=== PATIENT | female | born 1990 | race Caucasian/White ===

== ENCOUNTER → 2019-02-19 15:17 | Outpatient (CLI) | payer MEDICAID, SELFPAY ==
[2019-02-19 10:56] VITALS: BMI 45.8
[2019-02-24 11:53] LABS: HPV Reflexed? NOT INDICATED
== END ==
PROVIDERS: Referring Provider Obstetrics & Gynecology; Visit Provider Obstetrics & Gynecology
DX: Z12.4 Encounter for screening for malignant neoplasm of cervix (principal)
CPT/HCPCS: 87624; 88175; G0145

== ENCOUNTER → 2019-08-05 17:44 | Outpatient (CLI) | payer MEDICAID, SELFPAY ==
[2019-08-05 14:24] VITALS: BMI 45.8
[2019-08-05 21:35] LABS: Chlamydia Trachomatis by PCR Negative (Negative); Neisserai gonorrhoeae by PCR Negative (Negative); Probe Check PASS; Sample Adequacy Control PASS; Specimen Processing Control PASS
== END ==
PROVIDERS: Visit Provider Nurse Practitioner Women's Health
DX: N39.0 Urinary tract infection, site not specified (principal); R10.2 Pelvic and perineal pain; N76.0 Acute vaginitis; A64 Unspecified sexually transmitted disease
CPT/HCPCS: 87070; 87086; 87088; 87205; 87491; 87591

== ENCOUNTER → 2019-08-18 14:36 | Outpatient (CLI) | payer MEDICAID, SELFPAY ==
[2019-08-05 14:24] VITALS: BMI 45.8
--- NOTE | 2019-08-18 14:38 | US_ITS ---
STUDY: ULTRASOUND OF THE FEMALE PELVIS - COMPLETE REASON FOR EXAM: Female, 29 years old. Pelvic pain TECHNIQUE: Transabdominal and Transvaginal TECHNICAL QUALITY: Adequate. COMPARISON: None. FINDINGS: The uterus is anteverted and is in a midline position. The uterus measures 7.8 x 5.5 x 4.4 cm. Normal uterine cervix. The endometrium measures 3 mm in thickness, and is hyperechoic. There is no demonstrated endometrial mass. There is no demonstrated myometrial mass. The right ovary is visualized. The right ovary measures 3.7 x 2.8 x 2.5 cm. There is a 2.5 x 2.4 cm simple cyst in the right ovary. There is no visualized right adnexal mass or complex lesion. There is normal arterial and normal venous vascularity. The left ovary is visualized. The left ovary measures 2.7 x 2.1 x 1.7 cm. There is no left ovarian cyst or ovarian mass. There is no visualized left adnexal mass or complex lesion. There is normal arterial and normal venous vascularity. There is no fluid in the cul-de-sac. US/Transvaginal Non- IMPRESSION: 2.5 cm simple cyst in the right ovary. Otherwise, unremarkable pelvic ultrasound. Electronically Signed: Reece Bustillo, at 21:14 EDT Tel , Service support ,
--- NOTE | 2019-08-18 14:38 | US_ITS ---
STUDY: ULTRASOUND OF THE FEMALE PELVIS - COMPLETE REASON FOR EXAM: Female, 29 years old. Pelvic pain TECHNIQUE: Transabdominal and Transvaginal TECHNICAL QUALITY: Adequate. COMPARISON: None. FINDINGS: The uterus is anteverted and is in a midline position. The uterus measures 7.8 x 5.5 x 4.4 cm. Normal uterine cervix. The endometrium measures 3 mm in thickness, and is hyperechoic. There is no demonstrated endometrial mass. There is no demonstrated myometrial mass. The right ovary is visualized. The right ovary measures 3.7 x 2.8 x 2.5 cm. There is a 2.5 x 2.4 cm simple cyst in the right ovary. There is no visualized right adnexal mass or complex lesion. There is normal arterial and normal venous vascularity. The left ovary is visualized. The left ovary measures 2.7 x 2.1 x 1.7 cm. There is no left ovarian cyst or ovarian mass. There is no visualized left adnexal mass or complex lesion. There is normal arterial and normal venous vascularity. There is no fluid in the cul-de-sac. US/Pelvic (Non ) IMPRESSION: 2.5 cm simple cyst in the right ovary. Otherwise, unremarkable pelvic ultrasound. Electronically Signed: Reece Bustillo, at 21:14 EDT Tel , Service support ,
== END ==
PROVIDERS: Family Provider Family Medicine; PCP Family Medicine; Referring Provider Nurse Practitioner Women's Health; Visit Provider Nurse Practitioner Women's Health
DX: R10.2 Pelvic and perineal pain (principal)
CPT/HCPCS: 76830; 76856; 93976

== ENCOUNTER 2019-09-19 13:13 | Emergency (ER) | payer MEDICAID, SELFPAY ==
[2019-08-05 14:24] VITALS: BMI 45.8
[2019-09-19 13:15] VITALS: BP 122/72; PULSE 93; RESP 18; TEMP 36.6; O2SAT 99; BMI 42.3
--- NOTE | 2019-09-19 13:35 | MRI_ITS ---
STUDY: MRI LUMBAR SPINE WITHOUT CONTRAST REASON FOR EXAM: Female, 29 years old. LBPx 2 months, new onset last night of numbness in groin and left leg TECHNIQUE: Standardized fat and water weighted pulse sequences were obtained in the sagittal and axial planes. COMPARISON: None FINDINGS: T12-L1: Normal endplates. Normal disc height, hydration and morphology. Normal bilateral facet joints. Normal central canal and bilateral lateral recesses. Normal bilateral intervertebral neural foramina. Normal lumbar lordosis. There is no substantial scoliosis. Normal conus medullaris that terminates at the L1-2 level. L1-2: Normal endplates. Normal disc height, hydration and morphology. Normal bilateral facet joints. Normal central canal and bilateral lateral recesses. Normal bilateral intervertebral neural foramina. L2-3: Normal endplates. Normal disc height, hydration and morphology. Normal bilateral facet joints. Normal central canal and bilateral lateral recesses. Normal bilateral intervertebral neural foramina. L3-4: Central disc protrusion and bilateral facet hypertrophy with mild central canal stenosis. L4-5: A central and left paracentral caudally migrating disc extrusion is noted measuring 14 mm craniocaudal by 12 mm wide, with severe left lateral recess stenosis and mass effect on the transiting left L5 nerve root. L5-S1: Bulging annulus and bilateral facet hypertrophy without compressive sequelae. Normal visualized sacral ala. Normal visualized paraspinous soft tissue structures. MRI/Spine Lumbar (Routine) IMPRESSION: Multilevel degenerative disease as described. Caudally migrating disc extrusion at the L4-5 level with mass effect on the transiting left L5 nerve root. Electronically Signed: Harley Cam MD at 19:48 EDT Tel , Service support ,
--- NOTE | 2019-09-19 13:40 | ED.VISSUMM ---
- ER Visit Summary Date of Service: 09/19/19 Chief Complaint: Low back pain with numbness to her left leg History of Present Illness: The patient is a 29 F with degenerative disc disease at L4-5. Is never had back surgery. Patient states she is had intermittent back pain since June. They have treated her with steroids and NSAIDs without significant relief. She is currently undergoing physical therapy and had a second treatment for physical therapy today. She is now developed left leg numbness since yesterday. And pain rating down her left leg. She denies any bowel or bladder incontinence or retention. She is able to urinate. She denies any fever or history of IV drug abuse. Is had no recent trauma to her back. She denies any abdominal pain. She was sent over by the [facility] for further evaluation. Physical Examination: Young female. Vital signs are stable afebrile. She is in pain but otherwise no acute distress. Significant other at bedside. HEENT exam unremarkable. Neck nontender no lymphadenopathy. Lungs clear to auscultation bilaterally. Heart regular rhythm no murmur. Abdomen soft and nontender. Normal bowel sounds no peritoneal signs. Patient moving all 4 extremities. Neurovascularly intact. Back spine is nontender. There is no ecchymosis or bruising no redness or warmth. No paraspinal soft tissue tenderness or signs of trauma. Neurologically she is awake and alert with no focal motor deficits. Lower extremities are neurovascular intact. Subjectively she has decreased sensation in her left leg which she has objective sensation. There is no cauda equina. No saddle anesthesia. She has normal medial thigh sensation. Dorsi and plantar flexion are intact to both legs. She has a positive straight leg raise on the left side somewhere between 15 and 30 degrees with pain going down her leg. Right leg causes increased back pain but no radiation of the pain. Test Results: MRI LS spine without contrast Emergency Department Course and Treatment: Due to the patient's pain, length of time she had the symptoms and now numbness and radiculopathy I ordered an MRI of her LS spine. She was also treated with IV morphine and Zofran and Toradol. Repeat exam patient is doing well at 15:10 PM. No significant changes in some pain relief. She is to get an LS spine MRI but they cannot fit her until 6:30 PM the night she will be turned over to 1 of the afternoon physician. Treatment Plan: [] Disposition: Pending reevaluation and MRI results. Impression: Acute low back pain with left lower extremity radiculopathy and subjective numbness History of degenerative disc disease This note was generated with [employer] dictation software. It may contain incorrect words, spelling, and punctuation that were not noted in review of the chart prior to signing ED Disposition - Plan for ED Patient: Referrals: Harley Brito MD [Primary Care Provider] -
[2019-09-19] MEDS: morphine 8 MG/ML Syringe IV (13:50)
[2019-09-19] MEDS: Ondansetron 4 MG/2 ML Vial IV (13:51)
[2019-09-19 13:52] VITALS: RESP 18
[2019-09-19] MEDS: Ketorolac 30 MG/ML Syringe IV (14:00)
--- NOTE | 2019-09-19 15:40 | ED.DEP ---
ED Disposition - Plan for ED Patient: Disposition: Home or Assisted Living Instructions: BACK PAIN (Acute or Chronic) Referrals: Harley Brito MD [Primary Care Provider] - As soon as possible
[2019-09-19 17:51] VITALS: RESP 18
[2019-09-19 19:33] VITALS: BP 118/63; PULSE 76; RESP 16; O2SAT 98
[2019-09-19] MEDS: Morphine 4 MG/ML Syringe IV (19:34)
--- NOTE | 2019-09-19 20:03 | ED.VISSUMM ---
- ER Visit Summary Date of Service: 09/19/19 Chief Complaint: [] History of Present Illness: The patient is a 29 F [] Physical Examination: [] Test Results: [] Emergency Department Course and Treatment: Clinical Impression(s) from Imaging Studies Lumbar Spine MRI 09/19/19 13:35 IMPRESSION: Multilevel degenerative disease as described. Caudally migrating disc extrusion at the L4-5 level with mass effect on the transiting left L5 nerve root. Electronically Signed: Harley Cam MD at 19:48 EDT Tel , Service support , Treatment Plan: The patient was signed out to me. MRI was reviewed. She does have lateral impingement at the L5 nerve root. She has no weakness and normal reflexes. The patient will be treated with antispasmodics and anti-inflammatories. She was counseled to follow-up with a primary care she may end up needing a spine surgery evaluation. She is comfortable with this plan of care. Disposition: [] Impression: [] This note was generated with [employer] dictation software. It may contain incorrect words, spelling, and punctuation that were not noted in review of the chart prior to signing ED Disposition - Plan for ED Patient: Disposition: Home or Assisted Living Instructions: BACK PAIN (Acute or Chronic) Prescriptions: cycloBENZAPRine HCl [Flexeril] 10 mg PO TID PRN #20 tab PRN Reason: Muscle Spasm Prescription Printed Meloxicam [Mobic] 15 mg PO DAILY #30 tab Prescription Printed Hydrocodone Bitart/Apap 5-325 [[place] 5MG-325MG] 1 tab PO Q6H PRN PRN 3 Days #10 tab PRN Reason: Pain Prescription Printed Referrals: Harley Brito MD [Primary Care Provider] - As soon as possible
[2019-09-19 20:20] VITALS: BP 114/61; PULSE 70; RESP 14; O2SAT 99
== END 2019-09-19 20:21 | disposition home or self-care (01) ==
PROVIDERS: Emergency Provider Emergency Medicine; Family Provider Family Medicine; PCP Family Medicine
DX: M51.16 Intervertebral disc disorders with radiculopathy, lumbar region (principal); K21.9 Gastro-esophageal reflux disease without esophagitis; F32.9 Major depressive disorder, single episode, unspecified; Z79.899 Other long term (current) drug therapy; Z72.0 Tobacco use
CPT/HCPCS: 72148; 96374; 96375; 96376; 99283; J7030; A4216; J2405

== ENCOUNTER 2019-12-05 08:59 | Outpatient (RCR) | payer MEDICAID, SELFPAY ==
--- NOTE | 2019-12-05 10:29 | HP.PTEVAL ---
Patient's Visit Information ARSH FIELD is a 29 year old F referred to Physical Therapy by Harley Brito MD with a diagnosis of L/S RADICULOPATHY L5,SPINAL STENSOSIS. Date of Evaluation: 12/05/19 Physical Therapist: Luis Antonio Guadalupe, PT, Cert MDT, OCS - Visit Plan Frequency: 1-2x /Week Duration: 4 Weeks Plan: PRECAUTION : LATEX ALERGY. PT INTERVENTIONS WITH DLS -NEUTRAL,POSTURAL EX'S,LE FLEXABLITY ,MODALTIES - Subjective Findings: This 29 y/o female presnets to physical therapy lumbar sacral radiculopathy. Patient has had lumbar radicular in June then progressivelly worse in leg. Intially,see chiropractor symptoms worse with manipulation. Then tried different chiropractor estim. Patient had couple sessions with PT pain to intense thus had MRI showing extrusion L4-5. Seen pain management did epidural injection improving,prior provide predisone which helped symptoms.Pain located in left L-S and parathesia lateral tibia. Patient stated weakness left ankle feels like it will give way. Aggravting factors bending ,lifting, ,sitting. Alleviating factors better with moving but extended walking increase symptoms. Coughing/sneezing -. Bowel/bladder-. Patient pain with lumbar radiculopathy affects job demands housework tasks. Patient has h/o lumbar pain 10 years. Patient symptoms affects QOL.PRECAUTION: LATEX ALERGY. SOCIAL: single. 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 GAIT: reciprocal pattern. NEURO:c/o parathesia/tingling left lateral leg ,reflexes L3-4,L5-S1 2/3,mytomes intact. SYMMTRIES: align. PALAPTION: unremarkable. GAIT: reciprocal pattern. MMT: quads/hams 4/5,hip flexion ,abduction,dorsiflexion ,GTE 4/5. LUMBAR ROM: flexion mod loss,extension min/mod loss,side glides min loss. FLEXABLITY: hams min loss. INTACT HEEL/TOE WALKING. MUSCULAR ENDURANCE: FAIR unable to hold - Special Tests L/S Slump test left side: Positive L/S Slump test right side: Negative L/S Left Straight Leg Raise: Negative L/S Right Straight Leg Raise: Negative Lumbar Standing: Flexion - Mechanical Response: No effect Lumbar Standing: Flexion - Symptoms During Testing: Increases Lumbar Standing: Flexion - Symptoms After Testing: Worse Lumbar Standing: Extension - Mechanical Response: No effect Lumbar Standing: Extension - Symptoms During Testing: Increases Lumbar Standing: Extension - Symptoms After Testing: Worse Lumbar Standing: Right Side Glides - Mechanical Response: No effect Lumbar Standing: Right Side [place] - Symptoms During Testing: No effect Lumbar Standing: Right Side [place] - Symptoms After Testing: No effect Lumbar Standing: Left Side [place] - Mechanical Response: No effect Lumbar Standing: Left Side [place] - Symptoms During Testing: No effect Lumbar Standing: Left Side [place] - Symptoms After Testing: No effect Lumbar Lying: Flexion - Mechanical Response: No effect Lumbar Lying: Flexion - Symptoms During Testing: Decreases Lumbar Lying: Flexion - Symptoms After Testing: No better Lumbar Lying: Extension - Mechanical Response: No effect Lumbar Lying: Extension - Symptoms During Testing: Increases Lumbar Lying: Extension - Symptoms After Testing: No worse - Goals Goal 1:: Independant with HEP Goal Time Frame: 4-6 Weeks Goal 2:: Improve posture for job demnads Goal Time Frame: 4-6 Weeks Goal 3:: Decrease lumbar pain by 75% or > to improve QOL and function Goal Time Frame: 4-6 Weeks Goal 4:: Patient to improve lumbar ROM for function of recovery Goal Time Frame: 4-6 Weeks Goal 5:: Patient to improve back owestry score by 5 poins or > to improve QOL. Goal Time Frame: 4-6 Weeks - Rehabilitation Potential Physical Therapy Diagnosis: This patient has extrusion disc L4-5 with radicular symptoms in left leg affect weakness in leg,decrease lumbar ROM,pain impairs ADLS and job demnads along with core weakness Rehabilitation Potential: Good - Anticipated Interventions Patient/Client Instruction: Educate patient on: Condition, Plan of Care For the Purpose of:: To decrease pain, To increase ROM, To improve muscle performance and motor function, To improve ability to perform ADL's, To increase tolerance to activity/condition/position, To improve ability of physical actions for home/community/work/leisure, To improve gait and locomotor functions, To improve health of tissue, To decrease soft tissue restriction, To increase flexibility/ROM, To reduce risk of recurrence, To improve ability to perform tasks related to life management Therapeutic Exercise to Include: Strength training, Body mechanics, Postural training, Flexibilty training, Dynamic Lumbar Stabilization For the Purpose of:: To decrease pain, To increase ROM, To improve muscle performance and motor function, To improve ability to perform ADL's, To increase tolerance to activity/condition/position, To improve ability of physical actions for home/community/work/leisure, To improve health of tissue, To decrease soft tissue restriction, To increase flexibility/ROM, To reduce risk of recurrence, To improve ability to perform tasks related to life management TENS: Yes IF ES: Yes Cryotherapy (ice pack, ice massage): Yes Thermo therapy (hot pack): Yes Ultrasound (thermal/non thermal): Yes For the Purpose of:: To decrease pain, To increase ROM, To improve nutrient delivery to tissue, To increase oxygenation perfusion, To improve health of tissue, To decrease soft tissue restriction Thank you for the opportunity to evaluate your patient. For Medicare and Medicare HMO plans, please review the plan of care and approve it. It will need to be FAXED BACK to us at [phone] for Medicare purposes. For Medicare only, by signing this I certify the plan of care. Please let me know if there are questions or concerns regarding this plan of care. Physician Signature: Date:
--- NOTE | 2020-02-18 15:22 | HP.PT.NRP ---
ARSH FIELD was seen in my office for initial evaluation on 12/05/19. The following Plan of Care was established for this patient: Initial Frequency: 1-2x /Week Initial Duration: 4 Weeks Patient/Client Instruction: Educate patient on: Condition, Plan of Care For the Purpose of:: To decrease pain, To increase ROM, To improve muscle performance and motor function, To improve ability to perform ADL's, To increase tolerance to activity/condition/position, To improve ability of physical actions for home/community/work/leisure, To improve gait and locomotor functions, To improve health of tissue, To decrease soft tissue restriction, To increase flexibility/ROM, To reduce risk of recurrence, To improve ability to perform tasks related to life management Therapeutic Exercise to Include: Strength training, Body mechanics, Postural training, Flexibilty training, Dynamic Lumbar Stabilization For the Purpose of:: To decrease pain, To increase ROM, To improve muscle performance and motor function, To improve ability to perform ADL's, To increase tolerance to activity/condition/position, To improve ability of physical actions for home/community/work/leisure, To improve health of tissue, To decrease soft tissue restriction, To increase flexibility/ROM, To reduce risk of recurrence, To improve ability to perform tasks related to life management TENS: Yes IF ES: Yes Cryotherapy (ice pack, ice massage): Yes Thermo therapy (hot pack): Yes Ultrasound (thermal/non thermal): Yes For the Purpose of:: To decrease pain, To increase ROM, To improve nutrient delivery to tissue, To increase oxygenation perfusion, To improve health of tissue, To decrease soft tissue restriction This patient was last seen in our office . Pertinent comments regarding their Physical therapy will appear below: Patient seen for PT intial evaluation thus d/c. At this point I will be discontinuing this patient from physical therapy. I would be happy to see this patient again in the future if found appropriate by the physician. Thank you! Luis Antonio Guadalupe, PT, Cert MDT, OCS
== END 2019-12-05 19:00 | disposition home or self-care (01) ==
LOC: PT 08:59
PROVIDERS: Family Provider Family Medicine; PCP Family Medicine; Referring Provider Family Medicine; Visit Provider Family Medicine
DX: M54.17 Radiculopathy, lumbosacral region (principal); M48.061 Spinal stenosis, lumbar region without neurogenic claudication
CPT/HCPCS: 97110; 97162

== ENCOUNTER 2020-08-04 09:00 | Outpatient (RCR) | payer MEDICAID, SELFPAY ==
[2020-04-01 11:13] VITALS: BMI 42.3
--- NOTE | 2020-08-04 10:12 | BH.NA_ITS ---
Physical Data - Vital Signs Pulse Rate: 80 Blood Pressure: 119/79 - Height/Weight Height: 1.68 m Weight:: 129.274 kg Weight in Pounds: 285.0 lbs Current Medication Compliance - Medication Compliance Do you take your medication as prescribed?: Yes Nutritional History - Appetite Nutritional Instructions:: If client shows signs of a swallowing problem, weight change of 10 pounds or more in the last month, or is on a diabetic diet, the physician will review and request a dietitian consult, as appropriate. All unintentional weight loss will be referred to the physician for decision on need for dietitian consult. Describe your appetite:: Good Additional nutritional information:: Client notes 20-30lbs weight gain since January 2020. Functional Assessment - Sleep Pattern Describe any problems with sleeping: Client states she sleeps 9 or more hours per night, stating sometimes she naps during the day. - Activities Motor Activity:: Functional Sensory/Communication Assess - Communication Problems Do you have difficulty understanding what people are saying?: No Medical Problems/History - Metabolic Conditions Metabolic: Other (See comments) - PCOS - Musculoskeletal Conditions Musculoskeletal: Other (See comments) Comments:: spinal stenosis - Pain Assessment Do you have acute or chronic pain?: No - takes aleve for aches/pains due to working - Family History Family History: Family History (Last Reviewed 04/01/20 @ 11:12 by Lisa Aceves) Grandmother Diabetes CVA (cerebral vascular accident) COPD (chronic obstructive pulmonary disease) Grandfather Diabetes Heart disease Surgical History - Surgical History Have you had any surgeries? If so, list type and date:: Yes - pepper, tonsil/adenoids removed Substance Abuse - Substance Abuse Please describe substance abuse in the last 30 days:: Client states she used to binge drink at times prior to having her daughter 5 years ago. Client states she now drinks maybe one drink per week. Client reports smoking cigarettes in the past and infrequently now. Client states she uses CBD at times but is not sure of all the ingriedents. Client states she drinks 2 large coffees on days that she works. Mental Status Summary - Mental Status Significant Findings/Observations on Appearance and Mood:: Client is alert and oriented x 4. Client is casually groomed. Client is cooperative with assessment. Client makes good eye contact. Client is wearing a mask due to COVID19 pandemic. Client has good concentration during assessment. Client appears mildly anxious and depressed. Client denies hallucinations/delusions. Client denies SI. Suicide Assessment - Suicidal Ideation Are you currently or have you been suicidal in the past?: Yes - denies SI on this date Suicidal Intentional Rating Scale (SIRS): Suicidal thoughts (past) Physician Notification: If Active suicidal thoughts/Will not contract for safety is checked, contact physician and document in the Physician Notification section below. Past Psychiatric History - MH Treatment Hx Past Psychiatric Medications:: Lamictal, Prozac, Adderal, Vyvanse, Cymbalta, Abilify, Zoloft. Age of first mental health symptoms: Client states she was first diagnosed with depression and anxiety around age 14-15. Describe (age, circumstance, etc) any past hospitalizations: Client was hospitalized once around 2009 in [place], and in 2014 at [place] for SI. Client was also in an IOP program in 2017 at [facility]. Current providers for mental health treatment (counselor, psychiatrist, case worker, etc.): None. Client states she attempted therapy twice this year- once it was interrupted by COVID pandemic, the other time the therapist she saw went on medical leave. Fall Risk Assessment - Age Age: Less than 60 - Mental Status Mental Status: Willing & able to ask for assistance when needed - Physical Status Physical Status: No problems - Impairments Impairments: None - Elimination Elimination: Continent AND independent - Gait or Balance Gait or Balance: Walks independently - Hx of Falls History of falls in the past 6 months: No known history - Medications/Substances Psychotropics:: Antidepressants Medications/substances used within the past 24 hours or ordered to administer: 1-2 of the medications/substances listed above - Total Score Total Points:: 1 RN Summary of Impressions - Impressions Recommendations: Include psychiatric and medical issues, treatment planning recommendations, and discharge planning needs. Impressions: Psychiatric Issues: major depressive disorder, recurrent, severe without psychosis. Generalized anxiety disorder. - Level of Care How do the client's current symptoms and functional deficits support need for this level of care?: Client referred herself to this IOP program. Client states when 2 attempts at therapy fell through this year, she wanted to be proactive and get consistent help. Client states her mental health symptoms have been worsening somewhat since January 2020 when COVID pandemic started, but states they got really bad in the last couple of months. Client states she moved out of her moms house and into an apartment with her 5 year old daughter and feels more depressed and like a failure. Client states she is very critical of herself. Abdulkadir mejia also states that her grandmother is on hospice and actively dying and this is very stressful for her. Client states she feels periods of time where her anxiety causes her to feel chest pressure and a fluttering feeling. Client also endorses feelings of hopelessness, worthlessness, anhedonia, isolation, avoidant behaviors, and constantly feeling like a failure. Client denies SI. IOP will promote gains and prevent further decompensation while providing social support and skills training.
[2020-08-04 10:51] VITALS: BP 119/79; PULSE 80
--- NOTE | 2020-08-04 11:12 | BH.SGPN.GN ---
Behaviors/Verbalizations/Mental Status: []Client alert and oriented, casually dressed. Eye contact good. Motor activity appropriate. Speech within normal limits. Affect congruent, mood anxious and depressed. Thoughts linear, logical, no signs of hallucinations or delusions. Client Response/Progress/Benefit: []Client was an active participant AEB client providing input throughout session and completing worksheet. Client attentive during psychoeducation and additional discussion on cognitive distortions. Client engaged in discussion about how to reframe distorted thoughts using T.H.I.N.K into more realistic, rational statements. Client worked with her small group to challenge the distortion ?I?m never going to get better.? Group identified distortions of black and white thinking, overgeneralizing, and catastrophizing. Group reframed the thought to ?I may not get fully better, but that doesn?t mean I can?t have a good life.? Client filled out her GAPs worksheet with the gameplan to write out her negative thoughts and put them into categories of ?thoughts that help and thoughts that harm.? Client shared she can also practice opposite action when she has a distorted thought. Client seemed to benefit from practicing identifying and reframing distorted thoughts. Client?s first day of IOP. Will continue IOP tx to prevent decompensation, improve mood stability, and increase confidence. Narrative Note: []
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
--- NOTE | 2020-08-04 12:50 | BH.DR.ITP ---
Initial Treatment Plan - Patient Information Visit Information: ADMISSION DATE: EXPECTED LOS: 4-6 weeks - Problems/Symptoms Problem #1:: Depression Symptom:: Sadness, anhedonia, low energy, decreased concentration, hopelessness, worthlessness, guilt Problem #2:: Anxiety Symptom:: Rumination, panicky feelings
--- NOTE | 2020-08-06 09:00 | BH.SGPN.GN ---
Behaviors/Verbalizations/Mental Status: [] Eye contact is good. Motor activity is appropriate. Appearance is causal. Speech is Appropriate. Mood is depressed. Affect is flat. Thoughts are linear and logical. No evidence of psychosis. Reviewed daily check in sheet and no reports of suicidal ideations or intent. Client Response/Progress/Benefit: [] Pt participated at times during group discussion. Attentive AEB heading nodding at times. Daily symptom tracker notes 3/5 for agitation, 2/5 for anxiety, and 1/5 for hopelessness. Pt shared with the group that she has been working on identifying and challenging her cognitive distortions. Also has started to practice opposite action. Shared that her GMA yesterday and that today was her daughter's first day of Kindergarten. Notes several significant life events in the past few days all with differing emotions. States I'm overwhelmed but I'm not showing it. Pt's current strategy is to stay busy, focused on tasks, and to some degree distracted. Group provided support and encouragement which was beneficial. Progress noted per pt report as she is working on skills and managing significant stressors. Will continue in IOP to maintain safety, increase healthy coping, stabilize mood, and improve functioning. Narrative Note: []
--- NOTE | 2020-08-06 10:05 | BH.SGPN.GN ---
Behaviors/Verbalizations/Mental Status: []Client alert and oriented, casually dressed and groomed. Eye contact good. Motor activity appropriate. Speech within normal limits. Affect unable to gather due to wearing mask per COVID-19 protocol, mood dysthymic, anxious. Thoughts linear, logical, no signs of hallucinations or delusions. Client Response/Progress/Benefit: []Client was an active participant AEB providing input during discussion and listening attentively to others. Contributed to discussion of the quote and stated ?doing the uncomfortable is hard and we often want to run or fight.? Did well to identify benefits of sitting with the uncomfortable and facing anxieties rather than ?running?. Client connected with discussion on the difference between ?normal? anxiety and when anxiety becomes problematic. Gained awareness of personal physical symptoms of anxiety which included: biting the inside of her cheek, restlessness, and heaviness in her chest. Client also identified common negative or anxious thoughts she has used when experiencing anxiety which included: self-doubting, catastrophizing or assuming the problem is greater than her ability to cope with it, and minimizing. Client appeared to benefit from gaining insight to physical signs of anxiety and common cognitive symptoms as well. Progress noted in increased engagement and improved ability to identify own factors contributing to personal anxiety levels. Continues to struggle with self-care and prioritizing her own mental health needs. Will continue IOP to increase healthy coping skills, challenge distorted thoughts, and improve self-care. Narrative Note: []
--- NOTE | 2020-08-06 11:06 | BH.SGPN.GN ---
Behaviors/Verbalizations/Mental Status: []Client alert and oriented, neatly dressed and groomed. Eye contact good. Motor activity appropriate. Speech within normal limits. Affect unable to gather due to wearing a mask for COVID-19 protocol, mood dysthymic. Thoughts linear, logical, no signs of hallucinations or delusions. Client Response/Progress/Benefit: []Client was an active participant in group discussion and provided insight on group topic. Attentive during psychoeducation on mindfulness coping skills and their impact on her mental health wellness. Client was able to identify self-soothing and mind-based coping skills she wants to incorporate into her current coping skills. Client reports she has been trying to incorporate mindfulness more regularly as she finds benefits in being more present. The skills Client chose to practice were breathing and counting, yoga, and self-validation. First week of IOP and client appears to be engaging well in group AEB her active participation in discussions. Receptive to incorporating new skills. Will continue in IOP to prevent decompensation, increase emotional regulation skills, and improve self-care. Narrative Note: []
--- NOTE | 2020-08-11 09:05 | BH.SGPN.GN ---
This psychotherapy group was provided via telehealth using two-way, real-time interactive telecommunication technology between the patients and the provider. The interactive telecommunication technology included audio and video. The patient was offered telemedicine as an option for care delivery during the COVID-19 pandemic and consented to this option. Patient location: [place] Provider located at [facility] Behaviors/Verbalizations/Mental Status: []Client alert and oriented, casually dressed and appropriately groomed. Eye contact good. Motor activity appropriate. Speech within normal limits. Affect constricted. mood depressed. Tearful at times. Thoughts linear, logical, no signs of hallucinations or delusions. Client Response/Progress/Benefit: []Pt responded well to session AEB pt listening attentively to peers and openly sharing thoughts and feelings. Pt stated she has been stressed because of the passing of her grandma last week. Pt reported time management has been hard with the and other events for her grandma's . Pt stated she went to the on Sunday and decided to stay an extra night to be with family. Pt reported she regrets staying because realized she doesn't have very much in common with her family. Pt stated she felt like the outcast. Pt stated she had negative self-talk and predicting the future. Pt reported she used assertiveness and focusing on her own needs when told her boyfriend not to go to the with her. Pt stated her boyfriend stated to her earlier in the week that he didn't want to go but would if she wanted him there. Pt recognized having him there would add more stress to her plate so chose what was best for her. Pt stated since returning home from the she has been feeling sad and overwhelmed. Pt seemed to benefit from support from peers. Pt to continue IOP to increase healthy skills, challenge negative thoughts and prevent decompensation. Narrative Note: []
--- NOTE | 2020-08-11 11:20 | BH.SGPN.GN ---
This psychotherapy group was provided via telehealth using two-way, real-time interactive telecommunication technology between the patients and the provider.?The interactive telecommunication technology included audio and video.? ?The patient was offered telemedicine as an option for care delivery during the COVID-19 pandemic and consented to this option. ?Patient location: [place] ?Provider located at [facility] Behaviors/Verbalizations/Mental Status: []Client alert and oriented, casually dressed and groomed. Eye contact good. Motor activity appropriate. Speech within normal limits. Affect congruent. Mood anxious. Thoughts linear, logical, no signs of hallucinations or delusions. Client Response/Progress/Benefit: []Client was engaged throughout AEB contributing to discussion and sharing her worksheet. Client reported staying her in comfort zone has kept client from communicating needs and practicing self-compassion. Client identified three small goals to get client out of her comfort zone which included: . practicing self-compassion, completing a skin-care routine 3x a week, and challenging negative thoughts. Client identified her barriers to be: self-judgement, lack of motivation, and anxiety. Client shared she would like to first work on recognizing and challenging her negative thinking using T.H.I.N.K. and opposite action. Client shared she can hold herself accountable by journaling. Appeared to benefit from psychoeducation and working with the group to brainstorm strategies for improving personal accountability. Progress noted AEB client?s high engagement in group sessions. Will continue IOP tx as client continues to struggle with managing depressive and anxiety symptoms and this impacts daily functioning. Narrative Note: []
--- NOTE | 2020-08-11 13:07 | BH.MTP_ITS ---
Master Treatment Plan - Patient Information Program Physician:: Dr. Rafia Temple Primary Therapist:: Denise Mosley - Psychiatric Diagnoses Psychiatric Diagnoses:: Major depressive disorder, recurrent, severe without psychosis F33.2; generalized anxiety disorder Diagnosis Code(s):: F33.2 - Estimated LOS Estimated LOS (in weeks):: 6 Problem/Goal #1 - Problem/Goal #1 Stated Goal:: Client will decrease depressive symptoms, isolation, negative self-talk, and inappropriate guilt due to major depression disorder. Description of Barriers: Client reports high expectations for herself, perfectionistic tendencies, and self-blame. Client recently moved into an apartment with her daughter which is the first time client has lived alone. This is one of the events that triggered client's exacerbation of symptoms. Client is not currently connected with outpatient providers. Client reports family support in some areas, but client shared her mother and sister can trigger increased negative thinking for client. Client is currently in a relationship and client reports some interpersonal relationship issues. Functional Impact: Client is a 30-year-old female with a history of depression and ADHD. Client has two previous hospitalizations with the most recent being 2014 at [facility]. Client was self-referred to IOP due to decompensation since May 2020. Client reports increased depression and anxiety which has been impacting her daily functioning. Client endorses no energy, low motivation, hopelessness, worthlessness, inappropriate guilt, anhedonia, and isolative behaviors. Client also reports passive suicidal ideations, but denies any intent sharing her daughter is client's protective factor. Client endorses frequent panic attacks, poor concentration, and ruminations. Client admits to perfectionistic tendencies and acknowledges she has unrealistic expectations of herself and endorses excessive self-blame. Client reports psychosocial stressors such as first time living on her own with her daughter and client's grandmother passing away. Client's symptoms are currently impacting her social, familial, and daily functioning. Goal Relevant Strengths/Supports: Client presents as a kind, intelligent, and highly motivated woman who reports a desire to improve her mental health and functioning. Client has participated in an IOP program in the past, so client has good self-awareness of her symptoms, triggers, and warning signs. Client self-reports willingness to try new skills and is receptive to homework outside of IOP. Client has family support and a 5-year-old daughter. - Objectives Objective #1 Stated Objective: Client will learn and utilize 2-3 healthy coping strategies to better manage depressive symptoms as shown by a reduced DSM-5 scores for depression. Interventions: Through group and individual sessions, therapist will help client identify triggers and warning signs of depression and emotional dysregulation including emotional, physical, and behavioral changes. Therapist will teach client various coping skills to manage her symptoms and give client tangible resources to use to regulate emotions. Therapist will use cognitive restr ucturing techniques and help client gain awareness of negative thoughts that reinforce guilt and depression. Therapist will provide psychoeducation on maintenance cycles and help client learn ways to break unhealthy maintenance cycles. Therapist will help client incorporate behavioral activation and assist client in setting SMART goals. Discharge Criteria: Client will have met this goal when she can report learning and using at least 2 coping skills to manage depressive symptoms. Additionally, client will have met this goal when her depressive symptoms have reduced on the DSM-5 scale. Target Date: 09/15/20 Review Date: 09/03/20 Status: open Objective #2 Stated Objective: Client will identify at least 2-3 negative self-talk messages used to reinforce negative core beliefs and low self-worth and replace thoughts with more realistic messages. Interventions: Therapist will help client identify distorted, negative beliefs about self and replace with more realistic, affirmative messages. Therapist will use CBT to help client increase insight to the connection between thoughts, emotions, and behaviors. Therapist will also use dialectical thinking to help client combat all or nothing expectations and perfectionism. Therapist will en courage client to practice thought challenging. Discharge Criteria: Client will have achieved this goal when can verbalize at least 2 negative self-talk messages and effectively replace those thoughts with affirmative messages. Target Date: 09/15/20 Review Date: 09/03/20 Status: open Problem/Goal #2 - Problem/Goal #2 Stated Goal:: Client will decrease intensity, duration, and frequency of anxiety so that daily functioning is not impaired. Description of Barriers: Client reports high expectations for herself, perfectionistic tendencies, and self-blame. Client recently moved into an apartment with her daughter which is the first time client has lived alone. This is one of the events that triggered client's exacerbation of symptoms. Client is not currently connected with outpatient providers. Client reports family support in some areas, but client shared her mother and sister can trigger increased negative thinking for client. Client is currently in a relationship and client reports some interpersonal relationship issues. Functional Impact: Client is a 30-year-old female with a history of depression and ADHD. Client has two previous hospitalizations with the most recent being 2014 at [facility]. Client was self-referred to IOP due to decompensation since May 2020. Client reports increased depression and anxiety which has been impacting her daily functioning. Client endorses no energy, low motivation, hopelessness, worthlessness, inappropriate guilt, anhedonia, and isolative behaviors. Client also reports passive suicidal ideations, but denies any intent sharing her daughter is client's protective factor. Client endorses frequent panic attacks, poor concentration, and ruminations. Client admits to perfectionistic tendencies and acknowledges she has unrealistic expectations of herself and endorses excessive self-blame. Client reports psychosocial stressors such as first time living on her own with her daughter and client's grandmother passing away. Client's symptoms are currently impacting her social, familial, and daily functioning. Goal Relevant Strengths/Supports: Client presents as a kind, intelligent, and highly motivated woman who reports a desire to improve her mental health and functioning. Client has participated in an IOP program in the past, so client has good self-awareness of her symptoms, triggers, and warning signs. Client self-reports willingness to try new skills and is receptive to homework outside of IOP. Client has family support and a 5-year-old daughter. - Objectives Objective #1 Stated Objective: Client will identify 2-3 cognitive distortions that lead to rumination and learn 2-3 ways to manage these thoughts to better manage anxiety and stress. Interventions: Therapist will provide education on the most common cognitive distortions and teach client the connection between thoughts, emotions, and feelings. Therapist will assist client in identifying, challenging, and replacing dysfunctional thoughts with positive, more realistic thoughts. Therapist will use CBT and DBT techniques to help client gain awareness of thinking errors and learn how to more effectively handle negative thoughts. Discharge Criteria: Client will have accomplished this goal when can identify at least 2 cognitive distortions and at least 2 coping skills to manage negative thoughts. Target Date: 09/15/20 Review Date: 09/03/20 Status: open Objective #2 Stated Objective: Client will identify 2-3 anxiety triggers and 2 calming coping skills to reduce anxiety as shown by decreased DSM-5 cross cutting symptom measure scores. Interventions: Therapist will help client increase awareness of anxiety triggers and educate client on personal core beliefs associated with anxiety. Therapist will teach client various calming and mindfulness strategies to promote emotional regulation and reduction of anxiety. Therapist will encourage client to implement healthy coping skills on a regular basis and increase self-care in all areas. Discharge Criteria: Client will have accomplished this goal when can report at least 2 triggers for anxiety and 2 calming strategies to manage symptoms. Additionally, client will have accomplished this goal when she can report reduced DSM-5 cross cutting symptoms for anxiety. Target Date: 09/15/20 Review Date: 09/03/20 Status: open
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
--- NOTE | 2020-08-11 15:03 | BH.MDN_ITS ---
Multi-Disciplinary Note - Note 30-min Individual Time Started:: 12:20 Date: 08/11/20 Purpose of session/treatment goals addressed:: The purpose of this session was to gather information on client's current stressors, symptoms, and treatment goals. Another goal was to build rapport. Symptoms/Behavior:: This counseling session was provided via telehealth using two-way, real-time interactive telecommunication technology between the patient and the clinician.? The interactive telecommunication technology included audio and video.? The patient was offered telehealth as an option for care delivery during the COVID-19 pandemic and consented to this option. Patient location: [place]. Provider located at [facility] Eye Contact:: Good Motor Activity:: Appropriate Appearance:: Casual Speech:: Appropriate Mood:: Anxious, Dysthymic Affect:: Congruent Thoughts:: Linear, Logical, No evidence of hallucinations/delusions noted Staff Interventions:: Therapist used active listening and open-ended questions to explore client's current stressors, symptoms, history, and treatment goals. Therapist used strengths perspective to build rapport and provide emotional support. Therapist provided psychoeducation distortions and self-compassion. Therapist gave client encouragement and normalized the impact that mental health has on functioning. Therapist reviewed the different areas of self-care and encouraged client to reflect on her self-care balance. Client Response:: Client responded well to session, open to meeting with therapist. Client stated she has been in therapy in the past as well as an IOP. Client stated belief that she has good insight to warning signs and has coping skills, but client wants to dive deeper. Client reported she wants to work on challenging her negative thoughts, self-validation, building meaningful relationships, expressing her emotions, self-compassion, and increasing confidence. Client reported her family provides a lot of support, but she struggles to get emotional support from her family. Client shared her father has the potential to be an emotional support for client and client would like to bring him in for a session at some point. Client shared her mother and sister often trigger negative thoughts in client, so client avoids reaching out to them. Client shared overall her social self-care is lacking, and client would like to improve this. Client stated she does not have many close friends. Client receptive to learning about the different areas of self-care and was receptive to reflecting on her self-care balance for homework. Risks/Concerns:: Client denies any suicidal ideations, plan, or intent as of 08/11/20. Client is future oriented and her daughter is a protective factor. Progress Toward Goals/Plan:: First time meeting with therapist. Client shared she has a lot of self-awareness and knows the coping skills but I want to go deeper while in IOP. Client has participated in IOP and outpatient counseling in the past. Client endorses a depressed mood, anhedonia, crying spells, inappropriate guilt, negative self-talk, lack of motivation, passive wishes of , ruminations, and constantly feeling anxious. Client's symptoms have been impacting her relationships and client often blames herself as a mother. Will continue IOP tx to prevent decompensation, reduce intensity of symptoms, and reduce negative thoughts that reinforce depression. Time Stopped:: 12:56
--- NOTE | 2020-08-12 09:05 | BH.SGPN.GN ---
Behaviors/Verbalizations/Mental Status: []Client alert and oriented, casual dress, hygiene tended to. Eye contact good. Motor activity appropriate. Speech within normal limits. Affect could not be assessed due to pt wearing a face mask as requirement of COVID-19. mood depressed and anxious. Thoughts linear, logical, no signs of hallucinations or delusions. Reviewed client?s symptom tracker, pt denies current suicidal thoughts or intention to date. Client Response/Progress/Benefit: [] Patient responded well to session as evidenced by patient listening attentively to others per her, providing feedback to peers, and sharing thoughts and feelings. Patient stated she has been struggling the past few days because her brain is scattered which results in her overthinking everything. Patient reported she feels stuck between having awareness of what she needs to do and taking action on those things. Patient stated she is constantly in cruz with myself in regards to if what I am doing is good or bad. 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 Patient receptive to feedback about identifying 1 goal per day of something she would like to accomplish within her home. Patient identified a positive was asking for help today so that she could come to IOP. Patient stated benefit from support from peers. Patient to continue IOP level of care to increase healthy coping skills, challenge distorted and negative thought patterns, and prevent decompensation. Narrative Note: []
--- NOTE | 2020-08-12 10:16 | BH.SGPN.GN ---
Behaviors/Verbalizations/Mental Status: []Client alert and oriented, neatly dressed and groomed. Eye contact good. Motor activity appropriate. Speech within normal limits. Affect unable to gather due to wearing a mask for COVID-19 protocol, mood dysthymic. Thoughts linear, logical, no signs of hallucinations or delusions Client Response/Progress/Benefit: []Client was an active participant in group discussion, providing input throughout. Client worked with peers on defining goals and brainstormed with the group the benefits of goal setting which included: increased motivation, sense of accomplishment, increased confidence, growth, and purpose. Client helped group discussed the barriers that keep people from either setting goals are following through with goals. Client gave examples of imposter syndrome, black and white thinking, and not celebrating successes as barriers to following through with goals. Client also stated she struggles with constantly striving for perfection, so client feels like she must go ?above and beyond? to achieve a goal. Able to provide feedback during psychoeducation on SMART goals. Client appeared to benefit from learning the mental health benefits of setting goals that are SMART. Will continue IOP tx reduce depressive symptoms, improve daily functioning, and decrease negative self-talk. Narrative Note: []
--- NOTE | 2020-08-12 11:19 | BH.SGPN.GN ---
Behaviors/Verbalizations/Mental Status: []Eye contact is good. Motor activity is appropriate. Appearance is casual. Speech is Appropriate. Mood is dysthymic, anxious. Affect unable to gather due to wearing a mask as COVID protocol. Thoughts are linear and logical. No evidence of psychosis Client Response/Progress/Benefit: []Client was engaged during discussion, did well to complete activity and process with the group. Providing insight as to how activity relates to setting and attaining goals in own life. Client was willing to complete the worksheet in which she was challenged to develop a personal SMART goal. Client chose the goal; to turn negative thoughts into a positive action/or opportunity to use healthy coping at least once a day for one week. When asked why this goal was important and beneficial to client's mental health, she stated her goal will prevent getting ?stuck?, reduce negative thoughts, and improve ability to cope. Identified the following barriers to completing this goal which included: all or nothing thinking, avoiding, isolation, and negative self-talk. Identified solutions to barriers which included: starting small, opposite action, reaching out to supports, and body scanning. Benefited from this group by developing a short-term SMART goal related to mental health. Will continue IOP tx to prevent decompensation, improve daily functioning, and increase mood stability. Narrative Note: []
--- NOTE | 2020-08-17 09:05 | BH.SGPN.GN ---
Behaviors/Verbalizations/Mental Status: []Client alert and oriented, casual dress, hygiene tended to. Eye contact fair. Motor activity appropriate. Speech within normal limits. Affect constricted, mood depressed. Thoughts linear, logical, no signs of hallucinations or delusions. Reviewed client?s symptom tracker, pt denies current suicidal thoughts or intention to date. Client Response/Progress/Benefit: []Pt responded well to session AEB pt appearing to listen attentively to peers and openly sharing thoughts and feelings. 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 Pt reported she worked all weekend and when she was home she chose to sleep or veg out. Pt stated she can't seem to apply the skills she knows outside of the treatment environment. Pt receptive to ideas on how to increase her accountability of applying skills. Pt identified a positive was asking for help from two different people over the weekend. Pt identified her stressor to be might have to end her current relationship because unsure it is healthy. Progress limited AEB pt reporting difficulty applying skills outside tx environment. Pt to continue IOP to increase healthy coping, challenge negative thoughts and prevent decompensation. Narrative Note: []
--- NOTE | 2020-08-17 10:25 | BH.SGPN.GN ---
Behaviors/Verbalizations/Mental Status: []Client alert and oriented, casual dress, hygiene tended to. Eye contact good. Motor activity appropriate. Speech within normal limits. Affect unable to gather due to wearing a mask, mood dysthymic and irritable. Thoughts linear, logical, no signs of hallucinations or delusions. Client Response/Progress/Benefit: []Client responded well to session, providing feedback to peers and insight to discussion. Engaged during psychoeducation portion reviewing fixed mindset. Client connected with traits of the fixed mindset and worked with group to identify how a fixed mindset can impact our mental health which included: decreased motivation, giving up when faced with a setback, negative self-talk, low confidence, and staying stuck. Client reported she has fixed thoughts about her intelligence and abilities. Client shared ?I avoid things I?m not good at right away.? Client also shared she will overcompensate striving for perfectionism. Client acknowledges these thoughts and behaviors only reinforce anxiety and negative self-talk. Seemed to benefit from group by increasing awareness of how one's mindset impacts mental health. Progress noted AEB client continuing to demonstrate increased self-awareness of negative and distorted thoughts with improved ability to challenge thoughts. Client will continue IOP tx to promote self-care, reduce negative thinking, and improve daily functioning. Narrative Note: []
--- NOTE | 2020-08-17 11:22 | BH.SGPN.GN ---
Behaviors/Verbalizations/Mental Status: []Client alert and oriented, casually dressed and groomed. Eye contact good. Motor activity appropriate. Speech within normal limits. Affect unable to gather due to client wearing a mask as part of COVID-19 protocol. mood depressed. Thoughts linear, logical, no signs of hallucinations or delusions. Client Response/Progress/Benefit: [] Client actively listening during discussion, provided positive input and insight, as well as taking notes throughout. She did well to work with group on identifying characteristics and benefits of adopting a growth mindset. Reports that a growth mindset could help to keep her from fixating on what?s not working and encourage her to take steps towards holding herself accountable. Client participated during activity in which participants helped reframe examples of fixed thoughts into growth mindset thoughts. Client worked to apply skills learned to reframe own personal fixed thoughts. Reframed thought of ?I?m bad at maintaining relationships and don?t make friends easily? with growth mindset thought of ?I can work on becoming more comfortable with meeting new people and developing new relationships, so I don?t feel as awkward?. Able to identify benefit of reframing her thoughts and indicated one potential benefit as feeling more capable of making changes and motivated to do so. Benefitted from discussing benefits of growth mindset and brainstorming strategies for prompting growth-mindset. Client progress noted in self-report of increased insight regarding how her own thoughts and behaviors impact her mental health; however, continues to struggle with application of skills to challenge and replace behaviors reinforcing depression. Will continue IOP tx to continue to promote use of healthy change behaviors and improve skill application as well as improve healthy coping repertoire. Narrative Note: []
--- NOTE | 2020-08-17 14:24 | BH.MDN ---
Multi-Disciplinary Note - Note 60-min Individual Time Started:: 12:28 Date: 08/17/20 Purpose of session/treatment goals addressed:: The purpose of this session was to address current symptoms, stressors, and interpersonal relationship issues. Another goal was to identify personal values and needs to promote self-advocacy. Other topics included medication side effects. Eye Contact:: Good Motor Activity:: Appropriate Appearance:: Neat Speech:: Appropriate Mood:: Anxious, Dysthymic Affect:: Constricted Thoughts:: Linear, Logical, No evidence of hallucinations/delusions noted Staff Interventions:: Therapist used active listening and open-ended questions to gather information on client's stressors, symptoms, and interpersonal relationship issues. Therapist explored client's thoughts and feelings about her relationship as well as any relationship wedges client identifies. Therapist helped client identify personal values, love languages, and needs to empower client and promote self-advocacy. Therapist used motivational interviewing techniques to increase client awareness on what she would like to change. Therapist gave client homework to further explore relationship needs. Client Response:: Client responded well to session, open to meeting with therapist. Client reports she feels torn about her relationship with her boyfriend. Client recognizes that the relationship is unhealthy in some areas, but healthy in others. Client stated her boyfriend is encouraging, inspires client to have fun, pushes growth, helps client be social, and can sometimes be supportive. Client reports she currently feels frustrated by some of her boyfriens behaviors and it is starting to form a wedge in their relationship. Client identifies not sharing the same values, not getting her needs met, not spending time together, and lack of communication as wedges. Client reported her values are hardwork, goal setting, qaulity time with family, and independence. Client states her boyfriend is not currently working and if it wasn't for me we wouldn't hang out. Client reports awareness that the relationship may need to end, but client wants to first have a conversation with boyfriend about client's thoughts, needs, and concerns. Client wrote out some of her needs, her values, and points to bring up during conversation with boyfriend. Client was encouraged to explore negative thoughts that might be preventing client from setting boundaries and communicating needs. Client plans to have this conversation with her boyfriend so. Client reports some side effects from recent medication change and will see psychiatrist tomorrow. Risks/Concerns:: Client denies any suicidal ideations, plan, or intent as of 08/17/20. Progress Toward Goals/Plan:: Client demonstrating progress towards treatment goals AEB self-report of practicing self-compassion to challenge disortions. Client has been an activce group member and follows through with individual goals. Client continues to endorse a depressed mood with anhedonia, lack of energy, isolative behaviors, negative thinking, and not functioning at her baseline. Client reports limited social supports and interpersonal relationship issues with her boyfriend that are impacting client's mental health. Client Will continue IOP tx to promote mood stability, reduce negative thinking, and improve daily functioning. Time Stopped:: 13:23
--- NOTE | 2020-08-18 09:05 | BH.SGPN.GN ---
Behaviors/Verbalizations/Mental Status: []Client alert and oriented, well groomed and neatly dressed. Eye contact good. Motor activity appropriate. Speech within normal limits. Affect unable to gather due to wearing a mask for COVID-19 protocol. Mood euthymic. Thoughts linear, logical, no signs of hallucinations or delusions. Reviewed client?s symptom tracker, no risk for suicidal ideation, plan, or intent as of 08/18/20. Client Response/Progress/Benefit: []client responded well to session, providing encouragement to peers and participating in discussion. Client reports feeling ?optimistic and jittery? this morning. Client reported she took extra time this morning for herself by taking a longer shower, getting coffee, and grooming. Client reported self-care was her gameplan from last session. Client has also been working on being more self-compassionate which client practiced yesterday during a difficult situation with her daughter. Client?s stressor today was that she had a conversation with her boyfriend about their future together. Client shared the conversation helped her boyfriend realize he needs mental health help. Client stated in the past she would try to solve this for him, but she recognizes this is not helpful for her mental health. Client shared she advocated for her needs and set emotional boundaries. Appeared to benefit from reflecting on her use of coping skills. Will continue IOP tx to promote the use of healthy coping skills and increase self-care. Narrative Note: []
--- NOTE | 2020-08-18 10:22 | BH.SGPN.GN ---
Behaviors/Verbalizations/Mental Status: []Client alert and oriented, casual dress, hygiene tended to. Eye contact good. Motor activity appropriate. Speech within normal limits. Affect could not be assessed due to pt wearing a face mask as precaution against coronavirus. Mood dysthymic. Thoughts linear, logical, no signs of hallucinations or delusions. Client Response/Progress/Benefit: []Pt receptive of session, remained an active participant AEB providing input and taking notes throughout. Appeared to connect with topic of healthy decision making and worked with group to identify factors that can lead to being on an unhealthy decision-making path. Group identified factors to include stubbornness, ignoring warning signs, not asking for help out of fear of judgement, habit, and fear of the unknown. Pt reported that sometimes we get used to making the unhealthy choices and forget that we have the ability to change our behaviors. Group was provided with the ?Chapters of My Life? handout exploring how our decisions can contribute to the different life paths or ?chapters? we may be on. Pt engaged throughout processing discussion, was willing to reflect upon which chapter she is currently in and what factors impact ability to move to the next chapter in life. Pt identified being in chapter 3, discussed ?I know it?s a habit and keep on ending up in the hole? Shared that making justifications and negatively defining herself by her mental health diagnosis has kept her from moving to a healthier chapter. Appeared to benefit from gaining insight into her own personal barriers impeding mental health progress. Progress noted in pt increased levels of insight as well as self-report of improved communication with supports. Continues to struggle with consistent independent skill application and boundary setting. Pt to continue IOP tx to prevent decompensation, promote healthy change behaviors, and improve coping repertoire. Narrative Note: []
--- NOTE | 2020-08-18 10:53 | PCM.BH.PN_ITS ---
Progress Note Progress Note: History of Present Illness/Interim History: [] The patient is a 30-year-old single female who is seen in follow-up at the [facility] behavioral health IOP program. I last saw the patient 2 weeks ago and at that time we added Effexor X are to her medication regimen. The patient states that she only took the Effexor 1 time 1 day. She said that the one time she took it she felt weird on it and felt like jelly from the waist up. The patient understands that the first few days that one takes a medication they may get side effects which usually wear off. The patient feels that she may not need the medication as she feels the IOP program itself is benefiting her greatly. She feels that she is learning skills to help her deal with her stressors. She feels her mood is somewhat better and she denies any suicidal ideation or passive thoughts of . Her grandmother 2 weeks ago and she has been handling this quite well so far. She is grieving her grandmother somewhat but understands that this grief will wax and wane and come in waves. She complains of some issues with her boyfriend who is she has been seen for about a year and states that she wants him to have goals in his life and for their relationship and she is not sure that he does. She feels overall she is somewhat improved since starting the IOP program. Current Psychiatric Medications: [] Wellbutrin XL 300 mg p.o. every morning (x8 years total); Effexor XR 1 dose only of 37.5 mg 1 week ago, then DC'd. Mental Status Examination: [] Patient is a 30-year-old female who is seen wearing a mask due to the pandemic. She is casually dressed and groomed with good hygiene. She has no psychomotor agitation or retardation during the interview. Her eye contact is good and her speech is normal rate and rhythm and fluent with no pressure. Mood is approaching euthymia. Affect is full and normal. Thought process is goal-directed and organized. Thought content: No evidence of suicidal or homicidal ideation. No evidence of passive thoughts. Judgment is intact. Insight: Some present and improving. Impulsivity: Low. Diagnoses: [] [place] I: [] Major depressive disorder, recurrent, severe without psychosis; generalized anxiety disorder; bereavement [place] II: [] Deferred [place] III: [] Obesity [place] IV:[]] Primary support and financial issues Plan: [] The patient will continue the IOP program in behavioral health at [facility] as the structure, support, education, individual and group therapy will hopefully continue to benefit the patient and prevent worsening of her symptoms. She felt safe during the interview and if at any time she does not feel safe she will let us know or go to the emergency room. The risks, options, and possible complications and side effects of medications were discussed with the patient and he understands and accepts these. She states that she will consider restarting the Effexor later if her symptoms worsen but for now she wishes to stay on just the Wellbutrin.
--- NOTE | 2020-08-18 11:20 | BH.SGPN.GN ---
Behaviors/Verbalizations/Mental Status: []Client alert and oriented, casual dress, hygiene tended to. Eye contact fair. Motor activity appropriate. speech and tone WNL. Affect constricted. mood depressed. Thoughts linear, logical, no signs of hallucinations or delusions. Client Response/Progress/Benefit: []Client engaged in session AEB listening to discussion and taking notes throughout. Client able to identify what unhealthy skills or behaviors she is engaging in that keeps her stuck from moving forward. Client attentive during psychoeducation about problem solving protocol. Client did well to work with the group to brainstorm strategies to promote making progress towards their desired chapter. Client reported to move forward in life steps she needs to take include: asking for helping, build healthy relationships, communicate, use positive coping skills, awareness of needs, build self-worth, and mindfulness. Client stated she will first focus on building self-worth by having a daily practice of meeting her needs and positive affirmations. Appeared to benefit from increased insight regarding her current ?Chapter? in life and reviewing strategies for promoting continued progress and prevent regression. Will continue IOP tx to prevent decompensation, challenge distorted thoughts and increase consistent application of skills. Narrative Note: []
== END 2020-08-18 23:59 ==
LOC: BHIOP 09:00
PROVIDERS: PCP Family Medicine; Referring Provider Psychiatry & Neurology Psychiatry; Visit Provider Psychiatry & Neurology Psychiatry
DX: F33.2 Major depressive disorder, recurrent severe without psychotic features (principal); F41.8 Other specified anxiety disorders; E66.9 Obesity, unspecified; F17.210 Nicotine dependence, cigarettes, uncomplicated; F12.90 Cannabis use, unspecified, uncomplicated; Z91.5 Personal history of self-harm
CPT/HCPCS: 90792; 99213; H0035; H2012; H2020; T1002; 90832; 90837

== ENCOUNTER 2020-08-19 09:00 | Outpatient (RCR) | payer MEDICAID, SELFPAY ==
[2020-04-01 11:13] VITALS: BMI 42.3
[2020-08-19 00:47] VITALS: BP 119/79; PULSE 80
--- NOTE | 2020-08-19 09:05 | BH.SGPN.GN ---
Behaviors/Verbalizations/Mental Status: []Client alert and oriented, casually dressed and groomed. Eye contact good. Motor activity appropriate. Speech within normal limits. Affect unable to assess as pt wearing mask per COVID-19 protocol, mood dysthymic. Thoughts linear, logical, no signs of hallucinations or delusions. Reviewed client?s symptom tracker, no risk for suicidal ideation, plan, or intent as of 08/19/20. Client Response/Progress/Benefit: [] Pt responded well to session, provided supportive feedback to peers, and openly processed with group. Client reports feeling optimistic but uneasy this morning. Attributes current emotions to a recent discussion on expectations she had with her boyfriend. Expressed this had gone well but that she is uneasy and she feels she may have put helping him get help above her own mental health needs. Discussed knowing she needs to establish clearer and more concrete boundaries with him. Client did well to identify a plan for doing so. Additionally was able to identify current positives which included: spending time with supports, as well as following through with her goal to have the conversation despite not wanting to do so. Client appeared to benefit from connecting with peers and identifying personal wins. Progress noted in self-report of improved use of communication, though continues to struggle with healthy boundary setting. Will continue IOP tx to prevent decompensation, continue to promote mood stability, and improve daily functioning. Narrative Note: []
--- NOTE | 2020-08-19 10:16 | BH.SGPN.GN ---
Behaviors/Verbalizations/Mental Status: []Client alert and oriented, casually dressed, hygiene appeared to be tended to. Eye contact good. Motor activity appropriate. Speech within normal limits. Affect unable to gather due to wearing a mask for COVID-19 protocol, mood dysthymic. Thoughts linear, logical, no signs of hallucinations or delusions Client Response/Progress/Benefit: []Client active participant as shown by active listening and contributing to discussion. Client contributed to the discussion of self-care and the consequences of not practicing self-care. Client agreed with peers that it is important to practice self-care, but they all struggle with through. Client helped the group discuss benefits of self-care which included; less irritability, increased confidence, improved emotional regulation, and better relationships. Client stated when she does not practice self-care, she gets more black and white thinking. Client participated in the discussion of the common myths about self-care. Client participated in the discussion on debunking of these myths. Client?s group challenged the myths: self-care should be fun, not enough time, selfish, and self-doubt. Client shared that it is important to remind self that self-care is necessary and to make time for it. Client seemed to benefit from increased awareness of the importance of self-care and challenging common myths that prevent practicing self-care. Will continue IOP tx to reduce negative thinking that reinforces depression and anxiety as well as to improve daily functioning. Narrative Note: []
--- NOTE | 2020-08-19 11:15 | BH.SGPN.GN ---
Behaviors/Verbalizations/Mental Status: []Client alert and oriented, casually dressed, hygiene appeared to be tended to. Eye contact good. Motor activity appropriate. Speech within normal limits. Affect unable to gather due to wearing a mask for COVID-19 protocol, mood euthymic. Thoughts linear, logical, no signs of hallucinations or delusions Client Response/Progress/Benefit: []Client receptive of session, engaged and positively contributing. Participated in group discussion on the various areas of self-care, benefits, and types of self-care activities for each area. Client completed self-assessment activity on her own utilization of the different areas of self-care and was able to identify current practices she actively practices and areas she can improve upon. Client shared that she can improve spending time with social supports. Client stated that she was spending the weekend with family and friends and would be mindful of her negative thoughts and surroundings. Client appeared to benefit from increasing awareness of how she can improve self-care balance. Progress noted as client has been able to increase application of healthy coping skills. Will continue IOP tx to continue the use of healthy coping skills and reduce negative thinking that reinforces depression and anxiety. Narrative Note: []
--- NOTE | 2020-08-20 13:22 | BH.MDN_ITS ---
Multi-Disciplinary Note - Note 30-min Individual Time Started:: 11:00 Date: 08/20/20 Purpose of session/treatment goals addressed:: The purpose of this session was to address current symptoms, stressors, and negative thinking that reinforces low self-worth. Another goal was to review self-care and boundary setting. Eye Contact:: Good Motor Activity:: Appropriate Appearance:: Neat Speech:: Appropriate Mood:: Euthymic Affect:: Other - unable to gather due to wearing a mask Thoughts:: Linear, Logical, No evidence of hallucinations/delusions noted Staff Interventions:: Therapist used active listening and open-ended questions to explore client's current symptoms, stressors, and negative thoughts. Therapist used cognitive restructuring to help client combat and reframe distortions. Therapist reviewed boundaries with client and helped client identif y areas she can begin to set healthier boundaries. Therapist gave client a self- care challenge for client to work on over the next two weeks. Client Response:: Client responded well to session, open to meeting with therapist. Client reported the talk with her boyfriend went well and that he admits he could benefit from therapy. Client receptive to reviewing boundary setting and discussed ways client can begin to be less rigid and more vulnerable. Explored the negative thoughts and core beliefs that have kept client from being vulnerable in the past and verbalizing her needs. Client stated she has struggled to let people in emotionally for a very long time. Client receptive to working on the self-care challenge which included not so fun self-care such as expressing gratitude to others and verbalizing needs. Risks/Concerns:: Client denies any suicidal ideations, plan, or intent as of 08/20/20. Future oriented and motivated. Progress Toward Goals/Plan:: Client demonstrating progress towards treatment goals AEB self-report of practicing ANA MARÍA and cognitive restructuring. Client remains active in group and individual sessions. Client continues to endorse a depressed mood with anhedonia, lack of energy, isolative behaviors, negative thinking, and low self-worth. Client acknowledges that she tends to have rigid boundaries which reinforces depression. Client Will continue IOP tx to promote mood stability, reduce negative thinking, and improve daily functioning. Time Stopped:: 11:35
--- NOTE | 2020-08-24 10:20 | BH.SGPN.GN ---
Behaviors/Verbalizations/Mental Status: []Client alert and oriented, neatly dressed and groomed. Eye contact good. Motor activity appropriate. Speech within normal limits. Affect unable to gather due to wearing a mask for COVID-19 protocol, mood irritable and dysthymic. Thoughts linear, logical, no signs of hallucinations or delusions. Client Response/Progress/Benefit: []Client was an active participant AEB contributing to discussion and participating in activity. Connected with the topic of pitfalls and helped the group discuss barriers that keep them from choosing a healthier path to mental wellness such as pitfalls. Group worked together to identify examples of personal pitfalls which included; not expressing self, not reaching out to supports, negative self-talk, and not having awareness. Client shared personal examples of pitfalls such as unrealistic expectations, impatience, and not knowing where to start. Engaged during the activity and took on a leadership role. Client reported she experienced some frustration during the activity when the group did not accomplish the goal right away. Client coped with this using deep breathing and self-talk. client benefited from increased awareness on the impact that pitfalls can have on mental health. Will continue IOP tx to prevent decompensation, improve emotional regulation, and reduce negative thinking. Narrative Note: []
--- NOTE | 2020-08-24 14:45 | BH.MDN ---
Multi-Disciplinary Note - Note 60-min Individual Time Started:: 11:57 Date: 08/24/20 Purpose of session/treatment goals addressed:: The purpose of this session was to address current stressors, symptoms, and triggers. Another goal was to process grief triggers and challenge negative core beliefs. Other topics included boundary setting and communication. Eye Contact:: Fair Motor Activity:: Appropriate Appearance:: Casual Speech:: Soft Mood:: Anxious, Dysthymic Affect:: Congruent - tearful Thoughts:: Linear, Logical, No evidence of hallucinations/delusions noted Staff Interventions:: Therapist used active listening and open-ended questions to explore client's current symptoms, stressors, and triggers. Therapist provided emotional support and gently challenged any distortions client shared. Therapist discussed emotional boundaries and the benefits of assertive communication. Therapist provided psychoeducation on core beliefs and helped client combat distortions reinforcing these beliefs. Therapist gave client homework to set boundaries and communicate with her family. Client Response:: Client responded well to session, open to meeting with therapist. Client's nonverbals indicated client was feeling low today, and client confirmed that she has been struggled this morning. Client shared a recent situation between client, client's sister, and client's mother that triggered negative core beliefs for client. Client receptive to exploring these negative core beliefs and challenging them. Client shared when her sister offered to give client money it made client feel like people don't think I can care for myself or that I'm incapable. Client stated belief that she has not been able to grieve the loss of her grandmother as client feels like she must be responsible for taking care of her mother's emotional response to the loss. Client also acknowledged vulnerability factors that contributed to client's mood including being busy at work and lack of self-care. Client receptive to discussion of emotional boundary setting with her sister and mother. Client willing to verbalize boundaries with her family and to practice thought challenging for homework. Risks/Concerns:: Client denies any suicidal ideations, plan, or intent as of 08/24/20. Client is future oriented and motivated. Progress Toward Goals/Plan:: Client presents with increased depressive symptoms today due to a recent trigger. Client able to gain insight during session and left with a plan to help manage emotions and challenge negative thoughts. Client continues to struggle with mood instability, distorted thinking, and setting emotional boundaries. Client Will continue IOP tx to promote mood stability, reduce negative thinking, and improve self-worth. Time Stopped:: 13:02
--- NOTE | 2020-08-25 09:02 | BH.SGPN.GN ---
Behaviors/Verbalizations/Mental Status: []Client alert and oriented, casual dress, hygiene tended to. Eye contact fair. Motor activity appropriate. Speech within normal limits. Affect constricted, mood euthymic. Thoughts linear, logical, no signs of hallucinations or delusions. Reviewed client?s symptom tracker, pt denies current suicidal thoughts or intention to date. Client Response/Progress/Benefit: [] Patient responded well to session as evidenced by patient appearing to listen attentively to others and sharing thoughts and feelings. Patient reported her goal from yesterday was to not isolate because she tends to isolate when feeling emotionally overwhelmed. Patient stated she sat outside watching her daughter play with the neighbor kids. Patient reported she had a enjoyable dinner with her boyfriend and ended night with laughing with her daughter. Patient stated she recognizes that she tends to make excuses as to why she is not able to have personal growth which leads her to not challenge her self to do better. Patient stated she was working on challenging that thought process so she can take advantage of this time to truly improve herself. Patient identified feeling calm and optimistic this morning. Progress noted with patient following through with identified goal and demonstrating increased awareness of her self sabotage behavior. Patient to continue IOP level of care to increase consistent use of healthy coping skills, challenge to her thoughts, and prevent decompensation. Narrative Note: []
--- NOTE | 2020-08-25 11:15 | BH.SGPN.GN ---
This psychotherapy group was provided via telehealth using two-way, real-time interactive telecommunication technology between the patients and the provider.?The interactive telecommunication technology included audio and video.? ?The patient was offered telemedicine as an option for care delivery during the COVID-19 pandemic and consented to this option. ?Patient location: [place] ?Provider located at [facility] Behaviors/Verbalizations/Mental Status: []Client alert and oriented, neatly dressed and groomed. Eye contact good. Motor activity appropriate. Speech within normal limits. Affect constricted, mood dysthymic. Thoughts linear, logical, no signs of hallucinations or delusions. Client Response/Progress/Benefit: []Client responded well to session, connecting with the topic and engaged in discussion. Client attentive during psychoeducation on the change process and able to identify different emotions in each stage of change. Client identified a change she would like to make to improve her mental health which was to ?be more vulnerable with supports and attended to my needs.? Client shared she wants to work on this as client believes it will increase client?s support and reduce anxiety. Client reports belief she is currently between the preparation and action stages because client has taken small steps to change, but is not making big steps yet. Client?s goal today is to write out her needs and create a schedule to reach out to a support every other day. Appeared to benefit from identifying what stage of change client is in and setting a small goal to promote that change. Will continue IOP tx as client has made progress, but client continues to report grief, negative thinking that reinforces depression, and isolative behaviors. Narrative Note: []
--- NOTE | 2020-08-27 09:00 | BH.SGPN.GN ---
Behaviors/Verbalizations/Mental Status: []Client alert and oriented, casually dressed. Eye contact good. Motor activity appropriate. Speech within normal limits. Affect unable to gather due to wearing a mask for COVID-19 protocol, mood anxious. Thoughts linear, logical, no signs of hallucinations or delusions. Reviewed client?s symptom tracker, risk for suicidal ideation below client?s baseline. No plan or intent plan, or intent as of 08/27/20. Client Response/Progress/Benefit: []Client responded well to session and engaged and provided feedback to other group members. Client?s goal was to increase self-care, stay organized, and creat positive self-affirmations. Client shared she has put self-affirmations on her mirror to remind herself daily of personal worth. Client applied opposite action by using gratitude with the negative thoughts, as well as journaling. Client said she is still ruminating on the thoughts she wrote in her journal, and is hesitant to keep journaling. 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 Client shared her positives as being busy at work and being able to identify her triggers. Progress noted as client was able to stay optimistic and positive with current stress. Client will continue IOP to improve daily functioning and further decrease intensity of symptoms. Narrative Note: []
--- NOTE | 2020-08-27 10:10 | BH.SGPN.GN ---
Behaviors/Verbalizations/Mental Status: []Client alert and oriented, casual dress, hygiene tended to. Eye contact fair. Motor activity appropriate. Speech within normal limits. Affect unable to gather due to client wearing a mask for COVID protocol, mood anxious. Thoughts linear, logical, no signs of hallucinations or delusions. Client Response/Progress/Benefit: []Client responded well to session, attentive throughout. Listening and participating throughout group discussion defining conflict and the differences between internal and external conflict. Group reported the benefits of addressing conflict as well as identified and discussed consequences of not addressing conflict. Client shared that winning conflicts look like validation of one?s perspective of being viewed. Client related it back to herself and identified that if she ?wins? in a conflict, that others are viewing her perspective. Client attentive and contributing during psychoeducation of the different conflict resolution styles. Client reports her conflict styles are accommodating and avoiding. Client stated these styles have negatively impacted client?s mental health and ability to verbalize needs. Client benefited from group as she learned new conflict resolution styles and the benefits. Client will continue IOP to improve daily functioning and decrease negative thinking. Narrative Note: []
--- NOTE | 2020-08-27 11:10 | BH.SGPN.GN ---
Behaviors/Verbalizations/Mental Status: []Client alert and oriented, neatly dressed and groomed. Eye contact good. Motor activity appropriate. Speech within normal limits. Affect unable to gather due to wearing a mask for COVID-19 protocol, mood irritable. Thoughts linear, logical, no signs of hallucinations or delusions. Client Response/Progress/Benefit: []Client engaged in session AEB listening attentively to others and providing input throughout. Client further processed her conflict resolution style and connects most with avoiding and accommodating. Client reports these styles lead to client bottling up her emotions, not express needs, and shutting down. Client did well to participate during the activity in which participants were challenged to eliminate various items through group consensus. Client contributed to discussion of the barriers that occurred during the activity as well as the conflict resolution strategies. Client identified wanting to work on being more present when dealing with conflict ?rather than bringing up past issues.? Progress noted in client?s self-report of applying self-care. Will continue IOP tx as client continues to struggle with managing anxiety and depressive symptoms which impacts client?s daily functioning. Narrative Note: []
--- NOTE | 2020-08-31 09:03 | BH.SGPN.GN ---
Behaviors/Verbalizations/Mental Status: []Client alert and oriented, neatly dressed and groomed. Eye contact good. Motor activity appropriate. Speech within normal limits. Affect unable to gather due to wearing a mask for COVID-19 protocol, mood euthymic. Thoughts linear, logical, no signs of hallucinations or delusions. Reviewed client?s symptom tracker, no risk for suicidal ideation, plan, or intent as of 08/31/20. Client Response/Progress/Benefit: []Client responded well to session, attentive and engaged throughout. Client reports feeling calm and positive this morning. Client has been working on her individual goals such as thought challenging, staying organized, and advocating for her needs. Client has also been practicing self-compassion as client shared she did not do something perfect with her daughter and I didn't beat myself up over it. Client's stressor this morning is that she is worried about spending money. Appeared to benefit from reflecting on personal progress and application of coping skills. Will continue IOP tx as client can benefit from further reducing distortions and improving communication. Narrative Note: []
--- NOTE | 2020-08-31 11:20 | BH.SGPN.GN ---
Behaviors/Verbalizations/Mental Status: []Client alert and orient. Appearance casual and appropriately groomed. Speech an appropriate rate and tone. Motor activity WNL. Mood dysthymic, affect unable to determine as client wearing mask per COVID-19 protocol. No evidence of delusion or hallucinations.? Client Response/Progress/Benefit: [] Client receptive of group, providing input and taking notes throughout discussion. Engaged throughout discussion on importance of having balanced sources of motivation. Group noted benefits to include; needs getting met, continued motivation when supports aren?t available as well as using supports when internally ?exhausted?, greater sense of accountability, motivation is more sustainable, and improved ability to accomplish goals. Client again provided input as group brainstormed potential strategies for improving internal motivation. Client willing to identify a specific strategy she can apply to improve own internal motivation levels. Identified wanting to focus on improving internal motivating factor of her relationship with self by making time to practice self-care more consistently. Client appeared to benefit from increasing awareness of strategies for improving internal motivation. Progress noted in improved use of thought challenging skills. Client will continue IOP tx to further improve symptom management, promote healthy coping skill application, and improve daily functioning. Narrative Note: []
--- NOTE | 2020-09-01 09:05 | BH.SGPN.GN ---
Behaviors/Verbalizations/Mental Status: [] Client alert and oriented, casually dressed and groomed. Eye contact fair to good. Motor activity appropriate. Speech within normal limits. Affect unable to assess as pt wearing mask per COVID-19 protocol, mood euthymic. Thoughts linear, logical, no signs of hallucinations or delusions. Reviewed client?s symptom tracker, no risk for suicidal ideation, plan, or intent as of 09/01/20. Client Response/Progress/Benefit: []Pt responded well to session, actively listening throughout and openly processed with group. Pt reports feeling ?positive and optimistic this morning which she attributed to taking time for self-care the previous evening. Indicated she had gone to a reiki session for the first time and then spent the afternoon outdoors with her daughter rather than isolating inside as she may have in the past. Pt noted applying positive self-talk and practicing gratitude as skills that have been most influential in current progress. Shared plans to continue to remind herself of the benefits and need for self-care. Expressed that she continues to struggle with expecting something negative which has been an ongoing stressor but is improving in overall ability to challenge these distortions when they occur. Progress in overall skill application and reduced depression. Pt recommended continued IOP tx to further improve thought challenging and self-care skills, as well as prevent decompensation. Narrative Note: []
--- NOTE | 2020-09-01 11:18 | BH.SGPN.GN ---
Behaviors/Verbalizations/Mental Status: []Client alert and oriented, casual appearance. Eye contact good. Motor activity appropriate. Speech within normal limits. Affect unable to gather due to wearing a mask for COVID-19 protocol, mood euthymic. Thoughts linear, logical, no signs of hallucinations or delusions Client Response/Progress/Benefit: []Client responded well to session, participating during the group activity and willing to complete the worksheet. Client completed the fear of failure worksheet and reported that fear of failure has kept client from continuing her education, improving physical health, and building new relationships. Client able to identify barriers that reinforce fear of failure which included: negative core beliefs, fear of success, low self-esteem, and catastrophizing thoughts. Client attentive during discussion of the different strategies to help overcome fear of failure. Client selected the strategy of asking for feedback/ perspective from supports and tracking personal wins. Client appeared to benefit from learning ways to overcome fear of failure. Progress noted as client reports improved mood this week, but continues to struggle with negative self-talk. Will continue IOP tx to reduce negative thinking that reinforces low self-esteem, improve daily functioning, and increase mood stability. Narrative Note: []
--- NOTE | 2020-09-03 09:00 | BH.SGPN.GN ---
Behaviors/Verbalizations/Mental Status: [] Eye contact is good. Motor activity is appropriate. Appearance is casual. Speech is Appropriate. Mood is depressed. Affect is congruent. Thoughts are linear and logical. No evidence of psychosis. Reviewed daily check in sheet and no reports of suicidal ideations or intent. Client Response/Progress/Benefit: [] Pt was an active participant in group discussion. Emotion for today is tired. Shared with the group that she followed through with goals from last IOP session which included utilizing self-care, self-expression, and throw a dance libertarian with daughter. Stressor is upcoming family get-together which has several triggers for her. Ruminating and worrying about this libertarian. Group provided feedback and suggestions. Progress noted per pt report. Narrative Note: []
--- NOTE | 2020-09-03 10:20 | BH.SGPN.GN ---
Behaviors/Verbalizations/Mental Status: []Client alert and oriented, neatly dressed and groomed. Eye contact good. Motor activity appropriate. Speech within normal limits. Affect unable to gather due to wearing a mask for COVID-19 protocol, mood euthymic. Thoughts linear, logical, no signs of hallucinations or delusions. Client Response/Progress/Benefit: []Client was an active participant AEB client providing input throughout discussion and attentively listening to peers. Client connected with how having a negative perspective can keep you stuck, prevent a person from getting help, and cause worsening mental health symptoms. Client shared a negative perspective leads to client ?looking for problems to solve and shoulding on myself.? Client worked with group to identify how negative perspective can impact mental health which included: self-fulfilling prophecy, worse mood, and negative thinking.?Client helped group discuss ways a positive perspective can impact mental health such as: seeking treatment, challenging distortions, and improved mood. Client stated having a positive perspective can prevent self-sabotage. Client appeared to benefit from increasing understanding of mental health benefits of a positive perspective and potential consequences to progress when perspective is negative. Client will continue IOP tx to promote gains, further reduce negative thinking, and improve daily functioning. Narrative Note: []
--- NOTE | 2020-09-03 11:20 | BH.SGPN.GN ---
Behaviors/Verbalizations/Mental Status: [] Eye contact is good. Motor activity is appropriate. Appearance is neat. Speech is Appropriate. Mood is anxious. Affect is congruent. Thoughts are linear and logical. No evidence of psychosis. Client Response/Progress/Benefit: [] Pt was an active participant in group discussion. Attentive during psycho-education. Active participant in group discussion on the impact of perspective on how we view ourselves. Pt worked with the group to develop a working definition of the term strengths and the importance of recognizing one's strengths. Pt was given a worksheet and was asked to [place] at least 3 strengths which she completed. Group then worked together to identify strategies to remind themselves of their strengths which included; picking one strength per day, asking support to tell us one of our strengths, track our accomplishments, daily affirmations, and creating a gratitude journal. Progress noted. Benefited from increased awareness of the role of perspective and strengths in daily mental health wellness. Will continue in IOP to maintain safety, increase health coping, and prevent decompensation Narrative Note: []
--- NOTE | 2020-09-03 14:17 | BH.MDN_ITS ---
Multi-Disciplinary Note - Note 45-min Individual Time Started:: 12:10 Date: 09/03/20 Purpose of session/treatment goals addressed:: The purpose of this session was to address current symptoms, triggers, and progress. Another goal was to process emotions associated with positive change and review healthy coping skills. Eye Contact:: Good Motor Activity:: Appropriate Appearance:: Neat Speech:: Appropriate Mood:: Euthymic, Anxious Affect:: Congruent - tearful about progress Thoughts:: Linear, Logical, No evidence of hallucinations/delusions noted Staff Interventions:: Therapist used active listening and emotional support while exploring client's current symptoms and triggers. Therapist helped client identify and process emotions and coping skills associated with change. Therapist administered the DSM-5 and processed it with client. Therapist rev iewed healthy coping skills with client to promote acceptance and self- compassion while also challenging negative thinking. Therapist gave client homework to review healthy boundaries and practice gratitude. Client Response:: Client responded well to session, open to meeting with therapist. Client shared today she actually feels okay. Client reported this is the first time in a while that client feels content with present situation and does not have problems to solve. Client reported she tends to be a problem- solver and admits that sometimes she creates problems to be solved. Client became tearful while discussing this and through exploration, client recognized there is some grief associated with letting go of being the problem-solver. Receptive to discussion of acknowledging the role of certain traits or coping skills, but client recognizing they can also be toxic. Client noted in addition to being a problem-solver, building emotional mckeon is another coping skill that no longer is advantageous for client's well-being. Client open to reading handout of types of boundaries and willing to continue to practice being vulnerable with trusted supports. Client receptive to identifying one thing she is grateful for about herself each day for a week. Risks/Concerns:: Client denies any suicidal ideations, plan, or intent as of 09/03/20. Client is positive and future oriented. Progress Toward Goals/Plan:: Client completed the DSM-5 as an evaluation of progress. Client's overall DSM-5 scores decreased by 59% since admission. Client reported ?I actually feel okay which is new for me.? Depression decreased by 63% and anxiety decreased by 50%. Client continues to report grief, ruminations and negative thinking of reduce intensity, family stress, and mild symptoms of anxiety and depression. Client can benefit from ongoing IOP to establish aftercare, improve mood stability, and further decrease intensity and duration of symptoms. Time Stopped:: 13:00
--- NOTE | 2020-09-03 15:28 | BH.MTP_ITS ---
Treatment Plan Review Date of Admission:: 08/04/20 Date of Treatment Plan Review:: 09/03/20 Admitting Diagnoses:: Major depressive disorder, recurrent, severe without psychosis F33.2; generalized anxiety disorder Current Diagnoses:: Major depressive disorder, recurrent, severe without psychosis F33.2; generalized anxiety disorder Patient's Response to Treatment:: Client has been responding well to treatment and is demonstrating progress towards her treatment goals AEB reduction in DSM-5 scores and high engagement in group and individual sessions. Client has been using healthy coping skills including ANA MARÍA, thought challenging, journaling, lennox undary setting, assertive communication, and self-care. Client is currently dealing with grief, family stress, and negative thinking that reinforces anxiety and depression. Client is an active group member who often gives insight to discussion, feedback to peers, and connects the topics to her daily life. Client is highly engaged in her individual sessions and is consistent with homework and skill utilization outside of group. Client's consistent application of skills is likely the reason for her reduction in symptoms and improved mood. Client is established with aftercare and would like to join the [facility] aftercare group when she discharges. Status of Current Problems and Symptoms: Client continues to report grief, ruminations and negative thinking, family stress, occasional crying spells, perfectionistic tendancies, and isolative behaviors of reduced intensity. Problem #1 Problem Name:: Pt. will decrease depressive sx, isolation, negative self-talk, and guilt. Status of Goals:: Objective 1- complete with ongoing work encouraged. Client?s DSM-5 scores for depression have decreased by 63% since admission. Client reports consistently using ANA MARÍA, opposite action, and thought challenging to manage depression. Objective 2- in progress. Client has good insight to her distorted thought patterns that reinforce low self-worth and client is actively working on reframing these. Client is also working on implementing more self- compassion. Team Recommendations:: Client encouraged to continue working on this treatment goal to reinforce healthy coping skills and to further decrease depressive symptoms. Client and therapist currently working on challenging negative core beliefs, self-compassion, and realistic goal setting. Problem #2 Problem Name:: Pt. will decrease intensity, duration, and frequency of anxiety Status of Goals:: Objective 1- in progress. Client has good insight to distorted thought patterns that reinforce anxiety and lead to ruminations. Client has been practicing thought challenging on a consistent basis. However, client still struggles with unrealistic expectations for self that leads to increased anxiety. Objective 2- complete with ongoing maintenance encouraged. Client?s DSM-5 scores for anxiety have decreased by 50% since admission. Client can identify warning signs and reports practicing goal setting and self-care to reduce anxiety. Team Recommendations:: Client encouraged to continue working on this treatment goal to reinforce healthy coping skills and to further decrease anxiety symptoms. Client and therapist currently working on boundary setting, verbalizing needs, thought challenging, and self-care.
--- NOTE | 2020-09-07 10:13 | BH.SGPN.GN ---
Behaviors/Verbalizations/Mental Status: []Client alert and oriented, casual dress, hygiene tended to. Eye contact good. Motor activity appropriate. Speech soft and less vocal than previous sessions. Affect unable to gather due to wearing a mask for COVID-19 protocol, mood dysthymic and irritable. Thoughts linear, logical, no signs of hallucinations or delusions. Client Response/Progress/Benefit: []Client responded well to session, attentive and occasionally contributing to discussion. Client worked cooperatively with the group to identify factors that contributed to how we define ourselves which included: upbringing, societal expectations, culture/environment, how well we function, failures, trauma, and how others view us. Client reported she has experienced the impacts of mental health stigma and that she often uses self-stigma which causes client to self-criticize. Client worked with group to identify and discuss social and perceived stigma. Client seemed to benefit from increased awareness of how mental health stigma can impact progress and self-worth. Client to continue IOP tx to further reduce negative self-talk, improve mood stability, and improve boundary setting. Narrative Note: []
--- NOTE | 2020-09-07 13:40 | BH.MDN_ITS ---
Multi-Disciplinary Note - Note 45-min Individual Time Started:: 11:35 Date: 09/07/20 Purpose of session/treatment goals addressed:: The purpose of this session was to process current stressors, challenge distortions, and apply healthy coping skills. Eye Contact:: Good Motor Activity:: Appropriate Appearance:: Neat Speech:: Appropriate Mood:: Anxious, Dysthymic Affect:: Congruent - tearful Thoughts:: Linear, Logical, No evidence of hallucinations/delusions noted Staff Interventions:: Therapist used active listening and open-ended questions to explore client's current symptoms, stressors, and negative thoughts. Therapist used cognitive restructuring to help client combat and reframe distortions. Therapist helped client prioritize tasks and set small goals for today. Client Response:: Client responded well to session, appeared sad and was tearful at times. Client reports belief her mood is low today due to finishing a long work weekend, having a busy schedule this week, being around family all week, and having to go to her grandmother's house to go through belongings. Client reports historically she is triggered by her mother and sister and client is trying not to predict the future. Client able to challenge distortions and identify coping skills she can do today to help manage emotions. Client stated she can practice boundary setting with herself and with family. Client receptive to ranking and prioritizing tasks that she has to do with the intent to avoid overwhelming herself. Client also practiced self-compassion and positive self- talk during session. Risks/Concerns:: Client denies any suicidal ideations, plan, or intent as of 09/07/20. Progress Toward Goals/Plan:: Client reports feeling sad and low today due to external stressors with family. Client recognizes that she has still made progress towards goals even though client feels low today. Client willing to create small goals and practice self-care this week. Client will continue IOP tx to prevent decompensation while coping with external stressors and to promote the use of healthy coping skills. Time Stopped:: 12:23
--- NOTE | 2020-09-10 09:00 | BH.SGPN.GN ---
Behaviors/Verbalizations/Mental Status: []Client alert and oriented, casually dressed. Eye contact good. Motor activity appropriate. Speech within normal limits. Affect unable to gather due to wearing a mask for COVID-19 protocol, mood anxious. Thoughts linear, logical, no signs of hallucinations or delusions. Reviewed client?s symptom tracker, no risk or plan for suicide ideation as of 09/10/20. Client Response/Progress/Benefit: []Client responded well to session, engaged and participated throughout discussion. Client reported feeling anxious AEB client sharing the high stress from family chaos and change of routine. Client shared she wants to better communicate with her mother about trust being broken. Client stated the healthy coping skills she has practiced are affirmations, opposite action, and boundary settings. Client benefited from group as other group members provided positive feedback and insight on problem solving techniques. Client will continue IOP to improve daily functioning and reinforce the use of healthy coping skills. Narrative Note: []
--- NOTE | 2020-09-10 10:15 | BH.SGPN.GN ---
Behaviors/Verbalizations/Mental Status: []Client alert and oriented, casually dressed and appropriately groomed. Eye contact fair. Motor activity appropriate. Speech within normal limits. Affect constricted, mood dysthymic. Thoughts linear, logical, no signs of hallucinations or delusions. Client Response/Progress/Benefit: []Client mostly passive participant AEB pt providing limited input during group discussion however appeared to listen attentively to others. Client less engaged compared to previous group sessions. Pt reported resources, time, and effort can impact how we grow. Group discussed and then identified forces that can impact growth and overall mental health. Client identified her positive forces include: resilience, positive supports, coping skills, and self-care. Pt stated negative forces to include: stress, perfectionism, and need for control. Pt reported boundaries, time management, coping skills are forces that at times can be both positive and negative forces. Will continue in IOP to promote gains, continue use of healthy coping and prevent decompensation. Narrative Note: []
--- NOTE | 2020-09-10 11:19 | BH.SGPN.GN ---
Behaviors/Verbalizations/Mental Status: [] Eye contact is good. Motor activity is appropriate. Appearance is casual. Speech is Appropriate. Mood is agitated, dysthymic. Affect congruent. Thoughts are linear and logical. No evidence of psychosis. Client Response/Progress/Benefit: [] Pt receptive of session, actively engaged in activity though remained more passive throughout group discussion. Group processed the activity and identified positive and negative forces impacting ability to complete the challenge. Discussed communication can be both positive and negative forces in our own life as well as the activity. Pt was attentive during psychoeducation and appeared to benefit from increased insight on the impact of negative and positive forces on mental wellness. Identified wanting to improve self-care as a positive force in her life by more actively engaging in activities she enjoys and setting aside planned time for herself. Progress variable as pt continues to struggle with stress management and negative thoughts impacting mental health progress. Pt recommended continued IOP tx to improve boundary setting and symptom management, and continue to work on challenging thought distortions. Narrative Note: []
--- NOTE | 2020-09-14 08:31 | BH.IGGP_ITS ---
Aftercare Plan - Demographics Treatment End Date:: 09/17/20 Psychiatrist:: Rafia Temple Psychiatrist Office #:: [phone] [facility] Therapist:: Denise Mosley Therapist Phone #:: [phone] - Medications Home Medications: Home Medications Cetirizine HCl [Zyrtec] 20 mg PO DAILY 09/23/13 buPROPion SR [Wellbutrin Sr] 300 mg PO DAILY 09/23/13 omeprazole 20 mg capsule,delayed release 20 mg PO DAILY 12/10/18 norethindrone 1 mg-ethinyl estradiol 20 mcg (24)-iron 75 mg (4) tablet 1 tab PO .COMPLEX #84 tab 04/01/20 Naproxen Sodium [Aleve] 440 mg PO DAILY 08/04/20 - Plan Details Progress/Aftercare Plan Details:: Harleen has made significant strides since starting IOP as shown by her improved mood, increased confidence in her boundar ies and needs, and increased ability to cope with daily stressors. When Harleen started IOP she was experiencing significant depression. Harleen was struggling with depressive thoughts, not functioning at her baseline, and isolation. Now, Harleen can catch and challenge distortions that reinforce depression and negative core beliefs, use healthy coping skills more easily, and set boundaries that promote Elizabets wellbeing. Harleen self-reports progress in the following areas: reduced negative self-talk, increased awareness of triggers to negative core beliefs, increased use of healthy coping skills, increase boundary setting, more self-awareness, deeper relationships, and increased vulnerability. Harleen has also worked on fostering self-compassion and self-love. Harleen contributed to group discussions, offered emotional support to peers, and consistently followed through with her GAPs. In individual sessions, Harleen was receptive to feedback, consistent with homework, and willing to push herself out of her comfort zone. Harleen?s high motivation, willingness to be uncomfortable, and open-mind were likely the reason for her significant progress. Harleen plans to attend [facility] aftercare group. Strategies for Success:: 1. Thought challenging! Remember to challenge distortions and reframe your thinking! Catch those shoulds and personalizations 2. self-care! You deserve to take time for you, which includes taking breaks and setting boundaries 3. Reach out to supports and keep being vulnerable! You've been doing great with this, just remember to keep it up! 4. Challenge your perspective and practice self-compassion. 5. Remember to slow down. Practice mindfulness, gratitude, journal, etc. 6. Set small, realistic goals and prioritize. 7. Practice positive self-talk and keep track of your strengths/wins. 8. Remember progress isn?t linear nor is it all or nothing! You may have a setback or bump in the road, but that doesn?t mean you?ve lost all progress. 9. Remind yourself that being uncomfortable means you are growing. 10. Take time for fun-dance and laugh. - Appointments Appointments/Referrals to Other Services:: 1. IOP Aftercare on from 2:00-3:30pm. You can start on 09/23/20 if you want! 2. Follow up with your PCP for medication management. 3. Follow up with outpatient providers at [facility].
--- NOTE | 2020-09-14 11:19 | BH.SGPN.GN ---
Behaviors/Verbalizations/Mental Status: []Client alert and oriented, neatly dressed and groomed. Eye contact good. Motor activity appropriate. Speech within normal limits. Affect constricted, mood euthymic. Client Response/Progress/Benefit: []Client responded well to session, connecting with peers and receptive to supportive statements. Client engaged in the boundary self-assessment activity and attentive during psychoeducation on the different boundary styles. Client reported she used to have rigid boundaries and shared ?I would numb, suppress, and create a wall around myself.? Client shared she now recognizes this is unhelpful and has been working on being vulnerable by reaching out to supports about emotions and needs. Client participated in brainstorming strategies to improve boundary setting and reports wanting to work on reflecting on how being more flexible has benefited client?s mental health. Progress noted in client?s report of reduced depression and increased ability to challenge negative thoughts. Client to continue IOP tx and discharge at the end of the week. Narrative Note: []
--- NOTE | 2020-09-14 14:08 | BH.MDN ---
Multi-Disciplinary Note - Note 30-min Individual Time Started:: 09:30 Date: 09/14/20 Purpose of session/treatment goals addressed:: The purpose of this session was to review application of coping skills, establish aftercare, and practice cognitive restructuring. Eye Contact:: Good Motor Activity:: Appropriate Appearance:: Neat Speech:: Appropriate Mood:: Euthymic, Anxious Affect:: Congruent Thoughts:: Linear, Logical, No evidence of hallucinations/delusions noted Staff Interventions:: Therapist used active listening and open-ended questions to gather information on client's current symptoms, stressors, and application of coping skills. Therapist processed a recent trigger with client and encouraged client to practice cognitive restructuring and self-compassion to reframe negative thinking and inappropriate guilt. Therapist discussed options for aftercare including IOP after group and outpatient services at [facility]. Client Response:: Client responded well to session, open to meeting with therapist. Client reports feeling exhausted today due to a busy work weekend and boundary setting with her family. Client reported progress in managing her emotions and setting boundaries with her sister yesterday. Client stated she was able to be vulnerable and communicate needs without lashing out or being defensive. Client identified boundary setting and deeper relationships as areas of progress since starting IOP. Client shared she is currently struggling with feelings of guilt and some distorted thinking related to boundary setting with her mother. Able to practice cognitive restructuring to combat guilt and negative thoughts. Client acknowledged that she is not responsible to manage her mother's emotions or set boundaries for her mother. Discussed aftercare and client feels ready to discharge on Sunday. Client reports she feels excited, but a little sad to be leaving IOP. Client self-reported progress in reduced negative thinking, increased self-awareness, being more vulnerable, better boundaries, and challenging core beliefs. Risks/Concerns:: Client denies any suicidal ideation, plan, or intent as of 09/14/20. Progress Toward Goals/Plan:: Client has been demonstrating progress towards treatment goal AEB client's self-report of improved mood, use of coping skills, and over reduced negative thinking. Client has been doing well with setting boundaries and reports consistent use of thought challenging. Client's progress suggests that client is ready to transition to outpatient level of care. Client will discharge from [facility] on 09/17/20. Time Stopped:: 10:05
--- NOTE | 2020-09-17 09:05 | BH.SGPN.GN ---
Behaviors/Verbalizations/Mental Status: []Client alert and oriented, casually dressed. Eye contact good. Motor activity appropriate. Speech within normal limits. Affect unable to gather due to wearing a mask for COVID-19 protocol, mood anxious. Thoughts linear, logical, no signs of hallucinations or delusions. Reviewed client?s symptom tracker, no risk or plan for suicide ideation as of 09/17/20. Client Response/Progress/Benefit: []Client responded well to group, engaged and participated throughout discussion. Due to client?s last day of IOP program, client stated to the group members ?struggling is not failing.? Client shared that being open and vulnerable has helped build relationships. Client stated that IOP has helped client gain skills to decrease MH symptoms and set appropriate boundaries. Client benefited from group today as she could use humor and express her self-compassion and self-acceptance. Client will discharge today from IOP, as client has made significant progress and no longer meets criteria for IOP program. Narrative Note: []
--- NOTE | 2020-09-17 10:20 | BH.SGPN.GN ---
Behaviors/Verbalizations/Mental Status: []Client alert and oriented, casual dress, hygiene tended to. Eye good. Motor activity appropriate. Speech within normal limits. Affect constricted. Mood euthymic. Thoughts linear, logical, no signs of hallucinations or delusions. Client Response/Progress/Benefit: [] Pt responded well to session AEB pt taking notes and providing input during discussion about quote. Pt worked with the group during discussion of the costs of resisting change and the benefits of adapting to adversity. Shared that resisting change can cause us to ignore or avoid our stressors and ultimately end up making things worse. Group identified costs of resisting change included: staying stuck, difficulty managing crises, not seeing opportunities to improve current situation, and decrease in self-care. Attentive during psychoeducation on various adams factors in developing personal resilience. Pt reported that one benefit of adapting a resilient is that it allows us to adopt and maintain a growth mindset. Pt seemed to benefit from increasing awareness of strategies to increase personal resilience and the impacts of resilience on managing mental health sx. Progress in overall ability to better apply self-care and boundary setting skills. Pt to discharge from IOP tx as well as the Aftercare program on this date and continue with individual outpatient tx to maintain gains and prevent decompensation. Narrative Note: []
--- NOTE | 2020-09-17 14:03 | BH.DS ---
Discharge Summary - Demographics Date of Admission:: 08/04/20 Discharge Date: 09/17/20 Presenting Problems at Admission:: Client is a 30-year-old female with a history of depression and ADHD. Client has two previous hospitalizations with the most recent being 2014 at [facility]. Client was self-referred to [facility] due to decompensation since May 2020. At admission, client reported increased depression and anxiety which were impacting her daily functioning. Client endorsed no energy, low motivation, hopelessness, worthlessness, inappropriate guilt, anhedonia, and isolative behaviors. Client also reported passive suicidal ideations, but denied any intent sharing her daughter is client's protective factor. Client endorsed frequent panic attacks, poor concentration, and ruminations. At admission, psychosocial stressors such as first time living on her own with her daughter and client's grandmother passing away were contributing to client?s decompensation. Client's symptoms were impacting her social, familial, and daily functioning. Discharge Diagnoses:: Major depressive disorder, recurrent, severe without psychosis F33.2; generalized anxiety disorder Reason for Discharge:: Client has made significant progress towards her treatment goals AEB her reduction in DSM-5 symptom scores, self-report of increased ability to challenge distortions, and improved functioning. Client no longer meets criteria for [facility] level of care and will transition to outpatient counseling and [facility] aftercare. - Treatment Progress During Treatment & Response: Client responded well to treatment demonstrated significant progress towards her treatment goals AEB a 64% reduction in DSM-5 scores and high engagement in group and individual sessions. Client?s scores for depression decreased by 63% and anxiety decreased by 83%. Client consistently reported using healthy coping skills including ANA MARÍA, thought challenging, journaling, boundary setting, assertive communication, and self-care. Client had stressors with family throughout her time in [facility], but client self-reports managing it better than she would have in the past. Client was an active group member who often gave insight to discussion, feedback to peers, and connects the topics to her daily life. Client was highly engaged in her individual sessions and was consistent with homework and skill utilization outside of group. Client's consistent application of skills was likely the reason for her significant reduction in symptoms and improved mood. Client is to schedule with [facility] for outpatient counseling and would like to join the [facility] aftercare. Issues Still to be Addressed:: Client can continue to benefit from outpatient counseling and aftercare at [facility] to reinforce healthy coping skills and maintain progress. Client can also continue working on further improving boundaries, self-care, and use of thought challenging. Lastly, client would like to further improve self-compassion. Discharge Recommendations/Instructions:: Client was given options for outpatient counseling and client plans to follow up with [facility]. Client reports plan to call and setup an appointment next week. Client's PCP will be managing client's medications ongoing. Client will start [facility] aftercare group in two weeks. Discharge Handout: Complete Discharge Handout with client on aftercare options and continuity of care.
== END 2020-09-18 23:59 ==
LOC: BHIOP 09:00
PROVIDERS: PCP Family Medicine; Referring Provider Psychiatry & Neurology Psychiatry; Visit Provider Psychiatry & Neurology Psychiatry
DX: F33.2 Major depressive disorder, recurrent severe without psychotic features (principal); F41.8 Other specified anxiety disorders; E66.9 Obesity, unspecified; F17.210 Nicotine dependence, cigarettes, uncomplicated; F12.90 Cannabis use, unspecified, uncomplicated; Z91.5 Personal history of self-harm
CPT/HCPCS: H0035; H2012; H2020; 90832; 90834; 90837

== ENCOUNTER 2020-09-23 14:00 | Outpatient (RCR) | payer MEDICAID, SELFPAY ==
[2020-04-01 11:13] VITALS: BMI 42.3
--- NOTE | 2020-09-23 14:00 | BH.SGPN.GN ---
Behaviors/Verbalizations/Mental Status: []Client alert and oriented, neatly dressed and groomed. Eye contact good. Motor activity appropriate. Speech within normal limits. Affect constricted, mood fatigued. Thoughts linear, logical, no signs of hallucinations or delusions. Client Response/Progress/Benefit: []Client receptive of session, engaged throughout. Notes feeling ?tired? today as client had a busy weekend at work and now feels in pain. Client reported I'm just constantly in physical pain and the group gave client ideas to help manage pain. Client reported she did advocate for self at work and will now have less long shifts. Client reports using self-compassion and problem-solving to cope with her emotions this week. Receptive of discussion on personal accountability and its importance in maintaining mental health stability. Engaged in discussion on different accountability styles and brainstorming strategies for improving ability to hold themselves accountable. Client identified that for homework she wants to establish a better sleep hygiene routine. Client reported she can hold herself accountable by downloading an gabino on her phone to help client shut down her device and so client does not overuse it. Client seemed to benefit from support from peers and increasing understanding of personal accountability benefits and strategies. Progress noted in client?s application of coping skills and optimistic perspective on college. Will continue IOP aftercare group. Narrative Note: []
--- NOTE | 2020-09-23 17:36 | BH.MTP ---
Master Treatment Plan - Patient Information Program Physician:: Dr. Rafia Temple Primary Therapist:: Denise Mosley - Psychiatric Diagnoses Psychiatric Diagnoses:: Major depressive disorder, recurrent, severe without psychosis; generalized anxiety disorder Diagnosis Code(s):: F 33.2 - Estimated LOS Estimated LOS (in weeks):: 12 Problem/Goal #1 - Problem/Goal #1 Stated Goal:: Client will maintain or see a reduction in symptoms AEB client score on the DSM 5 cross-cutting measure and improve client's daily functioning. - Objectives Objective #1 Stated Objective: Client will continue to consistently apply healthy coping skills to maintain progress made in IOP tx. Interventions: Through group therapy, client will review warning signs and triggers as well as healthy coping skills learned in IOP tx to successfully maintain gains while transitioning into outpatient therapy. Discharge Criteria: Client will have accomplished this goal when client's score on the DSM-5 cross-cutting measure has either maintained or reduced over a 12 week period. Target Date: 12/16/20 Review Date: 10/21/20 Objective #2 Stated Objective: Client will learn and utilize 2-3 maintenance strategies to prevent decompensation. Interventions: Through group therapy, client will be provided with education on healthy maintenance behaviors, relapse prevention techniques, and healthy coping strategies. Discharge Criteria: Client will have accomplished this goal when can report using at least 2 maintenance skills to prevent decompensation. Target Date: 12/16/20 Review Date: 10/21/20
--- NOTE | 2020-10-07 14:01 | BH.SGPN.GN ---
Behaviors/Verbalizations/Mental Status: []Client alert and oriented, neat and casual dress, hygiene tended to. Eye contact good. Motor activity appropriate. Speech within normal limits. Affect congruent, mood euthymic. Thoughts linear, logical. No signs of hallucinations or delusions. Client Response/Progress/Benefit: [] Client responded well to session, attentive and engaged throughout. Client reported she has made progress on goal to write down positive things about herself and has been doing this before and after work to better reduce fixating on her occupational stressors. Identified skills used to work towards goal as: reframing negative thoughts, reaching out to supports to ask for help and create a plan for managing personal stressors, as well as more actively implementing healthy self-care skills and spending time with her daughter. Client stated stressor today as following through with the boundary she set with her family to have a smaller giving holiday rather than the traditional large family gathering. Contributed during discussion on making healthy choices and the barriers that prevent doing so. Client identified personal barriers to be: negative thought patterns, habit, and poor boundaries. Client attentive throughout discussion of strategies to improve healthy decision making. Noted wanting to improve healthy decision making regarding maintaining healthy boundaries and selected the strategies of creating a pro/con list and using positive self-talk as the game plan for the week. Appeared to benefit from reflecting on application of coping skills, identifying barriers, and creating a game plan to improve healthy decision-making skills. Narrative Note: []
== END 2020-10-18 23:59 ==
LOC: BHOG 14:00
PROVIDERS: PCP Family Medicine; Referring Provider Psychiatry & Neurology Psychiatry; Visit Provider Psychiatry & Neurology Psychiatry
DX: F33.2 Major depressive disorder, recurrent severe without psychotic features (principal); F41.1 Generalized anxiety disorder
CPT/HCPCS: 90853

== ENCOUNTER 2020-10-28 14:00 | Outpatient (RCR) | payer MEDICAID, SELFPAY ==
[2020-04-01 11:13] VITALS: BMI 42.3
--- NOTE | 2020-10-28 14:06 | BH.TPR ---
Treatment Plan Review Date of Admission:: 09/23/20 Date of Treatment Plan Review:: 10/28/20 Admitting Diagnoses:: Major depressive disorder, recurrent, severe without psychosis; generalized anxiety disorder Current Diagnoses:: Major depressive disorder, recurrent, severe without psychosis; generalized anxiety disorder Patient's Response to Treatment:: Client is engaged in IOP aftercare as evidenced by client's participation in group discussions, self-report of consistently applying coping skills, and self-report of ongoing mood stability. Client?s attendance is consistent. Status of Current Problems and Symptoms: Client reports ongoing stress with work, boundaries with her mother, and following through with self-care. Client also reports some stressors during the upcoming holidays. Problem #1 Problem Name:: Client will maintain or see a reduction in sx AEB client score on the DSM-5 Status of Goals:: Objective 1- complete with ongoing work encouraged. Per the DSM-5, client?s depression increased 33% and her anxiety decreased 66%. Client?s stress with work and boundaries may be contributing to an increase in depression.Client reported quitting smoking which has had a positive impact on client?s health and perspective.Objective 2- Complete with ongoing work encouraged. Client has been consistently reporting the use of coping skills of boundary setting, thought challenging, and self-compassion. Team Recommendations:: Team recommends client continue IOP aftercare group in addition to attending regular outpatient counseling in order to promote mood stability and emotional regulation.
--- NOTE | 2020-11-04 14:00 | BH.SGPN.GN ---
Behaviors/Verbalizations/Mental Status: []Client alert and oriented, neatly dressed and groomed. Eye contact fair. Motor activity appropriate. Speech within normal limits. Affect constricted, mood anxious. Thoughts linear, logical, no signs of hallucinations or delusions. Client Response/Progress/Benefit: []Client responded well to session, checked in using her GAPs worksheet. Client?s goal from last session was to spend less time on her phone. Client states ?it didn?t go well.? Client reports her anxiety has been higher than normal due to holiday and work stress. Client reports a positive is that she is still functioning well, and her relationships have been good. Client engaged well during the discussion of the components of self-compassion. Client connected with the benefits of self-compassion and reports that practicing this has helped client in the past. Client participated in the activity of reframing a recent setback using self-compassion. Client used the example of a triggering interaction with her mother. Client was able to reframe this situation using self-compassion and stated, ?it is perfectly normal to struggle and not have a routine during the pandemic.? Client appeared to benefit from practicing self-compassion and connecting with peers. Will continue aftercare to promote mood stability and reinforce healthy coping skills. Narrative Note: []
== END 2020-11-18 23:59 ==
LOC: BHOG 14:00
PROVIDERS: PCP Family Medicine; Referring Provider Psychiatry & Neurology Psychiatry; Visit Provider Psychiatry & Neurology Psychiatry
DX: F33.2 Major depressive disorder, recurrent severe without psychotic features (principal); F41.1 Generalized anxiety disorder
CPT/HCPCS: 90853

== ENCOUNTER 2020-12-09 14:00 | Outpatient (RCR) | payer MEDICAID, SELFPAY ==
[2020-04-01 11:13] VITALS: BMI 42.3
--- NOTE | 2020-12-09 14:00 | BH.SGPN.GN ---
Behaviors/Verbalizations/Mental Status: []Client alert and oriented, neatly dressed and groomed. Eye contact good. Motor activity appropriate. Speech within normal limits. Affect constricted, mood euthymic. Thoughts linear, logical, no signs of hallucinations or delusions. Client Response/Progress/Benefit: []Client responded well to session, provided input, and listened attentively to peers. Reported feeling ?happy? today as client is recently out of quarantine, which was hard for her family, but had positives as well. Client stated she has been practicing gratitude, thought challenging, and reaching out to supports more often. Client engaged in discussion on self-advocacy. Worked with group to identify the benefits of self-advocacy, as well as common barriers. Reviewed the personal bill of rights and shared she does well to know she has the right to feel safe and be in a non-abusive environment. Worked with group to identify strategies to increase ability to advocate for oneself. Reported she wants to work on advocating for herself by expressing her feelings- positive and negative. Client seemed to benefit from reviewing treatment progress and skill application, as well as learning about how to increase self-advocacy. Client to continue aftercare to promote gains and reinforce healthy coping skills. Narrative Note: []
--- NOTE | 2020-12-09 15:35 | BH.TPR ---
Treatment Plan Review Date of Admission:: 09/23/20 Date of Treatment Plan Review:: 12/09/20 Admitting Diagnoses:: Major depressive disorder, recurrent, severe without psychosis F33.2; generalized anxiety disorder Current Diagnoses:: Major depressive disorder, recurrent, severe without psychosis F33.2; generalized anxiety disorder Patient's Response to Treatment:: Client is engaged in IOP aftercare as evidenced by client's participation in group discussions, self-report of consistently applying coping skills, and self-report of improved mood stability. Client has missed two weeks due to quarantine for COVID exposure. Client is an active group member when she attends. Status of Current Problems and Symptoms: Client missed her review date (11/25/20) due to being quarantined for COVID exposure. Because of this, client missed two weeks of IOP aftercare. Prior to her quarantine, client was reporting stress about the holidays, work, and family. Client reported her depression and anxiety were mild and manageable. Client still had some difficulty with self-criticism, negative thinking, and setting boundaries. Problem #1 Problem Name:: Pt will maintain or see a reduction in mental health symptoms Status of Goals:: Objective 1- complete with ongoing work encouraged. Unable to administer the DSM-5 on 11/25/20 due quarantine. However, prior to quarantine and on 12/09/20, client reported her depression and anxiety have been mild and manageable. Objective 2- complete with ongoing work encouraged. Client has been consistently reporting use of self-compassion, journaling, setting routines, self-care, communicating with her boyfriend, and thought challenging to manage stressors and symptoms. Team Recommendations:: Team recommends pt continue IOP aftercare group in addition to attending regular outpatient counseling in order to decrease depressive and anxious symptoms as well as promote further gains.
--- NOTE | 2020-12-30 14:08 | BH.DS ---
Discharge Summary - Demographics Date of Admission:: 09/23/20 Discharge Date: 12/30/20 - Treatment Discharge Handout: Complete Discharge Handout with client on aftercare options and continuity of care.
== END 2020-12-19 23:59 ==
LOC: BHOG 14:00
PROVIDERS: PCP Family Medicine; Referring Provider Psychiatry & Neurology Psychiatry; Visit Provider Psychiatry & Neurology Psychiatry
DX: F33.2 Major depressive disorder, recurrent severe without psychotic features (principal); F41.1 Generalized anxiety disorder
CPT/HCPCS: 90853

== ENCOUNTER 2020-12-30 14:00 | Outpatient (RCR) | payer MEDICAID, SELFPAY ==
[2020-04-01 11:13] VITALS: BMI 42.3
--- NOTE | 2020-12-30 14:00 | BH.SGPN.GN ---
Behaviors/Verbalizations/Mental Status: []Client alert and oriented, neatly dressed and groomed. Eye contact good. Speech within normal limits. Motor activity appropriate. Affect congruent. Mood irritable. Thoughts linear, logical, no signs of hallucinations or delusions. Client Response/Progress/Benefit: []Pt reports feeling frustrated today. Pt has been coping with the loss of a coworker and increased hours at work. Pt reports feeling burnout and restless for change, but pt recognizes this and has been using healthy coping skills. Pt worked cooperatively with group to identify benefits of having a daily routine which included: improving sense of purpose, increasing productivity, and improve memory. Pt engaged in brainstorming of various daily routine ideas. Pt completed task of creating a daily routine and identifying a supportive mantra. Pt selected the mantra if the grass looks greener on the other side...stop staring and starting watering the grass you are standing on. Pt seemed to benefit from providing support to peers and learning about benefits of routine. Pt to discharge from [facility] aftercare as pt has accomplished personal goals and will transition to outpatient therapy. Narrative Note: []
--- NOTE | 2020-12-30 15:24 | BH.DS ---
Discharge Summary - Demographics Date of Admission:: 09/23/20 Discharge Date: 12/30/20 Presenting Problems at Admission:: Client discharged from IOP tx and transitioned to IOP aftercare to maintain gains client made in IOP and to reinforce healthy coping skills. At admission to IOP aftercare, client reported experiencing mild-moderate symptoms of anxiety and depression. Client was also experiencing life stressors including family stress, work stress, parenting stress, COVID, holidays, and maintaining her mental health progress. Client also continued to experience negative thinking and self-criticism at times. Despite these stressors, client reported ability to cope with her mental health and was activity using healthy skills. Discharge Diagnoses:: Major depressive disorder, recurrent, severe without psychosis; generalized anxiety disorder Reason for Discharge:: Client has accomplished her tx goals AEB her ability to maintain mood stability and gains made in IOP. Client will transition to traditional outpatient counseling. - Treatment Progress During Treatment & Response: Client responded well and made progress in IOP aftercare as evidenced by client's participation in group discussions and self-report of consistently applying coping skills. Client's overall DSM-5 scores decreased by 25% more after completing aftercare. Client?s depression and anxiety decreased by an additional 67% since IOP discharge which is significant. Additionally, at discharge client was reporting an improved mood, more positive thinking patterns, consistent use of healthy coping skills, better relationships, and better boundaries with family. Issues Still to be Addressed:: Client can benefit from ongoing outpatient counseling and medication management to promote gains and reinforce healthy coping skills. Client can continue to work on thought challenging, boundary setting, self-compassion, being vulnerable to increase support, and self-advocacy. Additionally, client reports feelings of burnout at work and client just experienced the loss of a co-worker. Discharge Recommendations/Instructions:: Client is encouraged to follow up with her PCP for medication management and her therapist at [facility]. Discharge Handout: Complete Discharge Handout with client on aftercare options and continuity of care.
== END 2020-12-30 15:30 | disposition home or self-care (01) ==
LOC: BHOG 14:00
PROVIDERS: PCP Family Medicine; Referring Provider Psychiatry & Neurology Psychiatry; Visit Provider Psychiatry & Neurology Psychiatry
DX: F33.2 Major depressive disorder, recurrent severe without psychotic features (principal); F41.1 Generalized anxiety disorder
CPT/HCPCS: 90853

== ENCOUNTER → 2021-05-13 | Outpatient (CLI) | payer MEDICAID, SELFPAY ==
[2021-05-13 11:39] VITALS: BMI 47.1
== END | disposition home or self-care (01) ==
LOC: LABSPEC 16:49
PROVIDERS: PCP Family Medicine; Referring Provider Obstetrics & Gynecology; Visit Provider Obstetrics & Gynecology
DX: N89.8 Other specified noninflammatory disorders of vagina (principal)
CPT/HCPCS: 87070; 87205

== ENCOUNTER 2021-10-09 14:54 | Emergency (ER) | payer MEDICAID, SELFPAY ==
[2021-10-09 14:55] VITALS: BP 138/85; PULSE 88; RESP 16; TEMP 36.4; O2SAT 97; BMI 46.5
--- NOTE | 2021-10-09 15:16 | EDS_ITS ---
HPI History of Present Illness Chief Complaint: Back Narrative Narrative: Patient has history of back pain, on and off for she has had this a few years this exacerbation started about a month ago but it got worse about a week ago. 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 No radiation of the pain, no urinary incontinence or retention. No bowel incontinence, no saddle anesthesia. [facility] Medical History Generalized anxiety disorder Major depressive disorder, recurrent severe without psychotic features PCOS (polycystic ovarian syndrome) Home Medications bupropion HCl 300 mg PO DAILY 09/23/13 [History Last Taken 06/18/15 07:00] cetirizine 20 mg PO DAILY 09/23/13 [History Last Taken 06/18/15 07:00] omeprazole 20 mg capsule,delayed release 20 mg PO DAILY 12/10/18 [History Last Taken Unknown] Blisovi 24 Fe 1 mg-20 mcg (24)/75 mg (4) tablet 1 tab PO DAILY #28 tab NS 04/24/21 [Rx Last Taken Unknown] gabapentin 300 mg PO TID PRN 10/09/21 [History Last Taken Unknown] oxycodone-acetaminophen [Percocet] 1 tab PO Q8H PRN 3 Days #10 tab 10/09/21 [Rx Last Taken Unknown] tizanidine 4 mg PO TID #20 tab 10/09/21 [Rx Last Taken Unknown] Allergy/AdvReac Type Severity Reaction Status Date / Time lamotrigine [From Lamictal] Allergy Mild other Verified 10/09/21 14:55 azithromycin [From Zithromax] Allergy Abd Verified 10/09/21 14:55 cramps/diarrhea latex Allergy Rash Verified 10/09/21 14:55 adhesive AdvReac Rash Verified 10/09/21 14:55 Family History Grandmother Diabetes CVA (cerebral vascular accident) COPD (chronic obstructive pulmonary disease) Grandfather Diabetes Heart disease Surgical History History of tonsillectomy and adenoidectomy Hx of cholecystectomy Social History current occupational status: employed current occupation: [employer] Smoking Status: Former smoker alcohol intake: current details: social substance use type: does not use caffeine: Yes what type of physical activity do you participate in: none seatbelt use: always do you feel safe at home: Yes additional social history: [employer] work works at [employer] ROS ED ROS Narrative Past medical history: Reviewed Medications: Reviewed Social history: Noncontributory Review of systems: All systems negative except as indicated General: No fever Neck: No neck pain Cardiovascular: No chest pain Respiratory: No shortness of breath or cough Gastrointestinal: No abdominal pain, nausea vomiting or diarrhea Genitourinary: No dysuria. No retention Musculoskeletal: No leg pain Back: As in HPI Skin: No rash Neurological: No memory loss, confusion or any focal weakness Hematologic: No easy bleeding or easy bruising EXAM Physical Exam Narrative Exam Narrative: Vitals reviewed General: Patient appears in some discomfort HEENT: Moist mucous membranes Neck: Nontender Cardiovascular normal heart rate Respiratory: No respiratory difficulty speaking in full sentences Abdomen: Soft and nontender, there is no suprapubic mass or pain Back: There is some tenderness over the lumbar region, pain is spinal and paraspinal both. Extremities: Moves all extremities without joint pain or signs of trauma Neurological: There is normal plantar flexion and dorsiflexion of both feet and great toes. Patellar and Achilles reflexes are normal. Normal strength and s ensation. Negative straight leg test. Skin: No rash Psychiatric: Slightly anxious. Const Vital Signs: 10/09/21 14:55 Temperature 97.5 F L Temperature Source Temporal Pulse Rate 88 Respiratory Rate 16 Blood Pressure 138/85 H Blood Pressure Mean 102 Pulse Ox 97 Oxygen Delivery Method Room Air MDM MDM MDM Narrative Medical decision making narrative: Patient appears well. I will treat her symptomatically she has a normal exam. Discharge Plan Triage Chief Complaint: Back ED Provider: Ricardo Cardenas Dx/Rx/DC Orders Clinical Impression: Back pain Instructions: Back Safety: Sleeping Positions, Back Safety: Standing, Back Basics: A Healthy Spine Prescriptions: New tizanidine 4 mg tablet 4 mg PO TID Qty: 20 RF: 0 oxycodone-acetaminophen [Percocet] 5-325 mg tablet 1 tab PO Q8H PRN (Reason: pain) 3 Days Qty: 10 RF: 0 No Action omeprazole 20 mg capsule,delayed release(DR/EC) 20 mg PO DAILY RF: 0 bupropion HCl 150 MG tablet extended release 12 hr 300 mg PO DAILY RF: 0 cetirizine 10 MG tablet 20 mg PO DAILY RF: 0 gabapentin 300 mg Tablet 300 mg PO TID PRN (Reason: Pain) RF: 0 norethindrone-e.estradiol-iron [Blisovi 24 Fe] 1 mg-20 mcg (24)/75 mg (4) tab let 1 tab PO DAILY Qty: 28 RF: 12 Primary Care Provider: Harley Brito Referrals: Harley Brito MD [Primary Care Provider] - 2 Days Disposition Disposition: Home, Self Care
[2021-10-09] MEDS: HYDROmorphone 0.5 MG/0.5 ML SYRINGE IM (15:22)
[2021-10-09] MEDS: Ketorolac 30 MG/ML Syringe IM (15:24)
[2021-10-09] MEDS: Orphenadrine 60 MG/2 ML Ampul IM (15:27)
== END 2021-10-09 15:52 | disposition home or self-care (01) ==
LOC: ED 15:30
PROVIDERS: Emergency Provider Emergency Medicine; PCP Family Medicine
DX: M54.9 Dorsalgia, unspecified (principal); E28.2 Polycystic ovarian syndrome; F41.1 Generalized anxiety disorder; F33.2 Major depressive disorder, recurrent severe without psychotic features; Z79.899 Other long term (current) drug therapy; Z87.891 Personal history of nicotine dependence
CPT/HCPCS: 96372; 99282

== ENCOUNTER 2021-11-29 14:32 | Outpatient (RCR) | payer MEDICAID, SELFPAY | END 2021-12-19 23:59 | LOC: NS 14:32 | PROVIDERS: PCP Family Medicine; Visit Provider Physician Assistant | DX: E66.01 Morbid (severe) obesity due to excess calories (principal); Z68.42 Body mass index [BMI] 45.0-49.9, adult; Z71.3 Dietary counseling and surveillance | CPT/HCPCS: 97802 ==

== ENCOUNTER 2021-12-06 17:00 | Outpatient (RCR) | payer MEDICAID, SELFPAY ==
--- NOTE | 2021-10-17 15:37 | HP.PTEVAL ---
Patient's Visit Information ARSH FIELD is a 31 year old F referred to Physical Therapy by AYLIN COLE with a diagnosis of lumbar radiculopathy. Date of Evaluation: 10/17/21 Physical Therapist: Dalia Mims - Visit Plan Frequency: 2x /Week Duration: 4 Weeks Plan: Pool therapy to begin and then progress to land for stretching/strengthening per tolerance. - Subjective Chronic back pain issues (10-15 years)-most recent flare up started about a month ago. Before that, it had been 2 years since it flared up. Has not worked since October 01 due to the pain. 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 Has had saddle anesthesia during a PT session 2 years ago--PT sent her to ER, discovered L4/L5 disc issue via MRI. Cortisone injection in September 2019 which seemed to help. Pt is scheduled for another one this coming Sunday. About a week ago, pain radiates around front to lower abdominals and down front of thighs. Currently, pain is in her back radiating down the left leg, but reports occasional loss of sensation in her left foot. This is not new for her...has had the loss of sensation with past episodes. PAIN: at rest 3/10 (back/left hip), at worst 9/10. - Pain back/L hip Pain Intensity (Out of 10): 3 Pain Intensity Range: 3, 10 - Objective TRUNK: flexion--fingertips to knees (pain), extension WFL (not painful), SB R=L fingertips to knees, rotation R>L. LES: WFL except SLR restricted bilaterally (L severely due to pain). MMT: Left-- hip flexion 4-/5, hip adduction 3/5, hip extension 4/5, hip abduction 4/5, knee extension 4/5, knee flexion 4/5 (pain with resistance in all directions except hip abduction and knee flexion) Right-- grossly 5/5, pain with resisted knee flexion and hip extension. PALPATION: tenderness to L4/L5 spinous processes, upper sacrum, B posterior iliac crests. GAIT: reduced extension on the left before push off in stance with pain. - Balance/Special Test Scores Oswestry Low Back Score: 24 - Goals Goal 1:: Pt to be I with HEP Goal Time Frame: 2 Weeks Goal 2:: Pt to report decreased pain average <3/10 Goal Time Frame: 2-4 Weeks Goal 3:: Pt to ambulate unlimited distances without pain or gait deviations. Goal Time Frame: 4-6 Weeks Goal 4:: Pt to decrease CARMEN back percentage of disability to <10%. 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 Rehabilitation Potential: Excellent - Anticipated Interventions Patient/Client Instruction: Educate patient on: Condition, Plan of Care Therapeutic Exercise to Include: Strength training, Endurance training, Body mechanics, Flexibilty training, In an aquatic setting, Active ROM, Dynamic Lumbar Stabilization For the Purpose of:: To decrease pain, To increase ROM, To improve ability to perform ADL's Manual Therapy Techniques to Include: Mobilization, Soft tissue mobilization For the Purpose of:: To decrease pain, To increase ROM Cryotherapy (ice pack, ice massage): Yes Thank you for the opportunity to evaluate your patient. For Medicare and Medicare HMO plans, please review the plan of care and approve it. It will need to be FAXED BACK to us at [phone] for Medicare purposes. For Medicare only, by signing this I certify the plan of care. Please let me know if there are questions or concerns regarding this plan of care. Physician Signature: Date:
--- NOTE | 2021-11-15 16:14 | HP.PTREVAL ---
AYLIN COLE, It has been my pleasure to treat ARSH FIELD over the last 7 visits for lumbar radiculopathy. Please see the progress note below for an update on the physical therapy plan of care! Subjective: I dont have pain any more but I feel weak. I think I could use some more ex's to get stronger Objective/Function: LBP ranges from 0-2/10. Pt reports no pain with prolonged ambulation now. Pt reports she still has occasional L LE radiculopathy to foot. Pt reports the pain is really progressed, but her strength has not Plan Plan: I believe pt would benefit from a transition to a land therapy program based on neutral spine stabilization ex's at this time. Balance/Gait/Functional tests - Balance/Special Test Scores Oswestry Low Back Score: 4 Goals Goal 1:: Pt to be I with HEP Goal Time Frame: 2 Weeks Goal Progress: Goal Met Goal 2:: Pt to report decreased pain average <3/10 Goal Time Frame: 2-4 Weeks Goal Progress: Progressing Goal 3:: Pt to ambulate unlimited distances without pain or gait deviations. Goal Time Frame: 4-6 Weeks Goal Progress: Goal Met Goal 4:: Pt to decrease CARMEN back percentage of disability to <10%. Goal Time Frame: 4-6 Weeks Anticipated Interventions Patient/Client Instruction: Educate patient on: Condition, Plan of Care Therapeutic Exercise to Include: Strength training, Endurance training, Body mechanics, Flexibilty training, In an aquatic setting, Active ROM, Dynamic Lumbar Stabilization For the Purpose of:: To decrease pain, To increase ROM, To improve ability to perform ADL's Manual Therapy Techniques to Include: Mobilization, Soft tissue mobilization For the Purpose of:: To decrease pain, To increase ROM Cryotherapy (ice pack, ice massage): Yes Please do not hesitate to contact me at [phone] by phone or if you have questions or concerns regarding this new plan of care! Sincerely, Richard Nguyen, PT, ATC
--- NOTE | 2022-01-17 08:48 | HP.PT.NRP ---
ARSH FIELD was seen in my office for initial evaluation on 10/17/21. The following Plan of Care was established for this patient: Initial Frequency: 2x /Week Initial Duration: 4 Weeks Patient/Client Instruction: Educate patient on: Condition, Plan of Care Therapeutic Exercise to Include: Strength training, Endurance training, Body mechanics, Flexibilty training, In an aquatic setting, Active ROM, Dynamic Lumbar Stabilization For the Purpose of:: To decrease pain, To increase ROM, To improve ability to perform ADL's Manual Therapy Techniques to Include: Mobilization, Soft tissue mobilization For the Purpose of:: To decrease pain, To increase ROM Cryotherapy (ice pack, ice massage): Yes This patient was last seen in our office . Pertinent comments regarding their Physical therapy will appear below: Pt was treated for 11 PT visits LBP through the date of 12/06/21. Pt has not returned through todays date and is discontinued at this time. At this point I will be discontinuing this patient from physical therapy. I would be happy to see this patient again in the future if found appropriate by the physician. Thank you! Richard Nguyen, PT, ATC Balance/Gait/Functional tests - Balance/Special Test Scores Oswestry Low Back Score: 4
== END 2021-12-06 19:00 | disposition home or self-care (01) ==
LOC: PT 17:00
PROVIDERS: PCP Family Medicine
DX: M54.16 Radiculopathy, lumbar region (principal)
CPT/HCPCS: 97110; 97113; 97161; 97164

== ENCOUNTER 2022-01-03 16:00 | Outpatient (RCR) | payer MEDICAID, SELFPAY | END 2022-01-16 23:59 | LOC: NS 16:00 | PROVIDERS: PCP Family Medicine; Referring Provider Physician Assistant; Visit Provider Physician Assistant | DX: Z71.3 Dietary counseling and surveillance (principal); Z68.42 Body mass index [BMI] 45.0-49.9, adult; E66.01 Morbid (severe) obesity due to excess calories | CPT/HCPCS: 97803 ==

== ENCOUNTER 2022-02-16 14:00 | Outpatient (RCR) | payer MEDICAID, SELFPAY | END 2022-02-16 23:59 | LOC: NS 14:00 | PROVIDERS: PCP Family Medicine; Referring Provider Physician Assistant; Visit Provider Physician Assistant | DX: Z71.3 Dietary counseling and surveillance (principal); Z68.42 Body mass index [BMI] 45.0-49.9, adult; E66.01 Morbid (severe) obesity due to excess calories | CPT/HCPCS: 97803 ==

== ENCOUNTER → 2022-04-19 | Outpatient (CLI) | payer MEDICAID, SELFPAY ==
[2022-04-21 08:23] LABS: HPV APTIMA, High Risk Negative (Negative)
== END | disposition home or self-care (01) ==
LOC: LABSPEC 10:26
PROVIDERS: PCP Family Medicine; Visit Provider Nurse Practitioner Women's Health
DX: Z01.419 Encounter for gynecological examination (general) (routine) without abnormal findings (principal)
CPT/HCPCS: 87624; 88175; G0145

== ENCOUNTER → 2022-08-10 | Outpatient (CLI) | payer MEDICAID, SELFPAY ==
[2022-08-10 12:10] LABS: Cholesterol 172 mg/dL (200); Glucose 100 mg/dL (74-106); High Density Lipoprotein 40 mg/dL; Triglycerides 188 mg/dL; Very Low Density Lipoprotein 38 mg/dL (5-40)
== END | disposition home or self-care (01) ==
LOC: PAVLAB 11:14
PROVIDERS: PCP Family Medicine; Referring Provider Obstetrics & Gynecology; Visit Provider Obstetrics & Gynecology
DX: E28.2 Polycystic ovarian syndrome (principal)
CPT/HCPCS: 36415; 80061; 82306; 82947; 84443

== ENCOUNTER → 2023-02-19 | Outpatient (CLI) | payer MEDICAID, SELFPAY ==
[2023-02-19 16:10] LABS: hCG Titer Quant., Serum < 1 mIU/mL (1-3)
== END | disposition home or self-care (01) ==
LOC: PAVLAB 14:34
PROVIDERS: PCP Family Medicine; Referring Provider Obstetrics & Gynecology; Visit Provider Obstetrics & Gynecology
DX: N91.2 Amenorrhea, unspecified (principal)
CPT/HCPCS: 36415; 84702

== ENCOUNTER 2023-05-26 22:31 | Emergency (ER) | payer MEDICAID, SELFPAY ==
[2023-05-26 22:31] VITALS: BP 120/84; PULSE 92; RESP 15; TEMP 36.1; O2SAT 98; BMI 47.8
--- NOTE | 2023-05-26 23:09 | CT_ITS ---
STUDY: CT ABDOMEN AND PELVIS WITHOUT CONTRAST REASON FOR EXAM: Female, 32 years old. Flank pain RADIATION DOSAGE (If Supplied By Facility): CTDIvol = ( 23.56 ) mGy, DLP = ( 1306.85 ) mGycm TECHNIQUE: Transaxial images were obtained from the dome of the diaphragm to the symphysis pubis without oral contrast, and without intravenous contrast. Sagittal and coronal images were reconstructed. Individualized dose optimization techniques were used for this CT. COMPARISON: October 11, 2014 CT abdomen and pelvis FINDINGS: The visualized lung bases are unremarkable. The visualized portions of the heart are within normal limits. Normal liver. Normal gallbladder and extrahepatic biliary system. Normal spleen. Normal pancreas. Normal bilateral adrenal glands. Normal right kidney. Normal left kidney. Normal visualized stomach. Normal small intestine. There is moderate stool within the ascending colon. The appendix is visualized and appears normal. Normal abdominal aorta. Normal inferior vena cava. Normal retroperitoneum. Normal urinary bladder. Normal visualized uterus. There is a small right ovarian follicle measuring 2 cm. There is a small umbilical hernia containing fat. There are diffuse degenerative changes of the visualized lumbar spine. There is degenerative change at the level of L5-S1 with disc space narrowing spondylosis vacuum phenomenon mild neural foramina narrowing no significant central stenosis. CT/Abdomen/Pelvis without Cont IMPRESSION: No visualized renal ureteral or bladder calculi no hydronephrosis. Small ovarian follicle measuring 2 cm. [id number] constipation. No appendicitis. Degenerative change L4-L5. Greater than prior study. Electronically Signed: Pilar Broussard MD at 0:29 EDT Reading Location ID and State: [facility] / [place] Tel , Service support ,
--- NOTE | 2023-05-26 23:10 | EDS_ITS ---
HPI History of Present Illness Chief Complaint: Back Narrative Narrative: Patient presents with left-sided flank pain for few days, she also has intermittent numbness of her left foot. She has no midline back pain. No history of trauma she does have a history of disc disease. She has no urinary symptoms. No recent fevers or chills. [facility] Medical History (Updated 05/27/23 @ 00:[address] Ricardo Cardenas MD) Generalized anxiety disorder Major depressive disorder, recurrent severe without psychotic features PCOS (polycystic ovarian syndrome) Home Medications bupropion HCl 150 mg tablet,12 hr sustained-release 300 mg PO DAILY 09/23/13 [History Last Taken 06/18/15 07:00] cetirizine 10 mg tablet 20 mg PO DAILY 09/23/13 [History Last Taken 06/18/15 07:00] omeprazole 20 mg capsule,delayed release 20 mg PO DAILY 12/10/18 [History Last Taken Unknown] medroxyprogesterone 10 mg tablet (Provera) 10 mg PO QDAY #10 tabs 08/10/22 [Rx Last Taken Unknown] magnesium hydroxide 400 mg/5 mL oral suspension (Milk of Magnesia) 5 ml PO DAILY PRN constipation #355 mL 05/27/23 [Rx Last Taken Unknown] naproxen 500 mg tablet 500 mg PO BID #14 tabs 05/27/23 [Rx Last Taken Unknown] Allergy/AdvReac Type Severity Reaction Status Date / Time lamotrigine [From Lamictal] Allergy Mild other Verified 05/26/23 22:36 azithromycin [From Zithromax] Allergy Abd Verified 05/26/23 22:36 cramps/diarrhea latex Allergy Rash Verified 05/26/23 22:36 adhesive AdvReac Rash Verified 05/26/23 22:36 Family History Grandmother Diabetes CVA (cerebral vascular accident) COPD (chronic obstructive pulmonary disease) Grandfather Diabetes Heart disease Surgical History History of tonsillectomy and adenoidectomy Hx of cholecystectomy Social History current occupational status: employed current occupation: [employer] Smoking Status: Current every day smoker tobacco type: e-cigarettes alcohol intake: current details: social substance use type: does not use caffeine: Yes what type of physical activity do you participate in: none seatbelt use: always do you feel safe at home: Yes additional social history: works at [employer] ROS ED ROS Narrative Past medical history: Reviewed Medications: Reviewed Social history: Noncontributory Review of systems: General: No fever Eyes: No visual changes ENT: No upper airway congestion, normal voice Neck: No neck pain Cardiovascular: No chest pain Respiratory: No shortness of breath or cough Gastrointestinal: No abdominal pain, nausea vomiting or diarrhea Genitourinary: No dysuria Musculoskeletal: Back pain as in HPI Skin: No rash Neurological: No memory loss, confusion or any focal weakness EXAM Physical Exam Narrative Exam Narrative: Physical exam General: Well nourished, Well developed, she appears comfortable in the room as I walk in. Head: Normocephalic, Atraumatic Eyes: Conjunctiva not pale ENT: Moist mucous membranes Neck: Supple, Nontender, No lymphadenopathy Cardiovascular: Regular rate, Regular rhythm Respiratory: No distress, CTA bilaterally Abdomen: Soft, Nontender, Nondistended Back: Patient has left CVA tenderness to palpation. Extremities: Nontender, No edema Skin: Normal color, No rash Neurological: Normal strength and sensation of the lower extremities. Normal patellar and Achilles reflexes. Normal plantarflexion and dorsiflexion of both feet and great toes Const Vital Signs: 05/26/23 22:31 Temperature 97.0 F L Temperature Source Temporal Pulse Rate 92 Respiratory Rate 15 Blood Pressure 120/84 H Blood Pressure Mean 96 Pulse Ox 98 Oxygen Delivery Method Room Air MDM MDM MDM Narrative Medical decision making narrative: Patient has an unremarkable work-up. CT does show degeneration and some constipation. I will treat her constipation, her lumbar degeneration can be fo llowed up outpatient. She has intermittent radicular symptoms to her left foot however at this time she has no paresthesias she has no signs of cauda equina therefore a stat MRI is not needed. She does not meet criteria for admission. I talked to her who also corroborated the story. Otherwise patient will be discharged in stable condition. If anything changes they are to return. Lab Data Labs: Laboratory Results - last 24 hr 05/26/23 05/26/23 23:20 23:28 WBC 10.4 RBC 4.82 Hgb 14.1 Hct 41.2 MCV 85.5 MCH 29.3 MCHC 34.2 RDW Std Deviation 37.8 RDW Coeff of Faith 12.4 Plt Count 260 MPV 9.6 Immature Gran % (Auto) 0.300 Neut % (Auto) 63.3 Lymph % (Auto) 27.4 [place] % (Auto) 6.8 Eos % (Auto) 1.5 Baso % (Auto) 0.7 Absolute Neuts (auto) 6.6 Absolute Lymphs (auto) 2.84 Nucleated RBC % 0 Sodium 138 Potassium 3.4 L Chloride 106 Carbon Dioxide 30.0 Anion Gap 2 L BUN 20 H Creatinine 0.97 Estim Creat Clear Calc 77.22 Est GFR (MDRD) Af Amer 85 Est GFR (MDRD) Non-Af 70 BUN/Creatinine Ratio 20.6 H Glucose 96 Calcium 9.0 Total Bilirubin 0.20 AST 27 ALT 49 Alkaline Phosphatase 79 Total Protein 7.5 Albumin 3.8 Globulin 3.7 Albumin/Globulin Ratio 1.0 Lipase 32 Urine Color Yellow Urine Clarity Clear Urine pH 5.0 Ur Specific [place] 1.030 Urine Protein 15 H Urine Glucose (UA) Normal Urine Ketones Negative Urine Occult Blood Negative Urine Nitrite Negative Urine Bilirubin Negative Urine Urobilinogen Normal Ur Leukocyte Esterase 25 H Urine RBC 0 SEEN Urine WBC 0 SEEN Ur Squamous Epith Cells 0 SEEN Urine Bacteria 0 SEEN Urine Mucus 0 SEEN Urine Test Negative Radiography Diagnostic Testing: Clinical Impression(s) from Imaging Studies Abdomen/Pelvis CT 05/26/23 23:09 IMPRESSION: No visualized renal ureteral or bladder calculi no hydronephrosis. Small ovarian follicle measuring 2 cm. Xnar-tl-[id number] constipation. No appendicitis. Degenerative change L4-L5. Greater than prior study. Electronically Signed: Pilar Broussard MD at 0:29 EDT Reading Location ID and State: [facility] / [place] Tel , Service support , Discharge Plan Triage Chief Complaint: Back ED Provider: Ricardo Cardenas Dx/Rx/DC Orders Clinical Impression: Disc degeneration, lumbar, Constipation Instructions: Treating Constipation, Back Safety: Bending, Anatomy of a Normal Spine Prescriptions: New magnesium hydroxide [Milk of Magnesia] 400 mg/5 mL suspension 5 ml PO DAILY PRN (Reason: constipation) Qty: 355 0RF naproxen 500 mg tablet 500 mg PO BID Qty: 14 0RF No Action omeprazole 20 mg capsule,delayed release(DR/EC) 20 mg PO DAILY medroxyprogesterone [Provera] 10 mg tablet 10 mg PO QDAY Qty: 10 9RF Rx Instructions: take for five days if neg preg test and no menses after 35-40 days bupropion HCl 150 MG tablet extended release 12 hr 300 mg PO DAILY cetirizine 10 MG tablet 20 mg PO DAILY Primary Care Provider: Harley Brito Referrals: Harley Brito MD [Primary Care Provider] - 3-5 Days
[2023-05-26 23:30] LABS: Bacteria 0 SEEN /hpf (None Seen); Mucous, Urine 0 SEEN /hpf (<or=2+); Red Blood Cells-Urine 0 SEEN /hpf (0-5); Squamous Epithelial Cells - UA 0 SEEN /hpf (5-10); White Blood Cells 0 SEEN /hpf (0-5)
[2023-05-26 23:34] LABS: Color, Urine Yellow (Yellow); Glucose, Dipstick Normal (Normal); Ketone-Dipstick Negative (Negative); Leukocyte Esterase-Dipstick 25 /ul (Negative); Nitrite-Dipstick Negative (Negative); Occult Blood-Urine Negative /ul (Negative); Protein-Dipstick 15 mg/dl (Negative); Urine Bilirubin Dipstick Negative (Negative); Urine Clarity Clear (Clear); Urine Urobilinogen Normal (Normal)
[2023-05-26 23:38] LABS: Absolute Lymphocyte Count 2.84 X10^3/uL (0.83-4.51); Absolute Neutrophil Count 6.6 X10^3/uL (2.0-7.7); Basophil# 0.07 X10^3/uL; Basophil% 0.7 % (0-1); Eosinophil# 0.16 X10^3/uL; Eosinophils% 1.5 % (0-5); Hematocrit 41.2 % (37-47); Hemoglobin 14.1 g/dL (12.0-15.0); Lymphocyte # 2.84 X10^3/ul (0.83-4.51); Lymphocyte % 27.4 % (19-41); Mean Corp Hgb Conc 34.2 g/dL (32-36); Mean Corpuscular Hgb 29.3 pg (27.0-32.0); Mean Corpuscular Volume 85.5 fL (81-99); Mean Platelet Vol. 9.6 fl (6.2-12.0); Monocyte# 0.71 X10^3/uL; Monocyte% 6.8 % (0-10); NRBC Flagged by Analyzer 0 % (0-5); Neutrophil # 6.56 X10^3/uL (2.7-7.7); Neutrophil % 63.3 % (47-70); Platelet Count 260 K/mm3 (150-450); RBC Distribution Width CV 12.4 % (11.6-14.6); RBC Distribution Width SD 37.8 fl (35.1-43.9); Red Blood Count 4.82 M/mm3 (4.2-5.4); White Blood Count 10.4 K/mm3 (4.4-11.0)
[2023-05-26 23:44] LABS: Internal QC Validated? YES +Cl - CLEAR BKGD; Pregnancy, Urine Negative Negative
[2023-05-26 23:56] LABS: AST(SGOT) 27 U/L (15-37); Alanine Aminotransfer ALT/SGPT 49 U/L (13-56); Albumin, Serum 3.8 g/dL (3.2-5.0); Alkaline Phosphatase 79 U/L (45-117); Anion Gap 2 (5-15); BUN 20 mg/dL (7-18); BUN/Creat Ratio 20.6 RATIO (10-20); Chloride 106 mmol/L (98-107); Creatinine, Serum 0.97 mg/dL (0.55-1.02); EST Glomerular Filtration Rate 70 mL/min (>60); Est Glom Filt Rate - Afr Amer 85 mL/min (>60); Estimated Creatinine Clearance 77.22 ml/min; Globulin 3.7 g/dL (2.2-4.2); Glucose 96 mg/dL (74-106); Lipase 32 U/L (13-75); Potassium 3.4 mmol/L (3.5-5.1); Protein, Total 7.5 g/dL (6.4-8.2); Sodium Level 138 mmol/L (136-145)
== END 2023-05-27 00:59 | disposition home or self-care (01) ==
PROVIDERS: Emergency Provider Emergency Medicine; PCP Family Medicine; Visit Provider Emergency Medicine
DX: M51.36 Other intervertebral disc degeneration, lumbar region (principal); F33.2 Major depressive disorder, recurrent severe without psychotic features; K59.00 Constipation, unspecified; Z79.899 Other long term (current) drug therapy; Z90.49 Acquired absence of other specified parts of digestive tract; F17.290 Nicotine dependence, other tobacco product, uncomplicated
CPT/HCPCS: 74176; 80053; 81001; 81025; 83690; 85025; 99283; A4216

== ENCOUNTER 2024-01-22 08:00 | Outpatient (RCR) | payer MEDICAID, SELFPAY ==
--- NOTE | 2024-01-22 10:10 | BH.SGPN.GN ---
Behaviors/Verbalizations/Mental Status: [] Client alert and oriented, casual appearance. Eye contact good. Motor activity appropriate. Speech within normal limits. Affect congruent, mood dysthymic. Thoughts linear, logical, no signs of hallucinations or delusions. Reviewed client?s symptom tracker, no risk for suicidal ideation, plan, or intent. Client Response/Progress/Benefit: [] Pt receptive to session AEB contributing to small group discussion, as well as listening attentively to others, and taking notes. Worked with group to brainstorm the positive and negative aspects of stress on physical and mental health. Group did well to identify the benefits of stress as well as the impact of distress on performance, relationships, and mental health. Pt identified their personal top stressors as: Relationship issues, mental health decline, and responsibilities. Pt seemed to benefit from increased awareness of current stressors and impact stress has on mental health. Pt will continue IOP tx to increase consistent utilization of healthy coping skills, challenge negative thought patterns, and prevent decompensation. Narrative Note: []
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
--- NOTE | 2024-01-22 11:38 | BH.COMM_ITS ---
Communication Note Communication with Client Communication Note: Met with pt to complete initial paperwork and administer the CSSR-S screening and risk assessment. Pt is moderate per the CSSR-S screening and risk assessment. Pt denies any current suicidal ideations, but does note ?very fleeting thoughts? last month. Pt has no history of suicide attempts per her report. She does have a hx of one self-aborted attempt in 2014. Pt is future oriented. No guns at home. No stockpiles of medications. Pt receptive to discussion on reducing access to lethal means. Discussed case with Dr. Temple and pt will be admitted to [facility] tx with a diagnosis of MDD, recurrent, severe, without psychosis F 33.2
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
[2024-01-23 09:27] VITALS: BP 130/82; PULSE 74
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
--- NOTE | 2024-01-23 12:43 | BH.DR.ITP ---
Initial Treatment Plan Patient Information Visit Information: ADMISSION DATE: EXPECTED LOS: 4-6 weeks Problems/Symptoms Problem #1:: Anxiety Symptom:: Worry, rumination, avoidance, hypervigilance, panic attack Problem #2:: Depression Symptom:: Sadness, worthlessness, low motivation, guilt, low energy decreased concentration
--- NOTE | 2024-01-28 09:00 | BH.SGPN.GN ---
Behaviors/Verbalizations/Mental Status: [] Eye contact is good. Motor activity is appropriate. Appearance is casual. Speech is Appropriate. Mood is depressed. Affect is flat. Thoughts are linear and logical. No evidence of psychosis. Reviewed daily check in sheet and no reports of suicidal ideations or intent. Client Response/Progress/Benefit: [] Pt participated at times during the group discussion. Attentive. Emotion for today is nahomi. Reports brain fog as well as negative self-talk. Recent started a new medication which she reports may be causing her to be more drowsy. She is attempting to reframe her negative thoughts and challenge her perspectives however this has had limited impact. Group praised her for attempting and trying skills. Able to identify other mental health wins and healthy habits. Benefited from group support, encouragement, and feedback. Will continue in IOP to prevent decompensation, stabilize mood, and improve healthy coping. Narrative Note: []
--- NOTE | 2024-01-28 10:10 | BH.SGPN.GN ---
Behaviors/Verbalizations/Mental Status: [Patient was alert and oriented, casually dressed and groomed. Eye contact was good, motor activity normal, speech within normal limits. Affect congruent, mood depressed. Thoughts linear, logical, no signs of hallucinations or delusions. ] Client Response/Progress/Benefit: [Patient was engaged and open to the discussion and appeared to respond well to the group. Patient used active listening and gave feedback during group discussion. Patient identifies that boundaries are a form of self-care. Patient was engaged in the activity of identifying the reason boundary setting is hard. Patient stated its hard because she wants to be liked by everyone. Patient appeared to benefit from increasing awareness of healthy strategies to improve communication. Patient will continue IOP treatment to improve daily functioning, emotion management, and prevent decompensation] Narrative Note: []
--- NOTE | 2024-01-28 11:15 | BH.SGPN.GN ---
Behaviors/Verbalizations/Mental Status: []Pt alert and oriented, neatly dressed and groomed. Eye contact good. Motor activity appropriate. Speech within normal limits. Affect congruent, mood euthymic. Thoughts linear, logical, no signs of hallucinations or delusions. Client Response/Progress/Benefit: []Pt responded well to session AEB listening attentively to peers and providing input throughout. Pt attentive during psychoeducation on the different boundary styles. Pt identified being flexible with her boundaries now and pt has worked very hard to get to this point, per her report. Pt was given a handout on strategies for healthy boundary setting. Identified wanting to work on differentiating between her physical and emotional needs and being able to assertively communicate them. Seemed to benefit from increased awareness of boundary styles and strategies to improve setting boundaries. Will continue IOP tx to reduce intensity of anxiety, improve self-care, and reduce negative thinking patterns. ? Narrative Note: []
--- NOTE | 2024-01-28 13:37 | BH.MDN ---
Multi-Disciplinary Note Note 60-min Individual: Time Started:: 12:15 Date: 01/28/24 Purpose of session/treatment goals addressed:: To identify current stressors, process triggers and feelings, and set goals to help pt manage stressors. Eye Contact:: Good Motor Activity:: Appropriate Appearance:: Neat Speech:: Appropriate Mood:: Euthymic and Irritable Affect:: Full Thoughts:: Linear, Logical and No evidence of hallucinations/delusions noted Staff Interventions:: thought challenging, motivational interviewing, CBT techniques, strengths perspective, goal setting and taught coping skills Client Response:: Pt responded well to session, open to meeting with therapist. Pt shared she did the reflecting she wanted to do for homework and pt identified one of her triggers which is feeling like her partner does not trust her decision making. Pt shared over the weekend her partner shared his perspective on pt taking medication for her mental health and pt became defensive. Pt reported he called me an addict and he just wanted me to stop taking meds. Pt shared this was triggering for several reasons including feeling hurt for being labeled unfairly, feeling loss of autonomy, and frustration with her partner for assuming he knows more than pt does about her health. Pt processed some of her other frustrations from the weekend and this seemed to help. Pt also receptive to thought challenging and discussion of the you, me, we approach to strengthening relationships. Pt feels that she is doing a good job of addressing her part or the me of her relationship, but she feels that her fiance is trying to be the fixer. Pt shared this makes her upset and want to not disclose things as much in the future. Pt also wants to take on less emotional responsibility for her fiances emotions. Pt receptive to homework of identifying the you, me, we expectations and talking with her fiance. Risks/Concerns:: Pt denies any SI or thoughts of . Progress Toward Goals/Plan:: Pt's second week of IOP tx and reports benefitting from the group support. Pt reports utilizing the coping skills discussed in group and individual sessions. Pt's relationship with her fiance, finances, and managing triggers are her primary stressors. Pt receptive to ideas in session and did well to problem-solve. Pt's symptoms of anxiety and depression continue to impact her functioning and she is recommended to continue IOP tx to promote mood stability, increase distress tolerance skills, and improve self-confidence. Time Stopped:: 13:10
--- NOTE | 2024-01-29 09:05 | BH.SGPN.GN ---
Behaviors/Verbalizations/Mental Status: [] Eye contact good. Motor activity appropriate. Speech within normal limits. Affect congruent, mood anxious and dysthymic. Thoughts linear, logical, no signs of hallucinations or delusions. Reviewed client?s symptom tracker, denies SI, plan, or intent as of 01/29/2024. Client Response/Progress/Benefit: [] Client receptive of session, attentive and willing to process with group. Identified mental health ?wins? as challenging herself to use self-compassion and rest when feeling unwell vs. pushing herself and overdoing it. Additional win noted as beginning to see improvements since starting on new medications. Reports current stressor as disharmony at home. Shared trying to cope by focusing on what is in her control in the environment. Client appeared to benefit from group support and encouragement. Recommended continued IOP tx to continue to reduce anxiety, continue to promote consistent skill application, and prevent decompensation. Narrative Note: []
--- NOTE | 2024-01-29 10:10 | BH.SGPN.GN ---
Behaviors/Verbalizations/Mental Status: [] Eye contact is good. Motor activity is appropriate. Appearance is casual. Speech is Appropriate. Mood is dysthymic. Affect is constricted. Thoughts are linear and logical. No evidence of psychosis. Client Response/Progress/Benefit: [] Pt was an active participant in group discussions. Attentive during psychoeducation on the 4 communication styles (Passive, Passive-Aggressive, Aggressive, and Assertive) and the obstacles to effective communication. Contributed during interactive discussion on the benefits of communicating effectively which included; having one's needs met, helping others get their needs met, building connection with others, decreases stress and uncertainty, improved relationships, increased trust, and increased understanding of others. Worked well in small group in which pt and peers identified the benefits and disadvantages to the different communication styles. Benefited from increased understanding of communication styles and how these can impact effective communication. Will continue in IOP to build confidence, challenge distortions, and prevent decompensation.
--- NOTE | 2024-01-29 11:15 | BH.SGPN.GN ---
Behaviors/Verbalizations/Mental Status: []Pt alert and oriented, neatly dressed and groomed. Eye contact good. Motor activity appropriate. Speech within normal limits. Affect congruent, mood euthymic. Thoughts linear, logical, no signs of hallucinations or delusions. Client Response/Progress/Benefit: [] Pt responded well to session AEB Pt listening attentively to others and providing input during group discussion on the pay offs and costs of the different communication styles. Pt able to connect how current communication style impacts mental health. Connected with peers comments about importance of using assertive communication. Pt did well being assertive in the group activity and practiced using assertive communication in the role playing scenarios. Pt she has worked hard to be more assertive and she reminded her group that ?no is a complete sentence.? ?Pt seemed to benefit from increasing awareness of healthy strategies to improve communication. Will continue IOP tx to prevent decompensation, improve daily functioning, and increase mood stability. ?? Narrative Note: []
--- NOTE | 2024-02-04 09:05 | BH.SGPN.GN ---
Behaviors/Verbalizations/Mental Status: [Patient was alert and oriented, appropriately dressed and groomed. Eye contact was good, motor activity normal, speech within normal limits. Affect congruent, mood content. Thoughts linear, logical, no signs of hallucinations or delusions. Reviewed Patients symptom tracker and the patient reports depressed mood, anxiety/panic attacks, agitation/irritability/anger, self-harm urges, and thoughts/risk of suicide within normal limits.] Client Response/Progress/Benefit: [ Patient was engaged and open to the discussion. Patient reported her mood to be ?anxious but hopeful?. Patients first win is that she and her fiderrell? have been working out 3 times a week through a program they started at the beginning of the year. She stated they want to ?look and feel better? before getting . Patient shared that she enjoys it because she does feel better mentally and physically. Patients second win was that she had a good weekend with her fianc?. She shared that they normally don?t get Saturdays off together but this weekend they did. Patients stressor was that her daughter father is becoming harder to communicate with and is fearful he will be a bad influence on their daughter. Patient was interactive and respectful with other group members about their mental wins and stressors. Patient benefited from the discussion by listening to feedback and giving input on her peer?s stressors and mental health wins. Patient will continue with IOP treatment to help develop healthy skills, promote mood stability, and improve distress tolerance. ] Narrative Note: []
--- NOTE | 2024-02-04 10:15 | BH.SGPN.GN ---
Behaviors/Verbalizations/Mental Status: []Pt alert and oriented, causally dressed and groomed. Eye contact good. Motor activity appropriate. Speech within normal limits. Affect constricted, mood calm. Thoughts linear, logical, no signs of hallucinations or delusions. Client Response/Progress/Benefit: [] Pt engaged in group session AEB listening to others, taking notes throughout, and nodding head to others comments. Group attentive during psychoeducation about emotion regulation and dysregulation. Appeared to connect with scenarios reviewed in group on emotion regulation vs dysregulation. Engaged in activity, reporting they stepped outside their comfort zone by not being an active role because pt wanted to work on letting others lead. Pt benefited from session by gaining an increased understanding on the importance of managing emotions. Pt to continue IOP to promote gains, reinforce healthy coping skills, and combat distorted thought patterns. ?? Narrative Note: []
--- NOTE | 2024-02-04 11:10 | BH.SGPN.GN ---
Behaviors/Verbalizations/Mental Status: []Pt alert and oriented, casually dressed and fairly groomed. Eye contact fair. Motor activity appropriate. Speech within normal limits. Affect constricted, mood dysthymic. Thoughts linear, logical, no signs of hallucinations or delusions. Client Response/Progress/Benefit: [] Pt engaged in session AEB Pt listening attentively to peers and providing input. Attentive during psychoeducation on 4 zones of regulation. Pt able to identify feelings and behaviors for each zone. Pt identified coping skills one can use to support self in each zone. Identified one skill from each zone can practice which included: opposite action, goal setting, and grounding. Benefited from increased education on zones of regulation or stages of alertness for emotions and healthy coping skills to use for each zone. Will continue IOP tx to increase healthy coping, challenge distortions, and prevent decompensation.
--- NOTE | 2024-02-05 09:00 | BH.SGPN.GN ---
Behaviors/Verbalizations/Mental Status: [] Eye contact is good. Motor activity is appropriate. Appearance is casual. Speech is Appropriate. Mood is depressed. Affect is congruent. Thoughts are linear and logical. No evidence of psychosis. Reviewed daily check in sheet and no reports of suicidal ideations or intent. Client Response/Progress/Benefit: [] Pt participated at times during the group discussion. Attentive. Daily symptom tracker notes 2/5 for depression and 1/5 fore anxiety/irritability. Able to identify mental health wins and healthy habits. States I asked for help rather than overwhelmed herself. This was a difficulty task stating I want to be able to do everything myself. Shared how this perspective has impacted her mental health and functioning in the past and her recent attempt to identify and alter this perspective. Group normalized asking for help. Progress noted per pt report however reports feeling very foggy and tired this AM which is impacting her mood. Will continue in IOP to prevent decompensation, stabilize mood, and increase healthy coping. Narrative Note: []
--- NOTE | 2024-02-05 10:15 | BH.SGPN.GN ---
Behaviors/Verbalizations/Mental Status: []Pt alert and oriented, causally dressed and groomed. Eye contact fair. Motor activity appropriate. Speech within normal limits. Affect congruent, mood agitated. Thoughts linear, logical, no signs of hallucinations or delusions. Client Response/Progress/Benefit: []Pt was actively engaged, providing input at times, and taking notes throughout session. Connected with the topic of pitfalls and listened to group discussion on internal and external barriers that prevent from choosing a healthier path to mental wellness. Group worked together to identify examples of personal internal pitfalls and pt identified theirs as negative self-talk, not knowing needs, and isolation. Pt benefited from group as pt learned to better identify and normalize potential barriers to improving mental health symptoms. Pt also gained awareness of the difference between external triggers and self-sabotaging behaviors. Pt will continue IOP tx to promote mood stability, increase self-compassion, and combat distortions. Narrative Note: []
--- NOTE | 2024-02-05 11:15 | BH.SGPN.GN ---
Behaviors/Verbalizations/Mental Status: []Pt alert and oriented, casually dressed and groomed. Eye contact good. Motor activity appropriate. Speech within normal limits. Affect congruent, mood anxious and content. Thoughts linear, logical, no signs of hallucinations or delusions. Client Response/Progress/Benefit: [] Pt receptive of session, engaged throughout AEB actively contributing and listening to discussion, as well as taking notes. Pt participated in the experiential activity and processed with group how their emotions, perspective, and reactions positively and negatively impacted the outcome. Pt identified pitfalls they struggle with and shared wanting to work on pitfall of self-doubt by reminding herself I am capable?. Benefited from identifying personal pitfalls and strategies to overcome these pitfalls. Will continue IOP tx to prevent decompensation, improve daily functioning, and increase boundary setting and communication skills. ? Narrative Note: []
--- NOTE | 2024-02-05 15:17 | BH.MDN_ITS ---
Multi-Disciplinary Note Note Family: Time Started:: 12:05 Date: 02/05/24 Purpose of session/treatment goals addressed:: To bring in pt's support person (finance) into pt's tx to promote growth and address any barriers. Pt a lso wanted therapist to give psychoeducation on medication. Eye Contact:: Good Motor Activity:: Appropriate Appearance:: Neat Speech:: Appropriate Mood:: Other (calm) Affect:: Congruent Thoughts:: Linear, Logical and No evidence of hallucinations/delusions noted Staff Interventions:: thought challenging, motivational interviewing, psychoeducation on: (antidepressants), CBT techniques, rapport building, strengths perspective and goal setting Client Response:: Pt and fiance responded well to session, open to meeting with therapist. Pt's goals for the session were to discuss the you, me, we and how the couple can better separate these components of their relationship/self. Pt also had a goal for her fiance to get some psychoeducation on antidepressants because he was fearful pt was becoming addicted. Pt's fiance shared he does feel concerned about this and he is also concerned that the medications are not effective. Pt and her fiance did well to hear each other and they used assertive communication. The psychoeducation appeared to help and the finace was more understanding of pt's decision to stay on medications. Pt shared without her antidepressants, she is not functioning and pt hears her fiance's concerns about being on medications for a long time, but pt is proud to be on meds. This appeared to be helpful for pt's self-advocacy and for her fiance. Discussed the you, me, we and this helped pt and her fiance identify what things they are doing well and what they want to improve. The fiance realized that he has been very stressed and has lost his me and has been pouring a lot more attention into the we. Pt expressed gratitude for this, but also reminded him that he is encouraged to take me time as pt also needs time for herself. Together they have homework to figure out what this will look like and also to practice verbalizing their needs more directly. Risks/Concerns:: Pt denies any suicidal ideations or thoughts of . Progress Toward Goals/Plan:: Pt continues to show progress on her tx goals AEB pt's consistent application of coping skills and self-report of improving mood. Pt is experiencing some side effects from her new medication and this will be relayed to Dr. Temple. Pt is reporting feeling less anxious and having less panic, but pt is still experiencing some lack of motivation and depressive symptoms. Pt will continue IOP tx to promote mood stability, improve energy and motivation, and increase self-compassion. Time Stopped:: 13:05
--- NOTE | 2024-02-06 09:05 | BH.SGPN.GN ---
Behaviors/Verbalizations/Mental Status: [Patient was alert and oriented, appropriately dressed and groomed. Eye contact was good, motor activity normal, speech within normal limits. Affect congruent, mood tired. Thoughts linear, logical, no signs of hallucinations or delusions. Reviewed Patients symptom tracker and the patient reports depressed mood, anxiety/panic attacks, agitation/irritability/anger, self-harm urges, and thoughts/risk of suicide within normal limits.] Client Response/Progress/Benefit: [Patient was engaged and open to the discussion. Patient reported her mood to be ?tired?. Patients first win was that she and her fianc? had went to ?family therapy? yesterday to help educate him on her mental health diagnosis. She reported this session went well. Patients second win is that she cooked dinner for her and her last night and had an overall good day. Patients stressor is that she is feeling ?chronically? tired because of a new medication. Patient stated she was so tired this morning that she did not get up to exercise with her like she normally does. Patient was interactive and respectful with other group members about their mental wins and stressors. Patient benefited from the discussion by listening to feedback and giving input on her peer?s stressors and mental health wins. Patient will continue with IOP treatment to help develop healthy skills, promote mood stability, and improve distress tolerance. ] Narrative Note: []
--- NOTE | 2024-02-06 10:10 | BH.SGPN.GN ---
Behaviors/Verbalizations/Mental Status: []Pt alert and oriented, casually dressed and groomed. Eye contact good. Motor activity appropriate. Speech within normal limits. Affect congruent, mood anxious and content. Thoughts linear, logical, no signs of hallucinations or delusions. Client Response/Progress/Benefit: [] Pt active participant AEB pt providing input throughout group discussion. Pt attentive during psychoeducation about defense mechanisms. Showed engagement during small group discussions and helped group identify which defense mechanisms were maladaptive, adaptive, or ?somewhere in the bethea.? Pt started to work with group on identifying how each defense mechanism can impact mental health and gave examples. Pt was engaged during small group discussion, providing examples of intellectualization in her own life. ?Seemed to benefit from gaining awareness about the different defense mechanisms. Pt to continue IOP tx to prevent decompensation, improve daily functioning, and increase mood stability. ? Narrative Note: []
--- NOTE | 2024-02-06 11:10 | BH.SGPN.GN ---
Behaviors/Verbalizations/Mental Status: []Pt alert and oriented, neatly dressed and groomed. Eye contact good. Motor activity appropriate. Speech within normal limits. Affect congruent, mood euthymic. Thoughts linear, logical, no signs of hallucinations or delusions. Client Response/Progress/Benefit: [] Pt responded well to session, participating in activity and small group discussion. Group reviewed the rest of the defense mechanisms and discussed how these are adaptive, maladaptive, or somewhere in the bethea. Pt participated in the experiential activity which encouraged pts to draw a castle that portrayed their different defense mechanisms. Pt's defense mechanisms included intellectualization, anticipation, and humor. Pt shared belief that all three of hers can be maladaptive at times, but for the most part pt feels humor and intellectualization are adaptive. Pt listened to hot worker teach different skills to help pt?s cope with or change their defense mechanisms. Pt appeared to benefit from gaining insight to the different defense mechanisms and learning coping skills. Pt will continue IOP tx to promote mood stability, increase self-care, and reduce intensity of symptoms. ? Narrative Note: []
--- NOTE | 2024-02-06 12:03 | PCM.BH.PN_ITS ---
Progress Note Progress Note: History of Present Illness/Interim History: The patient is a 33-year-old single female with a history of depression who is seen in follow-up at the [facility] behavioral health IOP. She was last seen 2 weeks ago and Cymbalta was added to her regimen. The patient has been taking the Cymbalta for only 10 days now and had some side effects the first few days but the side effects have always resolved except for significant fatigue. The patient feels the Cymbalta makes her very tired and is hard for her to function. She states that her anxiety may have improved slightly but again 10 days is not really long enough to give the medicine an adequate trial. The patient feels she is benefiting from the groups and learning valuable skills to help cope with her mental health. The patient had a meeting between her fianc? and her counselor and she feels that this was beneficial and has lessened her stress with her fianc?. Her fianc? previously said that he felt that taking psych medications daily was like having an addiction. She states he is less adamant about this now. The patient denies passive thoughts of , suicidal ideation, homicidal ideation, thoughts of self-harm, hallucinations or delusions. Current Psychiatric Medications: [] Wellbutrin XL 300 mg p.o. every morning daily; Cymbalta 30 mg p.o. daily (x 10 days) Mental Status Examination: [] The patient is an obese 33-year-old female who is casually dressed and groomed with good hygiene and ambulatory with a normal gait. She has no psychomotor agitation or retardation. Eye contact is good and speech is normal rate and rhythm and fluent with no pressure. Mood is mildly to moderately depressed and anxious. Thought process is goal-directed and organized. Thought content: There is no evidence of passive thoughts of , suicidal ideation, homicidal ideation, thoughts of self-harm, hallucinations or delusions. The patient wishes to discontinue her Cymbalta as she feels it makes her way too tired. Reality testing is intact. Intelligence is average. Judgment is intact. Insight is good. Impulsivity is low. Diagnoses: [] 1. Major depressive disorder, recurrent, moderate 2. Generalized anxiety disorder 3. Primary support issues the patient will continue the IOP at [facility] as the structure, support, education and group therapy will hopefully prevent worsening of the patient's symptoms which could require hospitalization. She felt safe during the interview and if it anytime she does not feel safe she will let us know or go to the emergency room. Plan: [] Discussed possible risks with the patient with an antidepressant such as Cymbalta or Wellbutrin and discussed that the benefits outweigh the small potential risks in the third trimester such as discontinuation syndrome for SSRIs and SNRIs. The patient wishes to discontinue this is the Cymbalta as she feels it makes her too fatigued. She does not wish to add any other medications. She will continue her Wellbutrin XL. She will continue to follow-up with her outpatient providers and I will see the patient in follow-up while she is in the IOP.
--- NOTE | 2024-02-11 09:05 | BH.SGPN.GN ---
Behaviors/Verbalizations/Mental Status: [Patient was alert and oriented, appropriately dressed and groomed. Eye contact was good, motor activity normal, speech within normal limits. Affect congruent, mood anxious. Thoughts linear, logical, no signs of hallucinations or delusions. Reviewed Patients symptom tracker and the patient reports depressed mood, anxiety/panic attacks, agitation/irritability/anger, self-harm urges, and thoughts/risk of suicide within normal limits.] Client Response/Progress/Benefit: [Patient was engaged and open to the discussion. Patient reported her mood to be ?anxious?. Patients first win is that her personal lines insurance advisor did a review with her fitness goals with her, and she has made ?significant progress?. Patients second win was that she made extra money on Sunday at work which is a relief because she has this whole week off since her daughter is on spring break. Patients stressor is her daughters father continuously being inconsistent and threating to refile in court about custody. Patient was interactive and respectful with other group members about their mental wins and stressors. Patient benefited from the discussion by listening to feedback and giving input on her peer?s stressors and mental health wins. Patient will continue with IOP treatment to help develop healthy skills, promote mood stability, and improve distress tolerance. ] Narrative Note: []
--- NOTE | 2024-02-11 10:15 | BH.SGPN.GN ---
Behaviors/Verbalizations/Mental Status: [] Eye contact is good. Motor activity is appropriate. Appearance is casual. Speech is Appropriate. Mood is euthymic. Affect is full. Thoughts are linear and logical. No evidence of psychosis. Client Response/Progress/Benefit: [] Pt was engaged and an active participant in group discussions. Attentive during psychoeducation and participated in group activity. Group discussed what contributes to a person?s perspective and how perspective can positively or negatively impact mental health treatment. Participated in group discussion on things that can interfere with perspective which group identified as; mood, physical state, past experiences, relationships, anger, current stressors, finances, and several others. Pt appeared to benefit from increasing awareness of different perspectives and how they can affect mental health. Pt will continue IOP treatment to prevent decompensation, stabilize mood, and increase healthy coping Narrative Note: []
--- NOTE | 2024-02-11 11:15 | BH.SGPN.GN ---
Behaviors/Verbalizations/Mental Status: []Pt alert and oriented, casually dressed and groomed. Eye contact good. Motor activity appropriate. Speech within normal limits. Affect congruent, mood euthymic. Thoughts linear, logical, no signs of hallucinations or delusions. Client Response/Progress/Benefit: []Pt was attentive and contributed to group discussion. Pt worked with group to identify strategies that can help with challenging negative perspective. Pt completed strengths exploration worksheet, identifying love, humor, patience, empathy, and creativity as personal strengths. Pt able to acknowledge how these strengths are helping pt and can continue to help pt in mental health journey. Pt identified wanting to work on reframing thoughts when faced with stressors. Benefited from identifying personal strengths and strategies for enhancing use of identified strengths. Pt will continue IOP tx to continue working on application of anxiety management skills, improve mood stability, and prevent decompensation. Narrative Note: []
--- NOTE | 2024-02-11 15:23 | BH.MTP_ITS ---
Treatment Plan Review Demographics Date of Admission:: 01/22/24 Date of Treatment Plan Review:: 02/11/24 Admitting Diagnoses:: Major depressive disorder, recurrent, moderate (F33.1); Generalized anxiety disorder Current Diagnoses:: Major depressive disorder, recurrent, moderate (F33.1); Generalized anxiety disorder Patient Status Patient's Response to Treatment:: Pt has responded well to session AEB co nsistently attending IOP and engaging in both individual and group therapy sessions. Pt consistently completes homework provided from individual counseling. Pt contributes at times during group discussions, takes notes, appears to listen to others, and engages in group activities. Status of Current Problems and Symptoms: Pt continues to report stressors with her ex-boyfriend (father of pt's daughter) that exacerbates anxiety. Pt also reports symptoms of depression and anxiety that are less severe, but still ongoing and impacting pt. Pt reports stressors with maintaining communication within her relationship with her fiance and establishing realistic expectations. Progress Problem #1: Problem Name:: Anxiety, ruminations, and panic Status of Goals:: Objective 1-complete with ongoing work encouraged. Pt?s DSM-5 scores for anxiety have decreased by 43% since admission. Pt continues to report avoiding things that make her anxious and feeling anxious most days. Pt reports using exercise and practicing some self-care. Objective 2- in progress. Pt is working on increasing her self-care practices to not just chores and things pt ?has to do.? Team Recommendations:: Team recommends continued goals and objectives to reinforce skills and maintain gains made. Team recommends pt continue working on setting boundaries, communicating her needs, and engaging in self-care. Problem #2: Problem Name:: Depression, negative thinking, and lack of motivation. Status of Goals:: Objective 1-complete with ongoing work recommended. Pt?s DSM-5 scores for depression have decreased by 50% since admission. Pt reports consistently using opposite action, thought challenging, and communicating with her fiance. Objective 2- in progress. Pt is working on combating all or nothing expectations and perfectionism. Team Recommendations:: Team recommends continued goals and objectives to reinforce skills and maintain gains made. Team recommends pt continue working on combating distortions and setting realistic goals. Pt also needs an outpatient therapist and was given options for this.
--- NOTE | 2024-02-12 09:05 | BH.SGPN.GN ---
Behaviors/Verbalizations/Mental Status: [] Eye contact is good. Motor activity is appropriate. Appearance is casual. Speech is Appropriate. Mood is euthymic. Affect is full. Thoughts are linear and logical. No evidence of psychosis. Reviewed daily check in sheet and no reports of suicidal ideations or intent. Client Response/Progress/Benefit: [] Pt was an active participant in group discussion. Able to identify mental health wins and healthy habits. Pt reports that she is working towards mental health goals. Completing her responsibilities, maintaining healthy routine, exercising, and practicing mindfulness. Insight on how these changes have benefited her mental and physical health. Increase energy, motivation, and engagement in life. More hopeful. Stressors include finances. Progress noted per pt report. Benefited from group support,encouragement, and feedback. Will continue in IOP to prevent decompensation, stabilize mood, and increase healthy coping. Narrative Note: []
--- NOTE | 2024-02-12 10:10 | BH.SGPN.GN ---
Behaviors/Verbalizations/Mental Status: []Client alert and oriented, casually dressed and groomed. Eye contact good. Motor activity appropriate. Speech within normal limits. Affect congruent, mood euthymic. Thoughts linear, logical, no signs of hallucinations or delusions. Client Response/Progress/Benefit: []Client receptive to session AEB providing input throughout, listening attentively to others, and taking notes. Attentive throughout psychoeducation on the cognitive triangle and maintenance cycles. Engaged in group discussion reviewing the impact of daily activities and behaviors in either reinforcing unhealthy maintenance cycles and depression or assisting in reducing symptoms (?down? vs ?up? activities). Client identified common ?down? activities they engage in as: avoidance, negative self-talk, isolation, doom scrolling, and canceling plans. Common ?Up? activities client identified included: opposite action, sticking to bedtime routine, getting outdoors, and using timer when playing video games. Appeared to benefit from increased awareness of current behaviors and impact these have on mental health. Recommended to continue IOP to promote use of healthy coping skills, challenge distortions, and prevent decompensation.
--- NOTE | 2024-02-12 11:15 | BH.SGPN.GN ---
Behaviors/Verbalizations/Mental Status: []Eye contact is good. Motor activity is appropriate. Appearance is neat. Speech is Appropriate. Mood is euthymic. Affect is congruent. Thoughts are linear and logical. No evidence of psychosis. Client Response/Progress/Benefit: [] Pt responded well to session, attentive and engaged in group discussions and activity. Group discussed values and the benefits that knowing one's values can have on one's mental health. Pt explored own values and identified personal top values. Pt stated a personally important value is mental and emotional health. Pt set a goal to improve engagement in this value. Goal identified as calling to schedule with a new outpatient therapist. Pt appeared to benefit from exploring values and creating a weekly goal. Pt also reported benefitting from the activity and the group encouragement today. Will continue in IOP to reinforce healthy coping skills, improve self-compassion, and reduce all or nothing thinking. ? Narrative Note: []
--- NOTE | 2024-02-18 15:01 | BH.MDN_ITS ---
Multi-Disciplinary Note Note 60-min Individual: Time Started:: 12:00 Date: 02/11/24 Purpose of session/treatment goals addressed:: To review DSM-5, discuss progress and discharge planning, and to work on setting self-care goals. Eye Contact:: Good Motor Activity:: Appropriate Appearance:: Neat Speech:: Appropriate Mood:: Euthymic and Anxious Affect:: Full Thoughts:: Linear, Logical and No evidence of hallucinations/delusions noted Staff Interventions:: thought challenging, motivational interviewing, CBT techniques, strengths perspective, reviewed DSM-5 and goal setting Client Response:: Pt responded well to session, open to meeting with therapist. Pt shared she stopped taking her Cymbalta as pt felt it was not beneficial and pt feels good about this. Pt stated she and her fiance have been getting along well and communicating well. Pt wants to work on helping herself follow through with goals more when it comes to house work. Pt stated there are things she keeps up with, but then there are chores she really struggles with completing. Pt feels that part of the reason she struggles is due to her all or nothing thinking and perfectionism. Pt has made a lot of progress in this area, but pt still will tell herself if I can't do it all I don't want to do it. Pt read a book that pt felt was really helpful in figuring out her on ramps and cues to help pt stay motivated. Pt receptive to discussing other strategies like making things more accessible, delegating chores to her fiance and daughter, and giving herself permission to be human. Pt also encouraged to schedule in some self-care time as pt struggles with getting swept up in the mundane and this can lead to burnout and depressive thoughts. Risks/Concerns:: Pt denies any suicidal ideations or thoughts of . Progress Toward Goals/Plan:: Pt is making progress towards her tx goals AEB pt's 50% reduction in overall DSM-5 scores since admission. Pt reports a 50% reduction in depressive symptoms, 43% reduction of anxiety, and 67% reduction in anger since admission. Pt continues to endorse little interest/pleasure in doing things most days and avoiding situations that make her anxious. Pt will need outpatient therapy when she discharges from [facility] and she was given referrals. Pt will continue IOP tx to promote gains, further increase ability to manage stressors, and reduce all or nothing thinking. Time Stopped:: 12:53
== END 2024-02-17 23:59 ==
LOC: BHIOP 08:00
PROVIDERS: PCP Family Medicine; Referring Provider Psychiatry & Neurology Psychiatry; Visit Provider Psychiatry & Neurology Psychiatry
DX: F33.1 Major depressive disorder, recurrent, moderate (principal); F41.1 Generalized anxiety disorder
CPT/HCPCS: 90792; 99214; H2012; H2020; S9480; T1002; 90834; 90837; 90847

== ENCOUNTER 2024-02-18 07:14 | Outpatient (RCR) | payer MEDICAID, SELFPAY ==
[2024-02-18 00:29] VITALS: BP 130/82; PULSE 74
--- NOTE | 2024-02-18 09:00 | BH.SGPN.GN ---
Behaviors/Verbalizations/Mental Status: [Patient was alert and oriented, appropriately dressed and groomed. Eye contact was good, motor activity normal, speech within normal limits. Affect congruent, mood content. Thoughts linear, logical, no signs of hallucinations or delusions. Reviewed Patients symptom tracker and the patient reports low in depressed mood. Patient does not report symptoms of anxiety/panic attacks, agitation/irritability/anger, self-harm urges, or thoughts/risk of suicide. ] Client Response/Progress/Benefit: [Patient was engaged and open to the discussion. Patient reported her mood to be ?grateful?. Patients first win was that she was ?only 20 minutes late to [employer] dinner? yesterday. She said this is a win because she technically was ready but the food she made wasn?t and she struggles with being on time herself. Patients second win is that everyone liked the food she made, and a lot of people took her food home with them. Patient stressor is the father to her child calling her out in front of everyone about a visit today with their daughter. Patient explained that he doesn?t tell her until last minute or just never shows to their visits when he?s supposed to notify her the night before a visit, and it frustrated her because of how it made her ?look?. Patient was interactive and respectful with other group members about their mental wins and stressors. Patient benefited from the discussion by listening to feedback and giving input on her peer?s stressors and mental health wins. Patient will continue with IOP treatment to help develop healthy skills, promote mood stability, and improve distress tolerance. ] Narrative Note: []
--- NOTE | 2024-02-18 10:10 | BH.SGPN.GN ---
Behaviors/Verbalizations/Mental Status: []Pt alert and oriented, casually dressed and groomed. Eye contact good. Motor activity appropriate. Speech within normal limits. Affect congruent, mood euthymic. Thoughts linear, logical, no signs of hallucinations or delusions. Client Response/Progress/Benefit: [] Pt connected with topic of anxiety and participated throughout, providing input and taking notes. Participated throughout interactive discussion defining anxiety and identifying cognitive and physiological symptoms of anxiety. Group discussed how anxiety can prevent them from trying new things. Pt identified physical signs of anxiety as increased heart rate, flushed cheeks, and increased stimming behaviors. Pt identified safety behaviors as reassurance seeking, sleeping, and over-thinking. Benefited from increased awareness and insight on anxiety and its impact. Pt will continue IOP tx to prevent decompensation, improve daily functioning, and increase self-compassion. Narrative Note: []
--- NOTE | 2024-02-18 11:15 | BH.SGPN.GN ---
Behaviors/Verbalizations/Mental Status: []Pt alert and oriented, neatly dressed and groomed. Eye contact good. Motor activity appropriate. Speech within normal limits. Affect congruent, mood euthymic. Thoughts linear, logical, no signs of hallucinations or delusions. Client Response/Progress/Benefit: [] Pt was an active participant AEB pt providing input and listening attentively to peers. Attentive during psychoeducation on mindfulness coping skills and their impact on reducing anxiety and improving overall mental health wellness. Group was able to identify self-soothing and mind-based coping skills which included: 5-senses, meditation, deep breathing, journaling, thought challenging, and progressive muscle relaxation. Pt also participated with peers in practicing mindfulness skills in session. Pt would like to work on doing more opposite action instead of over thinking which leads to avoidance. Appeared to benefit from increasing repertoire of anxiety reduction skills. Pt will continue in [facility] tx to promote use of healthy coping skills, improve daily functioning, and increase self-confidence. Narrative Note: []
--- NOTE | 2024-02-19 09:10 | BH.SGPN.GN ---
Behaviors/Verbalizations/Mental Status: [] Eye contact is good. Motor activity is appropriate. Appearance is casual. Speech is Appropriate. Mood is depressed. Affect is congruent. Thoughts are linear and logical. No evidence of psychosis. Reviewed daily check in sheet and no reports of suicidal ideations or intent. Client Response/Progress/Benefit: [] Pt was an active participant in group discussions. Attentive. Daily symptom tracker notes 3/5 for depression and 1/5 for anxiety/irritability. Had difficulty identifying mental health wins or healthy habits. Reports that she has been struggling with her mental health recently. I'm in my head. She talked at length about difficulty processing her thoughts and feels like she is just functioning. Increased depression, guilt, and anxiety. Too much going on. Tearful. She elaborated and gave some examples of the thoughts that are causing distress. Group empathized and gave support and feedback which was beneficial. Regression noted. Will continue in IOP to prevent decompensation, stablize mood, and increase healthy coping. Narrative Note: []
--- NOTE | 2024-02-19 10:15 | BH.SGPN.GN ---
Behaviors/Verbalizations/Mental Status: []Pt alert and oriented, neatly dressed and groomed. Eye contact good. Motor activity appropriate. Speech within normal limits. Affect congruent, mood euthymic. Thoughts linear, logical, no signs of hallucinations or delusions. Client Response/Progress/Benefit: [] Pt was an active participant, AEB taking notes and providing input in group discussions and activities. Attentive during psychoeducation. Pt engaged during interactive discussion in which the group defined self-care and discussed its benefits. Group discussed benefits of self-care which included; better self-esteem, reduce stress, and boost mood. Pt participated in small group where they worked to identify common self-care ?myths.? Pt?s group worked on self-care is selfish, not everyone deserves it, and it is self-indulgent. Pt reports she also struggles with convincing herself that taking care of others only is self-care, but pt needs more than just helping others. Benefited from increased awareness of self-care, its benefits, and the consequences of not utilizing self-care strategies. Will continue IOP tx to promote mood stability, improve self-compassion, and combat distorted thinking patterns. Narrative Note: []
--- NOTE | 2024-02-19 11:15 | BH.SGPN.GN ---
Behaviors/Verbalizations/Mental Status: []Pt alert and oriented, casually dressed and groomed. Eye contact good. Motor activity appropriate. Speech within normal limits. Affect congruent, mood euthymic. Thoughts linear, logical, no signs of hallucinations or delusions. Client Response/Progress/Benefit: [] Pt engaged participant AEB completing self-assessment worksheet and providing input throughout discussion. Pt completed worksheet identifying current self-care practices and what self-care activities Pt wants to start using. Pt selected social self-care to begin practicing more consistently. Pt plans to do this by researching places to increase social connections. Appeared to benefit from completing the self-care evaluation and gaining insights into current self-care practices, as well as identifying areas in which pt would like to improve upon. Pt will continue IOP tx to promote use of healthy coping skills, challenge negative thoughts, and prevent decompensation.
--- NOTE | 2024-02-19 14:38 | BH.MDN ---
Multi-Disciplinary Note Note 60-min Individual: Time Started:: 12:05 Date: 02/19/24 Purpose of session/treatment goals addressed:: To work on goal #1 of pt's tx plan. Eye Contact:: Good Motor Activity:: Appropriate Appearance:: Neat Speech:: Soft Mood:: Depressed Affect:: Congruent (tearful) Thoughts:: Linear and No evidence of hallucinations/delusions noted Staff Interventions:: thought challenging, CBT techniques, strengths perspective, goal setting, taught coping skills and other (practiced creating new core beliefs and gathering evidence.) Client Response:: Pt responded well to session, open to meeting with therapist. Pt reports she had a rough day recently with her fiance and she felt more emotional. Pt processed the emotions of the day and identified sad, regret, guilty, needy, determined, and rushed. Pt stated there have been moments lately where she and her fiance have not been in sync which has caused tension, conflict, and anxiety. Pt stated the tension is often related to expectations, communication, or feeling like there is too much structure. Pt also has been struggling with judging herself when she feels emotions that are distressing such as sadness and guilt. Pt has many deep-rooted beliefs of self including the belief that she is not a person who follows through with things, the belief that she has to be perfect, and that she is a failure. When pt feels these emotions and has these thoughts she can be very self-critical and does not give herself credit. Discussed how pt can begin to work on balancing her core beliefs and being more compassionate to herself. Pt learned about gathering evidence for her healthier, more balanced core beliefs. One belief pt wants to develop is that I'm continuously improving. Pt enjoys that she likes to change and learn, but there are times where she gets the message that she is not consistent and it triggers a negative core belief. Pt encouraged to work on gathering evidence to support her more balance thought. Pt also will reflect on what is realistic for her regarding structure/routine that is flexible and not rigid. Risks/Concerns:: Pt denies any suicidal ideations or thoughts of . Progress Toward Goals/Plan:: Pt continues to make progress towards her tx goals AEB pt's active engagement in group sessions and report of applying skills outside of IOP. Pt was more tearful in session today as pt is gaining insight to how much her intellectualizing and all or nothing expectations impact pt. Pt's symptoms have improved since admission, but pt continues to struggle with negative thoughts of self, expressing her needs, and she has ongoing stressors that impact her mood. Pt will continue IOP tx to promote mood stability, reduce negative self-talk, and improve self-confidence. Time Stopped:: 13:10
--- NOTE | 2024-02-25 09:00 | BH.SGPN.GN ---
Behaviors/Verbalizations/Mental Status: [Patient was alert and oriented, appropriately dressed and groomed. Eye contact was good, motor activity normal, speech within normal limits. Affect congruent, mood content. Thoughts linear, logical, no signs of hallucinations or delusions. Reviewed Patients symptom tracker and the patient reports low to moderate in anxiety/panic attacks, low in depressed mood and agitation/irritability/anger. Patient does not report symptoms of self-harm urges or thoughts/risk of suicide] Client Response/Progress/Benefit: [Patient was engaged and open to the discussion. Patient reported her mood to be ?mid?. Patients first win is that although her personal lines underwriter has cancelled the past 2 days, she and her still worked out on one of those days. Patient second win was that she got up early yesterday and went to breakfast with some friends that were in town with her . Patients stressor is that her mom had her daughter for the past 3 days and she wanted to spend time with the patient although the patient did not want to spend time with her. Patient set boundaries and said she did not want to go to the movies with them but feels bad about the boundary although she did keep it. Patient was interactive and respectful with other group members about their mental wins and stressors. Patient benefited from the discussion by listening to feedback and giving input on her peer?s stressors and mental health wins. Patient will continue with IOP treatment to help develop healthy skills, promote mood stability, and improve distress tolerance. ] Narrative Note: []
--- NOTE | 2024-02-25 10:15 | BH.SGPN.GN ---
Behaviors/Verbalizations/Mental Status: []Patient was alert and oriented, casually dressed and groomed. Eye contact was good, motor activity normal, speech within normal limits. Affect congruent, mood content. Thoughts linear, logical, no signs of hallucinations or delusion Client Response/Progress/Benefit: []Pt participated in the group discussions AEB providing input and taking notes. Attentive during psychoeducation Goal Setting. Participated during the discussion on common barriers which the group identified as: lack of motivation, making excuses, not feeling good enough, and lack of support. Group also identified benefits sense of purpose, improved self-confidence, more motivation for other goals, and improved mental health. Pt reports struggling specifically with barriers of low self-esteem and absolute thinking. Benefited from increased awareness of mental health benefits of goals as well as psychoeducation on SMART goal criteria. Will continue in IOP to prevent decompensation, improve daily functioning, and increase ability to manage unrealistic expectations. Narrative Note: []
--- NOTE | 2024-02-25 11:10 | BH.SGPN.GN ---
Behaviors/Verbalizations/Mental Status: []Pt alert and oriented, casually dressed and groomed. Eye contact good. Motor activity appropriate. Speech within normal limits. Affect congruent, mood euthymic. Thoughts linear, logical, no signs of hallucinations or delusions. Client Response/Progress/Benefit: [] Pt was engaged during discussion and willing to complete the worksheet challenging them to develop a personal SMART goal. Pt chose the goal of doing at least 3 workouts and at least one long walk by next week. Pt stated this will help her maintain progress towards physical health goals. Pt identified animal attendants and trainers canceling and food cravings as potential barriers. Identified solutions such as can do workouts without animal attendants and trainers and meal planning. Pt receptive to identifying solutions for these barriers and willing to begin working on this goal. Benefited from this group by developing a short-term SMART goal related to mental health. Will continue IOP tx to promote use of healthy coping skills, challenge negative thoughts, and prevent decompensation..
--- NOTE | 2024-02-26 09:05 | BH.SGPN.GN ---
Behaviors/Verbalizations/Mental Status: [] Eye contact is poor. Motor activity is appropriate. Appearance is casual. Speech is Appropriate. Mood is anxious. Affect is congruent. Thoughts are linear and logical. No evidence of psychosis. Reviewed daily check in sheet and no reports of suicidal ideations or intent. Client Response/Progress/Benefit: [] Pt was an active participant in group discussions. Attentive. Daily symptom tracker notes minimal distress today. Emotion is mixed. Able to identify mental health wins and healthy habits which include self-care and completing responsibilities. Shared that she made dinner last evening and elaborate on how this was beneficial to her mental health. Intrusive negative thoughts are primary stressor I continue to beat myself up over everything. Shared automatic thoughts and cognitive distortions and group helped challenge and reframe which was beneficial. Will continue in IOP to prevent decompensation, stabilize mood, and increase healthy coping. Narrative Note: []
--- NOTE | 2024-02-26 10:10 | BH.SGPN.GN ---
Behaviors/Verbalizations/Mental Status: []Eye contact is good. Motor activity is appropriate. Appearance is casual. Speech is Appropriate. Mood is euthymic. Affect is congruent. Thoughts are linear and logical. No evidence of psychosis. Client Response/Progress/Benefit: [] Pt was an engaged participant AEB listening attentively to others, taking notes, and providing feedback in small group discussions. Attentive during psychoeducation AEB by note taking and providing some input. Pt worked along with peers in small groups to define inappropriate guilt and appropriate guilt. Interactive discussion on examples of both inappropriate and appropriate guilt. Pt able to connect impact inappropriate guilt can have on MH. Pt gave an example of how inappropriate guilt leads pt to overcompensate and personalize. Benefited from increased awareness of guilt and the differences between appropriate and inappropriate guilt. Will continue in IOP to promote gains, reduce negative thinking patterns, and improve self-confidence. Narrative Note: []
--- NOTE | 2024-02-26 11:15 | BH.SGPN.GN ---
Behaviors/Verbalizations/Mental Status: []Pt alert and oriented, casually dressed and groomed. Eye contact good. Motor activity appropriate. Speech within normal limits. Affect congruent, mood content. Thoughts linear, logical, no signs of hallucinations or delusions. Client Response/Progress/Benefit: [] Pt engaged participant AEB listening attentively to others and providing input throughout group. Pt worked within their small group to identify strategies to manage inappropriate guilt. Identified a personal example of inappropriate guilt as blaming herself for not going to a friend?s democrat. Insight this cues a fear of disappointing others and rejection. Pt wants to work on combatting inappropriate guilt by challenging distortions, maintaining her boundaries, and focusing on self-compassion. Pt seemed to benefit from learning about strategies to manage appropriate and inappropriate guilt. Pt will continue IOP tx to promote mood stability, reinforce healthy boundaries, and prevent decompensation. Narrative Note: []
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
--- NOTE | 2024-03-03 09:00 | BH.SGPN.GN ---
Behaviors/Verbalizations/Mental Status: [Patient was alert and oriented, appropriately dressed and groomed. Eye contact was good, motor activity normal, speech within normal limits. Affect congruent, mood content. Thoughts linear, logical, no signs of hallucinations or delusions. Reviewed Patients symptom tracker and the patient reports no symptoms in depressed mood, anxiety/panic attacks, agitation/irritability/anger, self-harm urges, or thoughts/risk of suicide.] Client Response/Progress/Benefit: [Patient was engaged and open to the discussion. Patient reported her mood to be ?empowered?. Patients first win is that she believes communication has become easier and was able to communicate her feelings yesterday to her . Patients second win is that she had a talk with her daughter this morning about her anxiety. Patient realized that what she said to her daughter she should say this to herself too. Patients stressor is staying on her budget and possibly increasing it. Patient was interactive and respectful with other group members about their mental wins and stressors. Patient benefited from the discussion by listening to feedback and giving input on her peer?s stressors and mental health wins. Patient will continue with IOP treatment to help develop healthy skills, promote mood stability, and improve distress tolerance. ] Narrative Note: []
--- NOTE | 2024-03-03 10:10 | BH.SGPN.GN ---
Behaviors/Verbalizations/Mental Status: []Client alert and oriented, casually dressed and groomed. Eye contact good. Motor activity appropriate. Speech within normal limits. Affect congruent, mood content. Thoughts linear, logical, no signs of hallucinations or delusions. Client Response/Progress/Benefit: []Pt engaged in session AEB listening attentively to others and providing input throughout. Pt engaged in activity, able to connect how it can be uncomfortable and difficult to accept when things are out of one?s own control. Pt worked with group to identify what things in life can be hard to accept. Group identified things hard to accept as: change, loss of relationship, mental health diagnosis, other?s behaviors, and finances. Pt identified struggling to accept her expectations may be unrealistic which has led to overexerting herself in the past. Seemed to benefit from increased awareness of importance of acceptance. Pt to continue IOP tx to further improve mood stability, self-compassion, and prevent decompensation. Narrative Note: []
--- NOTE | 2024-03-03 11:10 | BH.SGPN.GN ---
Behaviors/Verbalizations/Mental Status: []Pt alert and oriented, casually dressed and groomed. Eye contact fair. Motor activity appropriate. Speech within normal limits. Affect congruent, mood euthymic. Thoughts linear, logical, no signs of hallucinations or delusions. Client Response/Progress/Benefit: []Pt responded well to session AEB taking notes and contributing to discussion throughout. Pt engaged as group continued discussion on acceptance and the mental health benefits of practicing acceptance. Pt and peers identified what makes acceptance challenging and pt completed a self-reflection exercise on what is hard to accept in pt's life. Pt identified what is hard to accept in her life and how makes things harder when resists acceptance. Group identified strategies to increase acceptance and pt wrote down what strategy she wants to practice. Pt appeared to benefit from gaining insight and learning strategies to increase acceptance. Pt will continue IOP tx to promote use of healthy coping skills, challenge distorted thoughts, and prevent decompensation.
--- NOTE | 2024-03-04 09:05 | BH.SGPN.GN ---
Behaviors/Verbalizations/Mental Status: [] Eye contact is good. Motor activity is appropriate. Appearance is casual. Speech is Appropriate. Mood is euthymic. Affect is full. Thoughts are linear and logical. No evidence of psychosis. Reviewed daily check in sheet and no reports of suicidal ideations or intent. Client Response/Progress/Benefit: [] Pt was an active participant in group discussion. Attentive. Emotion for today is invigorated. Shared that today is her last day in [facility] and she is set to discharge successfully. She shared that prior to IOP she was decompensating however has managed to stabilize her mood. Improved overall mental health. She is fearful of regression and isolation in the future, however states that she plan on continuing with individual counseling on a consistent basis. Gained the most insight from psychoeducation on behavioral activation and opposite-action. Progress noted per pt report. Will be discharged successfully from [facility] today. Narrative Note: []
--- NOTE | 2024-03-04 10:15 | BH.SGPN.GN ---
Behaviors/Verbalizations/Mental Status: [] Eye contact is good. Motor activity is appropriate. Appearance is casual. Speech is Appropriate. Mood is euthymic. Affect is congruent. Thoughts are linear and logical. No evidence of psychosis. Client Response/Progress/Benefit: []Pt engaged participant AEB listening to others, engaging in activity, and providing feedback at times. Attentive during psychoeducation and provided insight into obstacles that impede mental wellness. Pt shared with group current mental health reality and desired mental health reality. Stated she would like to continue to cultivate and utilize her healthy copings skills while she is feeling more stable in her life. Identified barriers to desired reality include: isolation, negative self-talk, overidentifying with negative attributes, procrastination, and perfectionism. Benefited from taking look at current mental health state and obstacles for progress. Pt has made significant treatment progress and will discharge from [facility] today.
--- NOTE | 2024-03-04 11:15 | BH.SGPN.GN ---
Behaviors/Verbalizations/Mental Status: []Pt alert and oriented, casually dressed and groomed. Eye contact good. Motor activity appropriate. Speech within normal limits. Affect congruent, mood euthymic. Thoughts linear, logical, no signs of hallucinations or delusions. Client Response/Progress/Benefit: []Pt participated in group discussion and activity. Worked with group to identify strategies to help overcome barriers and obstacles to desired reality. Group developed strategies for the common barriers of avoidance, poor boundaries, unrealistic expectations, low self-confidence, and isolation. Identified personal barriers to desired reality and choose one obstacle to work on this week which was self-compassion. Pt plans to do this by reminding herself to ?Do what you can based on your current functioning?. Pt seemed to benefit from group by identifying obstacles and solutions to desired reality. Will d/c from IOP and continue outpatient tx to prevent decompensation, promote ongoing skill application, and maintain mood stability. ? Narrative Note: []
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
--- NOTE | 2024-03-04 15:48 | BH.IGGP_ITS ---
Aftercare Plan Demographics Treatment End Date:: 03/04/24 Psychiatrist:: Rafia Temple Psychiatrist Office #:: [phone] [facility]/IOP Therapist:: Denise Mosley Therapist Phone #:: [phone] Medications Home Medications bupropion HCl 150 mg tablet,12 hr sustained-release 300 mg PO DAILY 09/23/13 cetirizine 10 mg tablet 20 mg PO DAILY 09/23/13 medroxyprogesterone 10 mg tablet (Provera) 10 mg PO QDAY #10 tabs 08/10/22 duloxetine 30 mg capsule,delayed release (Cymbalta) 30 mg PO DAILY 30 days #30 caps 01/23/24 naproxen sodium 220 mg capsule (Aleve) 440 mg PO DAILY PRN pain 01/23/24 omeprazole 20 mg-sodium bicarbonate 1.1 gram capsule (Zegerid OTC) 1 cap PO DAILY 01/23/24 Plan Details Progress/Aftercare Plan Details:: Harleen has responded well to treatment as evidenced by Harleen consistently attending IOP sessions and her reduction of DSM-5 scores since admission. Harleen was always attentive and receptive to jeramy steel during group and individual sessions. Harleen actively applied coping skills outside of [facility] and reports overall her mood is improved and she is functioning better than she was several months ago. Harleen?s overall symptom reduction is 69% since admission with anger decreasing by 67%, depression decreasing by 75%, and anxiety decreasing by 71%. Harleen has increased self-compassion and faced many hard things. Most importantly, Harleen has become more vulnerable and increased understanding of right to self-advocacy and boundaries. Strategies for Success:: 1. Opposite action! Continue to break that cycle of anxiety, guilt, and depression by not letting emotions be the only drivers of your bus. 2. Remember that thoughts are thoughts NOT facts! You have power in if you give thoughts the time of day or not. 3. self-care! You deserve to take time for you and you also deserve to face the not so fun self-care like setting boundaries and advocating for your needs 4. Self-compassion! You are human and you will make a mistake?BUT that doesn?t mean you are a failure or not good enough. Give yourself credit for all the wonderful things you do. 5. Continue to practice acceptance and remember acceptance means loving this version of you 6. Practice positive self-talk and keep track of your wins. 7. Remember progress isn?t linear! You may have a setback or bump in the road, but that doesn?t mean you?ve lost all progress. 8. self-reflection and self-awareness. 9. Be understanding with yourself and try to see the whole picture, not just the snapshot. 10. Live in the longo!! Appointments Appointments/Referrals to Other Services:: 1. Follow up with Natacha Ibrahim for outpatient counseling. First appointment is 03/11/24. 2. Follow up with your PCP for medications 3. Will call to talk about IOP aftercare group from 2:00-3:30pm
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
== END 2024-03-04 12:46 | disposition home or self-care (01) ==
LOC: BHIOP 07:14
PROVIDERS: PCP Family Medicine; Referring Provider Psychiatry & Neurology Psychiatry; Visit Provider Psychiatry & Neurology Psychiatry
DX: F33.1 Major depressive disorder, recurrent, moderate (principal); F41.1 Generalized anxiety disorder; Z79.899 Other long term (current) drug therapy
CPT/HCPCS: H2020; S9480; 90832; 90837

== ENCOUNTER → 2024-03-25 | Outpatient (CLI) | payer MEDICAID, SELFPAY ==
[2024-03-30 18:07] LABS: Testosterone Free 2.1 pg/mL (0.0-4.2)
== END | disposition home or self-care (01) ==
LOC: PAVLAB 11:27
PROVIDERS: PCP Family Medicine; Referring Provider Nurse Practitioner Women's Health; Visit Provider Nurse Practitioner Women's Health
DX: N97.9 Female infertility, unspecified (principal)
CPT/HCPCS: 36415; 82627; 84146; 84402; 84443; 82626

== ENCOUNTER 2024-03-27 10:09 | Outpatient (RCR) | payer MEDICAID, SELFPAY ==
--- NOTE | 2024-03-27 14:00 | BH.SGPN.GN ---
Behaviors/Verbalizations/Mental Status: []Pt alert and oriented, casually dressed and groomed. Eye contact good. Motor activity appropriate. Speech within normal limits. Affect congruent, mood euthymic and anxious. Thoughts linear, logical, no signs of hallucinations or delusions. Client Response/Progress/Benefit: []Client stated she met with her outpatient counselor. Client reported she is taking medications consistently, but did miss a day due to changing the time she is taking them. Client stated she has been using thought challenging, gratitude, boundary setting, and exercise as skills to manage stressors throughout the week. Client attentive to psychoeducation about gratitude and provided contributions throughout. Along with group was able to identify benefit of gratitude, as well as various ways to practice both internalized and externalized gratitude. Client created gratitude plan for the week which included gratitude for: family and friends, a smell she loves, an ability of hers, and co-workers. Pt to continue IOP to maintain gains, challenge distortions, and prevent decompensation. Narrative Note: []
--- NOTE | 2024-03-27 14:22 | BH.COMM ---
Communication Note Communication with Client Communication Note: Patient completed IOP and presents today to start relapse prevention group which meets once weekly (1.5 hours) for 8 weeks. Case discussed with Dr. Mcdaniel with plan to admit with dx of F33.1
--- NOTE | 2024-03-27 15:11 | BH.MTP ---
Master Treatment Plan Patient Information Program Physician:: Dr. Rafia Temple Primary Therapist:: Denise SUTTON Psychiatric Diagnoses Psychiatric Diagnoses:: Major depressive disorder, recurrent, moderate (F33.1); Generalized anxiety disorder Diagnosis Code(s):: F 33.1 Estimated LOS Estimated LOS (in weeks):: 8 Problem/Goal #1 Problem/Goal #1 Stated Goal:: client will maintain or see a reduction in symptoms AEB client score on the DSM 5 cross-cutting measure and improve client's daily functioning. Objectives Objective #1: Stated Objective: Client will continue to consistently apply healthy coping skills to maintain progress made in IOP tx. Interventions: Through group therapy, client will review warning signs and triggers as well as healthy coping skills learned in IOP tx to successfully maintain gains while transitioning into outpatient therapy. Discharge Criteria: Client will have accomplished this goal when client's score on the DSM-5 cross-cutting measure has maintained or reduced over a 8 week period. Target Date: 05/22/24 Review Date: 04/24/24 Status: open Objective #2: Stated Objective: Client will learn and utilize 2-3 maintenance strategies to prevent decompensation from original IOP DSM-5 scores. Interventions: Through group therapy, client will be provided with education on healthy maintenance behaviors, relapse prevention techniques, and healthy coping strategies. Discharge Criteria: Client will have accomplished this goal when can report using at least 2 maintenance skills to prevent decompensation compared to original IOP DSM-5 scores Target Date: 05/22/24 Review Date: 04/24/24 Status: open
--- NOTE | 2024-04-03 14:00 | BH.SGPN.GN ---
Behaviors/Verbalizations/Mental Status: []Pt alert and oriented, casually dressed. Eye contact good. Motor activity appropriate. Speech within normal limits. Affect congruent, mood stressed. Thoughts linear, logical, no signs of hallucinations or delusions. Client Response/Progress/Benefit: []Pt receptive of session, engaged and providing supportive feedback throughout group. Pt reports being consistent with counseling and medication. Pt shared she is very stressed this week. Pt used many coping skills this week including thought challenging, self-talk, and assertive communication. Pt engaged in the discussion about self-love and participated in the experiential activity that highlighted the acceptance component of self-love. Reports wanting to work on self-love by continuing to reach out to people who support her and setting boundaries. Seemed to benefit from reviewing treatment progress and strategies for managing current stressors, as well as learning about how to increase self-love. Pt to continue IOP aftercare tx to promote mood stability, reinforce gains made in IOP, and review coping skills from IOP. Narrative Note: []
--- NOTE | 2024-04-10 14:00 | BH.SGPN.GN ---
Behaviors/Verbalizations/Mental Status: []Pt alert and oriented, casually dressed and groomed. Eye contact good. Motor activity appropriate. Speech within normal limits. Affect congruent, mood dysthymic. Thoughts linear, logical, no signs of hallucinations or delusions. Client Response/Progress/Benefit: [] Pt receptive of session, engaged throughout. Pt shared meeting with outpatient therapist this past week and has been consistent with meds. Reports the coping skills used throughout the week included: trying to improve communication and implement newly learned parenting skills, and breathing techniques. Did report increased relationship stress contributing to current mood. Receptive of discussion on the three components of the Wellness [place] (social, mental health, and physical) and the importance of balancing each of these areas. Pt contributed to the discussion on the variables impacting each area of wellness including: biology, environment, attitude, behavior, technology, and social support network. Completed an assessment reviewing personal wellness in each pillar of the wellness triangle. Identified wanting to work on physical wellness by creating a personal hygiene routine. Pt seemed to benefit from support from peers and increasing understanding of the relationship between different areas of wellness. Will remain in the aftercare program to maintain gains and prevent decompensation. Narrative Note: []
--- NOTE | 2024-04-17 14:00 | BH.SGPN.GN ---
Behaviors/Verbalizations/Mental Status: []Client alert and oriented, casually dressed and groomed. Eye contact good. Motor activity appropriate. Speech within normal limits. Affect congruent, mood euthymic and anxious. Thoughts linear, logical, no signs of hallucinations or delusions. Client Response/Progress/Benefit: [] Receptive of session, engaged throughout. Pt reports she saw her therapist last week and they did an EMDR session which pt reported was ?so helpful.? Pt stated she has been using realistic goal setting and thought challenging a lot this week to cope with stressors. Engaged and attentive during discussion of vulnerability and benefits of practicing vulnerability. Group discussed ways we avoid feeling vulnerable and how this negatively affects mental health and relationships. Pt identified ?trying to be perfect all the time? as a way pt avoids being vulnerable. Pt wants to work on being vulnerable by reaching out to her [id number]. Appeared to benefit from group support and discussion reflecting on the positive impact vulnerability can have on mental health. Pt will continue with aftercare tx to maintain gains and prevent decompensation. Narrative Note: []
== END 2024-04-18 23:59 ==
LOC: BHOG 10:09
PROVIDERS: PCP Family Medicine; Referring Provider Psychiatry & Neurology Psychiatry; Visit Provider Psychiatry & Neurology Psychiatry
DX: F33.1 Major depressive disorder, recurrent, moderate (principal); F41.1 Generalized anxiety disorder; Z79.899 Other long term (current) drug therapy
CPT/HCPCS: 90853

== ENCOUNTER 2024-04-21 07:34 | Outpatient (RCR) | payer MEDICAID, SELFPAY ==
--- NOTE | 2024-05-01 14:00 | BH.SGPN.GN ---
Behaviors/Verbalizations/Mental Status: []Pt alert and oriented, casually dressed and groomed. Eye contact good. Motor activity appropriate. Speech within normal limits. Affect congruent, mood euthymic. Thoughts linear, logical, no signs of hallucinations or delusions. Client Response/Progress/Benefit: [] Pt receptive of session, engaged throughout. Pt shared she did attend outpatient therapy session this week, she has been consistent with meds, and is using coping skills. These skills included: vulnerability, open communication with supports, and thought challenging. Receptive of discussion on ?Chapters of my life? poem. Pt contributed to the discussion of the different chapters one may go through and how they connect with current mental health progress. Pt reflected and identified their current chapter as ?5? and noted ?I'm building a better sidewalk. This is a life with fewer pitfalls and more support?. Identified that continuing to gather evidence that taking care of my body, mind, and spirit is worth it will aid in maintaining the current chapter. Pt seemed to benefit from support from peers and increasing understanding of ?Chapters of my life?. Will continue IOP aftercare to maintain gains and prevent decompensation. Narrative Note: []
--- NOTE | 2024-05-15 14:08 | BH.DS_ITS ---
Discharge Summary Demographics Date of Admission:: 03/27/24 Discharge Date: 05/15/24 Presenting Problems at Admission:: Pt discharged from IOP tx and transitioned to IOP aftercare to maintain gains pt made in IOP and to reinforce healthy coping skills. At admission to IOP aftercare, pt continued to report symptoms of depression, anxiety, and stress within her relationship/family. Pt also was experiencing stressors with challenging negative core beliefs, PTSD triggers, and maintaining self-care. Discharge Diagnoses:: Major depressive disorder, recurrent, moderate (F33.1); Generalized anxiety disorder Reason for Discharge:: Pt has accomplished tx goals AEB ability to maintain mood stability and gains made in IOP. Pt will continue with traditional outpatient counseling. Treatment Progress During Treatment & Response: Pt responded well and made progress in IOP aftercare as evidenced by pt's participation in group discussions and self- report of consistently applying coping skills. Pt did not turn in her DSM-5, so there is no data to compare pt's symptom reduction. However, pt was reporting improved mood, energy, and outlook prior to discharge. Additionally, [facility] was reporting consistently practicing self-care, using healthy coping skills, and communicating with supports. Pt still has symptoms and stressors that need resolved and processed, but pt reports overall increased ability to cope. Issues Still to be Addressed:: Weld setting, self-care maintenance, and reinforcing healthy core beliefs. Discharge Recommendations/Instructions:: Pt will continue seeing Natacha Ibrahim at [facility] from individual therapy. Pt sees Natacha weekly. Pt will also continue getting her mental health medications through her PCP. Discharge Handout
== END 2024-05-16 07:49 | disposition home or self-care (01) ==
LOC: BHOG 07:34
PROVIDERS: PCP Family Medicine; Referring Provider Psychiatry & Neurology Psychiatry; Visit Provider Psychiatry & Neurology Psychiatry
DX: F33.1 Major depressive disorder, recurrent, moderate (principal); F41.1 Generalized anxiety disorder; Z79.899 Other long term (current) drug therapy
CPT/HCPCS: 90853

== ENCOUNTER → 2024-05-12 | Outpatient (CLI) | payer MEDICAID, SELFPAY ==
[2024-05-14 08:12] LABS: PROGESTERONE 9.3 ng/mL (.)
== END | disposition home or self-care (01) ==
LOC: LAB 16:02
PROVIDERS: PCP Family Medicine; Referring Provider Nurse Practitioner Women's Health; Visit Provider Nurse Practitioner Women's Health
DX: E28.2 Polycystic ovarian syndrome (principal)
CPT/HCPCS: 36415; 84144

== ENCOUNTER → 2024-07-23 | Outpatient (CLI) | payer MEDICAID, SELFPAY ==
[2024-07-26 07:08] LABS: Chlamydia By Nucleic Acid AMP Negative (Negative); Gonococcus By Nucleic Acid AMP Negative (Negative)
== END | disposition home or self-care (01) ==
LOC: LABSPEC 12:28
PROVIDERS: PCP Family Medicine; Referring Provider Obstetrics & Gynecology; Visit Provider Obstetrics & Gynecology
DX: O09.90 Supervision of high risk pregnancy, unspecified, unspecified trimester (principal); E66.01 Morbid (severe) obesity due to excess calories; O99.210 Obesity complicating pregnancy, unspecified trimester; Z3A.00 Weeks of gestation of pregnancy not specified
CPT/HCPCS: 87086; 87491; 87591

== ENCOUNTER → 2024-08-05 | Outpatient (CLI) | payer MEDICAID, SELFPAY ==
[2024-08-05 16:57] LABS: Absolute Neutrophil Count 5.7 X10^3/uL (2.0-7.7); Basophil# 0.03 X10^3/uL; Basophil% 0.4 % (0-1); Eosinophil# 0.13 X10^3/uL; Eosinophils% 1.6 % (0-5); Hematocrit 36.4 % (37-47); Hemoglobin 12.5 g/dL (12.0-15.0); Mean Corp Hgb Conc 34.3 g/dL (32-36); Mean Corpuscular Hgb 29.3 pg (27.0-32.0); Mean Corpuscular Volume 85.4 fL (81-99); Mean Platelet Vol. 9.9 fl (6.2-12.0); Monocyte# 0.45 X10^3/uL; Monocyte% 5.5 % (0-10); NRBC Flagged by Analyzer 0 % (0-5); Neutrophil # 5.72 X10^3/uL (2.7-7.7); Neutrophil % 69.3 % (47-70); Platelet Count 252 K/mm3 (150-450); RBC Distribution Width CV 12.2 % (11.6-14.6); RBC Distribution Width SD 37.8 fl (35.1-43.9); Red Blood Count 4.26 M/mm3 (4.2-5.4); White Blood Count 8.3 K/mm3 (4.4-11.0)
[2024-08-05 17:26] LABS: Hemoglobin A1c 4.9 % (3.8-5.6)
[2024-08-05 18:00] LABS: HIV - WCH Non-Reactive (Nonreactive); Hepatitis B Surface Antigen Non-Reactive (Nonreactive); Hepatitis C Antibody Non-Reactive (Nonreactive); Rubella IgG Reactive (Nonreactive); Syphilis Antibodies Non-reactive
== END | disposition home or self-care (01) ==
PROVIDERS: PCP Family Medicine; Referring Provider Obstetrics & Gynecology; Visit Provider Obstetrics & Gynecology
DX: O99.210 Obesity complicating pregnancy, unspecified trimester (principal); Z3A.00 Weeks of gestation of pregnancy not specified
CPT/HCPCS: 36415; 83036; 85025; 86703; 86762; 86780; 86803; 86850; 86900; 86901; 87340

== ENCOUNTER → 2024-08-18 | Outpatient (CLI) | payer MEDICAID, SELFPAY | END | disposition home or self-care (01) | LOC: LAB 10:37 | PROVIDERS: PCP Family Medicine; Referring Provider Nurse Practitioner Women's Health; Visit Provider Nurse Practitioner Women's Health | DX: Z34.81 Encounter for supervision of other normal pregnancy, first trimester (principal) | CPT/HCPCS: 36415 ==

== ENCOUNTER → 2024-12-01 | Outpatient (CLI) | payer MEDICAID, SELFPAY ==
[2024-12-01 12:28] LABS: Absolute Lymphocyte Count 1.57 X10^3/uL (0.83-4.51); Absolute Neutrophil Count 7.6 X10^3/uL (2.0-7.7); Basophil# 0.04 X10^3/uL; Basophil% 0.4 % (0-1); Eosinophil# 0.13 X10^3/uL; Eosinophils% 1.3 % (0-5); Hematocrit 33.9 % (37-47); Hemoglobin 11.7 g/dL (12.0-15.0); Lymphocyte # 1.57 X10^3/ul (0.83-4.51); Mean Corp Hgb Conc 34.5 g/dL (32-36); Mean Corpuscular Hgb 29.4 pg (27.0-32.0); Mean Corpuscular Volume 85.2 fL (81-99); Mean Platelet Vol. 9.8 fl (6.2-12.0); Monocyte# 0.38 X10^3/uL; Monocyte% 3.9 % (0-10); NRBC Flagged by Analyzer 0 % (0-5); Neutrophil # 7.63 X10^3/uL (2.7-7.7); Platelet Count 236 K/mm3 (150-450); RBC Distribution Width CV 12.5 % (11.6-14.6); RBC Distribution Width SD 38.7 fl (35.1-43.9); Red Blood Count 3.98 M/mm3 (4.2-5.4); White Blood Count 9.8 K/mm3 (4.4-11.0)
[2024-12-01 13:18] LABS: Glucose Challenge Gest 1H 50g 156 mg/dL (70-140)
[2024-12-01 17:03] LABS: Syphilis Antibodies Non-reactive
[2024-12-02 21:52] LABS: HIV - WCH Non-Reactive (Nonreactive)
== END | disposition home or self-care (01) ==
LOC: BWCLAB 10:06
PROVIDERS: PCP Family Medicine; Referring Provider Obstetrics & Gynecology; Visit Provider Obstetrics & Gynecology
DX: O09.92 Supervision of high risk pregnancy, unspecified, second trimester (principal); Z3A.00 Weeks of gestation of pregnancy not specified; Z13.1 Encounter for screening for diabetes mellitus

== ENCOUNTER → 2024-12-10 | Outpatient (CLI) | payer MEDICAID, SELFPAY ==
[2024-12-10 07:13] LABS: Bedside Glucose 90 mg/dL (74-106)
[2024-12-10 07:28] LABS: Glucose GTT-Gestation. Fasting 94 mg/dL (<105)
[2024-12-10 08:57] LABS: Glucose GTT-Gestational 1 Hr 146 mg/dL (<190)
[2024-12-10 09:53] LABS: Glucose GTT-Gestational 2 Hr 108 mg/dL (<165)
[2024-12-10 11:53] LABS: Glucose GTT-Gestational 3 Hr 91 L (<145)
== END | disposition home or self-care (01) ==
LOC: LAB 06:47
PROVIDERS: PCP Family Medicine; Referring Provider Nurse Practitioner Women's Health; Visit Provider Nurse Practitioner Women's Health
DX: O99.810 Abnormal glucose complicating pregnancy (principal); Z3A.00 Weeks of gestation of pregnancy not specified
CPT/HCPCS: 36415; 82951; 82952; 82962

== ENCOUNTER 2024-12-16 14:10 | Outpatient (CLI) | payer MEDICAID, SELFPAY ==
[2024-12-16] VITALS (40 sets, daily range): BP systolic 106–133; BP diastolic 55–69; PULSE 86–106; RESP 14–18; TEMP 36.2–36.6; O2SAT 98–100; BMI 47.6
[2024-12-16] MEDS: Betamethasone/Betamethasone 30 MG/5 ML Vial 12 MG IM (14:56)
[2024-12-16] MEDS: LACTATED RINGERS 1,000 ML 999 ML IV (15:00)
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
[2024-12-16] MEDS: Magnesium Sulfate 4gm/100mL 4 GM/100 ML IV.SOLN. IV (15:26)
[2024-12-16] MEDS: NIFEdipine 10 MG Capsule PO ×3 (15:26→16:02)
[2024-12-16] MEDS: Magnesium Sulfate 4gm/100mL 2 GM/50 ML IV.SOLN. IV (15:48)
[2024-12-16] MEDS: Magnesium Sulfate 20 GM/500 ML BAG IV (15:59)
== END 2024-12-16 17:30 | disposition short-term general hospital (02) ==
LOC: WPOUT 14:15 → WP 14:16
PROVIDERS: PCP Family Medicine; Referring Provider Registered Nurse; Visit Provider Registered Nurse
DX: O60.03 Preterm labor without delivery, third trimester (principal); Z3A.29 29 weeks gestation of pregnancy
CPT/HCPCS: 96365; 96366; 96361; 96372; 59025; 59050; 99221; G0378; J0702

== ENCOUNTER → 2025-01-29 | Outpatient (CLI) | payer MEDICAID, SELFPAY | END | disposition home or self-care (01) | LOC: LABSPEC 12:42 | PROVIDERS: PCP Family Medicine; Referring Provider Obstetrics & Gynecology; Visit Provider Obstetrics & Gynecology | DX: O09.93 Supervision of high risk pregnancy, unspecified, third trimester (principal); Z3A.00 Weeks of gestation of pregnancy not specified | CPT/HCPCS: 87081 ==

== ENCOUNTER 2025-01-30 06:10 | Outpatient (CLI) | payer MEDICAID, SELFPAY ==
[2025-01-30 06:18] VITALS: BMI 48.0
[2025-01-30 06:33] VITALS: PULSE 89; O2SAT 97
[2025-01-30 06:34] VITALS: BP 127/68; PULSE 88
[2025-01-30] MEDS: Lactated Ringers 1,000 ML 999 ML IV (07:00)
[2025-01-30 07:21] LABS: Absolute Neutrophil Count 6.6 X10^3/uL (2.0-7.7); Basophil# 0.04 X10^3/uL; Basophil% 0.4 % (0-1); Eosinophil# 0.18 X10^3/uL; Eosinophils% 1.8 % (0-5); Hematocrit 34.7 % (37-47); Lymphocyte % 25.4 % (19-41); Mean Corp Hgb Conc 34.6 g/dL (32-36); Mean Corpuscular Hgb 29.6 pg (27.0-32.0); Mean Corpuscular Volume 85.5 fL (81-99); Mean Platelet Vol. 10.4 fl (6.2-12.0); Monocyte# 0.53 X10^3/uL; Monocyte% 5.4 % (0-10); NRBC Flagged by Analyzer 0 % (0-5); Neutrophil # 6.56 X10^3/uL (2.7-7.7); Neutrophil % 66.6 % (47-70); Platelet Count 205 K/mm3 (150-450); RBC Distribution Width CV 13.1 % (11.6-14.6); RBC Distribution Width SD 39.7 fl (35.1-43.9); Red Blood Count 4.06 M/mm3 (4.2-5.4); White Blood Count 9.9 K/mm3 (4.4-11.0)
[2025-01-30 09:18] LABS: Syphilis Antibodies Nonreactive (Nonreactive)
[2025-01-30] MEDS: fentaNYL 100 MCG/2 ML Ampul 50 MCG IV (09:50)
[2025-01-30] MEDS: 0.9% Saline Lock 10 ML Syringe IV (09:50)
[2025-01-30 10:00] VITALS: BP 97/55; PULSE 82; RESP 16; TEMP 36.2; O2SAT 97
--- NOTE | 2025-01-31 21:50 | OB.TRI.PN ---
Progress Notes Date of Service: 01/30/25 Progress Note: Patient presents for triage evaluation secondary to contrcaitons FHT: 130 Moderate variability reactive no decelerations category I tracing [place]: q 2-5 Contractions Assessment and plan: threatened labor n ocervical change 3-4 cm Reactive NST, reassuring maternal and status patient discharged to home to follow-up as scheudled. See problem list details for additional plan information. Laboratory Studies: Laboratory Tests 01/30/25 Range/Units 07:00 WBC 9.9 (4.4-11.0) K/mm3 RBC 4.06 L (4.2-5.4) M/mm3 Hgb 12.0 (12.0-15.0) g/dL Hct 34.7 L (37-47) % MCV 85.5 (81-99) fL MCH 29.6 (27.0-32.0) pg MCHC 34.6 (32-36) g/dL RDW Std Deviation 39.7 (35.1-43.9) fl RDW Coeff of Faith 13.1 (11.6-14.6) % Plt Count 205 (150-450) K/mm3 MPV 10.4 (6.2-12.0) fl Immature Gran % (Auto) 0.400 (0.0-0.9) % Neut % (Auto) 66.6 (47-70) % Lymph % (Auto) 25.4 (19-41) % [place] % (Auto) 5.4 (0-10) % Eos % (Auto) 1.8 (0-5) % Baso % (Auto) 0.4 (0-1) % Absolute Neuts (auto) 6.6 (2.0-7.7) X10^3/uL Absolute Lymphs (auto) 2.50 (0.83-4.51) X10^3/uL Nucleated RBC % 0 (0-5) % Syphilis Total Ab Nonreactive (Nonreactive) Blood Type A POSITIVE Antibody Screen NEGATIVE Charges/Coding Procedures Urinary/Genital [id number]: 61696-05 non-stress test Interp
== END 2025-01-30 11:35 | disposition home or self-care (01) ==
LOC: WPOUT 06:14 → WP 06:15
PROVIDERS: PCP Family Medicine; Visit Provider Obstetrics & Gynecology
DX: O47.03 False labor before 37 completed weeks of gestation, third trimester (principal); Z3A.36 36 weeks gestation of pregnancy
CPT/HCPCS: 96374; 96361; 36415; 59025; 59050; 85025; 86780; 86850; 86900; 86901; 99221; A4216; G0378

== ENCOUNTER → 2025-02-02 | Outpatient (CLI) | payer MEDICAID, SELFPAY ==
--- NOTE | 2025-02-02 16:08 | US_ITS ---
PROCEDURE: Ultrasound biophysical profile without nonstress test REASON FOR EXAM: WELL BEING TECHNIQUE: Ultrasound evaluation of the fetus with biophysical profile COMPARISON: ultrasound 02/02/2025 FINDINGS: Please refer to more detailed ultrasound evaluation from the same day for measurements and percentiles. There is a single live intrauterine gestation in cephalic presentation. heart rate 152 beats per minute. Largest amniotic fluid pocket 4.8 cm. Amniotic fluid index 10.4 cm. The placenta is posterior, mildly heterogeneous. No retroplacental fluid collection is demonstrated. Biophysical profile scores: breathin/2 Gross body movement: 2/2 tone: 2/2 Amniotic fluid volume: 2/2 US/Biophysical Prof W/O Non Stres IMPRESSION: Single live intrauterine gestation in cephalic presentation. Amniotic fluid index 10.4 cm. Biophysical profile score of 8/8. Reading [facility]
--- NOTE | 2025-02-02 16:11 | US_ITS ---
PROCEDURE: ultrasound. REASON FOR EXAM: GROWTH COMPARISON: None available FINDINGS Single live intrauterine gestation in cephalic presentation. Maximum vertical pocket 3.6 cm. Amniotic fluid index 10.1 cm. heart rate 150 beats per minute. The placenta is noted to be posterior by the technologist, although not well evaluated on the provided images. Limited evaluation of the anatomic structures shows no specific abnormality. Biparietal diameter 9 cm, at the 52nd percentile. Head circumference 32.5 cm, at the 24th percentile. Abdominal circumference 33.1 cm, at the 71st percentile. Femur length 6.9 cm, at the 20th percentile. Estimated weight 2991 g +/- 449 g. US/OB Limited With Biometrics IMPRESSION: 1. Single live intrauterine gestation with estimated gestational age of 36 week s, 3 days. Estimated date of confinement 02/27/2025. 2. Growth measurements provided above. No gross anomalies. 3. Amniotic fluid index 10.1 cm. 4. heart rate 150 beats per minute. Reading Location: [facility]
== END | disposition home or self-care (01) ==
LOC: US 16:07
PROVIDERS: PCP Family Medicine; Referring Provider Obstetrics & Gynecology; Visit Provider Obstetrics & Gynecology
DX: O99.212 Obesity complicating pregnancy, second trimester (principal); O09.522 Supervision of elderly multigravida, second trimester; Z3A.00 Weeks of gestation of pregnancy not specified
CPT/HCPCS: 76816; 76819

== ENCOUNTER → 2025-02-09 | Outpatient (CLI) | payer MEDICAID, SELFPAY ==
--- NOTE | 2025-02-09 15:58 | US_ITS ---
PROCEDURE: BIOPHYSICAL PROF W/O NON STRES REASON FOR EXAM: WELL BEING TECHNIQUE: Transabdominal images of the pelvis FINDINGS: There is a single intrauterine fetus. The fetus is in a cephalic presentation. There is demonstrated cardiac activity with a heart rate of 150 bpm. There is a normal amniotic fluid volume. The largest amniotic fluid pocket measures 4.79 cm. The amniotic fluid index (AFIS) is 10.42 cm. The placenta is posterior. There are Grade 2 placental changes. The cervix is not visualized. BIOMETRY: BPD: 9 cm: 36 weeks, 2 days HC: 32.5 cm: 36 weeks, 6 days AC: 33.1 cm: 37 weeks, 0 day FL: 6.9 cm : 35 weeks, 4 days Age by LMP: weeks, days. OLI by LMP: . age by current US: 36 weeks, 3 days. OLI by current US: 02/27/2025. age by LMP: 36 weeks and 5 days corresponding to an estimated date of delivery on 02/25/2025. Estimated weight: 2991 grams, +/- 449 grams. US/Biophysical Prof W/O Non Stres IMPRESSION: Single live intrauterine gestation with an estimated gestational age of 36 week s and 3 days corresponding to an estimated date of delivery on 02/27/2025. No gross abnormality. Reading [facility] [address]
--- NOTE | 2025-02-16 11:32 | US_ITS ---
PROCEDURE: BIOPHYSICAL PROF W/O NON STRES 02/16/2025 REASON FOR EXAM: WELL BEING TECHNIQUE: A biophysical profile was obtained. COMPARISON: Comparison is made with prior study dated February 02, 2025. FINDINGS: position: Cephalic heart rate: 143 beats per minute Amniotic fluid: Within normal limits. Largest fluid pocket: 4.7 cm. Amniotic fluid index: 10.4 cm. Placenta location: Posterior and not low-lying. Placental grade 3 Age by LMP: 38 weeks and 5 days. Biophysical profile: Breathing movements 2 Gross body movements: 2 tone: 2 Amniotic fluid volume: 2 Total score: 8/8 US/Biophysical Prof W/O Non Stres IMPRESSION: Normal biophysical profile score of 8/8 Reading Location: [facility]
== END | disposition home or self-care (01) ==
PROVIDERS: PCP Family Medicine; Referring Provider Obstetrics & Gynecology; Visit Provider Obstetrics & Gynecology
DX: O99.213 Obesity complicating pregnancy, third trimester (principal); Z3A.36 36 weeks gestation of pregnancy
CPT/HCPCS: 76819

== ENCOUNTER 2025-02-16 16:02 | Inpatient (IN) | payer MEDICAID, SELFPAY ==
[2025-02-16] VITALS (56 sets, daily range): BP systolic 97–142; BP diastolic 50–83; PULSE 32–105; RESP 16–18; TEMP 36.1–36.9; O2SAT 81–100; BMI 48.6
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
[2025-02-16] MEDS: Lactated Ringers 1,000 ML 999 ML IV ×2 (16:30→21:31)
[2025-02-16 16:48] LABS: Absolute Lymphocyte Count 1.99 X10^3/uL (0.83-4.51); Absolute Neutrophil Count 6.1 X10^3/uL (2.0-7.7); Basophil# 0.05 X10^3/uL; Basophil% 0.6 % (0-1); Eosinophil# 0.08 X10^3/uL; Eosinophils% 0.9 % (0-5); Hematocrit 33.1 % (37-47); Hemoglobin 11.6 g/dL (12.0-15.0); Lymphocyte # 1.99 X10^3/ul (0.83-4.51); Lymphocyte % 23.1 % (19-41); Mean Corpuscular Volume 82.8 fL (81-99); Mean Platelet Vol. 10.8 fl (6.2-12.0); Monocyte% 4.6 % (0-10); NRBC Flagged by Analyzer 0 % (0-5); Neutrophil # 6.07 X10^3/uL (2.7-7.7); Neutrophil % 70.5 % (47-70); Platelet Count 240 K/mm3 (150-450); RBC Distribution Width CV 12.9 % (11.6-14.6); RBC Distribution Width SD 38.5 fl (35.1-43.9); White Blood Count 8.6 K/mm3 (4.4-11.0)
--- NOTE | 2025-02-16 17:24 | PCM.PN.BLA ---
Progress Note comfortable with epidural current tracing: FHT: 135 Moderate variability reactive occasional variable/late decelerations category II tracing [place]: 3-4 minutes Contractions Membranes: SROM at 1650 SVE:6/90/-1 A/P: Continue with position changes Titrate pitocin per protocol Epidural per anesthesia GBS neg Anticipate Dr Lutz aware of above assessment and agrees with plan of care Assessment & Plan Assessment/Plan (1) Active labor: (2) uterine contractions: (3) Abnormal glucose affecting : (4) Obesity affecting : QUALIFIERS: Trimester: second trimester Obesity type affecting : unspecified obesity Qualified Code(s): O99.212 - Obesity complicating , second trimester (5) AMA (advanced maternal age) multigravida 35+: QUALIFIERS: Trimester: second trimester Qualified Code(s): O09.522 - Supervision of elderly multigravida, second trimester (6) Hx of PTL ( labor), current : QUALIFIERS: Trimester: second trimester Qualified Code(s): O09.212 - Supervision of with history of pre-term labor, second trimester (7) Supervision of high-risk : QUALIFIERS: Trimester: third trimester Qualified Code(s): O09.93 - Supervision of high risk , unspecified, third trimester (8) : QUALIFIERS: Weeks of gestation: 38 weeks Qualified Code(s): Z3A.38 - 38 weeks gestation of (9) Anxiety and depression: Multi Select Codes Urinary/Genital Urinary/Genital CPT Codes: No Charge
[2025-02-16] MEDS: fentaNYL-bupivacaine (epidural) 100 ML BAG EPIDURAL ×2 (17:25→21:35)
[2025-02-16] MEDS: Lactated Ringers 1,000 ML 50 ML IV (17:32)
[2025-02-16 17:36] LABS: Syphilis Antibodies Nonreactive (Nonreactive)
[2025-02-16] MEDS: Mag Hydrox/Al Hydrox/Simeth 30 ML UDC PO (19:05)
--- NOTE | 2025-02-16 19:23 | PCM.PN.BLA ---
Progress Note comfortable with epidural current tracing: FHT: 130 Moderate variability reactive occasional late decelerations category II tracing. overall reassuring. FSE replaced [place]: 2-3 minutes Contractions Membranes: forebag was ruptured and internal monitors were placed. light mec noted with last exam SVE:6/80/-1 A/P: Continue with position changes Titrate pitocin per protocol Epidural per anesthesia GBS neg Anticipate Dr Lutz aware of above assessment and agrees with plan of care Assessment & Plan Assessment/Plan (1) Active labor: (2) uterine contractions: (3) Abnormal glucose affecting : (4) Obesity affecting : QUALIFIERS: Trimester: second trimester Obesity type affecting : unspecified obesity Qualified Code(s): O99.212 - Obesity complicating , second trimester (5) AMA (advanced maternal age) multigravida 35+: QUALIFIERS: Trimester: second trimester Qualified Code(s): O09.522 - Supervision of elderly multigravida, second trimester (6) Hx of PTL ( labor), current : QUALIFIERS: Trimester: second trimester Qualified Code(s): O09.212 - Supervision of with history of pre-term labor, second trimester (7) Supervision of high-risk : QUALIFIERS: Trimester: third trimester Qualified Code(s): O09.93 - Supervision of high risk , unspecified, third trimester (8) : QUALIFIERS: Weeks of gestation: 38 weeks Qualified Code(s): Z3A.38 - 38 weeks gestation of (9) Anxiety and depression: Multi Select Codes Urinary/Genital Urinary/Genital CPT Codes: No Charge
[2025-02-16] MEDS: Oxytocin 15 Units/NS 250ml 15 UNITS/250 ML IV.SOLN 2 UNITS IV (19:44)
--- NOTE | 2025-02-16 22:20 | PN_ITS ---
Progress Note comfortable with epidural current tracing: FHT: 130 Moderate variability reactive occasional variable vs late decelerations category II tracing. overall reassuring [place]: 2-4 minute Contractions Membranes: ruptured SVE:9/-1 A/P: Continue with position changes Titrate pitocin per protocol Epidural per anesthesia GBS neg Anticipate Dr Lutz aware of above assessment and agrees with plan of care Assessment & Plan Assessment/Plan (1) Active labor: (2) uterine contractions: (3) Abnormal glucose affecting : (4) Obesity affecting : QUALIFIERS: Trimester: second trimester Obesity type affecting : unspecified obesity Qualified Code(s): O99.212 - Obesity complicating , second trimester (5) AMA (advanced maternal age) multigravida 35+: QUALIFIERS: Trimester: second trimester Qualified Code(s): O09.522 - Supervision of elderly multigravida, second trimester (6) Hx of PTL ( labor), current : QUALIFIERS: Trimester: second trimester Qualified Code(s): O09.212 - Supervision of with history of pre-term labor, second trimester (7) Supervision of high-risk : QUALIFIERS: Trimester: third trimester Qualified Code(s): O09.93 - Supervision of high risk , unspecified, third trimester (8) : QUALIFIERS: Weeks of gestation: 38 weeks Qualified Code(s): Z3A.38 - 38 weeks gestation of (9) Anxiety and depression: Multi Select Codes Urinary/Genital Urinary/Genital CPT Codes: No Charge
[2025-02-17] VITALS (33 sets, daily range): BP systolic 95–124; BP diastolic 43–77; PULSE 78–105; RESP 16–18; TEMP 36.1–36.7; O2SAT 97–100
[2025-02-17] MEDS: Acetaminophen 500 MG Tablet PO (00:03)
--- NOTE | 2025-02-17 02:11 | DCINST_ITS ---
Discharge Instructions Diet Discharge Diet: No restrictions DC O2, CPAP, BIPAP needs Home O2 Discharge instructions: No Dressing / Incision Discharge Activity: Return to Normal Activity, May Not Drive (while taking narcotic pain medications.) and May Shower May resume sexual activity in: 4-6 weeks Dressing / Incision Call your doctor if your incision/area has: Continuous Slow Oozing, Sudden Increased Bleeding, Increased Pain/ Swelling, Increased Redness and Foul Smelling Discharge Follow Up Care Please Follow Up With: Rafia Lutz MD When: Call [phone] to make an appointment with your doctor in 6 weeks. If you had elevated blood pressure or 4th degree laceration, you will need to be seen in 2 weeks. Test Results: Test results from this visit will be discussed in further detail at your follow- up appointment, if applicable. Discharge Plan Admission Admit Date/Time: 02/16/25 16:02 Attending Provider: Alexandria Dietrich Primary Care Provider: Harley Brito Discharge Orders/Prescriptions Prescriptions: No Action PNV-DHA 27 mg iron-1 mg -300 mg capsule 1 cap PO DAILY aspirin [Adult Aspirin Regimen] 81 mg tablet,delayed release (DR/EC) 81 mg PO QDAY bupropion HCl 150 MG tablet extended release 12 hr 300 mg PO DAILY cetirizine 10 MG tablet 20 mg PO DAILY omeprazole-sodium bicarbonate [Zegerid OTC] 20-1.1 mg-gram capsule 1 cap PO DAILY Referrals / Follow Up: Harley Brito MD [Primary Care Provider] - Disposition Disposition (needs filled in before D/C Order can be placed): Home, Self Care
--- NOTE | 2025-02-17 02:17 | EX.PCM.OBVAG ---
Assessment & Plan (1) Vaginal delivery: COMMENT: KW LAWRENCE Morales (2) Active labor: (3) uterine contractions: COMMENT: s/p transfer to [facility]. [place] x2, (4) Abnormal glucose affecting : COMMENT: nl 3 hr GTT (5) Obesity affecting : QUALIFIERS: Trimester: second trimester Obesity type affecting : unspecified obesity Qualified Code(s): O99.212 - Obesity complicating , second trimester COMMENT: encouraged healthy weight gain. HgA1c ordered, BPP wkly @ 34 wk. (6) AMA (advanced maternal age) multigravida 35+: QUALIFIERS: Trimester: second trimester Qualified Code(s): O09.522 - Supervision of elderly multigravida, second trimester COMMENT: genetic counseling provided, plan NIPT. Growth Q 4wk, (7) Hx of PTL ( labor), current : QUALIFIERS: Trimester: second trimester Qualified Code(s): O09.212 - Supervision of with history of pre-term labor, second trimester COMMENT: Delivered @ 32.5, s/p [facility] consult, on vaginal progesterone 200mg daily 16 to 36wk; daily low dose ASA (8) Supervision of high-risk : QUALIFIERS: Trimester: third trimester Qualified Code(s): O09.93 - Supervision of high risk , unspecified, third trimester COMMENT: [id number], GBS neg, OLI 02/25/25, [facility] Myra James, Matt (9) : QUALIFIERS: Weeks of gestation: 38 weeks Qualified Code(s): Z3A.38 - 38 weeks gestation of COMMENT: NIPT low risk, Carrier neg. , insuff DNA NT screening/redraw: Nl anatomy, consistent OLI (10) Anxiety and depression: COMMENT: alternative paths counseling wellbutrin, Daryl/stable Maternal Data Information OLI Calculator Estimated Delivery Date Method Current WG Current Estimate 02/25/25 LMP (Certain) 38w 6d Other Estimates 02/24/25 Ultrasound #1 39w 0d Final OLI: 02/17/25 Final OLI Source: US >20 weeks Gestational age: 38.6 Vaginal Delivery Maternal Presentation Maternal Presentation: Active Labor Maternal Presentation: Presented to unit for active labor, after epidural was augmented with pitocin. Vaginal Delivery Information Procedure Performed: Spontaneous Vaginal Delivery Surgeon/Practitioner: Alexandria Dietrich Date of Procedure: 02/17/25 Pre-Procedure Diagnosis: see problem list Post-Procedure Diagnosis: same Type of anesthesia: None Estimated Blood Loss: 100 Time of Delivery: 01:59 Findings Description of procedure: Progressed well to 10cm dilated and made steady progress with effective maternal pushing. Dr Lutz consulted at 0100 for lates with pushing with moderate variability. Plan to push for 30 minutes as long as moderate variability remained. requested for her to come to bedside at 0145 for delivery due to suspicion of shoulder dystocia. Delivered the head in TITA presentation. The head was delivered atraumatically and no nuchal cord was identified. The anterior and posterior shoulders delivered without complication followed by the rest of the infant and the was placed on the maternal abdomen. Delayed cord clamping was employed for approximately 3 minutes. Cord was clamped and cut and gentle traction was applied to the cord and the placenta delivered spontaneously. Immediately following, it was noted to be intact with a 3 vessel cord. Uterine bleeding stable. The perineum and vagina were inspected and noted to have a first degree laceration and left labial laceration which was repaired with 3-0 Vicryl in the usual fashion. EBL was 100cc. Patient and tolerated delivery well. Apgars 7/9. Dr Lutz notified of vaginal delivery and orders reviewed. Physician agrees with current plan of care. Presentation: Vertex Amniotic Membrane Rupture Type: Artificial Amniotic Fluid Description: Clear Placental Delivery Description: Spontaneous Placenta Disposition: [facility] Specimen collected: No Cord Vessel Description: 3 Vessels Cord Entanglement: None Cord Gases: ABG and VBG A Gender: Male (1 minute): 7 (5 minute): 9 Delayed Cord Clamping: Yes Media Promoter tuckpointer: No Post Vaginal Deli Medications given after delivery: IV Pitocin Episiotomy Description: None Laceration: 1st degree Complication Complications: No Multi Select Codes Urinary/Genital Urinary/Genital CPT Codes: 22332 Vaginal Delivery+ PP Care([facility])
[2025-02-17] MEDS: Oxytocin 15 Units/NS 250ml 15 UNITS/250 ML IV.SOLN 83 UNITS IV (02:37)
[2025-02-17] MEDS: Senna/Docusate Sodium 1 Tablet PO (08:47)
[2025-02-17] MEDS: buPROPion (SR) 150 MG Tablet.SA 300 MG PO (08:48)
[2025-02-17] MEDS: Loratadine 10 MG Tablet PO (08:48)
[2025-02-17] MEDS: Naproxen 500 MG Tablet PO ×2 (08:48→19:48)
[2025-02-17] MEDS: Acetaminophen 500 MG Tablet 1000 MG PO (21:34)
[2025-02-18 00:50] VITALS: BP 110/66; PULSE 81; RESP 16; TEMP 36.1; O2SAT 98
[2025-02-18] MEDS: Naproxen 500 MG Tablet PO (03:19)
[2025-02-18 04:45] VITALS: BP 118/68; PULSE 86; RESP 16; TEMP 36.1; O2SAT 97
--- NOTE | 2025-02-18 07:57 | PCM.PN.OB ---
Subjective Subjective Patient doing well without complaints. Tolerating PO. Ambulating and voiding without difficulty. Feeding well. Denies chest pain, shortness of breath, calf pain/swelling, fevers, chills, lightheadedness. Objective Data Objective Data Vital Signs: Vital Signs Temp Pulse Resp BP Pulse Ox O2 Del Method 97 F L 86 16 118/68 97 Room Air 02/18/25 04:45 02/18/25 04:45 02/18/25 04:45 02/18/25 04:45 02/18/25 04:45 02/18/25 04:45 Oxygen Delivery Method Room Air Weight: 301 lb 2.423 oz Body Mass Index (BMI) 48.6 Intake & Output: Intake and Output for Last 24 Hours 02/16/25 02/17/25 02/18/25 23:59 23:59 23:59 Intake Total 1500.5 / 1500.5 1449.37 / 1449.37 Output Total 700 / 700 Balance 1500.5 / 1500.5 749.37 / 749.37 Lab / Micro Data 02/16/25 16:30 Physical Exam Const alert and oriented x3 HEENT normocephalic Eyes PERRL Neck full ROM Resp normal respiratory effort GI soft to palpation GI Narrative: FF below U Assessment & Plan (1) Vaginal delivery: COMMENT: RITA Morales PLAN: Plan s/p PPD # 1 1. routine post delivery care 2. breast feeding- support given 3. rh positive 4. rubella immune
[2025-02-18 08:06] VITALS: BP 110/49; PULSE 77; RESP 16; TEMP 36.1; O2SAT 99
[2025-02-18] MEDS: Acetaminophen 500 MG Tablet 1000 MG PO (08:15)
[2025-02-18] MEDS: Loratadine 10 MG Tablet PO (10:06)
[2025-02-18] MEDS: buPROPion (SR) 150 MG Tablet.SA 300 MG PO (10:06)
[2025-02-18] MEDS: Senna/Docusate Sodium 1 Tablet PO (10:06)
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
== END 2025-02-18 12:45 | disposition home or self-care (01) | DRG 560 ==
LOC: WPOUT 16:04 → WP 16:04
PROVIDERS: Admitting Provider Advanced Practice Midwife; PCP Family Medicine; Referring Provider Advanced Practice Midwife; Visit Provider Advanced Practice Midwife
DX: O99.214 Obesity complicating childbirth (principal); Z37.0 Single live birth; O99.344 Other mental disorders complicating childbirth; F33.1 Major depressive disorder, recurrent, moderate; F41.1 Generalized anxiety disorder; O76 Abnormality in fetal heart rate and rhythm complicating labor and delivery; O77.0 Labor and delivery complicated by meconium in amniotic fluid; O70.0 First degree perineal laceration during delivery; Z3A.38 38 weeks gestation of pregnancy; Z79.899 Other long term (current) drug therapy; Z87.59 Personal history of other complications of pregnancy, childbirth and the puerperium; Z87.891 Personal history of nicotine dependence
CPT/HCPCS: 59025; 59050; 76819; 85025; 86780; 86850; 86900; 86901; 99221; G0378

== ENCOUNTER 2025-07-05 11:24 | Emergency (ER) | payer MEDICAID, SELFPAY ==
[2025-07-05 11:25] VITALS: BP 147/92; PULSE 85; RESP 16; TEMP 36.4; O2SAT 100; BMI 46.3
--- OUTSIDE RECORDS SUMMARY | 2025-07-05 12:10 | XMS RPT_ITS | CCD ---
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 Name Role Phone MAHAJAN, DELMI E Unavailable Unavailable MAHAJAN, DELMI E Unavailable Unavailable NO REFERRING DR Unavailable Unavailable MAHAJAN, DELMI E Unavailable Unavailable MAHAJAN, DELMI E Unavailable Unavailable NO REFERRING DR Unavailable Unavailable NO REFERRING DR Unavailable Unavailable [employer] Unavailable Unavailable ZACHOPOULOS, PAVAN Unavailable Unavailable MAHAJAN, DELMI E (SALVAGE MACHINE OPERATOR) Unavailable Unavailab le MAHAJAN, DELMI E (SALVAGE MACHINE OPERATOR) Unavailable Unavailab le MAHAJAN, DELMI E (SALVAGE MACHINE OPERATOR) Unavailable Unavailab le MAHAJAN, DELMI E (SALVAGE MACHINE OPERATOR) Unavailable Unavailab Harley Calloway MD Primary Care Provider Harley Liu MD Primary Care Provider Harley Liu MD Primary Care Provider Harley iLu MD Primary Care Provider JANET BAILEY Admitting Unavailable HARLEY LIU Primary Care Unavailable MARTIN MOMIN Attending Unavailable CHARLETTE WALLER Admitting Unavailable HARLEY LIU Primary Care Unavailable CHARLETTE WALLER Attending Unavailable Cecelia DENTAL PROFESSIONAL.Sharon JACOBSON Unavailable Terence DENTAL PROFESSIONAL.Nicci JACOBSON A Unavailable AYAD EDWARDS Attending Unavailable RAFIA SANCHEZ Primary Care UnavailRAFIA Reyes Referring UnavailCLYDE Gill Attending Unavailable CLYDE LANDAVERDE Attending Unavailable SERGIO GREEN Referring Unavailable RAFIA SANCHEZ Primary Care Unavailabl RAFIA Velasquez Primary Care UnavailRAFIA Reyes Attending UnavailRAFIA Reyes Referring Unavailabl e ED LAKHANI Attending Unavailable NORMA, SERGIO S Referring Unavailable MARCANTHONY, RAFIA E Primary Care Unavailabl e ED LAKHANI Attending Unavailable NORMA, SERGIO S Referring Unavailable MARCANTHONY, RAFIA E Primary Care Unavailabl e [facility], [facility] Primary Care Unavailable [facility], [facility] Primary Care Unavailable VAZQUEZ, DALIA Referring Unavailable VAZQUEZDALIA Attending Unavailable [facility], [facility] Primary Care Unavailable NOE, HARLEY Attending Unavailable [facility], [facility] Primary Care Unavailable NOE, [facility] Primary Care Unavailable [place], [facility] Primary Care Unavailable Marcanthony, Rafia Referring Unavailable Marcanthony, Rafia Attending Unavailable Vande Velde, Kristine Referring Unavailabl e Vande Velde, Kristine Attending Unavailabl e [place], [facility] Primary Care Unavailable [place], [facility] Primary Care Unavailable Marcanthony, Rafia Referring Unavailable Marcanthony, Rafia Attending Unavailable [place], [facility] Primary Care Unavailable Marcanthony, Rafia Attending Unavailable [place], Harley Referring Unavailable Kyle, Monika Referring Unavailable Kyle, Monika Attending Unavailable [place], [facility] Primary Care Unavailable Marcanthony, Rafia Referring Unavailable Marcanthony, Rafia Attending Unavailable [place], [facility] Primary Care Unavailable Norma LAB SUPPORT TECH, Sergio Attending Unavailable Norma LAB SUPPORT TECH, Sergio Referring Unavailable [place], [facility] Primary Care Unavailable [place], [facility] Primary Care Unavailable Noe, Harley Referring Unavailable Noe, Harley Attending Unavailable Vande Velde, Kristine Referring Unavailabl e Vande Velde, Kristine Attending Unavailabl e [place], [facility] Primary Care Unavailable [place], [facility] Primary Care Unavailable [place], Harley Referring Unavailable Alexandria Dietrich Attending Unavailable [place], [facility] Primary Care Unavailable Alexandria Dietrich Attending Unavailable Noe, Harley Referring Unavailable [place], [facility] Primary Care Unavailable [place], Harley Referring Unavailable Alexandria Dietrich Attending Unavailable Marcanthony, Rafia Attending Unavailable [place], [facility] Primary Care Unavailable [place], Harley Referring Unavailable Alexandria Dietrich Attending Unavailable [place], Harley Primary Care Unavailable [place], Harley Referring Unavailable Alexandria Dietrich Consulting Unavailable Alexandria Dietrich Admitting Unavailable Alexandria Dietrich Referring Unavailable Alexandria Dietrich Attending Unavailable [place], Harley Primary Care Unavailable Alexandria Dietrich Attending Unavailable [place], Harley Primary Care Unavailable Noe, Harley Referring Unavailable Noe, Harley Primary Care Unavailable Noe, Harley Referring Unavailable Alexandria Dietrich Attending Unavailable [employer] LAB SUPPORT TECH, Sergio Referring Unavailable [place], Harley Primary Care Unavailable Norma LAB SUPPORT TECH, Sergio Attending Unavailable Kyle, Monika Consulting Unavailable Kyle, Monika Referring Unavailable Kyle, Monika Attending Unavailable [place], Harley Primary Care Unavailable Vande Velde, Kristine Consulting Unavailabl e Noe, Harley Primary Care Unavailable Rafia Sanchez Attending Unavailable Vande Velde, Kristine Attending Unavailabl e Noe, Harley Primary Care Unavailable Alexandria Dietrich Admitting Unavailable Karlo, Alexandria Referring Unavailable Alexandria Dietrich Attending Unavailable [place], Harley Primary Care Unavailable Vande Velde, Kristine Attending Unavailabl e [place], Harley Primary Care Unavailable [place], Harley Referring Unavailable Vande Velde, Kristine Referring Unavailabl e Vande Velde, Kristine Attending Unavailabl e [place], Harley Primary Care Unavailable Vande Velde, Kristine Attending Unavailabl e Noe, Harley Referring Unavailable Noe, Harley Primary Care Unavailable [employer] LAB SUPPORT TECH, Sergio Attending Unavailable [place], Harley Primary Care Unavailable Noe, Harley Referring Unavailable [place], Harley Primary Care Unavailable Noe, Harley Referring Unavailable Alexandria Dietrich Attending Unavailable Noe, Harley Primary Care Unavailable Rafia Sanchez Attending Unavailable [place], Harley Referring Unavailable [place], Harley Primary Care Unavailable Vande Velde, Kristine Attending Unavailabl e [place], Harley Referring Unavailable [employer] LAB SUPPORT TECH, Sergio Attending Unavailable [place], Harley Primary Care Unavailable [place], Harley Referring Unavailable [place], Harley Primary Care Unavailable Rafia Sanchez Attending Unavailable Noe, Harley Referring Unavailable Vande Velde, Kristine Attending Unavailabl e Noe, Harley Primary Care Unavailable [place], Harley Referring Unavailable Vande Velde, Kristine Attending Unavailabl e [place], Harley Primary Care Unavailable [place], Harley Referring Unavailable Alexandria Dietrich Attending Unavailable Noe, Harley Primary Care Unavailable Noe, Harley Referring Unavailable [employer] LAB SUPPORT TECH, Sergio Attending Unavailable Allergies Allergy Classification Reported Allergen(s) Allergy Type Date of Onset Reaction(s) Facility (20 sources) Latex; Translations: [LATEX] Propensity to adverse reactions (disorder) 2 Itching, Dermatitis [facility] (1 source) BEE VENOM (HONEY BEE; Translations: [BEE VENOM (HONEY BEE] Propensity to adverse reactions (disorder) [facility] (19 sources) Adhesive Tape; Translations: [ADHESIVE TAPE (ROSINS)] Allergy to substance 3 Other: See Comments [facility] (20 sources) lamoTRIgine; Translations: [LAMOTRIGINE] Drug Allergy 8 Other: See Comments [facility] (4 sources) Azithromycin Drug Allergy 5 Other [facility] (4 sources) Lamotrigine Propensity to adverse reactions 5 Anaphylaxis [facility] (5 sources) Wound Dressing Adhesive; Translations: [WOUND DRESSING ADHESIVE] Propensity to adverse reactions 3 Dermatitis [facility] (1 source) Adhesive agent Drug allergy (disorder) 5 [facility] (1 source) Azithromycin Drug Allergy 5 [facility] (1 source) lamoTRIgine Drug Allergy 5 [facility] Medications Current Medications Medication Drug Class(es) Dates Sig (Normalized) Sig (Original) amoxicillin 875 mg / clavulanate 125 mg oral tablet (1 source) Penicillin-class Antibacterial Start: 02-01-2025 End: 02-06-2025 take 1 tablet by mouth twice daily amoxicillin-clav ulanate potassium (AUGMENTIN) 875-125 mg per tablet Take 1 tablet by mouth two times a day for 5 days. 10 tablet 02/01/2025 02/06/2025 Active aspirin 81 mg delayed release oral tablet (4 sources) Platelet Aggregation Inhibitor, Nonsteroidal Anti-inflammatory Drug take 1 tablet by mouth once daily aspirin 81 MG EC tablet Take 81 mg by mouth daily. Active 24 hr buPROPion hydrochloride 300 mg extended release oral tablet (20 sources) Aminoketone Start: 09-26-2024 End: 12-26-2025 take 1 tablet by mouth once daily buPROPion XL (WELLBUTRIN XL) 300 mg 24 hr tablet Take 1 tablet by mouth once daily. 90 tablet 1 04/14/2025 10/11/2025 Active Start: 11-23-2022 End: 09-16-2024 take 1 tablet by mouth once daily buPROPion XL (WELLBUTRIN XL) 300 mg 24 hr tablet Take 1 tablet by mouth once daily. 90 tablet 3 09/17/2023 09/16/2024 Active Start: 10-12-2021 End: 05-05-2022 take 1 tablet by mouth once daily buPROPion XL (WELLBUTRIN XL) 300 mg 24 hr tablet Take 1 tablet by mouth once daily. 30 tablet 5 05/05/2022 Active Comment on above: Take 1 tablet by brian th once daily. methylPREDNISolone (1 source) Corticosteroid Start: End: methylPREDNISolone (MEDROL, GLENROY,) 4 mg Dose-Pack Take as instructed per package. 21 tablet 06/19/2025 06/25/2025 Active multivitamin tablet (18 sources) Start: take 1 tablet by mouth once daily multivitamin tablet Take 1 tablet by mouth once daily. 02/23/2021 Active Start: 02-23-2021 take 1 tablet by brian th once daily multivitamin tablet Take 1 tablet by mouth once daily. 0 02/23/2021 Active Comment on above: Take 1 tablet by brian th once daily. omeprazole 20 mg delayed release oral capsule (20 sources) Proton Pump Inhibitor Start: 10-12-2021 take 1 capsule by mouth once daily omeprazole (PRILOSEC) 20 mg capsule Indications: GERD without esophagitis Take 1 capsule by mouth once daily. 90 capsule 1 10/12/2021 Active take 1 tablet by brian th once daily before breakfast omeprazole OTC (PriLOSEC OTC) 20 MG EC tablet Take 20 mg by mouth every morning (before breakfast). Do not crush, chew, or split. Active Comment on above: Take 1 capsule by mo uth once daily. oseltamivir 75 mg oral capsule (1 source) Neuraminidase Inhibitor Start: End: take 1 capsule by mouth twice daily oseltamivir (TAMIFLU) 75 mg capsule Indications: Influenza A , 32 weeks gestation of Take 1 capsule by mouth two times a day for 5 days. 10 capsule 12/31/2024 01/05/2025 Active MV-Min-Fe Fum-FA-DHA ( 1 PO) (4 sources) MV-Min- Fe Fum-FA-DHA ( 1 PO) Take by mouth daily. Active Completed/Discontinued Medications Medication Drug Class(es) Dates Sig (Normalized) Sig (Original) acetaminophen 325 mg oral tablet (7 sources) Start: 12-16-2024 End: 12-18-2024 take 1 tablet by mouth every four hours as needed for pain 650 mg, Oral, Every 4 hours PRN, mild pain (1-3), Fever GREATER than 100.5 F (38 C), Starting on Sun12/16/24 at 1949, Maximum dose of acetaminophen is 4000 mg from all sources in 24 hours. acetaminophen (T YLENOL ARTHRITIS ORAL) Take by mouth as needed. 0 Active Comment on above: Take by mouth as nee ded. [id number] 200 actuat albuterol 0.09 mg/actuat metered dose inhaler (4 sources) beta2-Adrenergic Agonist Start: 022 End: take 2 puff(s) by inhalation every four hours as needed for wheezing albuterol HFA (PROVENTIL HFA, VENTOLIN HFA) 90 mcg/actuation inhaler Indications: COVID-19 Inhale 2 Puffs as instructed every 4 hours as needed for wheezing/shortness of breath. 1 Each 1 05/05/2022 11/23/2022 Discontinued Comment on above: Inhale 2 Puffs as in structed every 4 hours as needed for wheezing/shortness of breath. betamethasone 3 mg/ml / betamethasone acetate 3 mg/ml injectable suspension (2 sources) Corticosteroid Start: End: inject 12 mg by intramuscular injection once 12 mg, IntraMUSCular, Once, On Sun12/17/24 at 1500, For 1 dose calcium chloride 0.0014 meq/ml / potassium chloride 0.004 meq/ml / sodium chloride 0.103 meq/ml / sodium lactate 0.028 meq/ml injectable solution (4 sources) Start: End: 500 mL, IntraVENous, at 500 mL/hr, Administer over 1 Hours, Once, On Sun12/18/24 at 0200, For 1 dose Start: 12-18-2024 End: 12-18-2024 500 mL, IntraVENous, at 500 mL/hr, Administer over 1 Hours, Once, On Sun12/18/24 at 0200, For 1 dose Start: 12-18-2024 End: 12-18-2024 500 mL, IntraVENous, at 1,00 0 mL/hr, Administer over 0.5 Hours, Once, On Sun12/18/24 at 0000, For 1 dose 10 ml calcium gluconate 100 mg/ml injection (2 sources) Start: 12-16-2024 End: 12-18-2024 1 g, IntraVENous, PRN, For suspected magnesium toxicity or for respiratory rate less than 6 per minute., Starting on Sun12/16/24 at 2121, Administer slow IV push over 5 minutes. cetirizine hydrochloride 10 mg oral capsule (19 sources) Histamine-1 Receptor Antagonist Start: 02-13-2014 End: 04-14-2025 take 2 capsules by mouth once daily Cetirizine (ZYRTEC) 10 mg cap Take 2 capsules by mouth once daily. 0 02/13/2014 04/14/2025 Discontinued take 1 tablet by mouth once mary y cetirizine (ZyrTEC) 10 MG tablet Take 10 mg by mouth daily. Active Comment on above: Take 2 capsules by out once daily. cyclobenzaprine hydrochloride 10 mg oral tablet (2 sources) Muscle Relaxant Start: 12-18-2024 End: 12-18-2024 take 5 mg by mouth once 5 mg, Oral, Once, On Sun12/18/24 at 0200, For 1 dose Start: 12-18-2024 End: 12-18-2024 take 5 mg by mouth once 5 mg, Oral, Once, On 11/21 at 0200, For 1 dose docusate sodium 100 mg oral capsule (2 sources) Start: 12-17-2024 End: 12-18-2024 take 100 mg by mouth twice daily as needed for constipation 100 mg, Oral, 2 times daily PRN, constipation, Starting on Sun12/17/24 at 2100, Do not crush or break. Second Line Ethinyl Estradiol / Ferrous fumarate / Norethindrone (4 sources) Estrogen Start: 02-21-2018 End: 11-23-2022 take 1 tablet by mouth once daily FE 24 1 mg-20 mcg (24)/75 mg (4) tab Take 1 tablet by mouth once daily. 02/21/2018 11/23/2022 Discontinued (Discontinued by Patient) Start: 02-21-2018 take 1 tablet by brian th once daily FE 24 1 mg-20 mcg (24)/75 mg (4) tab Take 1 tablet by mouth once daily. 12 02/21/2018 Active Comment on above: Take 1 tablet by brian th once daily. Famotidine (6 sources) Histamine-2 Receptor Antagonist Start: 12-17-2024 End: 12-18-2024 famotidine (Pepcid) tablet 20 mg Start: 02-23-2021 End: 11-23-2022 take 1 tablet by mouth every twenty-four hours as needed for nausea and nausea famotidine (PEPCID) 20 mg tablet Indications: Nausea Take 1 tablet by mouth at bedtime as needed. 30 tablet 2 02/23/2021 11/23/2022 Discontinued Comment on above: Take 1 tablet by brian at bedtime as needed. 500 ml magnesium sulfate 40 mg/ml injection (2 sources) Start: 2024 End: 2024 1,000 mg/hr (25 mL/hr), IntraVENous, Administer over 12 Hours, Continuous, Starting on Sun12/16/24 at 2145, For 12 hours, Pre-Infusion: Assess baseline vital signs (blood pressure, pulse, pulse oximetry, respirations, and temperature), respiratory status, intake and output, neurologic status (deep tendon reflexes, presence or absence of clonus, level of consciousness (LOC), presence of headaches/visual disturbances, presence/absence of epigastric pain, and if applicable Heart Rate/Contractions (continuous monitoring). Loading Dose and Maintenance Infusion: - Stay with the patient during the loading dose and the first hour of the infusion to monitor for adverse reactions. - Monitor the patient's vital signs (including pulse oximetry) and assess respiratory status, deep tendon reflexes, and level of consciousness every 15 minutes for the first hour after the start of the loading dose, then every 30 minutes for 1 hour, then every 2 hours thereafter unless more frequent assessments are warranted based on the patient's condition. Notify care provider immediately of absent deep tendon reflexes, a urine output of less than 30 mL/hour, respirations of less than 10 breaths/minute, or an oxygen saturation level of less than 95% Grams to milligrams conversion table: 1 gram = 1000 mg 2 grams = 2000 mg 4 grams = 4000 mg 6 grams = 6000 mg 20 grams = 20,000 mg, Indications: Neuroprotection meloxicam 15 mg oral tablet (4 sources) Nonsteroidal Anti-inflammatory Drug Start: 2020 End: 2022 take 1 tablet by mouth once daily at mealtime meloxicam (MOBIC) 15 mg tablet Indications: Intervertebral disc disorders with radiculopathy, lumbar region Take 1 tablet by mouth once daily. With food. 30 tablet 1 10/04/2021 11/23/2022 Discontinued (Course of therapy completed) Comment on above: Take 1 tablet by brian th once daily. With food. NIFEdipine 10 mg oral capsule (2 sources) Dihydropyridine Calcium Channel Annette Start: 2024 End: 2024 take 1 dose by mouth four times daily 20 mg, Oral, Every 6 hours scheduled (4 times per day), First dose on Sun12/16/24 at 2200, For 43 hours, Hold dosing if SBP ondansetron ODT (Zofran-ODT) disintegrating tablet 4 mg (2 sources) Start: 2024 End: 2024 take 1 tablet by mouth every eight hours as needed for nausea and vomiting ondansetron ODT (Zofran-ODT) disintegrating tablet 4 mg polyethylene glycol [id number] [id number] mg powder for oral solution (2 sources) Osmotic Laxative Start: 2024 End: 2024 take 17 g by mouth every twenty-four hours as needed for constipation 17 g, Oral, Daily PRN, constipation, 1st line, Starting on Sun12/17/24 at 2112 vitamin tablet (2 sources) Start: 2024 End: 2024 take 1 tablet by mouth once daily 1 tablet, Oral, Daily, First dose on Sun12/16/24 at 2000 progesterone 200 mg oral capsule (7 sources) Progesterone End: 2024 progesterone micronized (PROMETRIUM) 200 mg capsule INSERT 1 CAPSULE VAGINALY NIGHTLY AT BEDTIME 04/14/2025 Discontinued progesterone (En dometrin) 100 MG vaginal insert Insert 200 mg into the vagina Nightly. Active 5 ml sodium chloride 9 mg/ml injection (6 sources) Start: 12-16-2024 End: 12-18-2024 10 mL, IntraVENous, Every 12 hours scheduled (2 times per day), First dose on Sun12/16/24 at 2100 Start: 12-16-2024 End: 12-18-2024 Start: 12-16-2024 End: 12-18-2024 take 10 mL intravenously once as needed 10 mL, IntraVENous, PRN, line care, Starting on Sun12/16/24 at 1949, After every IV line use tiZANidine 4 mg oral tablet (4 sources) Central alpha-2 Adrenergic Agonist Start: 10-09-2021 End: 11-23-2022 tiZANidine (ZANAFLEX) 4 mg tablet Problems Active Problems Problem Classification Problem Date Documented Date Episodic/Chronic Anxiety disorders (4 sources) Anxiety disorder, unspecified; Translations: [Other specified anxiety disorders] Onset: 06-08-2017 Chronic Attention-deficit, conduct, and disruptive behavior disorders (3 sources) Attention-deficit hyperactivity disorder, predominantly inattentive type; Translations: [ADHD INATTENTIVE TYPE] Onset: 06-05-2017 Chronic Contraceptive and procreative management (2 sources) Patient encounter status; Translations: [Encounter for other general counseling and advice on contraception] Onset: 07-02-2025 01-10-2024 Episodic Diabetes or abnormal glucose tolerance complicating ; childbirth; or the puerperium (2 sources) Abnormal glucose complicating ; Translations: [Abnormal glucose complicating ] Onset: 02-16-2025 Episodic Early or threatened labor (20 sources) Premature uterine contraction; Translations: [False labor before 37 completed weeks of gestation, unspecified trimester] Onset: 12-16-2024 12-17-2024 Episodic Esophageal disorders (20 sources) Gastroesophageal reflux disease without esophagitis; Translations: [Gastro-esophageal reflux disease without esophagitis] Onset: 08-19-2019 08-19-2019 Chronic Influenza (1 source) Influenza due to Influenza A virus; Translations: [Influenza due to other identified influenza virus with other respiratory manifestations] 12-31-2024 Episodic Mood disorders (20 sources) Major depressive disorder, recurrent severe without psychotic features; Translations: [Depressive disorder] Onset: 01-09-2013 01-09-2013 Chronic Mood disorders (1 source) Major depressive disorder, single episode, unspecified; Translations: [DANA DEPRESS D/O SINGLE E] Onset: 06-08-2017 Other complications of (2 sources) Obesity complicating , second trimester; Translations: [Obesity complicating , second trimester] Onset: 02-16-2025 Chronic Other complications of (1 source) Obesity complicating , unspecified trimester; Translations: [Obesity complicating , unspecified trimester] Onset: 08-27-2024 Chronic Other complications of (2 sources) Supervision of elderly multigravida, second trimester; Translations: [Supervision of elderly multigravida, second trimester] Onset: 02-16-2025 Episodic Other complications of (2 sources) Supervision of with history of pre-term labor, second trimester; Translations: [Supervision of with history of pre-term labor, second trimester] Onset: 02-16-2025 Episodic Other complications of (2 sources) Supervision of high risk , unspecified, third trimester; Translations: [Supervision of high risk , unspecified, third trimester] Onset: 02-16-2025 Episodic Other connective tissue disease (5 sources) Pain in left foot; Translations: [Pain in left foot] 06-19-2025 Episodic Other connective tissue disease (1 source) Pain in left foot; Translations: [Foot pain, left] Onset: 06-19-2025 Episodic Other endocrine disorders (18 sources) Polycystic ovary syndrome; Translations: [Polycystic ovarian syndrome] Onset: 04-11-2013 04-11-2013 Chronic Other nervous system disorders (1 source) Other chronic pain; Translations: [Chronic low back pain with sciatica, sciatica laterality unspecified, unspecified back pain laterality] Onset: 12-26-2012 Chronic Other nutritional; endocrine; and metabolic disorders (19 sources) Body mass index 40+ - severely obese; Translations: [Morbid (severe) obesity due to excess calories] Onset: 04-11-2018 04-11-2018 Chronic Other nutritional; endocrine; and metabolic disorders (1 source) Morbid (severe) obesity due to excess calories; Translations: [Morbid (severe) obesity due to excess calories] Onset: 07-23-2024 Chronic Other nutritional; endocrine; and metabolic disorders (1 source) Body mass index (BMI) 40.0-44.9, adult; Translations: [Body mass index [BMI] 40.0-44.9, adult] Onset: 07-23-2024 Chronic Other and delivery including normal (20 sources) Normal in primigravida; Translations: [Encounter for supervision of normal first , unspecified trimester] Onset: 04-28-2015 04-28-2015 Episodic Other upper respiratory infections (1 source) Bacterial sinusitis; Translations: [Chronic sinusitis, unspecified] 02-01-2025 Chronic Other upper respiratory infections (1 source) Acute upper respiratory infection; Translations: [Acute upper respiratory infection, unspecified] 12-31-2024 Episodic Residual codes; unclassified (1 source) Obstructive sleep apnea syndrome; Translations: [Obstructive sleep apnea (adult) (pediatric)] 02-07-2024 Chronic Residual codes; unclassified (1 source) Gestation period, 32 weeks; Translations: [32 weeks gestation of ] 12-31-2024 Episodic Residual codes; unclassified (2 sources) 38 weeks gestation of ; Translations: [38 weeks gestation of ] Onset: 02-16-2025 Episodic Unclassified (1 source) Other specified postprocedural states; Translations: [OT SPECIFIED POSTPROCED] Onset: 06-08-2017 Viral infection (1 source) Disease caused by 2019-nCoV; Translations: [COVID-19] Episodic Past or Other Problems Problem Classification Problem Date Documented Da te Episodic/Chronic Abdominal pain (8 sources) Right upper quadrant pain; Translations: [Right upper quadrant pain] Onset: 07-10-2013 Resolved: 04-28-2015 04-28-2015 Episodic Cardiac dysrhythmias (1 source) Palpitations; Translations: [PALPITATIONS] Onset: 06-08-2017 Episodic Immunizations and screening for infectious disease (1 source) Encounter for immunization; Translations: [Encounter for immunization] Onset: 12-16-2024 Episodic Other aftercare (1 source) Other long-term (current) drug therapy; Translations: [OT [facility] CURRENT DR] Onset: 06-08-2017 Episodic Other complications of (1 source) Supervision of high risk , unspecified, second trimester; Translations: [Supervision of high risk , unspecified, second trimester] Onset: 12-24-2024 Episodic Other complications of (1 source) Supervision of high risk , unspecified, unspecified trimester; Translations: [Supervision of high risk , unspecified, unspecified trimester] Onset: 08-12-2024 Episodic Other complications of (1 source) Supervision of with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 Covid status: [] Flu vaccine: declined Tdap vaccine: given Rhogam: na LARC form signed: yes Problem list reviewed and updated with (more content not included)... Normal [facility] Bacteria identified Cx Nom ( U)Ordered By: Holli Dobbins on 12-18-2024 Interpretation and review of laboratory results Normal [facility] ECG 12-LEADon 12-18-2024 ECG 12-LEAD IMPRESSION: Sinus rhythm Electronically Signed On 12-18-2024 09:20:37 EST by Katlin Garcia [facility] - Microbiology an d Antimicrobial susceptibilityOrdered By: Holli Dobbins on 12-18-2024 Bacteria identified Cx Nom (U) Normal urogenital gwyn present [facility] No Panel InformationOrdered By: Katlin Garcia on 12-18-2024 P [place] 32 degrees [facility] Phone: [place] Interval 120 ms [employer] Work Phone: QRS [place] 20 degrees [employer] Phone: QRSD Interval 75 ms [employer] Phone: QT Interval 379 ms [employer] Phone: QTC Interval 436 ms [employer] Phone: T Wave [place] 29 degrees [employer] Phone: [employer] Phone: No Panel Informationon 12-18 Sinus rhythm Electronically Signed On 12-18-2024 09:20:37 EST by Katlin Garcia CV Katlin Santos MD - 12/18/2024 IMPRESSION: Sinus rhythm Electronically Signed On 12-18-2024 09:20:37 EST by Katlin Garcia [facility] Nursing Noteon 12-18-2024 Nursing Note 1700 may be discharg ed to home, iv heplock removed, clean dry and intact , home going instructions given, follow up in the office next week, pt. In no acute distress [facility] Progress Noteon 12-18-2024 Progress Note Nutrition rescreen completed. Chart reviewed. Patient to be monitored and followed by the diet c2 tactical analysis technician. ETHAN Escalera [facility] Progress Note --- Attestation signed by Eri Perez DO at 12/18/2024 2:28 PM Hospital Care (Present): I was present with the resident during the history and exam. I discussed the case with the resident and agree with the findings and plan as documented in the resident's note. 34 y.o. yo at 30w1d hospital day 2 with: Patient Active Problem List Diagnosis contractions Pt reports CTXs resolved. SVE unchanged. Stable for discharge to home. 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 labor precautions reviewed. Chart review and preparation: 15 minutes. Face to face: 10 minutes. Documentation and care coordination: 10 minutes. Total time spent on patient care today: 35 minutes. Maternal Medicine Service Resident Progress Note 12/18/2024 6:12 AM 12/16/2024 Hospital Day: 3 Arsh Kai, 34 y.o. 30w1d Patient has been seen and examined. Pt complains of a sore abdomen. Chest pressure has resolved. Positive movement Negative vaginal bleeding Negative LOF Negative Contractions Vitals: 12/17/24 2353 12/17/24 2358 12/18/24 0040 12/18/24 0601 BP: (!) 101/51 115/63 98/60 BP Location: Left arm Left arm Left arm Patient Position: Lying Lying Lying Pulse: 82 85 75 Resp: 20 18 18 Temp: 36.7 ?C (98.1 ?F) 36.7 ?C (98 ?F) 36.9 ?C (98.5 ?F) TempSrc: Oral Oral SpO2: 97% 97% 97% Weight: Height: 9555-5580 FHT cat I with moderate variability, spontaneous accels, normal baseline, no decels. No contractions on toco Physical Exam: Gen: NAD HEENT: Normocephalic, Atraumatic, EOMI, MMM Resp: effort nl Card: RRR Abd: soft, gravid, NTND, no rebound, no guarding. Ext: No LE edema, no calf tenderness or swelling Medications: Current Facility-Administered Medications Medication Dose Route Frequency Provider Last Rate Last Admin acetaminophen (Tylenol) tablet 650 mg 650 mg Oral q4h PRN Leann Schlieper, DO 650 mg at 12/17/24 2353 buPROPion XL (Wellbutrin XL) 24 hr tablet 300 mg 300 mg Oral Daily Leann Schlieper, DO 300 mg at 12/17/24 1004 calcium gluconate 10 % injection 1 g 1 g IntraVENous PRN Leann Schlieper, DO docusate sodium (Colace) capsule 100 mg 100 mg Oral BID PRN Leann Schlieper, DO 100 mg at 12/17/242118 famotidine (Pepcid) tablet 20 mg 20 mg Oral BID Lucia Gemma, DO 20 mg at 12/17/24 211 Or famotidine (Pepcid) 20 mg in sodium chloride (PF) 0.9 % 10 mL injection 20 mg IntraVENous BID Lucia Gemma, DO NIFEdipine (Procardia) capsule 20 mg 20 mg Oral 4 times per day Leann Schlieper, DO 20 mg at 12/18/24 0605 ondansetron ODT (Zofran-ODT) disintegrating tablet 4 mg 4 mg Oral q8h PRN Leann Schlieper, DO Or ondansetron (Zofran) injection 4 mg 4 mg IntraVENous q6h PRN Leann Schlieper, DO polyethylene glycol (PEG) 3350 (Miralax) packet 17 g 17 g Oral Daily PRN Leann Schlieper, DO vitamin tablet 1 tablet Oral Daily Leann Schlieper, DO 1 tablet at 12/17/24 1003 sodium chloride 0.9 % infusion 5-250 mL/hr IntraVENous PRN Leann Schlieper, DO sodium chloride 0.9% (NS) flush 10 mL 10 mL IntraVENous 2 times per day Leann Schlieper, DO 10 mL at 12/17/24 211 sodium chloride 0.9% (NS) flush 10 mL 10 mL IntraVENous PRN Leann Schlieper, DO 10 mL at 12/18/24 0000 Assessment/Plan: Arsh Quinn is a 34 y.o. female 30w1d Threatened PTL Hx PTD - Presented to OSH for CTX, noted to be 1 cm dilated, transferred for care - Hx PTD in G1 at 32 weeks - SVE unchanged on admission, rechecked again overnight and remains unchanged - FHT Cat 1 overnight, no CTX on toco - S/p BMZ x2 on - S/p 12 hrs magnesium sulfate for neuroprotection - Growth US 12/17 AGA EFW 1596g, 3lb 8oz, 57%ile, AC 62%ile, RICCO 15.6cm, BPP 8/8 - Procardia for tocolysis until ~12 pm this afternoon Anxiety Depression - Mood appropriate - Continue Wellbutrin 300 mg daily Obesity - BMIS 47 - SCDs ordered Hx of Chlamydia - Per labs - GCCT on admission negative IUP @ 30w1d - Vtx 12/17 - Monitorin hr BID - Diet:General - BMZ x2 on Further plan pending d/w attending. Lucia Messina DO 12/18/2024, 6:12 AM Normal [facility] Progress Note Notified by RN of cramping and chest pressure. At bedside to evaluate. Patient resting in bed, does not appear in acute distress. She reports some cramping. She notes good movement, denies vaginal bleeding of LOF. SVE unchanged. FHT Cat 1. No CTX on toco. Plan for IVF bolus, flexeril. EKG ordered for chest pain SOB, low suspicion for ACS, VSS. Will continue to monitor closely. sinus rhythm. Patient feeling better at this time. Normal [facility] Vital signsOrdered By: Angi Garcia on 12-18-2024 Heart rate 79 /min bpm [facility] [employer] Work Phone: [phone] 12-17-2024 [id number] Date: 12/17/2024 Name: Arsh Quinn : 1990 [facility] Information Patient Information Primary Caregiver: Self Accompanied by/Relationship: S/O;Family Marital Status: Support System: SO/Family Zoroastrian/Cultural Factors: Activities of Daily Living Communication: See demographics Living Arrangements Current Residence: Private residence Lives With: S/O; Family Support System: S/O; Family Income Information Income Source: Employed Financial Resource Strain How hard is it for you to pay for the very basics like food, housing, medical care and heating? N/A Housing Stability In the last 12 months, was there a time when you did not have a steady place to sleep or slept in a custodial (including now)? No Transportation Needs Has the lack of Transportation kept you from medical appointments? No In the past 12 months, has the lack of transportation kept you from meetings, work, or from getting things needed for daily living? No Food Insecurity Within the past 12 months, have you worried that your food would run out before you got the money to buy more? No Stress Do you feel stress - tense, restless, nervous, or anxious, or unable to sleep at night because you mind is troubled all the time? Mood stable Referral To Financial Resources: N/A Community Resources: PNU folder given upon admission to PNU Unit Social Work: N/A CLP: Declines at this time Medical Information admitted at 29/6 weeks for tPTL; Hx PTD at 32 weeks; Anxiety/depression, on Wellbutrin; Mood stable; Obesity Discharge Plan Home or Community Resources: PNU Admission folder given upon admission to unit Equipment: N/A Education Given: PNU admit folder and see Education Tab Additional Information: N/A Mental Health Services: N/A Developmental Delay: N/A Children's Services: N/A Normal [facility] SHS N. gonorrhoeae DNA ASHWIN+probe Ql (Cervical mucus)on 12-17-2024 C. trachomatis DNA ASHWIN+probe Ql (Unsp spec) Not detected Not Detected [facility] Interpretation and review of laboratory results Normal [facility] N gonorrhoeae, DNA Probe Not detected Not Detected [facility] Methodology: real-ti me PCR This test is intended for medical purposes only and is not intended for the evaluation of suspected sexual abuse or for other forensic purposes. In certain contexts, culture may be required to meet applicable laws and regulations for diagnosis of C. trachomatis and N. gonorrhoeae infections. Per 2014 CDC recommmendations, this test does not include confirmation of positive results by an alternative nucleic acid target. A negative result does not exclude the possibility of infection. A result of invalid indicates that a new specimen should be collected if clinically indicated. [facility] No Panel Informationon 12-17 Louis live intrauterine at 30w 0d. Normal growth; EFW 1596 grams, which is at the 57% for this gestational age. The amniotic fluid index is 15.6cm, which is within normal limits. Reassuring P, 06/26. [facility] - OBSTETRICS REPORT (Signed Final 12/17/2024 11:19 am) - PATIENT INFO: ID #: [id number] : [birth year] (34 yrs)(F) Name: ARSH QUINN Visit Date: 12/17/2024 08:46 am - PERFORMED BY: Attending: Charlette Waller Performed By: Zehra Mitchell RDVT Referred By: JANET BAILEY Location: [facility] IP Visit Type: Inpatient - Hospital - SERVICE(S) [place] [address] BPP w/out NST 77995 - INDICATIONS: False labor before 37 completed weeks of O47.00 gestation, unspecified trimester False labor before 37 completed weeks of O47.00 gestation, unspecified trimester - VITAL SIGNS: Weight (lb): 294 Height: 5'6 BMI: 47.45 - EVALUATION: Num Of Fetuses: 1 Heart Rate(bpm): 130 Cardiac Activity: Regular rhythm Lie: Longitudinal Presentation: Cephalic Placenta: Posterior Amniotic Fluid RICCO FV: Within normal limits RICCO Sum(cm) %Tile Largest Pocket(cm) 15.6 56 5 RUQ(cm) RLQ(cm) LUQ(cm) LLQ(cm) 3 4.3 3.3 5 - BIOPHYSICAL EVALUATION: Amniotic F.V: Within normal limits F. Tone: Observed F. Movement: Observed Score: 06/26 F. Breathing: Observed - BIOMETRY: BPD: 82.5 mm G.Age: 33w 1d 99 % OFD: 100.2 mm HC: 291.2 mm G.Age: 32w 1d 75 % AC: 264.4 mm G.Age: 30w 4d 62 % FL: 56 mm G.Age: 29w 3d 21 % LV: 5.02 mm CI: 82.3 % 70 - 86 FL/HC: 19.2 % 19.2 - 21.4 HC/AC: 1.10 0.99 - 1.21 FL/BPD: 67.9 % 71 - 87 FL/AC: 21.2 % 20 - 24 Est. FW: 1596 gm 3 lb 8 oz 57 % - GESTATIONAL AGE: Clinical OLI: 30w 0d OLI: 02/25/25 /S Today: 31w 2d OLI: 02/16/25 Best: 30w 0d Det. By: Clinical OLI OLI: 02/25/25 - ANATOMY: Cranium: Normal appearance Ventricles: Normal appearance Choroid Plexus: Normal appearance Face: Normal appearance Thoracic: Normal appearance Heart: Normal appearance RVOT: Normal appearance LVOT: Normal appearance Diaphragm: Normal appearance Stomach: Normal appearance Abdomen: Normal appearance Abdominal Wall: Normal appearance Cord Vessels: 3-Vessel Cord Kidneys: Normal appearance Bladder: Normal appearance Upper Extremities: Present Lower Extremities: Present - - RECOMMENDATIONS: See inpatient chart. Ultrasound is not diagnostic of chromosomal aneuploidy and does not detect all subtle defects. Normal ultrasound findings do not guarantee normal outcomes. - Charlette Waller Electronically Signed Final Report 12/17/2024 11:19 am - [facility] Charlette Waller MD - 12/17/2024 - OBSTETRICS REPORT (Signed Final 12/17/2024 11:19 am) - PATIENT INFO: ID #: [id number] : [birth year] (34 yrs)(F) Name: ARSH QUINN Visit Date: 12/17/2024 08:46 am - PERFORMED BY: Attending: Charlette Waller Performed By: Zehra Mitchell RDMS Referred By: JANET BAILEY Location: [facility] IP Visit Type: Inpatient - Hospital - SERVICE(S) [place] [address] [facility] w/out [facility] [address] - INDICATIONS: False labor before 37 completed weeks of O47.00 gestation, unspecified trimester False labor before 37 completed weeks of O47.00 gestation, unspecified trimester - VITAL SIGNS: Weight (lb): 294 Height: 5'6 BMI: 47.45 - EVALUATION: Num Of Fetuses: 1 Heart Rate(bpm): 130 Cardiac Activity: Regular rhythm Lie: Longitudinal Presentation: Cephalic Placenta: Posterior Amniotic Fluid RICCO FV: Within normal limits RICCO Sum(cm) %Tile Largest Pocket(cm) 15.6 56 5 RUQ(cm) RLQ(cm) LUQ(cm) LLQ(cm) 3 4.3 3.3 5 - BIOPHYSICAL EVALUATION: Amniotic F.V: Within normal limits F. Tone: Observed F. Movement: Observed Score: 06/26 F. Breathing: Observed - BIOMETRY: BPD: 82.5 mm G.Age: 33w 1d 99 % OFD: 100.2 mm HC: 291.2 mm G.Age: 32w 1d 75 % AC: 264.4 mm G.Age: 30w 4d 62 % FL: 56 mm G.Age: 29w 3d 21 % LV: 5.02 mm CI: 82.3 % 70 - 86 FL/HC: 19.2 % 19.2 - 21.4 HC/AC: 1.10 0.99 - 1.21 FL/BPD: 67.9 % 71 - 87 FL/AC: 21.2 % 20 - 24 Est. FW: 1596 gm 3 lb 8 oz 57 % - GESTATIONAL AGE: Clinical OLI: 30w 0d OLI: 02/25/25 U/S Today: 31w 2d OLI: 02/16/25 Best: 30w 0d Det. By: Clinical OLI OLI: 02/25/25 - ANATOMY: Cranium: Normal appearance Ventricles: Normal appearance Choroid Plexus: Normal appearance Face: Normal appearance Thoracic: Normal appearance Heart: Normal appearance RVOT: Normal appearance LVOT: Normal appearance Diaphragm: Normal appearance Stomach: Normal appearance Abdomen: Normal appearance Abdominal Wall: Normal appearance Cord Vessels: 3-Vessel Cord Kidneys: Normal appearance Bladder: Normal appearance Upper Extremities: Present Lower Extremities: Present - - RECOMMENDATIONS: See inpatient chart. Ultrasound is not diagnostic of chromosomal aneuploidy and does not detect all subtle defects. Normal ultrasound findings do not guarantee normal outcomes. - Charlette Waller Electronically Signed Final Report 12/17/2024 11:19 am - IMPRESSION: Louis live intrauterine at 30w 0d. Normal growth; EFW 1596 grams, which is at the 57% for this gestational age. The amniotic fluid index is 15.6cm, which is within normal limits. Reassuring BPP, 06/26. [facility] observation (narrative) [employer] No Panel InformationOrdered By: Charlette Waller on 12-17-2024 [employer] Work Phone: Progress Noteon 12-17-2024 Progress Note --- Attestation signed by Charlette Waller MD at 12/17/2024 11:16 AM MFM ATTENDING I have personally obtained a history and examined the patient with Dr. Messina. I agree with the assessment and plan as documented in the resident's note. The patient is a 34 y.o. 30w0d now HD#2, admitted for threatened PTL. Presented to Dr. Sanchez yesterday with regular painful contractions. Has h/o 32 week delivery. Cervix has remained /3. This morning patient much more comfortable and reports only 1 contraction an hour. Received BMZ #1 and mag for LAB SUPPORT TECH. On procardia tocolysis. She reports good movement. Vitals: 12/17/24 0843 BP: 104/68 Pulse: 89 Resp: 20 Temp: 36.4 ?C (97.5 ?F) SpO2: 97% Alert and oriented, NAD Gravid nontender abdomen Cervix per inpatient team: /3 NST: reactive, Cat 1 Ultrasound: EFW 1596g (57%), RICCO 15.6cm, cephalic. BPP 06/26. Lab Results Component Value Date WBC 11.8 (H) 12/16/2024 HGB 12.4 12/16/2024 HCT 35.8 12/16/2024 MCV 84.4 12/16/2024 PLT 233 12/16/2024 Plan: Discussed rationale for PTL therapies and plan. Stop Mag for LAB SUPPORT TECH now. BMZ#2 this afternoon. Continue Procardia for 24hrs after next BMZ. If remains stable, anticipate discharge tomorrow. 55 minutes spent in total floor time today for review of records, patient interview and exam, documentation and coordination of care with care teams. Charlette Waller MD Maternal Medicine Service Resident Progress Note 12/17/2024 6:21 AM 12/16/2024 Hospital Day: 2 Arsh Quinn, 34 y.o. 30w0d Patient has been seen and examined. Pt reports contractions have spaced out, maybe 6 since midnight Positive movement Negative vaginal bleeding Negative LOF Positive Contractions Vitals: 12/16/24 1926 12/16/24 2332 12/17/24 0358 BP: 110/63 112/64 (!) 104/56 Pulse: 92 91 84 Resp: 15 18 18 Temp: 36.6 ?C (97.9 ?F) 36.7 ?C (98.1 ?F) 36.8 ?C (98.2 ?F) TempSrc: Oral Temporal Temporal SpO2: 99% 97% 97% Weight: 294 lb (133 kg) Height: 5' 6 (1.676 m) FHT cat I with moderate variability, spontaneous accels, normal baseline, no decels. Rare contractions on toco Physical Exam: Gen: NAD HEENT: Normocephalic, Atraumatic, EOMI, MMM Resp: effort nl Card: RRR Abd: soft, gravid, NTND, no rebound, no guarding. Medications: Current Facility-Administered Medications Medication Dose Route Frequency Provider Last Rate Last Admin acetaminophen (Tylenol) tablet 650 mg 650 mg Oral q4h PRN Leann Schherberteper, DO betamethasone acetate-betamethasone sodium phosphate (Celestone) injection 12 mg 12 mg IntraMUSCular Once Leann Luis, DO buPROPion XL (Wellbutrin XL) 24 hr tablet 300 mg 300 mg Oral Daily Leann Schlieper, DO calcium gluconate 10 % injection 1 g 1 g IntraVENous PRN Leann Schlieper, DO magnesium sulfate 20 GM/500ML infusion 1,000 mg/hr IntraVENous Continuous Leann Schlieper, DO 25 mL/hr at 12/16/242205 1,000 mg/hr at 12/16/242205 NIFEdipine (Procardia) capsule 20 mg 20 mg Oral 4 times per day Leann Schlieper, DO 20 mg at 12/17/24 0554 ondansetron ODT (Zofran-ODT) disintegrating tablet 4 mg 4 mg Oral q8h PRN Leann Schlieper, DO Or ondansetron (Zofran) injection 4 mg 4 mg IntraVENous q6h PRN Leann Schlieper, DO vitamin tablet 1 tablet Oral Daily Leann Schlieper, DO sodium chloride 0.9 % infusion 5-250 mL/hr IntraVENous PRN Leann Schlieper, DO sodium chloride 0.9% (NS) flush 10 mL 10 mL IntraVENous 2 times per day Leann Schlieper, DO sodium chloride 0.9% (NS) flush 10 mL 10 mL IntraVENous PRN Leann Schlieper, DO Assessment/Plan: Arsh Quinn is a 34 y.o. female 30w0d Threatened PTL Hx PTD - Presented to OSH for CTX, noted to be 1 cm dilated, transferred for care - Hx PTD in G1 at 32 weeks - SVE unchanged on admisison - FHT Cat 1 overnight, rare CTX on toco - Continue Procardia tocolysis, magnesium sulfate for neuroprotection - S/P BMZx1, second dose timed for this afternoon - Growth US ordered for this AM Anxiety Depression - Mood appropriate - Continue Wellbutrin 300 mg daily Obesity - BMIS 47 - SCDs ordered Hx of Chlamydia - Per labs - GCCT on admission negative IUP @ 30w0d - VTX 12/16 - Monitoring: CEFM - Diet: General - BMZ x1 on 12/16 Further plan pending d/w attending. Lucia Messina DO 12/17/2024, 6:21 AM Normal [facility] S. agalactiae DNA ASHWIN+probe Ql (Unsp spec)on 12-17-2024 Group B Strep Screen Not detected Not Detected [employer] Interpretation and review of laboratory results Normal [employer] Methodology: real-ti me PCR [facility] US BIOPHYSICAL PROFILE WO NON STRESS TESTINGon 12-17-2024 US BIOPHYSICAL PROFILE WO NON STRESS TESTING - OBSTETRICS REPORT (Signed Final 12/17/2024 11:19 am) - PATIENT INFO: ID #: [id number] : [birth year] (34 yrs)(F) Name: ARSH QUINN Visit Date: 12/17/2024 08:46 am - PERFORMED BY: Attending: Charlette Waller Performed By: Zehra Mitchell RDMS Referred By: JANET BAILEY Location: [facility] IP Visit Type: Inpatient - Hospital - SERVICE(S) PROVIDED: [place] [address] BPP w/out NST [address]69 - INDICATIONS: False labor before 37 completed weeks of O47.00 gestation, unspecified trimester False labor before 37 completed weeks of O47.00 gestation, unspecified trimester - VITAL SIGNS: Weight (lb): 294 Height: 5'6 BMI: 47.45 - EVALUATION: Num Of Fetuses: 1 Heart Rate(bpm): 130 Cardiac Activity: Regular rhythm Lie: Longitudinal Presentation: Cephalic Placenta: Posterior Amniotic Fluid RICCO FV: Within normal limits RICCO Sum(cm) %Tile Largest Pocket(cm) 15.6 56 5 RUQ(cm) RLQ(cm) LUQ(cm) LLQ(cm) 3 4.3 3.3 5 - BIOPHYSICAL EVALUATION: Amniotic F.V: Within normal limits F. Tone: Observed F. Movement: Observed Score: 06/26 F. Breathing: Observed - BIOMETRY: BPD: 82.5 mm G.Age: 33w 1d 99 % OFD: 100.2 mm HC: 291.2 mm G.Age: 32w 1d 75 % AC: 264.4 mm G.Age: 30w 4d 62 % FL: 56 mm G.Age: 29w 3d 21 % LV: 5.02 mm CI: 82.3 % 70 - 86 FL/HC: 19.2 % 19.2 - 21.4 HC/AC: 1.10 0.99 - 1.21 FL/BPD: 67.9 % 71 - 87 FL/AC: 21.2 % 20 - 24 Est. FW: 1596 gm 3 lb 8 oz 57 % - GESTATIONAL AGE: Clinical OLI: 30w 0d OLI: 02/25/25 /S Today: 31w 2d OLI: 02/16/25 Best: 30w 0d Det. By: Clinical OLI OLI: 02/25/25 - ANATOMY: Cranium: Normal appearance Ventricles: Normal appearance Choroid Plexus: Normal appearance Face: Normal appearance Thoracic: Normal appearance Heart: Normal appearance RVOT: Normal appearance LVOT: Normal appearance Diaphragm: Normal appearance Stomach: Normal appearance Abdomen: Normal appearance Abdominal Wall: Normal appearance Cord Vessels: 3-Vessel Cord Kidneys: Normal appearance Bladder: Normal appearance Upper Extremities: Present Lower Extremities: Present - - RECOMMENDATIONS: See inpatient chart. Ultrasound is not diagnostic of chromosomal aneuploidy and does not detect all subtle defects. Normal ultrasound findings do not guarantee normal outcomes. - Charlette Waller Electronically Signed Final Report 12/17/2024 11:19 am - IMPRESSION: Louis live intrauterine at 30w 0d. Normal growth; EFW 1596 grams, which is at the 57% for this gestational age. The amniotic fluid index is 15.6cm, which is within normal limits. Reassuring [facility], 06/26. Normal [facility] US OB FOLLOW UP TRANSABDOMIN AL APPROACHon 12-17-2024 US OB FOLLOW UP TRANSABDOMINAL APPROACH - OBSTETRICS REPORT (Signed Final 12/17/2024 11:19 am) - PATIENT INFO: ID #: [id number] : [birth year] (34 yrs)(F) Name: ARSH QUINN Visit Date: 12/17/2024 08:46 am - PERFORMED BY: Attending: Charlette Waller Performed By: Zehra Mitchell RDMS Referred By: JANET BAILEY Location: [facility] IP Visit Type: Inpatient - Hospital - SERVICE(S) [place]: [place] [address] [facility] w/out NST 49887 - INDICATIONS: False labor before 37 completed weeks of O47.00 gestation, unspecified trimester False labor before 37 completed weeks of O47.00 gestation, unspecified trimester - VITAL SIGNS: Weight (lb): 294 Height: 5'6 BMI: 47.45 - EVALUATION: Num Of Fetuses: 1 Heart Rate(bpm): 130 Cardiac Activity: Regular rhythm Lie: Longitudinal Presentation: Cephalic Placenta: Posterior Amniotic Fluid RICCO FV: Within normal limits RICCO Sum(cm) %Tile Largest Pocket(cm) 15.6 56 5 RUQ(cm) RLQ(cm) LUQ(cm) LLQ(cm) 3 4.3 3.3 5 - BIOPHYSICAL EVALUATION: Amniotic F.V: Within normal limits F. Tone: Observed F. Movement: Observed Score: 06/26 F. Breathing: Observed - BIOMETRY: BPD: 82.5 mm G.Age: 33w 1d 99 % OFD: 100.2 mm HC: 291.2 mm G.Age: 32w 1d 75 % AC: 264.4 mm G.Age: 30w 4d 62 % FL: 56 mm G.Age: 29w 3d 21 % LV: 5.02 mm CI: 82.3 % 70 - 86 FL/HC: 19.2 % 19.2 - 21.4 HC/AC: 1.10 0.99 - 1.21 FL/BPD: 67.9 % 71 - 87 FL/AC: 21.2 % 20 - 24 Est. FW: 1596 gm 3 lb 8 oz 57 % - GESTATIONAL AGE: Clinical OLI: 30w 0d OLI: 02/25/25 U/S Today: 31w 2d OLI: 02/16/25 Best: 30w 0d Det. By: Clinical OLI OLI: 02/25/25 - ANATOMY: Cranium: Normal appearance Ventricles: Normal appearance Choroid Plexus: Normal appearance Face: Normal appearance Thoracic: Normal appearance Heart: Normal appearance RVOT: Normal appearance LVOT: Normal appearance Diaphragm: Normal appearance Stomach: Normal appearance Abdomen: Normal appearance Abdominal Wall: Normal appearance Cord Vessels: 3-Vessel Cord Kidneys: Normal appearance Bladder: Normal appearance Upper Extremities: Present Lower Extremities: Present - - RECOMMENDATIONS: See inpatient chart. Ultrasound is not diagnostic of chromosomal aneuploidy and does not detect all subtle defects. Normal ultrasound findings do not guarantee normal outcomes. - Charlette Waller Electronically Signed Final Report 12/17/2024 11:19 am - IMPRESSION: Louis live intrauterine at 30w 0d. Normal growth; EFW 1596 grams, which is at the 57% for this gestational age. The amniotic fluid index is 15.6cm, which is within normal limits. Reassuring [facility], 06/26. Normal [facility] ABO and Rh group Confirm Nom (Bld)on 12-16-2024 ABO group Nom (Bld) A [facility] D Ag Ql (RBC) Positive [facility] BLOOD TYPE AND SCREEN GELon 12-16-2024 ABO GROUPING A Normal [facility] Comment on above: Order Comment: HOLD. Specimen is valid for 3 days - nurse to verify valid specimen Performed By: #### L [id number] ####Bed Machine Operator: TD HOUSER ([id number])[facility] BLOOD [facility] ([facility])[address] [place] [address] RH TYPE IN BLOOD Positive Normal [facility] Comment on above: Order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 Cholesterol in LDL/Cholesterol in HDL [Mass ratio] 2.97 {ratio} High <2.54 [facility] Cholesterol in VLDL [Mass/Vol] 29 mg/dL <30 mg/dL [facility] Cholesterol non HDL [Mass/Vol] 139 mg/dL High <130 mg/dL [facility] Cholesterol.total/Natasha sterol in HDL [Mass ratio] 4.76 {ratio} <5.10 [facility] Fasting Time 12 hrs [facility] Triglyceride [Mass/Vol] 145 mg/dL <150 mg/dL [facility] MAGNESIUM [facility] 01-10-2024 Magnesium [Mass/Vol] 2.0 mg/dL 1.7 - 2 .3 mg/dL [facility] PROLACTIN [facility] 01-10-2024 Prolactin [Mass/Vol] 6.2 ng/mL 4.5 - 2 6.8 ng/mL [facility] TSH [facility] 01-10-2024 TSH Qn 0.647 m[IU]/L 0.270 - 4.200 mIU/L [facility] HISTORY PHYSICALon HISTORY PHYSICAL HNO ID: [id number] Author: Ricardo Calloway Service: Pain Management Author Type: Physician Type: HANDP Filed: 10/14/2019 11:30 AM Note Text: HISTORY AND PHYSICAL EXAMINATION PATIENT NAME: Arsh Quinn DATE of SERVICE: 10/14/2019 Arsh Quinn is here for the pain mangement procedure. The patient presents with persistent pain complaints. Arsh Quinn denies any interval changes or new pain complaints or focal neurologic deficits. PAST MEDICAL HISTORY Diagnosis Date - Abnormal Pap smear cin1 - Abnormal Pap smear of cervix - BMI 34.0-34.9,adult - Chlamydia - Depression - Gonorrhea - Oligomenorrhea - PCOS (polycystic ovarian syndrome) PAST SURGICAL HISTORY Procedure Laterality Date - COLPOSCOPY 2007 - LAP CHOLECYSTECT/CHOLANGIOG HAYDEE 07/29/13 normal IOC - REMOVE TONSILS/ADENOIDS,<12 Y/O Social History Tobacco Use - Smoking status: Light Tobacco Smoker Packs/day: 0.50 Years: 8.00 Pack years: 4.00 Types: Cigarettes Last attempt to quit: 02/26/2018 Years since quittin.6 - Smokeless tobacco: Never Used - Tobacco comment: using e cigarette has nicotine in it Substance Use Topics - Alcohol use: Yes Comment: 1 drink per week - Drug use: No FAMILY HISTORY Problem Relation Age of Onset - Diabetes Maternal Grandmother - Diabetes Maternal Grandfather - Diabetes Paternal Grandfather - Hypertension Maternal Grandmother - Hypertension Maternal Grandfather - Hypertension Mother - Heart Maternal Grandmother - Heart Maternal Grandfather - Heart Paternal Grandfather - Stroke Maternal Grandmother - Cancer Maternal Grandfather Multiple Myeloma ALLERGIES Allergen Reactions - Adhesive Tape (Shana* Other: See Comments Irritation, inflammation, itching - Lamictal [Lamotrigi* Other: See Comments Increased agitation and anxiety - Latex Itching Current Facility-Administered Medications Medication Dose Route Frequency - NaCl 0.9% iv infusion 30 mL/hr INTRAVENOUS CONTINUOUS Physical Exam: Performed in conjunction with observation. The patient is alert and oriented x3. The patient is in no acute distress. Neck: Supple. The range of motion is intact. Lungs: clear CVR: RRR. Extremities: no reported edema or erythema. Examination indicates no changes Impression: Lumbar disc displacement Lumbar radiculopathy Plan: The informed consent has been obtained. The plan is to proceed with the procedure as planned. SIGNATURE: Ricardo Calloway MD DATE: October 14, 2019 TIME: 11:30 AM [facility] NURSING PROGon 10-14-2019 NURSING PROG HNO ID: [id number] Author: Malia (Rn) ROHAN Trujillo Service: ? Author Type: Registered Nurse Type: Nursing Progress Note Filed: 10/14/2019 12:19 PM Note Text: @ 1141 Pt received to PACU, via cart, post-block. Pt awake AND alert - denies any discomfort. @ 1213 VS stable, physical assess same. Stood @ bedside - steady while up AND bears weight well. [facility] NURSING PROG HNO ID: [id number] Author: Jennie EdmondsonRn) Torito RN Service: Nursing Author Type: Registered Nurse Type: Nursing Progress Note Filed: 10/14/2019 10:53 AM Note Text: PRE OP LEARNING ASSESSMENT PROCEDURE/SURGERY: SURGERY: Preop protocol READINESS TO LEARN COGNITIVE ABILITY: Alert and oriented MOTIVATION TO LEARN: Eager FAMILY SUPPORT: High - Very involved in pt care PATIENT LEARNS BEST BY: Verbal Instruction FACTORS AFFECTING LEARNING: None PHYSICAL LIMITATIONS AFFECTING LEARNING: None Electronically Signed By: Jennie Ugarte RN In Department: [facility] SURGERY [facility] OPERATIVE NOon 10-14-2019 OPERATIVE NO HNO ID: [id number] Author: Ricardo Calloway Service: Pain Management Author Type: Physician Type: Operative Report Filed: 10/14/2019 11:42 AM Note Text: PATIENT NAME: Arsh Quinn SERVICE DATE: 10/14/2019 PROCEDURE NOTE PREOPERATIVE DIAGNOSIS(ES) Lumbar radiculopathy Lumbar disc displacement Lumbar DDD POSTOPERATIVE DIAGNOSIS(ES): Same OPERATION: Left L5-S1 lumbar transforaminal epidural steroid injection under fluoroscopy. ANESTHESIA: Versed 3mg IV INDICATIONS: The patient presents for lumbar transforaminal epidural steroid injection. Since the last visit, the patient denies any new pain complaints and denies any focal neurological deficits. As discussed and outlined in the office and confirmed today, the plan is to proceed with lumbar transforaminal epidural steroid injection. The risks and benefits of the procedure were discussed. Specifically, the risks of bleeding, infection, inadvertent dural puncture, spinal heaches, vasovagal reaction, epidural hematoma, partial or permanent nerve injury were covered. The potential side effects of medications used in procedures including increase in lumbar pain, headaches, facial redness or warmth (flushing), anxiety or mood swings, sleeplessness, fever, high blood sugar, brief reduction in immunity were discussed. The patient expressed understanding of potential risks and wishes to proceed with the procedure. OPERATIVE PROCEDURE: The patient was brought to the operating room. The patient was placed in the prone position with routine monitors placed. The lower back was prepped in sterile fashion. Upon AP projection under fluoroscopy, L5-S1 level was identified. The fluoroscopy was rotated in oblique projection to identify the neuroforamen. Entry point was marked and anesthetized with 0.25% Marcaine. This was followed by insertion of a 5 inch spinal needle, which was inserted and advanced towards the 12 o' clock of the L5-S1 neuroforamen. Once the Needle tip contacted the inferior lateral aspect of the pedicle, aspiration was performed which was negative for blood or CSF. This was followed by injection of Omnipaque 300, which revealed a spread through the neuroforamen into the anterior epidural space. There was no evidence of intravascular or intrathecal flow. This was then followed by a total injection of 3 mL of 0.25% Marcaine with 40 mg of Depomedrol. The patient tolerated the procedure well. The needle was removed intact. Dry dressing was placed over the injection site. The patient was taken to the recovery room in stable condition. EBL: nil Start time: 11:29 AM End time: 11:37 AM I was present the entire time and personally performed the procedure. SIGNATURE: Ricardo Calloway MD DATE: October 14, 2019 TIME: 11:42 AM [facility] XR FLUOROSCOPYon 10-14-2019 XR FLUOROSCOPY * * *Final Report* * * DATE OF EXAM: Oct 14 2019 11:41AM MDR [id number] - XR FLUOROSCOPY / PROCEDURE REASON: PAIN * * * * Physician Interpretation * * * * Study: Pain management. XR FLUOROSCOPY HISTORY: Indication: PAIN PAIN TECHNIQUE: Fluoroscopic Radiation Summary: Plane A, Air Kerma: 12.2 mGy Dose Area Product (DAP): 1071.4 mGy*cm^2 Fluoro time: 0:20 min:sec Images obtained: 4 Spot film images under fluoroscopic guidance. Images were stored in a permanent archive. Comparison: NONE. RESULT: Findings: Tip of the needle projects over the LEFT side of the lumbar spine at the L5-S1 level. There is contrast at the tip of the needle See procedural note in Epic for further discussion. IMPRESSION: As discussed above Sales Compensation Analyst: PSCB Transcribe Date/Time: Oct 14 2019 1:22P Dictated by : TOMMIE FREIRE DO This examination was interpreted and the report reviewed and electronically signed by: TOMMIE FREIRE DO on Oct 14 2019 1:23PM EST [id number] [facility] HOSPon 09-30-2019 HOSP Patient:Rebecca Quinn MRN: Height:5' 6(1.676 m) Weight:267 lb (121.11 kg) Outpatient Medications as of 10/14/19: gabapentin (NEURONTIN) 300 mg capsule buPROPion XL (WELLBUTRIN XL) 300 mg 24 hr tablet omeprazole (PRILOSEC) 20 mg capsule JUNEL FE 24 1 mg-20 mcg (24)/75 mg (4) tab Cetirizine (ZYRTEC) 10 mg cap Admission/Clinic Administered Medications as of 10/14/19: NaCl 0.9% iv infusion Problem List: Lumbago [M54.5] Depression [F32.9] PCOS (polycystic ovarian syndrome) [E28.2] Suicide attempt (HCC) [T14.91XA] Supervision of normal first [Z34.00] History of sexually transmitted disease [Z86.19] Tobacco use in [O99.330] Obesity, Class III, BMI 40-49.9 (morbid obesity) ([facility]) [E66.01] GERD without esophagitis [K21.9] Allergies: Adhesive Tape (Rosins) Lamictal [Lamotrigine] Latex Date Verified: 10/14/19 Lab Values No results within the last 30 days for the following basenames: K,HCT Progress Notes ([facility]): Chitra Alegria RN 10/07/2019 3:41 PM Signed Pt called, verified by name and birthdate. Pt forgot to ask for note to excuse her from school today because she was at doctors office. Please call pt when ready and she will stop and get it Chitra Wallace PA-C 10/08/2019 9:03 AM Signed Please provide excuse for missed work yesterday. Thanks, CHANTELL Marino LPN 10/08/2019 10:59 AM Signed Letter printed can pickle solution maker in medical records. Left message that may pickle solution maker this afternoon. Progress Notes ([facility]): Magui Wallace PA-C 10/07/2019 6:09 PM Signed BP 102/72 Pulse 80 Temp 37 ?C (98.6 ?F) (Tympanic) Resp 16 Wt 121.1 kg (267 lb) LMP 12/07/2018 BMI 43.09 kg/m? This Team Access Model visit is a walk in encounter. It required patient-provider interaction for the medical decision making as documented below. 29 year old female with c/o Low back since June. Seeing chiropractor. Progressively worse. Examined here 07/31/19 after she had an adjustment with a massotherapist. OMT with Improvement x 1 week. 08/19/19 saw me again with improvemt on OMT. 08/21/19 discogenic sx: started medrol and PT consult 09/19/19 Dr. Liu: severe pain, groin numbness: sent to ED. MRI done showing L3-4 central protrusion herniated disc bilaterally with facet hypertrophy and mild central canal stenosis; L4-5 central and left caudally migrating disc extrusion 4 mm x 12 mm with severe left lateral recess stenosis and mass effect on L5 root left side; L5-S1 bulging annulus with bilateral facet hypertrophy. 09/25/19 neurosurgical eval Sylwia Angel PA-C: referred to spine, started gabapentin. Current: anticipating spinal injection with Dr. Ricardo Calloway. Pain is nearly gone but persistent numbness and left ankle weakness. Wearing brace. Neurontin helping but not resolving. 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 Would like trial to go back to work. HISTORIES FAMILY HISTORY Problem Relation Age of Onset - Diabetes Maternal Grandmother - Diabetes Maternal Grandfather - Diabetes Paternal Grandfather - Hypertension Maternal Grandmother - Hypertension Maternal Grandfather - Hypertension Mother - Heart Maternal Grandmother - Heart Maternal Grandfather - Heart Paternal Grandfather - Stroke Maternal Grandmother - Cancer Maternal Grandfather Multiple Myeloma PAST MEDICAL HISTORY Diagnosis Date - Abnormal Pap smear cin1 - Abnormal Pap smear of cervix - BMI 34.0-34.9,adult - Chlamydia - Depression - Gonorrhea - Oligomenorrhea - PCOS (polycystic ovarian syndrome) PAST SURGICAL HISTORY Procedure Laterality Date - COLPOSCOPY 2007 - LAP CHOLECYSTECT/CHOLANGIOG HAYDEE 07/29/13 normal IOC - REMOVE TONSILS/ADENOIDS,<12 Y/O Social History Tobacco Use - Smoking status: Light Tobacco Smoker Packs/day: 0.50 Years: 8.00 Pack years: 4.00 Types: Cigarettes Last attempt to quit: 02/26/2018 Years since quittin.6 - Smokeless tobacco: Never Used - Tobacco comment: using e cigarette has nicotine in it Substance Use Topics - Alcohol use: Yes Comment: 1 drink per week - Drug use: No ACTIVE PROBLEM LIST Lumbago Depression Pcos (Polycystic Ovarian Syndrome) Suicide Attempt ([facility] [facility] [place] Supervision of Normal First History of Sexually Transmitted Disease Tobacco Use in Obesity, Class Iii, Bmi 40-49.9 (Morbid Obesity) ([facility] [place]) Gerd Without Esophagitis Current Outpatient Medications Medication Sig Dispense Refill - gabapentin (NEURONTIN) 300 mg capsule Take 1 capsule by mouth three times daily for 30 days. (Patient taking differently: Take 300 mg by mouth once daily. ) 90 capsule 0 - buPROPion XL (WELLBUTRIN XL) 300 mg 24 hr tablet Take 1 tablet by mouth once daily. 30 tablet 2 - omeprazole (PRILOSEC) 20 mg capsule Take 1 capsule by mouth once daily. 90 capsule 1 - JUNE FE 24 1 mg-20 mcg (24)/75 mg (4) tab Take 1 tablet by mouth once daily. 12 - CALCIUM CARBONATE/VITAMIN D3 (VITAMIN D-3 ORAL) Take by mouth. - Cetirizine (ZYRTEC) 10 mg cap Take 2 capsules by mouth once daily. 0 - tiZANidine (ZANAFLEX) 4 mg tablet Take 1 tablet by mouth every 8 hours as needed (muscle spasms). (Patient not taking: Reported on 10/07/2019 ) 30 tablet 0 No current facility-administered medications for this visit. HPV TESTING due on 01/06/2020 EXAM: BP 102/72 Pulse 80 Temp 37 ?C (98.6 ?F) (Tympanic) Resp 16 Wt 121.1 kg (267 lb) LMP 12/07/2018 BMI 43.09 kg/m? Pleasant obese in no acute distress. Alert and oriented all spheres. Normal affect and cognition. Speech normal. No deficits to learning or comprehension. Skin warm, dry, pink to lips and nailbeds. Normal turgor. Respirations regular and unlabored. Extrem: no clubbing or cyanosis. Edema: none. Extremities are warm and pink with prompt capillary refill. Back mild lordosis. Non-tender over mid spine. Forward flexion to mid-calf. Hyperextension with some pain. No pain with rotation/ side bending. SLR negative seated, positive supine at 70 degrees bilaterally. back FROM, no abnormal curvature. Able to hold to 10 count with Roverto stretch and 10 count reverse straight leg. Can do partial sit up without difficulty. Neuro: decreased sensation to pinwheel and sharp/ dull in L5 distribution left lateral calf and lateral forefoot to middle toe. Trendelenburg + on left with dropped hip to right. ASSESSMENT/PLAN: 1. Lumbosacral radiculopathy at L5 - ICD9: 724.4, ICD10: M54.17 (primary diagnosis) Following with pain management and neurospine Wants to return to work. I am hesistant due to persistent sx on exam. Recommend trial 4h shifts. Work slip writtent. 2. Spinal stenosis at L4-L5 level - ICD9: 724.02, ICD10: M48.061 As above. Will complete disability forms. DENISA Hatfield-C Normal [facility] Panelon 2016 Alkaline phosphatase (ALP) 93 U/L Normal 46-116 [facility] Comment on above: Performed By: #### P 14 ####[facility] [place], [place] [address] Bilirubin Ql (U) 0.3 mg/dL Normal 0.2-1.0 [facility] Comment on above: Performed By: #### P 14 ####[facility] [place], [place] [address] Protein 7.2 g/dL Normal 6.4-8.2 [facility] Comment on above: Performed By: #### P 14 ####[address] [address] Creatinine 0.78 mg/dL Normal 0.51-0.95 [facility] Comment on above: Performed By: #### P 14 ####[address] [address] Alanine aminotransferase (ALT) 26 U/L Normal 12-78 [facility] Comment on above: Performed By: #### P 14 ####[address] [address] Aspartate aminotransferase (AST) 13 U/L Normal 9-37 [facility] Comment on above: Performed By: #### P 14 ####[address] [address] Albumin 3.8 g/dL Normal 3.4-5.0 [facility] Comment on above: Performed By: #### P 14 ####[address] [address] Anion gap 14 mmol/L Normal 8-16 [facility] Comment on above: Performed By: #### P 14 ####[address] [address] CO2 24 mmol/L Normal 21-32 [facility] Comment on above: Performed By: #### P 14 ####[address] [address] Glucose mass conc 81 mg/dL Normal 70-99 [facility] Comment on above: Performed By: #### P 14 ####[facility] [place], [place] [address] Urea nitrogen 13 mg/dL Normal 7-18 [facility] Comment on above: Performed By: #### P 14 ####[facility] [place], [place] [address] Calcium 8.9 mg/dL Normal 8.5-10.1 [facility] Comment on above: Performed By: #### P 14 ####[facility] [place], [place] [address] Chloride 103 mmol/L Normal 98-107 [facility] Comment on above: Performed By: #### P 14 ####[address] [address] Potassium molar conc 4.3 mmol/L Normal 3.5-5.1 [facility] Comment on above: Performed By: #### P 14 ####[address] [address] Sodium 137 mmol/L Normal 136-145 [facility] Comment on above: Performed By: #### P 14 ####[address] [address] Hemogram/Diffon 06-05-2017 Basophils Auto #/vol (Bld) 0.06 thou/cmm Normal 0.01-0.08 [facility] Comment on above: Performed By: #### C BCD1 ####[address] [address] Basophils/100 WBC Auto (Bld) 0.9 % Normal [facility] Comment on above: Performed By: #### C BCD1 ####[address] [address] Eosinophils 0.10 thou/cmm Normal 0.00-0.31 [facility] Comment on above: Performed By: #### C BCD1 ####[address] [address] Eosinophils/100 leukocytes 1.4 % Normal [facility] Comment on above: Performed By: #### C BCD1 ####[facility] [place] [address] Erythrocyte distribution width Auto Ratio (RBC) 12.0 % Normal 11.7-14.4 [facility] Comment on above: Performed By: #### C BCD1 ####[place] [address] Erythrocytes (RBC) 4.65 mil/cmm Normal 3.93-5.22 [facility] Comment on above: Performed By: #### C BCD1 ####[place] [address] Hematocrit (HCT) 38.3 % Normal 34.1-44.9 [facility] Comment on above: Performed By: #### C BCD1 ####[place] [address] Hemoglobin mass conc (Bld) 13.3 g/dL Normal 11.2-15.7 [facility] Comment on above: Performed By: #### C BCD1 ####[place] [address] Immature Grans 0.30 % Normal [facility] Comment on above: Performed By: #### C BCD1 ####[place] [address] Immature Grans # 0.02 thou/cmm Normal 0.00-0.05 [facility] Comment on above: Performed By: #### C BCD1 ####[place] [address] Lymphocytes 2.09 thou/cmm Normal 1.18-3.74 [facility] Comment on above: Performed By: #### C BCD1 ####[place] [address] Lymphocytes/100 leukocytes 30.3 % Normal [facility] Comment on above: Performed By: #### C BCD1 ####[place] [address] MCH 28.6 pg Normal 25.6-32.2 [facility] Comment on above: Performed By: #### C BCD1 ####[address], [place] [address] MCHC mass conc (RBC) 34.7 % Normal 31.6-34.8 [facility] Comment on above: Performed By: #### C BCD1 ####[address] [address] MCV 82.4 fL Normal 79.4-94.8 [facility] Comment on above: Performed By: #### C BCD1 ####[place] [address] Monocytes 0.45 thou/cmm Normal 0.27-0.70 [facility] Comment on above: Performed By: #### C BCD1 ####[place] [address] Monocytes/100 leukocytes 6.5 % Normal [facility] Comment on above: Performed By: #### C BCD1 ####[place] [address] Platelet mean volume (PMV) 10.0 fL Normal 9.4-12.3 [facility] Comment on above: Performed By: #### C BCD1 ####[place] [address] Platelets 260 thou/cmm Normal 182-369 [facility] Comment on above: Performed By: #### C BCD1 ####[place] [address] RDW SD 36.1 fl Low 36.4-46.3 [facility] Comment on above: Performed By: #### C BCD1 ####[place] [address] Seg Neutrophil 60.6 % Normal [facility] Comment on above: Performed By: #### C BCD1 ####[place] [address] Seg. Neut.# 4.18 thou/cmm Normal 1.56-6.13 [facility] Comment on above: Performed By: #### C BCD1 ####[place] [address] WBC (Leukocytes) 6.90 thou/cmm Normal 3.98-10.04 [facility] Comment on above: Performed By: #### C BCD1 ####[place] [address] MDRD GFRon 06-05-2017 eGFR (non-black) mL/min/{1.73_m2} Normal >60mL/m in/1.7 3m2 [facility] Comment on above: Result Comment: If t he patient is , multiply the result by 1.210. Performed By: #### G FR ####[address] [address] Serum Drug Screenon 06-05-20 17 Acetaminophen mass conc <2.0 Low 10.0-30.0 [facility] Comment on above: Performed By: #### S DRG2 ####[place] [address] Serum Alcohol < 3 Normal [facility] Comment on above: Performed By: #### S DRG2 ####[place] [address] Serum Salicylate < 1.7 Low 2.8-20.0 [facility] Comment on above: Performed By: #### S DRG2 ####[address] [address] TSH, 3rd generationon 2016 TSH, 3rd generation 1.010 uIU/mL Normal 0.358-3.740 [facility] Comment on above: Performed By: #### T SH3 ####[address] [address] Urine Drug Screenon 06-05-20 17 Urine Amphetamine Non-detected Normal Non-Detected [facility] Comment on above: Performed By: #### U DRG2 ####[address] [address] Urine PCP Non-detected Normal Non-Detected [facility] Comment on above: Performed By: #### U DRG2 ####[address] [address] Urine Barbiturates Non-detected Normal Non-Detected [facility] Comment on above: Performed By: #### U DRG2 ####[facility] [place], [place] [address] Urine Benzodiazepine Non-detected Normal Non-Detected [facility] Comment on above: Performed By: #### U DRG2 ####[facility] [place], [place] [address] Urine Cocaine Metab Non-detected Normal Non-Detected [facility] Comment on above: Performed By: #### U DRG2 ####[facility] [place], [place] [address] Urine Opiate Non-detected Normal Non-Detected [facility] Comment on above: Performed By: #### U DRG2 ####[address] [address] Urine THC Non-detected Normal Non-Detected [facility] Comment on above: Result Comment: Urin e Drug Cutoff LevelsUrine Amphetamine 500 ng/mLUrine Barbituate 200 ng/mLUrine Benzodiazepines 200 ng/mLUrine Cocaine 150 ng/mLUrine Phencyclidine (PCP) 25 ng/mLUrine Opiates 300 ng/mLUrine THC 50 ng/mLThe results of these analytes are unconfirmed and reportedqualitatively as detected or non-detected relative to the cutoff value.Detected results indicate the sample is likely to contain the analyte.Non-detected results indicate that either the sample does notcontain the analyte or it is present in concentrations belowthe cutoff level. This drug screen should be used for medical diagnosticpurposes only. Performed By: #### U DRG2 ####[address] [address] Urine Alcohol NON-DETECTED Normal [facility] Comment on above: Result Comment: >or= 50 mg/dl ethyl alcohol is considered detected in urine. Performed By: #### U DRG2 ####[place] [address] Venipuncture ACCon 7 Venipuncture ACC COMPLETED Normal [facility] Comment on above: Performed By: #### V ENP ####[place] [address] Vital Signs Date Time Vital Sign Value Performing Clinician Faci lity 06-19-2025 11:38-0400 Body mass index (BMI) [Ratio] 47.33 kg/m2 Dalia Vazquez DENTAL PROFESSIONAL.BUILDING DRAFTING OFFICER Work Phone: [facility] 06-19-2025 11:38-0400 Body temperature 98.49 [degF] Dalia Vazquez DENTAL PROFESSIONAL.BUILDING DRAFTING OFFICER Work Phone: [facility] 06-19-2025 11:38-0400 Body weight 133 kg Dalia Vazquez DENTAL PROFESSIONAL.BUILDING DRAFTING OFFICER Work Phone: [facility] 06-19-2025 11:38-0400 Diastolic blood pressure 82 mm[Hg] Dalia Vazquez DENTAL PROFESSIONAL.BUILDING DRAFTING OFFICER Work Phone: [facility] 06-19-2025 11:38-0400 Heart rate 83 /min Dalia Vazquez DENTAL PROFESSIONAL.BUILDING DRAFTING OFFICER Work Phone: [facility] 06-19-2025 11:38-0400 Respiratory rate 18 /min Dalia Vazquez DENTAL PROFESSIONAL.BUILDING DRAFTING OFFICER Work Phone: [facility] 06-19-2025 11:38-0400 SaO2% (BldA) [Mass fraction] 97 % Dalia Vazquez DENTAL PROFESSIONAL.BUILDING DRAFTING OFFICER Work Phone: [facility] 06-19-2025 11:38-0400 Systolic blood pressure 123 mm[Hg] Dalia Vazquez DENTAL PROFESSIONAL.BUILDING DRAFTING OFFICER Work Phone: [facility] 04-14-2025 09:04-0400 Body height 167.6 cm Harley Liu MD Work Phone: [facility] 04-14-2025 09:04-0400 Body mass index (BMI) [Ratio] 46.79 kg/m2 Harley Liu MD Work Phone: [facility] 04-14-2025 09:04-0400 Body weight 131.5 kg Harley Liu MD Work Phone: [facility] 04-14-2025 09:04-0400 Diastolic blood pressure 70 mm[Hg] Harley Liu MD Work Phone: [facility] 04-14-2025 09:04-0400 Heart rate 76 /min Harley Liu MD Work Phone: [facility] 04-14-2025 09:04-0400 SaO2% (BldA) [Mass fraction] 98 % Harley Liu MD Work Phone: [facility] 04-14-2025 09:04-0400 Systolic blood pressure 110 mm[Hg] Harley Liu MD Work Phone: [facility] 02-01-2025 15:02-0400 Body mass index (BMI) [Ratio] 48.04 kg/m2 Krislyn Aberegg PA Work Phone: [facility] 02-01-2025 15:02-0400 Body temperature 98.01 [degF] Krislyn Aberegg PA Work Phone: [facility] 02-01-2025 15:02-0400 Body weight 135 kg Krislyn Aberegg PA Work Phone: [facility] 02-01-2025 15:02-0400 Diastolic blood pressure 76 mm[Hg] Krislyn Aberegg PA Work Phone: [facility] 02-01-2025 15:02-0400 Heart rate 98 /min Krislyn Aberegg PA Work Phone: [facility] 02-01-2025 15:02-0400 Respiratory rate 16 /min Krislyn Aberegg PA Work Phone: [facility] 02-01-2025 15:02-0400 SaO2% (BldA) [Mass fraction] 100 % Krislyn Aberegg PA Work Phone: [facility] 02-01-2025 15:02-0400 Systolic blood pressure 120 mm[Hg] Krislyn Aberegg PA Work Phone: [facility] 12-31-2024 18:33-0500 Body mass index (BMI) [Ratio] 47.79 kg/m2 Juan Betancorut MD Work Phone: [facility] 12-31-2024 18:33-0500 Body temperature 99.81 [degF] Juan Betancourt MD Work Phone: [facility] 12-31-2024 18:33-0500 Body weight 134.3 kg Juan Betancourt MD Work Phone: [facility] 12-31-2024 18:33-0500 Diastolic blood pressure 66 mm[Hg] Juan Betancourt MD Work Phone: [facility] 12-31-2024 18:33-0500 Heart rate 100 /min Juan Betancourt MD Work Phone: [facility] 12-31-2024 18:33-0500 Respiratory rate 20 /min Juan Betancourt MD Work Phone: [facility] 12-31-2024 18:33-0500 SaO2% (BldA) [Mass fraction] 98 % Juan Betancourt MD Work Phone: [facility] 12-31-2024 18:33-0500 Systolic blood pressure 120 mm[Hg] Juan Betancourt MD Work Phone: [facility] 12-23-2024 12:46-0500 Diastolic blood pressure 73 mm[Hg] Anhtuan Momin DO Work Phone: [facility] [employer] 12-23-2024 12:46-0500 Heart rate 91 /min Anhtuan Momin DO Work Phone: [employer] 12-23-2024 12:46-0500 Respiratory rate 18 /min Anhtuan Momin DO Work Phone: [facility] [employer] 12-23-2024 12:46-0500 SaO2% (BldA) [Mass fraction] 100 % Anhtuan Momin DO Work Phone: [facility] [employer] 12-23-2024 12:46-0500 Systolic blood pressure 115 mm[Hg] Anhtuan Momin DO Work Phone: [facility] [employer] 12-18-2024 08:18-0500 Body temperature 97.59 [degF] Janet Bailey MD Work Phone: [facility] [employer] 12-18-2024 08:18-0500 Diastolic blood pressure 72 mm[Hg] Janet Bailey MD Work Phone: [facility] [employer] 12-18-2024 08:18-0500 Heart rate 67 /min Janet Bailey MD Work Phone: [facility] [employer] 12-18-2024 08:18-0500 Respiratory rate 16 /min Janet Bailey MD Work Phone: [facility] [employer] 12-18-2024 08:18-0500 SaO2% (BldA) [Mass fraction] 97 % Janet Bailey MD Work Phone: [facility] [employer] 12-18-2024 08:18-0500 Systolic blood pressure 101 mm[Hg] Janet Bailey MD Work Phone: [facility] [employer] 12-16-2024 19:26-0500 Body height 167.6 cm Janet Bailey MD Work Phone: [facility] [employer] 12-16-2024 19:26-0500 Body mass index (BMI) [Ratio] 47.45 kg/m2 Janet Bailey MD Work Phone: [facility] [employer] 12-16-2024 19:26-0500 Body weight 133.36 kg Janet Bailey MD Work Phone: [facility] 01-10-2024 09:41-0500 Body height 167.6 cm Nicci Pratt DENTAL PROFESSIONAL.SALVAGE MACHINE OPERATOR Work Phone: [facility] 01-10-2024 09:41-0500 Body weight 130.18 kg Nicci Pratt DENTAL PROFESSIONAL.SALVAGE MACHINE OPERATOR Work Phone: [facility] 01-10-2024 09:41-0500 Diastolic blood pressure 67 mm[Hg] Nicci Pratt DENTAL PROFESSIONAL.SALVAGE MACHINE OPERATOR Work Phone: [facility] 01-10-2024 09:41-0500 Heart rate 80 /min Nicci Pratt DENTAL PROFESSIONAL.SALVAGE MACHINE OPERATOR Work Phone: [facility] 01-10-2024 09:41-0500 Respiratory rate 16 /min Nicci Pratt DENTAL PROFESSIONAL.SALVAGE MACHINE OPERATOR Work Phone: [facility] 01-10-2024 09:41-0500 SaO2% (BldA) [Mass fraction] 99 % Nicci Suppbarrera DENTAL PROFESSIONAL.SALVAGE MACHINE OPERATOR Work Phone: [facility] 01-10-2024 09:41-0500 Systolic blood pressure 103 mm[Hg] Nicci Suppbarrera DENTAL PROFESSIONAL.SALVAGE MACHINE OPERATOR Work Phone: [facility] 11-23-2022 16:16-0500 Body weight 134.72 kg Harley Liu MD Work Phone: [facility] 11-23-2022 16:16-0500 Diastolic blood pressure 82 mm[Hg] Harley Liu MD Work Phone: [facility] 11-23-2022 16:16-0500 Heart rate 94 /min Harley Liu MD Work Phone: [facility] 11-23-2022 16:16-0500 SaO2% (BldA) [Mass fraction] 99 % Harley Liu MD Work Phone: [facility] 11-23-2022 16:16-0500 Systolic blood pressure 112 mm[Hg] Harley Liu MD Work Phone: [facility] 05-05-2022 12:18-0400 Body temperature 98.4 [degF] Angie Denbow PA-C Work Phone: [facility] 05-05-2022 12:18-0400 Diastolic blood pressure 78 mm[Hg] Angie Denbow PA-C Work Phone: [facility] 05-05-2022 12:18-0400 Heart rate 85 /min Angie Denbow PA-C Work Phone: [facility] 05-05-2022 12:18-0400 Respiratory rate 16 /min Angie Denbow PA-C Work Phone: [facility] 05-05-2022 12:18-0400 SaO2% (BldA) [Mass fraction] 99 % Angie Zavala PA-C Work Phone: [facility] 05-05-2022 12:18-0400 Systolic blood pressure 126 mm[Hg] Angie Zavala PA-C Work Phone: [facility] Encounters Encounter Date Encounter Type Care Provider Facility Start: 07-02-2025 End: 07-02-2025 ambulatory [facility] [employer] Facility:[facility] Start: 06-19-2025 End: 06-19-2025 Subsequent hospital visit by physician Xr [facility] Deborah Work Phone: Radiology Comment on above: Foot pain, left [[id number]] Start: 06-19-2025 End: 06-19-2025 Patient encounter procedure Dalia Vazquez DENTAL PROFESSIONAL.BUILDING DRAFTING OFFICER Work Phone: [facility] [place] Comment on above: Foot pain, left (Sarah esau Dx) Start: 06-19-2025 End: 06-19-2025 ambulatory DALIA VAZQUEZ Facility:[facility] Start: 05-04-2025 [facility] Facility: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 Facility:[facility] Start: 04-13-2025 End: 04-14-2025 Refill Harley Liu MD Work Phone: [facility] [place] Comment on above: Refill Request Start: 03-30-2025 End: 03-30-2025 ambulatory [facility] [employer] Facility:[facility] Start: 02-16-2025 ambulatory Alexandria Dietrich Facility :[facility] Start: 02-16-2025 End: 02-18-2025 Evaluation and management of inpatient Alexandria Dietrich Facility:[facility] Start: 02-16-2025 End: 02-16-2025 ambulatory Alexandria Dietrich Facility:[facility] Start: 02-13-2025 End: 02-13-2025 ambulatory Kristine Mcmahan Facility:[facility] Start: 02-09-2025 End: 02-09-2025 ambulatory Kristine Michael Velde Facility:[facility] Start: 02-09-2025 End: 02-09-2025 ambulatory Kristine Michael Velde Facility:[facility] Start: 02-05-2025 End: 02-05-2025 ambulatory Kristine Michael Velde Facility:[facility] Start: 02-01-2025 End: 02-01-2025 Patient encounter procedure Tiff CRAWLEY Work Phone: [place] [facility] Comment on above: Bacterial sinusitis (Primary Dx) Start: 02-01-2025 End: 02-02-2025 ambulatory [facility] Facility:[facility] Start: 01-31-2025 ambulatory Kristine Mcmahan Fa cility:[facility] Start: 01-30-2025 End: 01-30-2025 ambulatory Kristine Mcmahan Facility:[facility] Start: 01-29-2025 End: 01-29-2025 ambulatory Kristine Mcmahan Facility:[facility] Start: 01-29-2025 End: 01-29-2025 ambulatory Kristinechristel Mcmahan Facility:[facility] Start: 01-12-2025 End: 01-12-2025 ambulatory Alexandria Dietrich Facility:[facility] Start: 01-05-2025 End: 01-05-2025 ambulatory ED D [facility] Start: 12-31-2024 End: 12-31-2024 ambulatory [facility] Facility:[facility] Start: 12-31-2024 End: 12-31-2024 Office outpatient visit 25 minutes Juan Betancourt MD Work Phone: [place] [facility] Comment on above: Influenza A (Primary Dx); URI, acute; 32 weeks gestation of Start: 12-29-2024 End: 12-29-2024 ambulatory Alexandria Karlo Facility:[facility] Start: 12-26-2024 End: 12-26-2024 Taty Pratt APRN.BUILDING DRAFTING OFFICER Work Phone: [facility] [place] Comment on above: Refill Request Start: 12-23-2024 End: 12-23-2024 Evaluation and management of inpatient JANET BAILEY [facility] Start: 12-23-2024 End: 12-23-2024 Subsequent hospital visit by physician Martin Momin DO Work Phone: [facility] OB Triage H2 Comment on above: Abhinav Zapata's contr action (Primary Dx) Start: 12-19-2024 End: 12-19-2024 ambulatory Rafia Sanchez Facility:[facility] Start: 12-16-2024 End: 12-18-2024 Evaluation and management of inpatient Janet Gabi Bailey MD Work Phone: [facility] Unit H2 Comment on above: contractions (Primary Dx) Start: 12-16-2024 ambulatory Monika Kyle Facilit y:[facility] Start: 12-16-2024 End: 12-16-2024 ambulatory [facility] Facility:[facility] Start: 12-15-2024 End: 12-15-2024 ambulatory Sergio Green LAB SUPPORT TECH Facility:[facility] Start: 12-10-2024 End: 12-10-2024 ambulatory Sergio Green LAB SUPPORT TECH Facility:[facility] Start: 12-01-2024 End: 12-01-2024 ambulatory [facility] Facility:[facility] Start: 12-01-2024 End: 12-01-2024 ambulatory Rafia Sanchez Facility:[facility] Start: 11-10-2024 End: 11-10-2024 ambulatory [facility] Facility:[facility] Start: 10-21-2024 End: 10-21-2024 ambulatory ED LAKHANI [facility] Start: 10-13-2024 End: 10-13-2024 [facility] Start: 10-02-2024 End: 10-02-2024 ambulatory RAFIA SANCHEZ [facility] Start: 09-25-2024 End: 09-26-2024 Refill Harley Liu MD Work Phone: [facility] [place] Comment on above: Refill Request Start: 09-18-2024 End: 09-18-2024 ambulatory CLYDE LANDAVERDE [facility] Start: 09-15-2024 End: 09-15-2024 ambulatory Harley Kleino Facility:[facility] Start: 09-04-2024 End: 09-04-2024 ambulatory Harley Noe Facility:[facility] Start: 08-25-2024 End: 08-25-2024 ambulatory Harley Noe Facility:[facility] Start: 08-18-2024 End: 08-18-2024 ambulatory Sergiochris Green LAB SUPPORT TECH Facility:[facility] Start: 08-18-2024 End: 08-18-2024 ambulatory Sergio Norma LAB SUPPORT TECH Facility:[facility] Start: 08-12-2024 End: 08-12-2024 ambulatory AYAD Coon EDWARDS [facility] Start: 08-05-2024 End: 08-05-2024 ambulatory [employer] [facility] [employer] [facility] Facility:[facility] Start: 07-23-2024 End: 07-23-2024 ambulatory [facility] Facility:[facility] Start: 07-23-2024 End: 07-23-2024 ambulatory [employer] [facility] Facility:[facility] Start: 02-07-2024 Telephone encounter Harley Liu MD Work Phone: Pulmonology [facility] Comment on above: Results (Her ) Start: 01-30-2024 Chart [facility]ing [facility] Work Phone: Neurology Comment on above: Psg Check In (Adult) Start: 01-10-2024 Telephone encounter Nicci Pratt APRN.SALVAGE MACHINE OPERATOR Work Phone: [facility] [place] Start: 01-10-2024 End: 01-10-2024 Office outpatient visit 25 minutes Nicci Pratt APRN.SALVAGE MACHINE OPERATOR Work Phone: [facility] [place] Comment on above: Radiculopathy, lumba r region (Primary Dx); GERD without esophagitis; Obesity, Class III, BMI 40-49.9 (morbid obesity) ([facility]); Former smoker; Chronic low back pain with sciatica, sciatica laterality unspecified, unspecified back pain laterality; Current severe episode of major depressive disorder with psychotic features, unspecified whether recurrent ([facility]); Screening for cervical cancer; Family planning; Premenstrual dysphoric disorder Start: 09-17-2023 Refill Harley Liu MD Work Phone: [facility] Comment on above: Refill Request Start: 01-15-2023 ambulatory Magui Shirley on PA-C Work Phone: [facility] Start: 01-15-2023 Patient encounter procedure Magui Wallace PA-C Work Phone: [facility] Comment on above: Pediatric Behavioral Health referral Start: 11-23-2022 End: 11-23-2022 Patient encounter procedure Harley Liu MD Work Phone: [facility] [place] Comment on above: Well adult exam (Sarah cifuentes Dx); GERD without esophagitis; Persistent depressive disorder Start: 11-23-2022 End: 11-23-2022 Patient encounter status Harley Liu MD Work Phone: [facility] [place] Start: 11-21-2022 ambulatory Magui Shirley on PA-C Work Phone: [facility] Comment on above: Fax Start: 05-05-2022 End: 05-05-2022 Refill Magui Schneider Wallace PA-C Work Phone: [facility] Comment on above: Refill Request COVID-19 (Primary Dx ) Start: 06-08-2017 End: 06-09-2017 Ambulatory DELMI MAHAJAN [facility] Start: 06-08-2017 End: 06-09-2017 Emergency department patient visit NO REFERRING DR Facility:[facility] Start: 06-05-2017 End: 06-06-2017 Ambulatory DELMI MAHAJAN Facility:[facility] Start: 06-04-2017 End: 07-03-2017 [facility] Procedures Date Procedure Procedure Detail Performing Clinician Start: 06-19-2025 Radex foot complete minimum 3 views Dalia Vazquez APRN.BUILDING DRAFTING OFFICER Work Phone: Start: 12-31-2024 INFLUENZA A&B MOLECU LAR (POC) Juan Betancourt MD Work Phone: Start: 12-18-2024 Ecg routine ecg w/le ast 12 lds trcg only w/o i&r Leann Smith DO Work Phone: Start: 12-17-2024 Us preg uterus real time f/u trnsabdl per fetus Leann Smith DO Work Phone: Start: 12-16-2024 Culture bacterial quanttative colony count urine Leann Smith DO Work Phone: Start: 12-16-2024 Antibody screen JANET BAILEY Comment on above: Order Comment: HOLD. Specimen is valid for 3 days - nurse to verify valid specimen Performed By: #### L [id number] ####Bed Machine Operator: TD HOUSER ([id number])[facility] ([facility])[address] [place] [address] Start: 12-16-2024 ABO and Rh group [Ty pe] in Blood by Confirmatory method Leann Smith DO Work Phone: Start: 12-16-2024 Blood typing serologic abo Leann Smith DO Work Phone: Start: 12-16-2024 Comprehensive metabo lic panel Leann Smith DO Work Phone: Start: 12-05-2024 GLUCOSE GESTATIONAL SCREEN 50G ([facility]) Historical Provider Work Phone: Start: 12-01-2024 GLUCOSE GESTATIONAL SCREEN 50G ([facility]) Historical Provider Work Phone: Start: 12-01-2024 Syphilis test non-treponemal antibody qual Historical Provider Work Phone: Start: 08-05-2024 Iaad ia hepatitis b surface antigen Historical Provider Work Phone: Start: 08-05-2024 Syphilis test non-treponemal antibody qual Historical Provider Work Phone: Start: 07-23-2024 Neisseria gonorrhoea e DNA [Presence] in Cervical mucus by ASHWIN with probe detection Historical Provider Work Phone: Plan of Treatment Date Care Activity Detail Author Start: 2039 Zoster Vaccines (1 of 2) Zoste r Vaccines (1 of 2) [facility] Start: 12-15-2034 Urine microalbumin profile DTa P,Tdap,Td Vaccine (4 - Td or Tdap) [facility] Start: 10-19-2025 End: 10-19-2025 Patient encounter procedure 10/19/2025 2:40 PM EST Office Visit Family [facility] [address] [place], [place] [id number] Harley Liu MD [address] [place] [address] 6 month follow up [facility] Comment on above: 6 month follow up Start: 07-20-2025 Influenza vaccination [facility] Start: 06-17-2025 Depression Monitoring Depression Mon [facility] Start: 05-20-2025 DTaP/Tdap/Td Vaccine s (3 - Td or Tdap) DTaP/Tdap/Td Vaccines (3 - Td or Tdap) [facility] Start: 05-20-2025 Urine microalbumin profile [facility] Start: 01-10-2025 Covid-19 Vaccine ( season) Covid-19 Vaccine ( season) [facility] Comment on above: Postponed from 07/20 (Declined at this time) Start: 07-20-2024 COVID-19 Vaccine ( season) COVID-19 Vaccine ( season) [facility] Start: 07-20-2024 Covid-19 Vaccine ( season) Covid-19 Vaccine ( season) [facility] Start: 07-20-2024 Influenza vaccination Influenza Vacc ine (#1) [facility] Start: 05-18-2024 Influenza vaccination Influenza Vacc ine (#1) [facility] Comment on above: Postponed from 07/20 (Declined at this time) Start: 01-10-2024 End: 04-10-2024 Choriogonadotropin ( test) [Presence] in Urine [facility] Work Phone: Comment on above: Expected: 01/10/2024 , Expires: 04/10/2024 Start: 07-20-2023 Covid-19 Vaccine () Covid-19 Vaccine () [facility] Start: 07-20-2023 Influenza vaccination Influenza Vacc ine (#1) [facility] Start: 11-26-2022 PAP TESTING PAP TESTING [facility] Start: 11-26-2022 Screening for malign ant neoplasm of cervix [facility] Start: 11-23-2022 End: 01-23-2023 CBC W Auto Differential panel - Blood CBC + DIFF Lab Routine Well adult exam Persistent depressive disorder Expected: 11/23/2022, Expires: 01/23/2023 [facility] Work Phone: Comment on above: Expected: 11/23/2022 , Expires: 01/23/2023 Start: 11-23-2022 End: 01-23-2023 Comprehensive metabolic 2000 panel - Serum or Plasma COMP METABOLIC PANEL Lab Routine Well adult exam Persistent depressive disorder Expected: 11/23/2022, Expires: 01/23/2023 [facility] Work Phone: Comment on above: Expected: 11/23/2022 , Expires: 01/23/2023 Start: 07-20-2022 Influenza vaccination [facility] Start: 02-03-2022 COVID-19 VACCINE (3 - Booster for Pfizer series) COVID-19 VACCINE (3 - Booster for Pfizer series) [facility] Start: 10-31-2021 COVID-19 VACCINE (3 - Booster for Pfizer series) COVID-19 VACCINE (3 - Booster for Pfizer series) [facility] Start: 01-06-2020 HPV TESTING HPV TESTING [facility] Start: 01-06-2020 Screening for malign ant neoplasm of cervix HPV Testing [facility] Start: 2019 Screening for malign ant neoplasm of cervix [facility] Start: 05-15-2013 Varicella vaccination Varicell a Vaccines (1 of 2 - 13+ 2-dose series) [facility] Start: 04-17-2013 HEPATITIS B (2 of 3 - 19+ 3-dose series) HEPATITIS B (2 of 3 - 19+ 3-dose series) [facility] Start: 04-17-2013 Hepatitis B Vaccines (2 of 3 - 19+ 3-dose series) Hepatitis B Vaccines (2 of 3 - 19+ 3-dose series) [facility] Start: 2010 Screening for malign ant neoplasm of cervix Pap Smear [facility] Start: 2007 Anxiety Screening Anxiety Screening [facility] Start: 2007 Hepatitis C screening Hepatitis C Sc reening [facility] Start: 1995 PNEUMOCOCCAL (1 - PCV) PNEUMOCOCCAL (1 - PCV) [facility] Start: 1995 Pneumococcal vaccination Pneum ococcal Vaccine (1 - PCV) [facility] Start: 1989 Lipid panel Lipid Panel [facility] End: 12-16-2024 Bacteria identified in Urine by Culture [facility] Work Phone: Comment on above: Once (Lab) for 1 Occ urrences starting 12/16/2024 until 12/16/2024 End: 02-06-2025 Polysomnogram POLYSOMNOGRAM (PSG) Procedures Routine LYNDA (obstructive sleep apnea) 1 Occurrences starting 02/07/2024 until 02/06/2025 [facility] Work Phone: Comment on above: 1 Occurrences starti ng 02/07/2024 until 02/06/2025 End: 12-16-2024 Urine Hold Cup Urine Hold Cup Lab Timed Once for 1 Occurrences starting 12/16/2024 until 12/16/2024 [facility] Comment on above: Once for 1 Occurrenc es starting 12/16/2024 until 12/16/2024 [facility] Immunizations Immunization Date Immunization Notes Care Provider Tank baltazar 10-02-2017 influenza virus vaccine, unspecified formulation Harley Liu MD Work Phone: [facility] 05-20-2015 tetanus toxoid, redu juanis diphtheria toxoid, and acellular pertussis vaccine, adsorbed NA Rodrigo ABDUL Work Phone: [facility] 04-17-2013 measles, mumps and rubella virus vaccine NA Rodrigo ABDUL Work Phone: [facility] 04-15-2013 tuberculin skin test ; purified protein derivative solution, intradermal Harley Liu MD Work Phone: [facility] 03-20-2013 hepatitis B vaccine, adult dosage NA Wallace PA-C Work Phone: [facility] Work Phone: 03-20-2013 tetanus toxoid, redu juanis diphtheria toxoid, and acellular pertussis vaccine, adsorbed NA Wallace PA-C Work Phone: [facility] Work Phone: 03-20-2013 tuberculin skin test ; purified protein derivative solution, intradermal Harley Liu MD Work Phone: [facility] Work Phone: 03-20-2013 hepatitis B vaccine, unspecified formulation NA Wallace PA-C Work Phone: [facility] Payers Date Payer Category Payer Medicaid HMO [employer] [id number] 2024 Self-pay 2022 Unknown [id number] 2019 Medicaid [employer] [id number] 2019-Present [phone] [place] [address] Medicaid [id number] 2019 Medicaid [id number]. [id number] 1989 Unknown [id number] 2.16.840.1.703095.3.579.2.479 1989 Unknown [id number] 2.16.840.1.086422.3.579.2.479 1989 Unknown [id number] 2.16.840.1.181063.3.579.2.479 1989 Unknown [id number] 2.16.840.1.788408.3.579.2.479 1989 Unknown [id number] 2.16.840.1.680861.3.579.2.479 1989 Unknown [id number] 2.16.840.1.724774.3.579.2.479 Unknown [id number] 2..840.1.877561.3.579.2.462 Unknown [id number] 2.840.1.086960.3.579.2.462 Unknown [id number] 2.840.1.952828.3.579.2.462 Unknown [id number] 2.840.1.964739.3.579.2.462 Unknown [id number] 2.840.1.806840.3.579.2.462 Unknown [id number] 2.16.840.1.594020.3.579.2.462 Unknown [id number] 2.840.1.754060.3.579.2.462 Unknown [id number] 2..840.1.414488.3.579.2.462 Unknown [id number] 2..840.1.565294.3.579.2.462 Unknown [id number] 2.16.840.1.135529.3.579.2.462 Unknown [id number] 2.16.840.1.463531.3.579.2.462 Unknown [id number] 2..840.1.517623.3.579.2.462 Unknown [id number] 2.16.840.1.509070.3.579.2.462 Unknown [id number] 2.16.840.1.050940.3.579.2.462 Unknown [id number] 2.16.840.1.887603.3.579.2.462 Unknown [id number] 2.16.840.1.963717.3.579.2.462 Unknown [id number] 2.16.840.1.291362.3.579.2.462 Unknown [id number] 2.16.840.1.219319.3.579.2.462 Unknown [id number] 2.840.1.316573.3.579.2.462 Unknown [id number] 2.840.1.452205.3.579.2.462 Unknown [id number] 2.840.1.916037.3.579.2.462 Unknown [id number] 2.840.1.017386.3.579.2.462 Unknown [id number] 2.840.1.581903.3.579.2.462 Unknown [id number] 2.16840.1.698087.3.579.2.462 Unknown [id number] 2.840.1.252660.3.579.2.462 Unknown [id number] 2.840.1.783343.3.579.2.462 Unknown [id number] 2.16840.1.493810.3.579.2.462 Unknown [id number] 2.16840.1.379536.3.579.2.462 Unknown [id number] 2.16.840.1.461344.3.579.2.462 Unknown [id number] 2.16840.1.977105.3.579.2.462 Unknown [id number] 2.840.1.293499.3.579.2.462 Unknown [id number] 2.16.840.1.276401.3.579.2.462 Unknown [id number] 2.16.840.1.343031.3.579.2.462 Unknown [id number] 2.16.840.1.215385.3.579.2.462 Unknown [id number] 2.840.1.252638.3.579.2.462 Unknown [id number] 2.16.840.1.174231.3.579.2.462 Social History Date Type Detail Facility Start: 07-31-2019 End: 11-23-2022 Tobacco smoking status NHIS Light tobacco smoker [facility] Work Phone: Start: 12-31-2015 End: 12-31-2023 History of tobacco use Cigarette Smoker [facility] Work Phone: Start: 07-31-2019 End: 08-13-2023 Cigarettes smoked current (pack per day) - Reported 0.5 [facility] Start: 07-31-2019 End: 02-01-2025 Tobacco use and exposure Smokeless tobacco non-user [facility] Work Phone: Start: 05-05-2022 End: 06-19-2025 Alcohol intake Current drinker of alcohol (finding) [facility] Start: 11-24-2020 History SDOH Alcohol Frequency 3 [facility] Start: 11-24-2020 History SDOH Alcohol Std Drinks 1 [facility] Start: 11-24-2020 History SDOH Social Connections Phone 5 [facility] Start: 11-24-2020 History SDOH Social Connections Get Together 2 [facility] Start: 11-24-2020 History SDOH Social Connections Living 7 [facility] Start: 11-24-2020 Education 21 [facility] Start: 05-01-2018 End: 11-23-2022 Tobacco Comment using e cigarette has nicotine in it [facility] Start: 1990 Sex Assigned At Not on file [facility] Start: 04-25-2022 End: 05-05-2022 Exposure to SARS-CoV-2 (event) Not sure [facility] Work Phone: Start: 11-24-2020 End: 08-13-2023 Social connection and isolation panel [facility] Do you belong to any clubs or organizations such as gnosticist groups, unions, fraternal or athletic groups, or school groups? No [facility] Are you now , , , , never or living with a partner? Never [facility] How often to you hav e a drink containing alcohol? 2-4 times a month [facility] How many standard dr inks containing alcohol do you have on a typical day? 1 or 2 [facility] How often do you hav e 6 or more drinks on 1 occasion? Never [facility] How hard is it for y ou to pay for the very basics like food, housing, medical care, and heating Not hard at all [facility] Do you feel stress - tense, restless, nervous, or anxious, or unable to sleep at night because your mind is troubled all the time - these days [OSQ] Only a little [facility] (I/We) worried hair er (my/our) food would run out before (I/we) got money to buy more. Never true [facility] Start: 01-10-2024 End: 02-01-2025 Tobacco smoking status ORIS Ex-smoker [facility] Start: 12-31-2015 End: 12-31-2023 History of tobacco use Current smoker [facility] Are you now , , , , never or living with a partner? Living with partner [facility] How often to you hav e a drink containing alcohol? Monthly or less [facility] Do you feel stress - tense, restless, nervous, or anxious, or unable to sleep at night because your mind is troubled all the time - these days [OSQ] Very much [facility] Start: 12-16-2024 Tobacco smoking stat us ORIS Never smoked tobacco [facility] Start: 12-16-2024 End: 12-23-2024 Alcoholic beverage intake Lifetime non-drinker (finding) [facility] Start: 06-04-2024 [facility] Start: 06-19-2022 Sex Female (finding) [facility] Functional Status Date Assessment Result Facility 06-04-2015 Are you deaf, or do you have serious difficulty hearing No 06/04/2015 9:37 AM EDT [facility] 06-04-2015 Are you blind, or do you have serious difficulty seeing, even when wearing glasses No 06/04/2015 9:37 AM EDT Michelle Solares [facility] 06-04-2015 Do you have serious difficulty walking or climbing stairs No 06/04/2015 9:37 AM EDT Sujatha Michelle [facility] 06-04-2015 Do you have difficul ty dressing or bathing No 06/04/2015 9:37 AM EDT Sujatha Michelle [facility] 06-04-2015 Because of a physica l, mental, or emotional condition, do you have difficulty doing errands alone such as visiting a physician's office or shopping No 06/04/2015 9:37 AM EDT [facility]le [facility] Mental Status Date Assessment Result Facility 06-04-2015 Because of a physica l, mental, or emotional condition, do you have serious difficulty concentrating, remembering, or making decisions No 06/04/2015 9:37 AM EDT Michelle Solares [facility] Clinical Notes 02-25-2014 to 06-19-2025 Dalia Vazquez APRN.BUILDING DRAFTING OFFICER - 06/19/2025 12:54 PM EDTPatient InstructionsKarson Ruiz RT(R) - 06/19/2025 12:10 PM Harley Peters MD - 04/14/2025 9:04 AM EDTDischarge InstructionsAttachments Note Date & Type Note Facility 06-19-2025 Note HNO ID: [id number] Author: DALIA VAZQUEZ APRN.BUILDING DRAFTING OFFICER Service: ? Author Type: Nurse Practitioner Type: Progress Notes Filed: 06/19/2025 13:05 Note Text: [facility] is a 34 year old female. 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 - Described as extremely painful, localized to the bones of the foot, radiating into the toes. - Aggravated by walking and foot movement; also present at rest. - Pain can be extreme and last for days post-shift; variable intensity unrelated to shift length. - Epsom salt soaks provide minimal relief. 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 - Used an ankle brace to prevent rolling the ankle due to reduced sensation; no significant relief noted. - Denies pain in the calf or ankle. - Denies dyspnea, fever, chills, skin rashes, or lesions. PAST MEDICAL HISTORY Diagnosis Date Abnormal Pap smear cin1 Abnormal Pap smear of cervix BMI 34.0-34.9,adult Chlamydia Depression Gonorrhea Mild intermittent asthma without complication (HCC) as child -- allergy related Oligomenorrhea PCOS (polycystic ovarian syndrome) PAST SURGICAL HISTORY Procedure Laterality Date COLPOSCOPY 2007 LAPS SURG CHOLECYSTECTOMY W/CHOLANGIOGRAPHY 07/29/13 normal IOC REMOVE TONSILS/ADENOIDS,<12 Y/O ALLERGIES Adhesive Tape (Rosins), Lamictal [Lamotrigine], and Latex MEDICATIONS buPROPion XL (WELLBUTRIN XL) 300 mg 24 hr tablet Take 1 tablet by mouth once daily. omeprazole (PRILOSEC) 20 mg capsule Take 1 capsule by mouth once daily. multivitamin tablet Take 1 tablet by mouth once daily. methylPREDNISolone (MEDROL, GLENROY,) 4 mg Dose-Pack Take as instructed per package. FAMILY HISTORY Problem Relation Age of Onset Hypertension Mother other (mi) Father other (pulmonary hypertension) Sister Diabetes Maternal Grandmother Hypertension Maternal Grandmother Heart Maternal Grandmother Stroke Maternal Grandmother Diabetes Maternal Grandfather Hypertension Maternal Grandfather Heart Maternal Grandfather Cancer Maternal Grandfather Multiple Myeloma Diabetes Paternal Grandfather Heart Paternal Grandfather Social History Tobacco Use Smoking status: Former Current packs/day: 0.00 Average packs/day: 0.5 packs/day for 8.0 years (4.0 ttl pk-yrs) Types: Cigarettes Start date: 12/31/2015 Quit date: 12/31/2023 Years since quittin.4 Smokeless tobacco: Never Tobacco comments: using e cigarette has nicotine in it Vaping Use Vaping status: current everyday user Substance Use Topics Alcohol use: Yes Comment: 1 drink per week Drug use: No Review of Systems Constitutional: (-) fever, (-) chills Respiratory: (-) shortness of breath, (-) difficulty breathing Skin: (-) rash, (-) skin lesions Musculoskeletal: (+) left foot pain radiating to toes, (-) calf pain, (-) ankle pain Objective BP 123/82 Pulse 83 Temp 36.9 ?C (98.5 ?F) Resp 18 Wt 133 kg (293 lb 3.4 oz) LMP 05/03/2021 (LMP Unknown) SpO2 97% BMI 47.33 kg/m? Physical Exam Vitals and nursing note reviewed. Constitutional: General: She is not in acute distress. Appearance: Normal appearance. She is normal weight. She is not ill-appearing, toxic-appearing or diaphoretic. HENT: Head: Normocephalic and atraumatic. Right Ear: Ear canal and external ear normal. Left Ear: Ear canal and external ear normal. Nose: Nose normal. No congestion or rhinorrhea. Mouth/Throat: Mouth: Mucous membranes are moist. Pharynx: No oropharyngeal exudate or posterior oropharyngeal erythema. Eyes: General: Right eye: No discharge. Left eye: No discharge. Extraocular Movements: Extraocular movements intact. Conjunctiva/sclera: Conjunctivae normal. Pupils: Pupils are equal, round, and reactive to light. Cardiovascular: Rate and Rhythm: Normal rate and regular rhythm. Pulses: Normal pulses. Heart sounds: Normal heart sounds. No murmur heard. No friction rub. Pulmonary: Effort: Pulmonary effort is normal. No respiratory distress. Breath sounds: Normal breath sounds. No stridor. No wheezing, rhonchi or rales. Chest: Chest wall: No tenderness. Abdominal: General: Abdomen is flat. There is no distension. Palpations: Abdomen is soft. There is no mass. Tenderness: There is no abdominal tenderness. There is no right CVA tenderness, left CVA tenderness, guarding or rebound. Hernia: No hernia is present. Musculoskeletal: General: No swelling, tenderness, deformity or signs of injury. Normal range of motion. Cervical back: Normal range of motion and neck supple. No rigidity. Right lower leg: No edema. Left lower leg: No edema. Comments: Left foot pain with movement, no tenderness to palpation, No obvoius deformity. NO ecchymosis. DP + 2 B/L Mook (more content not included)... [facility] 06-19-2025 History of Presen t illness Narrative [facility] Subjective Arsh Lucas is a 34 year old female. 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 - Described as extremely painful, localized to the bones of the foot, radiating into the toes. - Aggravated by walking and foot movement; also present at rest. - Pain can be extreme and last for days post-shift; variable intensity unrelated to shift length. - Epsom salt soaks provide minimal relief. 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 - Used an ankle brace to prevent rolling the ankle due to reduced sensation; no significant relief noted. - Denies pain in the calf or ankle. - Denies dyspnea, fever, chills, skin rashes, or lesions. PAST MEDICAL HISTORY Diagnosis Date Abnormal Pap smear cin1 Abnormal Pap smear of cervix BMI 34.0-34.9,adult Chlamydia Depression Gonorrhea Mild intermittent asthma without complication (HCC) as child -- allergy related Oligomenorrhea PCOS (polycystic ovarian syndrome) PAST SURGICAL HISTORY Procedure Laterality Date COLPOSCOPY 2007 LAPS SURG CHOLECYSTECTOMY W/CHOLANGIOGRAPHY 07/29/13 normal IOC REMOVE TONSILS/ADENOIDS,<12 Y/O ALLERGIES Adhesive Tape (Rosins), Lamictal [Lamotrigine], and Latex MEDICATIONS buPROPion XL (WELLBUTRIN XL) 300 mg 24 hr tablet Take 1 tablet by mouth once daily. omeprazole (PRILOSEC) 20 mg capsule Take 1 capsule by mouth once daily. multivitamin tablet Take 1 tablet by mouth once daily. methylPREDNISolone (MEDROL, GLENROY,) 4 mg Dose-Pack Take as instructed per package. FAMILY HISTORY Problem Relation Age of Onset Hypertension Mother other (mi) Father other (pulmonary hypertension) Sister Diabetes Maternal Grandmother Hypertension Maternal Grandmother Heart Maternal Grandmother Stroke Maternal Grandmother Diabetes Maternal Grandfather Hypertension Maternal Grandfather Heart Maternal Grandfather Cancer Maternal Grandfather Multiple Myeloma Diabetes Paternal Grandfather Heart Paternal Grandfather Social History Tobacco Use Smoking status: Former Current packs/day: 0.00 Average packs/day: 0.5 packs/day for 8.0 years (4.0 ttl pk-yrs) Types: Cigarettes Start date: 12/31/2015 Quit date: 12/31/2023 Years since quittin.4 Smokeless tobacco: Never Tobacco comments: using e cigarette has nicotine in it Vaping Use Vaping status: current everyday user Substance Use Topics Alcohol use: Yes Comment: 1 drink per week Drug use: No Review of Systems Constitutional: (-) fever, (-) chills Respiratory: (-) shortness of breath, (-) difficulty breathing Skin: (-) rash, (-) skin lesions Musculoskeletal: (+) left foot pain radiating to toes, (-) calf pain, (-) ankle pain Objective BP 123/82 Pulse 83 Temp 36.9 C (98.5 F) Resp 18 Wt 133 kg (293 lb 3.4 oz) LMP 05/03/2021 (LMP Unknown) SpO2 97% BMI 47.33 kg/m Physical Exam Vitals and nursing note reviewed. Constitutional: General: She is not in acute distress. Appearance: Normal appearance. She is normal weight. She is not ill-appearing, toxic-appearing or diaphoretic. HENT: Head: Normocephalic and atraumatic. Right Ear: Ear canal and external ear normal. Left Ear: Ear canal and external ear normal. Nose: Nose normal. No congestion or rhinorrhea. Mouth/Throat: Mouth: Mucous membranes are moist. Pharynx: No oropharyngeal exudate or posterior oropharyngeal erythema. Eyes: General: Right eye: No discharge. Left eye: No discharge. Extraocular Movements: Extraocular movements intact. Conjunctiva/sclera: Conjunctivae normal. Pupils: Pupils are equal, round, and reactive to light. Cardiovascular: Rate and Rhythm: Normal rate and regular rhythm. Pulses: Normal pulses. Heart sounds: Normal heart sounds. No murmur heard. No friction rub. Pulmonary: Effort: Pulmonary effort is normal. No respiratory distress. Breath sounds: Normal breath sounds. No stridor. No wheezing, rhonchi or rales. Chest: Chest wall: No tenderness. Abdominal: General: Abdomen is flat. There is no distension. Palpations: Abdomen is soft. There is no mass. Tenderness: There is no abdominal tenderness. There is no right CVA tenderness, left CVA tenderness, guarding or rebound. Hernia: No hernia is present. Musculoskeletal: General: No swelling, tenderness, deformity or signs of injury. Normal range of motion. Cervical back: Normal range of motion and neck supple. No rigidity. Right lower leg: No edema. Left lower leg: No edema. Comments: Left foot pain with movement, no tenderness to palpation, No obvoius deformity. NO ecchymosis. DP + 2 B/L Neuro intact +sensation intact Lymphadenopathy: Cervical: No cervical adenopathy. Skin: General: Skin is warm and dry. Coloration: Skin is not jaundiced or pale. Findings: No bruising, erythema, lesion or rash. Neurological: General: No focal deficit present. Mental Status: She is alert and oriented to person, place, and time. Cranial Nerves: No cranial nerve deficit. Sensory: No sensory deficit. Motor: No weakness. Coordination: Coordination normal. Gait: Gait normal. Psychiatric: Mood and Affect: Mood normal. Behavior: Behavior normal. Thought Content: Thought content normal. Judgment: Judgment normal. { 1. Foot pain, left (M79.672) - Pain likely musculoskeletal in origin; differentials include calcaneal spur, tendon or ligament injury, or arthritis. - Gout less likely given chronicity and activity-related worsening. - Ordered left foot X-ray. - xray left foot negative -RICE therapy -RX Prednisone taper Consult placed and Recording using Temporal Power software for draft documentation of the visit was discussed with the patient/authorized procurement representative; all questions welcomed and answered. Patient/authorized procurement representative agreed to proceed MDM Procedures documented in this encounter [facility] 06-19-2025 Instructions Dalia Vazquez APRN.CNP - 06/19/2025 12:28 PM EDT R.I.C.E. The general care of your injury includes the following: Resting, Icing, Compressing and Elevating the injured area. Remember this as RICE. REST: Limit the use of the injured body part. ICE: By applying ice to the affected area, swelling and pain can be reduced. Place some ice cubes in a re-sealable (Ziploc) bag and add some water. Put a thin washcloth between the bag and your skin. Apply the ice bag to the area for at least 20 minutes. Do this at least 4 times per day. Using the ice for longer times and more frequently is OK. NEVER APPLY ICE DIRECTLY TO THE SKIN. COMPRESS: Compression means to apply pressure around the injured area such as with a splint, cast or an sole bandage. Compression decreases swelling and improves comfort. Compression should be tight enough to relieve swelling but not so tight as to decrease circulation. Increasing pain, numbness, tingling, or change in skin color, are all signs of decreased circulation. ELEVATE: Elevate the injured part. For example, elevate your foot by placing it on a chair while sitting, or propping it up on pillows when lying down. documented in this encounter [facility] 06-19-2025 History of Presen t illness Narrative Radiology Service Progress Note PATIENT NAME: Arsh Lucas DATE OF SERVICE: June 19, 2025 TIME: 12:16 PM PATIENT IDENTITY VERIFICATION COMPLETED USING TWO (2) IDENTIFIERS: Name and Date of confirmed by patient verbally. FALL SCREENING: Has the patient had 2 falls in the last year or 1 fall with injury or currently using an Ambulatory Assistive Device (Walker, Cane, Wheelchair, Crutches, etc.)? No PATIENT GENDER DATA: Assigned female at . status: : No status: NO. PATIENT RELEVANT IMPLANT DATA REVIEWED: Yes PATIENT PRESENTS WITH AN IMPLANTABLE OR ATTACHED LOAD MIXER: No RADIOLOGY DEPARTMENT: General X-ray: Exam(s) Completed: Lower Extremity X-Ray(s): Foot, Left PERIPHERAL IV DATA: Not applicable SIGNED BY: RT Leobardo(Chester) June 19, 2025 12:16 PM documented in this encounter [facility] 06-19-2025 Note HNO ID: [id number] Author: KARSON RUIZ RT([place]ster) Service: ? Author Type: Vocational Technical Education Director Type: Progress Notes Filed: 06/19/2025 12:22 Note Text: Radiology Service Progress Note PATIENT NAME: Arsh Lucas DATE OF SERVICE: June 19, 2025 TIME: 12:16 PM PATIENT IDENTITY VERIFICATION COMPLETED USING TWO (2) IDENTIFIERS: Name and Date of confirmed by patient verbally. FALL SCREENING: Has the patient had 2 falls in the last year or 1 fall with injury or currently using an Ambulatory Assistive Device (Walker, Cane, Wheelchair, Crutches, etc.)? No PATIENT GENDER DATA: Assigned female at . status: : No status: NO. PATIENT RELEVANT IMPLANT DATA REVIEWED: Yes PATIENT PRESENTS WITH AN IMPLANTABLE OR ATTACHED LOAD MIXER: No RADIOLOGY DEPARTMENT: General X-ray: Exam(s) Completed: Lower Extremity X-Ray(s): Foot, Left PERIPHERAL IV DATA: Not applicable SIGNED BY: RT Leobardo(R) June 19, 2025 12:16 PM [facility] 04-14-2025 Note HNO ID: [id number] Author: HARLEY LIU MD Service: ? Author Type: Physician Type: Progress Notes Filed: 04/14/2025 09:48 Note Text: Patient presents with: Depression HPI: Patient presents today for office visit for follow up and refills. PSYCH: Continues Bupropion 300 mg daily. Feels current dose is working well. Currently 8 weeks . Is mostly formula feeding. Was breast feeding but not much now. Assistant [employer] and ob had told her it was ok to continue. Feels meds are working well. Understands risks and benefits. Continues on prilosec. Has some joint pain Has issues with her left leg. Had radiculopathy in that leg prior. Was off work for four months. No trauma. No swelling or redness or warmth. Using tylenol and topical [place] dream No back issues. Might be willing to try therapy. No chest pain shortness of breath. MEDICATIONS: Current Outpatient Medications Medication Sig buPROPion XL (WELLBUTRIN XL) 300 mg 24 hr tablet Take 1 tablet by mouth once daily. omeprazole (PRILOSEC) 20 mg capsule Take 1 capsule by mouth once daily. multivitamin tablet Take 1 tablet by mouth once daily. No current facility-administered medications for this visit. ALLERGIES: ALLERGIES Allergen Reactions Adhesive Tape (Shana* Other: See Comments Irritation, inflammation, itching Lamictal [Lamotrigi* Other: See Comments Increased agitation and anxiety Latex Itching PAST MEDICAL HISTORY Diagnosis Date Abnormal Pap smear cin1 Abnormal Pap smear of cervix BMI 34.0-34.9,adult Chlamydia Depression Gonorrhea Mild intermittent asthma without complication (HCC) as child -- allergy related Oligomenorrhea PCOS (polycystic ovarian syndrome) PAST SURGICAL HISTORY Procedure Laterality Date COLPOSCOPY 2007 LAPS SURG CHOLECYSTECTOMY W/CHOLANGIOGRAPHY 07/29/13 normal IOC REMOVE TONSILS/ADENOIDS,<12 Y/O FAMILY HISTORY Problem Relation Age of Onset Hypertension Mother other (mi) Father other (pulmonary hypertension) Sister Diabetes Maternal Grandmother Hypertension Maternal Grandmother Heart Maternal Grandmother Stroke Maternal Grandmother Diabetes Maternal Grandfather Hypertension Maternal Grandfather Heart Maternal Grandfather Cancer Maternal Grandfather Multiple Myeloma Diabetes Paternal Grandfather Heart Paternal Grandfather Social History Tobacco Use Smoking status: Former Current packs/day: 0.00 Average packs/day: 0.5 packs/day for 8.0 years (4.0 ttl pk-yrs) Types: Cigarettes Start date: 12/31/2015 Quit date: 12/31/2023 Years since quittin.2 Smokeless tobacco: Never Tobacco comments: using e cigarette has nicotine in it Vaping Use Vaping status: current everyday user Substance Use Topics Alcohol use: Yes Comment: 1 drink per week Drug use: No Reviewed current medications, allergies, past medical history, surgical history, family history and social history today. REVIEW OF SYSTEMS All other reviewed and negative other than HPI. VITALS: BP 110/70 Pulse 76 Ht 167.6 cm (5' 6) Wt 131.5 kg (289 lb 14.5 oz) LMP 05/03/2021 (LMP Unknown) SpO2 98% BMI 46.79 kg/m? Last 4 Encounter Wt Readings: Date: Wt: 02/01/2025 135 kg (297 lb 9.9 oz) 12/31/2024 134.3 kg (296 lb 1.2 oz) 01/10/2024 130.2 kg (287 lb) 08/13/2023 136.1 kg (300 lb) PHYSICAL EXAMINATION: General appearance: Well appearing, alert, in no acute distress, well-hydrated, well nourished. Skin: Skin color, texture, turgor normal, no suspicious rashes or lesions Head: Normocephalic, no masses, lesions, tenderness or abnormalities BACK: Normal curvature of spine. No spine tenderness. Straight leg test negative. Deep tendon reflexes 2+/4 at patellas. Normal lower extremity strength. ASSESSMENT/PLAN: 1. Radiculopathy, lumbar region - ICD9: 724.4, ICD10: M54.16 (primary diagnosis) - start therapy. - CONSULT TO PHYSICAL THERAPY 2. Chronic low back pain with sciatica, sciatica laterality unspecified, unspecified back pain laterality - ICD9: 724.2, 724.3, 338.29, ICD10: M54.40, G89.2 - CONSULT TO PHYSICAL THERAPY 3. Current severe episode of major depressive disorder with psychotic features, unspecified whether recurrent (HCC) - ICD9: 296.24, ICD10: F32.3 - continue meds. Harley Liu MD [facility] 04-14-2025 History of Presen t illness Narrative Patient presents with: Depression HPI: Patient presents today for office visit for follow up and refills. PSYCH: Continues Bupropion 300 mg daily. Feels current dose is working well. Currently 8 weeks . Is mostly formula feeding. Was breast feeding but not much now. Assistant [employer] Shift Manager and ob had told her it was ok to continue. Feels meds are working well. Understands risks and benefits. Continues on prilosec. Has some joint pain Has issues with her left leg. Had radiculopathy in that leg prior. Was off work for four months. No trauma. No swelling or redness or warmth. Using tylenol and topical [place] dream No back issues. Might be willing to try therapy. No chest pain shortness of breath. MEDICATIONS: Current Outpatient Medications Medication Sig buPROPion XL (WELLBUTRIN XL) 300 mg 24 hr tablet Take 1 tablet by mouth once daily. omeprazole (PRILOSEC) 20 mg capsule Take 1 capsule by mouth once daily. multivitamin tablet Take 1 tablet by mouth once daily. No current facility-administered medications for this visit. ALLERGIES: ALLERGIES Allergen Reactions Adhesive Tape (Shana* Other: See Comments Irritation, inflammation, itching Lamictal [Lamotrigi* Other: See Comments Increased agitation and anxiety Latex Itching PAST MEDICAL HISTORY Diagnosis Date Abnormal Pap smear cin1 Abnormal Pap smear of cervix BMI 34.0-34.9,adult Chlamydia Depression Gonorrhea Mild intermittent asthma without complication (HCC) as child -- allergy related Oligomenorrhea PCOS (polycystic ovarian syndrome) PAST SURGICAL HISTORY Procedure Laterality Date COLPOSCOPY 2007 LAPS SURG CHOLECYSTECTOMY W/CHOLANGIOGRAPHY 07/29/13 normal IOC REMOVE TONSILS/ADENOIDS,<12 Y/O FAMILY HISTORY Problem Relation Age of Onset Hypertension Mother other (mi) Father other (pulmonary hypertension) Sister Diabetes Maternal Grandmother Hypertension Maternal Grandmother Heart Maternal Grandmother Stroke Maternal Grandmother Diabetes Maternal Grandfather Hypertension Maternal Grandfather Heart Maternal Grandfather Cancer Maternal Grandfather Multiple Myeloma Diabetes Paternal Grandfather Heart Paternal Grandfather Social History Tobacco Use Smoking status: Former Current packs/day: 0.00 Average packs/day: 0.5 packs/day for 8.0 years (4.0 ttl pk-yrs) Types: Cigarettes Start date: 12/31/2015 Quit date: 12/31/2023 Years since quittin.2 Smokeless tobacco: Never Tobacco comments: using e cigarette has nicotine in it Vaping Use Vaping status: current everyday user Substance Use Topics Alcohol use: Yes Comment: 1 drink per week Drug use: No Reviewed current medications, allergies, past medical history, surgical history, family history and social history today. REVIEW OF SYSTEMS All other reviewed and negative other than HPI. VITALS: BP 110/70 Pulse 76 Ht 167.6 cm (5' 6) Wt 131.5 kg (289 lb 14.5 oz) LMP 05/03/2021 (LMP Unknown) SpO2 98% BMI 46.79 kg/m Last 4 Encounter Wt Readings: Date: Wt: 02/01/2025 135 kg (297 lb 9.9 oz) 12/31/2024 134.3 kg (296 lb 1.2 oz) 01/10/2024 130.2 kg (287 lb) 08/13/2023 136.1 kg (300 lb) PHYSICAL EXAMINATION: General appearance: Well appearing, alert, in no acute distress, well-hydrated, well nourished. Skin: Skin color, texture, turgor normal, no suspicious rashes or lesions Head: Normocephalic, no masses, lesions, tenderness or abnormalities BACK: Normal curvature of spine. No spine tenderness. Straight leg test negative. Deep tendon reflexes 2+/4 at patellas. Normal lower extremity strength. ASSESSMENT/PLAN: 1. Radiculopathy, lumbar region - ICD9: 724.4, ICD10: M54.16 (primary diagnosis) - start therapy. - CONSULT TO PHYSICAL THERAPY 2. Chronic low back pain with sciatica, sciatica laterality unspecified, unspecified back pain laterality - ICD9: 724.2, 724.3, 338.29, ICD10: M54.40, G89.2 - CONSULT TO PHYSICAL THERAPY 3. Current severe episode of major depressive disorder with psychotic features, unspecified whether recurrent (HCC) - ICD9: 296.24, ICD10: F32.3 - continue meds. Harley Liu MD documented in this encounter [facility] 02-01-2025 Note HNO ID: [id number] Author: TIFF WOODALL PA Service: ? Author Type: Physician Wire Strander Type: Progress Notes Filed: 02/01/2025 15:12 Note Text: [facility] Subjective Arsh Quinn is a 34 year old female. Patient presents with: Pain, Sinus HPI 34-year-old female presents for sinusitis. Patient states that she has had sinus congestion, sinus pressure, sinus pain for about 8 days. States that the congestion seems to be getting worse, she has a lot of drainage. She states she had a lot of right sided sinus pain and had pain yesterday. She denies any cough. No chest pain or shortness of breath. No fevers. She is 36 weeks . Has taken safe decongestants [id number] without much improvement in symptoms PAST MEDICAL HISTORY Diagnosis Date Abnormal Pap smear cin1 Abnormal Pap smear of cervix BMI 34.0-34.9,adult Chlamydia Depression Gonorrhea Mild intermittent asthma without complication as child -- allergy related Oligomenorrhea PCOS (polycystic ovarian syndrome) PAST SURGICAL HISTORY Procedure Laterality Date COLPOSCOPY 2007 LAPS SURG CHOLECYSTECTOMY W/CHOLANGIOGRAPHY 07/29/13 normal IOC REMOVE TONSILS/ADENOIDS,<12 Y/O ALLERGIES Adhesive Tape (Rosins), Lamictal [Lamotrigine], and Latex MEDICATIONS progesterone micronized (PROMETRIUM) 200 mg capsule INSERT 1 CAPSULE VAGINALY NIGHTLY AT BEDTIME buPROPion XL (WELLBUTRIN XL) 300 mg 24 hr tablet Take 1 tablet by mouth once daily. omeprazole (PRILOSEC) 20 mg capsule Take 1 capsule by mouth once daily. multivitamin tablet Take 1 tablet by mouth once daily. Cetirizine (ZYRTEC) 10 mg cap Take 2 capsules by mouth once daily. amoxicillin-clavulanate potassium (AUGMENTIN) 875-125 mg per tablet Take 1 tablet by mouth two times a day for 5 days. FAMILY HISTORY Problem Relation Age of Onset Hypertension Mother other (mi) Father other (pulmonary hypertension) Sister Diabetes Maternal Grandmother Hypertension Maternal Grandmother Heart Maternal Grandmother Stroke Maternal Grandmother Diabetes Maternal Grandfather Hypertension Maternal Grandfather Heart Maternal Grandfather Cancer Maternal Grandfather Multiple Myeloma Diabetes Paternal Grandfather Heart Paternal Grandfather Social History Tobacco Use Smoking status: Former Current packs/day: 0.00 Average packs/day: 0.5 packs/day for 8.0 years (4.0 ttl pk-yrs) Types: Cigarettes Start date: 12/31/2015 Quit date: 12/31/2023 Years since quittin.0 Smokeless tobacco: Never Tobacco comments: using e cigarette has nicotine in it Vaping Use Vaping status: current everyday user Substance Use Topics Alcohol use: Yes Comment: 1 drink per week Drug use: No Review of Systems Constitutional: Negative for chills and fever. HENT: Positive for congestion, sinus pressure and sinus pain. Negative for ear pain and sore throat. Respiratory: Negative for cough and shortness of breath. Cardiovascular: Negative for chest pain. Gastrointestinal: Negative for diarrhea and vomiting. Objective BP 120/76 Pulse 98 Temp 36.7 ?C (98 ?F) (Tympanic) Resp 16 Wt 135 kg (297 lb 9.9 oz) LMP 05/03/2021 (LMP Unknown) SpO2 100% BMI 48.04 kg/m? Physical Exam Vitals and nursing note reviewed. Constitutional: General: She is not in acute distress. Appearance: Normal appearance. She is not toxic-appearing. HENT: Right Ear: Tympanic membrane and ear canal normal. Left Ear: Tympanic membrane and ear canal normal. Nose: Mucosal edema and congestion present. Right Sinus: Maxillary sinus tenderness present. Left Sinus: Maxillary sinus tenderness present. Mouth/Throat: Mouth: Mucous membranes are moist. Eyes: Conjunctiva/sclera: Conjunctivae normal. Cardiovascular: Rate and Rhythm: Normal rate and regular rhythm. Pulmonary: Effort: Pulmonary effort is normal. Breath sounds: Normal breath sounds. Skin: General: Skin is warm and dry. Neurological: Mental Status: She is alert. ASSESSMENT/PLAN: 1. Bacterial sinusitis - ICD9: 473.9, 041.9, ICD10: J32.9, B96.89 - Will begin treatment with Augmentin 875 mg PO BID for 5 days - Supportive care with plenty of fluids, rest, and analgesia prn. Diagnosis and treatment plan were discussed and questions were answered to the patient's satisfaction. Pt acknowledged understanding of concepts and follow up plan. Specific signs and symptoms that would indicate the need for higher level of care were discussed in detail warranting prompt ER evaluation. DENISA Cohen Differential Diagnoses - Bacterial sinusitis is more likely for the following reason(s): suggested by HANDP - Pneumonia is less likely for the following reason(s): HANDP not suggestive - Otitis media is less likely for the following reason(s): HANDP not suggestive Disposition The patient was discharged. Procedures [facility] 02-01-2025 History of Presen t illness Narrative [facility] Subjective Arsh Quinn is a 34 year old female. Patient presents with: Pain, Sinus HPI 34-year-old female presents for sinusitis. Patient states that she has had sinus congestion, sinus pressure, sinus pain for about 8 days. States that the congestion seems to be getting worse, she has a lot of drainage. She states she had a lot of right sided sinus pain and had pain yesterday. She denies any cough. No chest pain or shortness of breath. No fevers. She is 36 weeks . Has taken safe decongestants [id number] without much improvement in symptoms PAST MEDICAL HISTORY Diagnosis Date Abnormal Pap smear cin1 Abnormal Pap smear of cervix BMI 34.0-34.9,adult Chlamydia Depression Gonorrhea Mild intermittent asthma without complication as child -- allergy related Oligomenorrhea PCOS (polycystic ovarian syndrome) PAST SURGICAL HISTORY Procedure Laterality Date COLPOSCOPY 2007 LAPS SURG CHOLECYSTECTOMY W/CHOLANGIOGRAPHY 07/29/13 normal IOC REMOVE TONSILS/ADENOIDS,<12 Y/O ALLERGIES Adhesive Tape (Rosins), Lamictal [Lamotrigine], and Latex MEDICATIONS progesterone micronized (PROMETRIUM) 200 mg capsule INSERT 1 CAPSULE VAGINALY NIGHTLY AT BEDTIME buPROPion XL (WELLBUTRIN XL) 300 mg 24 hr tablet Take 1 tablet by mouth once daily. omeprazole (PRILOSEC) 20 mg capsule Take 1 capsule by mouth once daily. multivitamin tablet Take 1 tablet by mouth once daily. Cetirizine (ZYRTEC) 10 mg cap Take 2 capsules by mouth once daily. amoxicillin-clavulanate potassium (AUGMENTIN) 875-125 mg per tablet Take 1 tablet by mouth two times a day for 5 days. FAMILY HISTORY Problem Relation Age of Onset Hypertension Mother other (mi) Father other (pulmonary hypertension) Sister Diabetes Maternal Grandmother Hypertension Maternal Grandmother Heart Maternal Grandmother Stroke Maternal Grandmother Diabetes Maternal Grandfather Hypertension Maternal Grandfather Heart Maternal Grandfather Cancer Maternal Grandfather Multiple Myeloma Diabetes Paternal Grandfather Heart Paternal Grandfather Social History Tobacco Use Smoking status: Former Current packs/day: 0.00 Average packs/day: 0.5 packs/day for 8.0 years (4.0 ttl pk-yrs) Types: Cigarettes Start date: 12/31/2015 Quit date: 12/31/2023 Years since quittin.0 Smokeless tobacco: Never Tobacco comments: using e cigarette has nicotine in it Vaping Use Vaping status: current everyday user Substance Use Topics Alcohol use: Yes Comment: 1 drink per week Drug use: No Review of Systems Constitutional: Negative for chills and fever. HENT: Positive for congestion, sinus pressure and sinus pain. Negative for ear pain and sore throat. Respiratory: Negative for cough and shortness of breath. Cardiovascular: Negative for chest pain. Gastrointestinal: Negative for diarrhea and vomiting. Objective BP 120/76 Pulse 98 Temp 36.7 C (98 F) (Tympanic) Resp 16 Wt 135 kg (297 lb 9.9 oz) LMP 05/03/2021 (LMP Unknown) SpO2 100% BMI 48.04 kg/m Physical Exam Vitals and nursing note reviewed. Constitutional: General: She is not in acute distress. Appearance: Normal appearance. She is not toxic-appearing. HENT: Right Ear: Tympanic membrane and ear canal normal. Left Ear: Tympanic membrane and ear canal normal. Nose: Mucosal edema and congestion present. Right Sinus: Maxillary sinus tenderness present. Left Sinus: Maxillary sinus tenderness present. Mouth/Throat: Mouth: Mucous membranes are moist. Eyes: Conjunctiva/sclera: Conjunctivae normal. Cardiovascular: Rate and Rhythm: Normal rate and regular rhythm. Pulmonary: Effort: Pulmonary effort is normal. Breath sounds: Normal breath sounds. Skin: General: Skin is warm and dry. Neurological: Mental Status: She is alert. ASSESSMENT/PLAN: 1. Bacterial sinusitis - ICD9: 473.9, 041.9, ICD10: J32.9, B96.89 - Will begin treatment with Augmentin 875 mg PO BID for 5 days - Supportive care with plenty of fluids, rest, and analgesia prn. Diagnosis and treatment plan were discussed and questions were answered to the patient's satisfaction. Pt acknowledged understanding of concepts and follow up plan. Specific signs and symptoms that would indicate the need for higher level of care were discussed in detail warranting prompt ER evaluation. DENISA Cohen Differential Diagnoses - Bacterial sinusitis is more likely for the following reason(s): suggested by H&P - Pneumonia is less likely for the following reason(s): H&P not suggestive - Otitis media is less likely for the following reason(s): H&P not suggestive Disposition The patient was discharged. Procedures documented in this encounter [facility] 12-31-2024 Note HNO ID: [id number] Author: JUAN BETANCOURT MD Service: ? Author Type: Physician Type: Progress Notes Filed: 12/31/2024 19:17 Note Text: Patient presents with: Cough: Head congestion, fever, pelvic pain on left side from coughing x 3 days HPI: Feeling sick starting 2 nights ago. Positive symptoms: Cough, mild Nasal Congestion/Rhinorrhea, Fever, Chills, Body Aches, Malaise, Fatigue, Headache, Negative symptoms: Shortness of breath, Chest tightness, Sore throat, Vomiting, Diarrhea, OTC: cough medicine. Currently 32 weeks . Sent here for flu test and treatment by OB. PAST MEDICAL HISTORY Diagnosis Date Abnormal Pap smear cin1 Abnormal Pap smear of cervix BMI 34.0-34.9,adult Chlamydia Depression Gonorrhea Mild intermittent asthma without complication as child -- allergy related Oligomenorrhea PCOS (polycystic ovarian syndrome) MEDICATIONS: Current Outpatient Medications Medication Sig buPROPion XL (WELLBUTRIN XL) 300 mg 24 hr tablet Take 1 tablet by mouth once daily. omeprazole (PRILOSEC) 20 mg capsule Take 1 capsule by mouth once daily. multivitamin tablet Take 1 tablet by mouth once daily. Cetirizine (ZYRTEC) 10 mg cap Take 2 capsules by mouth once daily. progesterone micronized (PROMETRIUM) 200 mg capsule INSERT 1 CAPSULE VAGINALY NIGHTLY AT BEDTIME No current facility-administered medications for this visit. ALLERGIES: ALLERGIES Allergen Reactions Adhesive Tape (Shana* Other: See Comments Irritation, inflammation, itching Lamictal [Lamotrigi* Other: See Comments Increased agitation and anxiety Latex Itching VITALS: BP 120/66 Pulse 100 Temp 37.7 ?C (99.8 ?F) Resp 20 Wt 134.3 kg (296 lb 1.2 oz) LMP 05/03/2021 (LMP Unknown) SpO2 98% BMI 47.79 kg/m? PHYSICAL EXAM: GEN: mildly ill appearing HEENT: PERRL, EOMI, conjunctiva clear Ears: canals clear. TMs without erythema, bulge, or effusion Sinuses: non-tender frontal sinus, non-tender maxillary sinuses Throat: moist mucous membranes, mild erythema, no exudate Neck: supple, no thyromegaly, no lymphadenopathy HEART: regular rate, regular rhythm, no murmurs LUNGS: clear to auscultation, no wheezes or crackles, no increased WOB ASSESSMENT/PLAN: 1. Influenza A - ICD9: 487.1, ICD10: J10.1 (primary diagnosis) 2. URI, acute - ICD9: 465.9, ICD10: J06.9 3. 32 weeks gestation of - ICD9: V22.2, ICD10: Z3A.32 - INFLUENZA AANDB MOLECULAR (POC) - influenza A positive - OSELTAMIVIR 75 MG CAPSULE Continue OB approved cough and cold medication. Juan Betancourt MD [facility] 12-31-2024 History of Presen t illness Narrative Patient presents with: Cough: Head congestion, fever, pelvic pain on left side from coughing x 3 days HPI: Feeling sick starting 2 nights ago. Positive symptoms: Cough, mild Nasal Congestion/Rhinorrhea, Fever, Chills, Body Aches, Malaise, Fatigue, Headache, Negative symptoms: Shortness of breath, Chest tightness, Sore throat, Vomiting, Diarrhea, OTC: cough medicine. Currently 32 weeks . Sent here for flu test and treatment by OB. PAST MEDICAL HISTORY Diagnosis Date Abnormal Pap smear cin1 Abnormal Pap smear of cervix BMI 34.0-34.9,adult Chlamydia Depression Gonorrhea Mild intermittent asthma without complication as child -- allergy related Oligomenorrhea PCOS (polycystic ovarian syndrome) MEDICATIONS: Current Outpatient Medications Medication Sig buPROPion XL (WELLBUTRIN XL) 300 mg 24 hr tablet Take 1 tablet by mouth once daily. omeprazole (PRILOSEC) 20 mg capsule Take 1 capsule by mouth once daily. multivitamin tablet Take 1 tablet by mouth once daily. Cetirizine (ZYRTEC) 10 mg cap Take 2 capsules by mouth once daily. progesterone micronized (PROMETRIUM) 200 mg capsule INSERT 1 CAPSULE VAGINALY NIGHTLY AT BEDTIME No current facility-administered medications for this visit. ALLERGIES: ALLERGIES Allergen Reactions Adhesive Tape (Shana* Other: See Comments Irritation, inflammation, itching Lamictal [Lamotrigi* Other: See Comments Increased agitation and anxiety Latex Itching VITALS: BP 120/66 Pulse 100 Temp 37.7 C (99.8 F) Resp 20 Wt 134.3 kg (296 lb 1.2 oz) LMP 05/03/2021 (LMP Unknown) SpO2 98% BMI 47.79 kg/m PHYSICAL EXAM: GEN: mildly ill appearing HEENT: PERRL, EOMI, conjunctiva clear Ears: canals clear. TMs without erythema, bulge, or effusion Sinuses: non-tender frontal sinus, non-tender maxillary sinuses Throat: moist mucous membranes, mild erythema, no exudate Neck: supple, no thyromegaly, no lymphadenopathy HEART: regular rate, regular rhythm, no murmurs LUNGS: clear to auscultation, no wheezes or crackles, no increased WOB ASSESSMENT/PLAN: 1. Influenza A - ICD9: 487.1, ICD10: J10.1 (primary diagnosis) 2. URI, acute - ICD9: 465.9, ICD10: J06.9 3. 32 weeks gestation of - ICD9: V22.2, ICD10: Z3A.32 - INFLUENZA A&B MOLECULAR (POC) - influenza A positive - OSELTAMIVIR 75 MG CAPSULE Continue OB approved cough and cold medication. Juan Betancourt MD documented in this encounter [facility] 12-26-2024 Telephone encounter Note Prescription Refill Information The patient has been identified by name and date of : Yes Caregiver verified no other encounters exist for this prescription request: Yes Caregiver confirmed with patient/requestor that no other refills are due, in the near future, with this provider at this time: Yes The last office visit in the department: 01/10/2024 Does the patient have a future office visit with this provider/department: No Requested Prescriptions Pending Prescriptions Disp Refills buPROPion XL (WELLBUTRIN XL) 300 mg 24 hr tablet 90 tablet 0 Sig: Take 1 tablet by mouth once daily. Nicci Bojorquez LPN December 26, 2024 11:05 AM [facility] 12-26-2024 Miscellaneous Notes Prescription Refill Information The patient has been identified by name and date of : Yes Caregiver verified no other encounters exist for this prescription request: Yes Caregiver confirmed with patient/requestor that no other refills are due, in the near future, with this provider at this time: Yes The last office visit in the department: 01/10/2024 Does the patient have a future office visit with this provider/department: No Requested Prescriptions Pending Prescriptions Disp Refills buPROPion XL (WELLBUTRIN XL) 300 mg 24 hr tablet 90 tablet 0 Sig: Take 1 tablet by mouth once daily. Nicci Bojorquez LPN December 26, 2024 11:05 AM documented in this encounter [facility] 12-23-2024 Hospital Discharg e instructions Key Adler MD - 12/23/2024 1:32 PM EST Follow up appointment with your doctor/editor & co founder - Keep next scheduled appointment Activity - Normal Activity Call your doctor/editor & co founder if you have: - leaking fluid - vaginal bleeding - regular contractions: More than 6 contractions in one hour - decreased movement - worsening abdominal (belly) pain - headache, blurry vision, increased swelling, upper abdominal pain If you are going home with contractions that are uncomfortable/painful- we recommend these coping strategies: rhythmic breathing, hydrotherapy, imagery or visualization, gentle massage, walking and changing your position. Treatment Verification: Arsh Quinn was assessed on Labor and Delivery for a related visit on 12/23/24 . Key Adler MD [facility] documented in this encounter [facility] 12-23-2024 History of Presen t illness Narrative Department of Obstetrics and Gynecology Labor and Delivery Triage Note CHIEF COMPLAINT: contractions HISTORY OF PRESENT ILLNESS: The patient is a 34 y.o. 30w6d. OB History 2 Para 1 Term 1 AB Living 1 SAB IAB Ectopic Multiple Live Births 1 Patient presents with a chief complaint as above. Started having contractions around 6-7/hr this AM. They were not painful but were noticeable. Describes them as sustained tightening. Recent admit to for tPTL, was 1cm at that time and received tocolysis and steroids. Denies DFM/VB/LOF Estimated Due Date: Estimated Date of Delivery: 02/25/25 PAST MEDICAL HISTORY: Past Medical History: Diagnosis Date Anxiety Depression PAST SURGICAL HISTORY: Past Surgical History: Procedure Laterality Date ADENOIDECTOMY CHOLECYSTECTOMY TONSILLECTOMY SOCIAL HISTORY: reports that she has never smoked. She has never used smokeless tobacco. She reports that she does not drink alcohol and does not use drugs. MEDICATIONS: Prior to Admission medications Medication Sig Start Date End Date Taking? Authorizing Provider aspirin 81 MG EC tablet Take 81 mg by mouth daily. Yes Historical Provider, buPROPion XL (Wellbutrin XL) 300 MG 24 hr tablet Take 300 mg by mouth daily. Do not crush, chew, or split. Yes Historical Provider, cetirizine (ZyrTEC) 10 MG tablet Take 10 mg by mouth daily. Yes Historical Provider, omeprazole OTC (PriLOSEC OTC) 20 MG EC tablet Take 20 mg by mouth every morning (before breakfast). Do not crush, chew, or split. Yes Historical Provider, MV-Min-Fe Fum-FA-DHA ( 1 PO) Take by mouth daily. Yes Historical Provider, progesterone (Endometrin) 100 MG vaginal insert Insert 200 mg into the vagina Nightly. Yes Historical Provider, CARE: Complicated by: hx PTD, obesity REVIEW OF SYSTEMS: Pertinent items are noted in HPI. APPEARANCE: Pain: No PHYSICAL EXAM: Vital Signs: VS wnl-reviewed/Respirations normal effort Vitals: 12/23/24 1246 BP: 115/73 Pulse: 91 Resp: 18 SpO2: 100% Abdomen: soft, NT, ND, no rebound/guarding Uterus: gravid/non-tender LE Edema: trace Speculum Exam: no pooling of fluid seen, Nitrizine test is negative heart rate: Category I Cervix: 1/50/-3 Contraction frequency: none on toco Membranes: Intact RESULTS: NST: Reactive Procedures GENERAL LABS: No results found for this or any previous visit (from the past 24 hours). TRIAGE COURSE: SSE negative for ROM, vaginal bleeding. SVE 1/50/-3, very thick, posterior and high. Patient describes her contractions as tightening but not painful. Is not feeling any pelvic pressure of pain. Hx of delivery, reports she PPROMed at that time and delivered 3 days later. Cat I on the monitor. No contractions on toco. Overall comfortable. S/p betamethasone x2 on 12/16-12/17, would not be a candidate for rescue. . Discussed return precautions. ESSION: False labor Pain assessment and plan: None DISCUSSED WITH PNC PROVIDER: Dimitri DISPOSITION: Discharge to Home Cosigned by Janet Bailey MD at 12/23/2024 2:48 PM EST Associated attestation - Janet Bailey MD - 12/23/2024 2:48 PM EST Hospital Care (Independent): I independently saw and evaluated the patient. I agree with the findings and plan of care as documented in the resident's note. documented in this encounter [facility] 12-18-2024 Nurse Note 1700 may be discharged to home, iv heplock removed, clean dry and intact , home going instructions given, follow up in the office next week, pt. In no acute distress [facility] 12-18-2024 Nurse Note 1700 may be discharged to home, iv heplock removed, clean dry and intact , home going instructions given, follow up in the office next week, pt. In no acute distress documented in this encounter [facility] 12-18-2024 Note Department of Obstet rics and Gynecology [facility] Discharge Summary Admission on 12/16/2024 6:45 PM Arsh Quinn is a 34 y.o. at 30w0d who presented to Labor and Delivery for concern for threatened labor. She was started on procardia for tocolysis and magnesium sulfate for neuroprotection at OSH and transferred here. She received BMZ x2 on 12/16 and 12/17. Her exam on admission was /-3. Growth US was obtained and was AGA with EFW 1596g, 3lb 8oz, 57%ile, AC 62%ile, RICCO 15.6 cm, BPP 8/8. Her contractions resolved and she remained comfortable. She was rechecked prior to discharge and cervix remained unchanged. She will follow up with Dr. Sanchez for continued care. Meds: Medication List CONTINUE taking these medications aspirin 81 MG EC tablet buPROPion XL 300 MG 24 hr tablet Commonly known as: Wellbutrin XL cetirizine 10 MG tablet Commonly known as: ZyrTEC omeprazole OTC 20 MG EC tablet Commonly known as: PriLOSEC OTC 1 PO progesterone 100 MG vaginal insert Commonly known as: Endometrin Discharge to: Home Discharge date: 12/18/34 Discharge Dx: threatened labor Follow up appointment with your doctor/editor & co founder - Keep next scheduled appointment Activity - Normal Activity Call your doctor/editor & co founder if you have: - leaking fluid - vaginal bleeding - regular contractions: More than 6 contractions in one hour - decreased movement - worsening abdominal (belly) pain - headache, blurry vision, increased swelling, upper abdominal pain Lucia Messina, DO 12/18/2024 12:59 AM [facility] 12-18-2024 Hospital course Narrative Images from the original note were not included. Department of Obstetrics and Gynecology [facility] Discharge Summary Admission on 12/16/2024 6:45 PM Arsh Quinn is a 34 y.o. at 30w0d who presented to Labor and Delivery for concern for threatened labor. She was started on procardia for tocolysis and magnesium sulfate for neuroprotection at OSH and transferred here. She received BMZ x2 on 12/16 and 12/17. Her exam on admission was 50/-3. Growth US was obtained and was AGA with EFW 1596g, 3lb 8oz, 57%ile, AC 62%ile, RICCO 15.6 cm, BPP 8/8. Her contractions resolved and she remained comfortable. She was rechecked prior to discharge and cervix remained unchanged. She will follow up with Dr. Sanchez for continued care. Meds: Medication List CONTINUE taking these medications aspirin 81 MG EC tablet buPROPion XL 300 MG 24 hr tablet Commonly known as: Wellbutrin XL cetirizine 10 MG tablet Commonly known as: ZyrTEC omeprazole OTC 20 MG EC tablet Commonly known as: PriLOSEC OTC 1 PO progesterone 100 MG vaginal insert Commonly known as: Endometrin Discharge to: Home Discharge date: 12/18/34 Discharge Dx: threatened labor Follow up appointment with your doctor/editor & co founder - Keep next scheduled appointment Activity - Normal Activity Call your doctor/editor & co founder if you have: - leaking fluid - vaginal bleeding - regular contractions: More than 6 contractions in one hour - decreased movement - worsening abdominal (belly) pain - headache, blurry vision, increased swelling, upper abdominal pain Lucia Messina DO 12/18/2024 12:59 AM Cosigned by Eri Perez DO at 12/18/2024 3:01 PM EST documented in this encounter [facility] 12-18-2024 Hospital Discharg e instructions Lucia Messina DO - 12/18/2024 2:40 PM EST Follow up appointment with your doctor/editor & co founder - Keep next scheduled appointment Activity - Normal Activity Call your doctor/editor & co founder if you have: - leaking fluid - vaginal bleeding - regular contractions: More than 6 contractions in one hour - decreased movement - worsening abdominal (belly) pain - headache, blurry vision, increased swelling, upper abdominal pain If you are going home with contractions that are uncomfortable/painful- we recommend these coping strategies: rhythmic breathing, hydrotherapy, imagery or visualization, gentle massage, walking and changing your position. Treatment Verification: Arsh Quinn was assessed on Labor and Delivery for a related visit on 12/18/24 . Lucia Messina DO [facility] The following attachments cannot be sent through Care Everywhere. Labor Discharge Instructions (Chinese)documented in this encounter [facility] 12-18-2024 History of Presen t illness Narrative Nutrition rescreen completed. Chart reviewed. Patient to be monitored and followed by the diet c2 tactical analysis technician. ETHAN Escalera Images from the original note were not included. Maternal Medicine Service Resident Progress Note 12/18/2024 6:12 AM 12/16/2024 Hospital Day: 3 Arsh Quinn, 34 y.o. 30w1d Patient has been seen and examined. Pt complains of a sore abdomen. Chest pressure has resolved. Positive movement Negative vaginal bleeding Negative LOF Negative Contractions Vitals: 12/17/24 2353 12/17/24 2358 12/18/24 0040 12/18/24 0601 BP: (!) 101/51 115/63 98/60 BP Location: Left arm Left arm Left arm Patient Position: Lying Lying Lying Pulse: 82 85 75 Resp: 20 18 18 Temp: 36.7 C (98.1 F) 36.7 C (98 F) 36.9 C (98.5 F) TempSrc: Oral Oral SpO2: 97% 97% 97% Weight: Height: 7236-8511 FHT cat I with moderate variability, spontaneous accels, normal baseline, no decels. No contractions on toco Physical Exam: Gen: NAD HEENT: Normocephalic, Atraumatic, EOMI, MMM Resp: effort nl Card: RRR Abd: soft, gravid, NTND, no rebound, no guarding. Ext: No LE edema, no calf tenderness or swelling Medications: Current Facility-Administered Medications Medication Dose Route Frequency Provider Last Rate Last Admin acetaminophen (Tylenol) tablet 650 mg 650 mg Oral q4h PRN Leann Schlieper, DO 650 mg at 12/17/242352 buPROPion XL (Wellbutrin XL) 24 hr tablet 300 mg 300 mg Oral Daily Leann Schlieper, DO 300 mg at 12/17/24 100 calcium gluconate 10 % injection 1 g 1 g IntraVENous PRN Leann Bertoeper, DO docusate sodium (Colace) capsule 100 mg 100 mg Oral BID PRN Leann Schlieper, DO 100 mg at 12/17/242118 famotidine (Pepcid) tablet 20 mg 20 mg Oral BID Lucia Gemma, DO 20 mg at 12/17/242118 Or famotidine (Pepcid) 20 mg in sodium chloride (PF) 0.9 % 10 mL injection 20 mg IntraVENous BID Lucia Gemma, DO NIFEdipine (Procardia) capsule 20 mg 20 mg Oral 4 times per day Leann Schlieper, DO 20 mg at 12/18/24 0605 ondansetron ODT (Zofran-ODT) disintegrating tablet 4 mg 4 mg Oral q8h PRN Leann Schlieper, DO Or ondansetron (Zofran) injection 4 mg 4 mg IntraVENous q6h PRN Leann Schlieper, DO polyethylene glycol (PEG) 3350 (Miralax) packet 17 g 17 g Oral Daily PRN Leann Schlieper, DO vitamin tablet 1 tablet Oral Daily Leann Schlieper, DO 1 tablet at 12/17/24 1003 sodium chloride 0.9 % infusion 5-250 mL/hr IntraVENous PRN Leann Schlieper, DO sodium chloride 0.9% (NS) flush 10 mL 10 mL IntraVENous 2 times per day Leann Schlieper, DO 10 mL at 12/17/24 2119 sodium chloride 0.9% (NS) flush 10 mL 10 mL IntraVENous PRN Leann Schlieper, DO 10 mL at 12/18/24 0000 Assessment/Plan: Arsh Quinn is a 34 y.o. female 30w1d Threatened PTL Hx PTD - Presented to OSH for CTX, noted to be 1 cm dilated, transferred for care - Hx PTD in G1 at 32 weeks - SVE unchanged on admission, rechecked again overnight and remains unchanged - FHT Cat 1 overnight, no CTX on toco - S/p BMZ x2 on - S/p 12 hrs magnesium sulfate for neuroprotection - Growth US 12/17 AGA EFW 1596g, 3lb 8oz, 57%ile, AC 62%ile, RICCO 15.6cm, BPP 8/8 - Procardia for tocolysis until ~12 pm this afternoon Anxiety Depression - Mood appropriate - Continue Wellbutrin 300 mg daily Obesity - BMIS 47 - SCDs ordered Hx of Chlamydia - Per labs - GCCT on admission negative IUP @ 30w1d - Vtx 12/17 - Monitorin hr BID - Diet:General - BMZ x2 on Further plan pending d/w attending. Lucia Messina DO 12/18/2024, 6:12 AM Cosigned by Eri Perez DO at 12/18/2024 2:28 PM EST Associated attestation - Eri Perez DO - 12/18/2024 2:28 PM EST Hospital Care (Present): I was present with the resident during the history and exam. I discussed the case with the resident and agree with the findings and plan as documented in the resident's note. 34 y.o. yo at 30w1d hospital day 2 with: Patient Active Problem List Diagnosis contractions Pt reports CTXs resolved. SVE unchanged. Stable for discharge to home. 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 labor precautions reviewed. Chart review and preparation: 15 minutes. Face to face: 10 minutes. Documentation and care coordination: 10 minutes. Total time spent on patient care today: 35 minutes. Images from the original note were not included. Notified by RN of cramping and chest pressure. At bedside to evaluate. Patient resting in bed, does not appear in acute distress. She reports some cramping. She notes good movement, denies vaginal bleeding of LOF. SVE unchanged. FHT Cat 1. No CTX on toco. Plan for IVF bolus, flexeril. EKG ordered for chest pain SOB, low suspicion for ACS, VSS. Will continue to monitor closely. sinus rhythm. Patient feeling better at this time. Images from the original note were not included. Maternal Medicine Service Resident Progress Note 12/17/2024 6:21 AM 12/16/2024 Hospital Day: 2 Arsh Quinn, 34 y.o. 30w0d Patient has been seen and examined. Pt reports contractions have spaced out, maybe 6 since midnight Positive movement Negative vaginal bleeding Negative LOF Positive Contractions Vitals: 12/16/24 1926 12/16/24 2332 12/17/24 0358 BP: 110/63 112/64 (!) 104/56 Pulse: 92 91 84 Resp: 15 18 Temp: 36.6 C (97.9 F) 36.7 C (98.1 F) 36.8 C (98.2 F) TempSrc: Oral Temporal Temporal SpO2: 99% 97% 97% Weight: 294 lb (133 kg) Height: 5' 6 (1.676 m) FHT cat I with moderate variability, spontaneous accels, normal baseline, no decels. Rare contractions on toco Physical Exam: Gen: NAD HEENT: Normocephalic, Atraumatic, EOMI, MMM Resp: effort nl Card: RRR Abd: soft, gravid, NTND, no rebound, no guarding. Medications: Current Facility-Administered Medications Medication Dose Route Frequency Provider Last Rate Last Admin acetaminophen (Tylenol) tablet 650 mg 650 mg Oral q4h PRN Leann Schlieper, DO betamethasone acetate-betamethasone sodium phosphate (Celestone) injection 12 mg 12 mg IntraMUSCular Once Leann Schlieper, DO buPROPion XL (Wellbutrin XL) 24 hr tablet 300 mg 300 mg Oral Daily Leann Schlieper, DO calcium gluconate 10 % injection 1 g 1 g IntraVENous PRN Leann Schlieper, DO magnesium sulfate 20 GM/500ML infusion 1,000 mg/hr IntraVENous Continuous Leann Schlieper, DO 25 mL/hr at 12/16/24 2206 1,000 mg/hr at 12/16/24 2206 NIFEdipine (Procardia) capsule 20 mg 20 mg Oral 4 times per day Leann Schlieper, DO 20 mg at 12/17/24 0554 ondansetron ODT (Zofran-ODT) disintegrating tablet 4 mg 4 mg Oral q8h PRN Leann Schlieper, DO Or ondansetron (Zofran) injection 4 mg 4 mg IntraVENous q6h PRN Leann Schlieper, DO vitamin tablet 1 tablet Oral Daily Leann Schlieper, DO sodium chloride 0.9 % infusion 5-250 mL/hr IntraVENous PRN Leann Schlieper, DO sodium chloride 0.9% (NS) flush 10 mL 10 mL IntraVENous 2 times per day Leann Smith DO sodium chloride 0.9% (NS) flush 10 mL 10 mL IntraVENous PRN Leann Smith DO Assessment/Plan: Arsh Quinn is a 34 y.o. female 30w0d Threatened PTL Hx PTD - Presented to OSH for CTX, noted to be 1 cm dilated, transferred for care - Hx PTD in G1 at 32 weeks - SVE unchanged on admisison - FHT Cat 1 overnight, rare CTX on toco - Continue Procardia tocolysis, magnesium sulfate for neuroprotection - S/P BMZx1, second dose timed for this afternoon - Growth US ordered for this AM Anxiety Depression - Mood appropriate - Continue Wellbutrin 300 mg daily Obesity - BMIS 47 - SCDs ordered Hx of Chlamydia - Per labs - GCCT on admission negative IUP @ 30w0d - VTX 12/16 - Monitoring: CEFM - Diet: General - BMZ x1 on 12/16 Further plan pending d/w attending. Lucia Messina DO 12/17/2024, 6:21 AM Cosigned by Charlette Waller MD at 12/17/2024 11:16 AM EST Associated attestation - Charlette Waller MD - 12/17/2024 11:16 AM EST MFM ATTENDING I have personally obtained a history and examined the patient with Dr. Messina. I agree with the assessment and plan as documented in the resident's note. The patient is a 34 y.o. 30w0d now HD#2, admitted for threatened PTL. Presented to Dr. Sanchez yesterday with regular painful contractions. Has h/o 32 week delivery. Cervix has remained /-3. This morning patient much more comfortable and reports only 1 contraction an hour. Received BMZ #1 and mag for LAB SUPPORT TECH. On procardia tocolysis. She reports good movement. Vitals: 12/17/24 0843 BP: 104/68 Pulse: 89 Resp: 20 Temp: 36.4 C (97.5 F) SpO2: 97% Alert and oriented, NAD Gravid nontender abdomen Cervix per inpatient team: /-3 NST: reactive, Cat 1 Ultrasound: EFW 1596g (57%), RICCO 15.6cm, cephalic. BPP 8/8. Lab Results Component Value Date WBC 11.8 (H) 12/16/2024 HGB 12.4 12/16/2024 HCT 35.8 12/16/2024 MCV 84.4 12/16/2024 PLT 233 12/16/2024 Plan: Discussed rationale for PTL therapies and plan. Stop Mag for LAB SUPPORT TECH now. BMZ#2 this afternoon. Continue Procardia for 24hrs after next BMZ. If remains stable, anticipate discharge tomorrow. 55 minutes spent in total floor time today for review of records, patient interview and exam, documentation and coordination of care with care teams. Charlette Waller MD documented in this encounter [facility] 12-17-2024 Note Formatting of this n ote might be different from the original. Date: 12/17/2024 Name: Arsh Quinn : 1990 [facility] Information Patient Information Primary Caregiver: Self Accompanied by/Relationship: S/O;Family Marital Status: Support System: SO/Family Zoroastrian/Cultural Factors: Activities of Daily Living Communication: See demographics Living Arrangements Current Residence: Private residence Lives With: S/O; Family Support System: S/O; Family Income Information Income Source: Employed Financial Resource Strain How hard is it for you to pay for the very basics like food, housing, medical care and heating? N/A Housing Stability In the last 12 months, was there a time when you did not have a steady place to sleep or slept in a custodial (including now)? No Transportation Needs Has the lack of Transportation kept you from medical appointments? No In the past 12 months, has the lack of transportation kept you from meetings, work, or from getting things needed for daily living? No Food Insecurity Within the past 12 months, have you worried that your food would run out before you got the money to buy more? No Stress Do you feel stress - tense, restless, nervous, or anxious, or unable to sleep at night because you mind is troubled all the time? Mood stable Referral To Financial Resources: N/A Community Resources: PNU folder given upon admission to PNU Unit Social Work: N/A CLP: Declines at this time Medical Information admitted at 29/6 weeks for tPTL; Hx PTD at 32 weeks; Anxiety/depression, on Wellbutrin; Mood stable; Obesity Discharge Plan Home or Community Resources: PNU Admission folder given upon admission to unit Equipment: N/A Education Given: PNU admit folder and see Education Tab Additional Information: N/A Mental Health Services: N/A Developmental Delay: N/A Children's Services: N/A [facility] 12-17-2024 Note Formatting of this n ote might be different from the original. Date: 12/17/2024 Name: Arsh Quinn : 1990 [facility] Information Patient Information Primary Caregiver: Self Accompanied by/Relationship: S/O;Family Marital Status: Support System: SO/Family Zoroastrian/Cultural Factors: Activities of Daily Living Communication: See demographics Living Arrangements Current Residence: Private residence Lives With: S/O; Family Support System: S/O; Family Income Information Income Source: Employed Financial Resource Strain How hard is it for you to pay for the very basics like food, housing, medical care and heating? N/A Housing Stability In the last 12 months, was there a time when you did not have a steady place to sleep or slept in a custodial (including now)? No Transportation Needs Has the lack of Transportation kept you from medical appointments? No In the past 12 months, has the lack of transportation kept you from meetings, work, or from getting things needed for daily living? No Food Insecurity Within the past 12 months, have you worried that your food would run out before you got the money to buy more? No Stress Do you feel stress - tense, restless, nervous, or anxious, or unable to sleep at night because you mind is troubled all the time? Mood stable Referral To Financial Resources: N/A Community Resources: PNU folder given upon admission to PNU Unit Social Work: N/A CLP: Declines at this time Medical Information admitted at 29/6 weeks for tPTL; Hx PTD at 32 weeks; Anxiety/depression, on Wellbutrin; Mood stable; Obesity Discharge Plan Home or Community Resources: PNU Admission folder given upon admission to unit Equipment: N/A Education Given: PNU admit folder and see Education Tab Additional Information: N/A Mental Health Services: N/A Developmental Delay: N/A Children's Services: N/A [facility] 12-17-2024 Miscellaneous Notes Date: 12/17/2024 Name: Arsh Quinn : 1990 [facility] Information Patient Information Primary Caregiver: Self Accompanied by/Relationship: S/O;Family Marital Status: Support System: SO/Family Zoroastrian/Cultural Factors: Activities of Daily Living Communication: See demographics Living Arrangements Current Residence: Private residence Lives With: S/O; Family Support System: S/O; Family Income Information Income Source: Employed Financial Resource Strain How hard is it for you to pay for the very basics like food, housing, medical care and heating? N/A Housing Stability In the last 12 months, was there a time when you did not have a steady place to sleep or slept in a custodial (including now)? No Transportation Needs Has the lack of Transportation kept you from medical appointments? No In the past 12 months, has the lack of transportation kept you from meetings, work, or from getting things needed for daily living? No Food Insecurity Within the past 12 months, have you worried that your food would run out before you got the money to buy more? No Stress Do you feel stress - tense, restless, nervous, or anxious, or unable to sleep at night because you mind is troubled all the time? Mood stable Referral To Financial Resources: N/A Community Resources: PNU folder given upon admission to PNU Unit Social Work: N/A CLP: Declines at this time Medical Information admitted at 29/6 weeks for tPTL; Hx PTD at 32 weeks; Anxiety/depression, on Wellbutrin; Mood stable; Obesity Discharge Plan Home or Community Resources: PNU Admission folder given upon admission to unit Equipment: N/A Education Given: PNU admit folder and see Education Tab Additional Information: N/A Mental Health Services: N/A Developmental Delay: N/A Children's Services: N/A documented in this encounter [facility] 12-16-2024 History and physical note Department of Maternal Medicine History and Physical CHIEF COMPLAINT: Threatened Labor HISTORY OF PRESENT ILLNESS: The patient is a 34 y.o. female at 29w6d. OB History 2 Para 1 Term 1 AB Living 1 SAB IAB Ectopic Multiple Live Births 1 Patient presents with a chief complaint as above and is being admitted for threatened labor. Patient was evaluated at OSH earlier. Noted to be letty and 1 cm. Received BMZ, started on Procardia for tocolysis and neuroprotection. She was transferred here. Patient reports feeling intermittent contractions. She denies vaginal bleeding or LOF. Notes good movement. Reports history of PTD at 32 weeks in first . Transport: No Prior Hospitalizations: No Estimated Due Date: Estimated Date of Delivery: 02/25/25 CARE: Complications: See below PAST OB HISTORY: OB History 2 Para 1 Term 1 AB Living 1 SAB IAB Ectopic Multiple Live Births 1 Detailed OB History G1 PTSVD G2 Current Past Medical History: Past Medical History: Diagnosis Date Anxiety Depression Past Surgical History: Past Surgical History: Procedure Laterality Date ADENOIDECTOMY CHOLECYSTECTOMY TONSILLECTOMY Allergies: Lamictal [lamotrigine], Latex, Wound dressing adhesive, and Zithromax [azithromycin] Social History: Social History Socioeconomic History Marital status: Spouse name: Not on file Number of children: Not on file Years of education: Not on file Highest education level: Not on file Occupational History Not on file Tobacco Use Smoking status: Never Smokeless tobacco: Never Substance and Sexual Activity Alcohol use: Never Drug use: Never Sexual activity: Not on file Other Topics Concern Not on file Social History Narrative Not on file Social Drivers of Health Financial Resource Strain: Low Risk (01/09/2024) Received from [facility] Overall Financial Resource Strain (CARDIA) Difficulty of Paying Living Expenses: Not hard at all Food Insecurity: No Food Insecurity (01/09/2024) Received from [facility] Hunger Vital Sign Worried About Running Out of Food in the Last Year: Never true Ran Out of Food in the Last Year: Never true Transportation Needs: No Transportation Needs (01/09/2024) Received from [facility] PRAPARE - Transportation Lack of Transportation (Medical): No Lack of Transportation (Non-Medical): No Physical Activity: Sufficiently Active (01/09/2024) Received from [facility] Exercise Vital Sign Days of Exercise per Week: 3 days Minutes of Exercise per Session: 60 min Stress: Stress Concern Present (01/09/2024) Received from [facility] [place] [employer] - Occupational Stress Questionnaire Feeling of Stress : Very much Social Connections: Moderately Isolated (01/09/2024) Received from [facility] Social Connection and Isolation Panel [NHANES] Frequency of Communication with Friends and Family: Twice a week Frequency of Social Gatherings with Friends and Family: Once a week Attends Zoroastrian Services: Never Active Member of Clubs or Organizations: No Attends Club or Organization Meetings: Patient declined Marital Status: Living with partner Intimate Partner Violence: Not on file Housing Stability: Low Risk (01/09/2024) Received from [facility] Housing Stability Vital Sign Unable to Pay for Housing in the Last Year: No Number of Places Lived in the Last Year: 2 Unstable Housing in the Last Year: No Family History: No family history on file. Medications Prior to Admission: Medications Prior to Admission Medication Sig Dispense Refill Last Dose/Taking aspirin 81 MG EC tablet Take 81 mg by mouth daily. buPROPion XL (Wellbutrin XL) 300 MG 24 hr tablet Take 300 mg by mouth daily. Do not crush, chew, or split. cetirizine (ZyrTEC) 10 MG tablet Take 10 mg by mouth daily. omeprazole OTC (PriLOSEC OTC) 20 MG EC tablet Take 20 mg by mouth every morning (before breakfast). Do not crush, chew, or split. MV-Min-Fe Fum-FA-DHA ( 1 PO) Take by mouth daily. progesterone (Endometrin) 100 MG vaginal insert Insert 200 mg into the vagina Nightly. REVIEW OF SYSTEMS: Review of Systems Constitutional: Negative. HENT: Negative. Respiratory: Negative. Cardiovascular: Negative. Gastrointestinal: Negative. Genitourinary: Positive for pelvic pain. Musculoskeletal: Negative. Neurological: Negative. Labs: CBC: Lab Results Component Value Date WBC 11.8 (H) 12/16/2024 RBC 4.24 12/16/2024 HGB 12.4 12/16/2024 HCT 35.8 12/16/2024 MCV 84.4 12/16/2024 MCH 29.2 12/16/2024 MCHC 34.6 12/16/2024 RDW 12.5 12/16/2024 PLT 233 12/16/2024 MPV 9.8 12/16/2024 and CMP: No results found for: NA, K, CL, CO2, BUN, CREATININE, AGRATIO, LABGLOM, GLUCOSE, GLU, PROT, CALCIUM, BILITOT, ALKPHOS, AST, ALT PHYSICAL EXAM: Vitals: 12/16/241925 BP: 110/63 Pulse: 92 Resp: 15 Temp: 36.6 C (97.9 F) TempSrc: Oral SpO2: 99% Weight: 294 lb (133 kg) Height: 5' 6 (1.676 m) General appearance: awake, alert, cooperative, no apparent distress, and appears stated age Neurologic: Awake, alert, oriented to name, place and time. Lungs: No increased work of breathing, good air exchange Abdomen: Soft, non tender, gravid, consistent with her gestational age Sterile Speculum Exam: Membranes: Intact HSV Lesions: not applicable Cervix: 1/50/-3 Contraction frequency: q 5 min Fetus: Presentation: VTX by U/S ASSESSMENT AND PLAN: LABOR DELIVERY ??? SCD's ONLY (labor through ambulation) SCD's PLUS Prophylactic Anticoagulation until discharge SCD's PLUS Prophylactic Anticoagulation for 6 weeks SCD's PLUS Therapeutic Anticoagulation for 6 weeks Vaginal Delivery [] BMI >= 40 kg/m2 Delivery All patients Vaginal Delivery [] BMI >= 40 kg/m2 AND [] Antepartum hospitalization >= 72 hours within the past month Delivery 1 Major Risk Factor: [] BMI >= 35 kg/m2 [] Low Risk Thrombophilia [] PPH+RBCs, IR, or operation [] Infection+Antibiotics [] Antepartum hospitalization >= 72 hours within the past month [] PMH: Sickle Cell, SLE, Cardiac Dz, Active IBD, Active Cancer, Nephrotic Syndrome OR 2 Minor Risk Factors: [] Multiple gestation [] Age > 40 [] PPH >= 1,000cc [] (+)FMH of VTE [] Smoker [] Preeclampsia [] BMI >= 40 kg/m2 AND [] Low Risk Thrombophilia OR ANY OF THE FOLLOWING: [] High Risk Thrombophilia without prior VTE [] Low Risk Thrombophilia with (+)FMH of VTE [] Any single prior VTE ANY OF THE FOLLOWING: [] Already on LMWH/UFH [] Multiple prior VTE [] High Risk Thrombophilia with prior VTE Low Risk Thrombophilia: FVL (heterozygous), Prothrombin (heterozygous), Protein C, Protein S High Risk Thrombophilia: FVL (homozygous), Prothrombin (homozygous), FVL+Prothrombin (heterozygous), Antithrombin III, APLS VTE Prophylaxis: Not Indicated Admission: Admit to Antepartum (PNU) FHR: Category 1, heart monitoring CEFM Labs: GBS collected GC/CT collected Urine collected FFN not obtained Type&Screen collected Serum Labs CBC, CMP Consults: MFM and Neonatology Imaging: Indicated/ordered Growth Diet: General Testing: TBD Timing and Route of Delivery: TBD Medications: Neuroprotection Indicated/ordered Tocolysis Indicated/ordered Antibiotics Not indicated Steroids: Betamethasone - indicated and ordered Threatened Labor Hx PTD - Presented to OSH for contractions, found to be 1 cm dilated, received BMZx1, Procardia tocolysis, and started on magnesium sulfate for neuroprotection - Hx PTD in G1 at 32 weeks - VTX on presentation - SVE /-3, FHT Cat 1, letty q 4-5 minutes - Plan to admit for monitoring, tocolysis, and BMZ - Will defer PCN unless making cervical change - Growth US ordered for am Anxiety Depression - Mood appropriate on admission - Continue Wellbutrin 300 mg daily Obesity - BMI 47 - SCDs ordered Hx Chlamydia - Per labs - GCCT ordered on admission IUP @ 29w6d - VTX 12/16/24 - Monitoring: CEFM - Diet: General - BMZ x1 on 12/[address] Waller, who agrees with plan. Leann Smith DO 12/16/2024, 8:11 PM Cc: Charlette Waller MD Cosigned by Charlette Waller MD at 12/17/2024 11:11 AM EST Associated attestation - Charlette Waller MD - 12/17/2024 11:11 AM EST Attending Supervising Physician's Attestation Statement This patient was admitted overnight while I was special effects person. I discussed the assessment and management with the resident physician. I reviewed and agree with the findings and plan as documented in the note. Patient is 29w6d transferred from Dr. Sanchez for threatened PTL. Cervix only 1/50/-3 but letty regularly and painfully and has h/o 32 week delivery. Cephalic and tracing reassuring. Agree with admission, BMZ, procardia tocolysis, and mag for LAB SUPPORT TECH. Charlette Waller MD [facility] 12-16-2024 Note Attestation signed by Charlette Waller MD at 12/17/2024 11:11 AM Attending Supervising Physician's Attestation Statement This patient was admitted overnight while I was special effects person. I discussed the assessment and management with the resident physician. I reviewed and agree with the findings and plan as documented in the note. Patient is 29w6d transferred from Dr. Sanchez for threatened PTL. Cervix only 1/50/-3 but letty regularly and painfully and has h/o 32 week delivery. Cephalic and tracing reassuring. Agree with admission, BMZ, procardia tocolysis, and mag for LAB SUPPORT TECH. Charlette Waller MD Department of Maternal Medicine History and Physical CHIEF COMPLAINT: Threatened Labor HISTORY OF PRESENT ILLNESS: The patient is a 34 y.o. female at 29w6d. OB History 2 Para 1 Term 1 AB Living 1 SAB IAB Ectopic Multiple Live Births 1 Patient presents with a chief complaint as above and is being admitted for threatened labor. Patient was evaluated at OSH earlier. Noted to be letty and 1 cm. Received BMZ, started on Procardia for tocolysis and neuroprotection. She was transferred here. Patient reports feeling intermittent contractions. She denies vaginal bleeding or LOF. Notes good movement. Reports history of PTD at 32 weeks in first . Transport: No Prior Hospitalizations: No Estimated Due Date: Estimated Date of Delivery: 02/25/25 CARE: Complications: See below PAST OB HISTORY: OB History 2 Para 1 Term 1 AB Living 1 SAB IAB Ectopic Multiple Live Births 1 Detailed OB History G1 PTSVD G2 Current Past Medical History: Past Medical History: Diagnosis Date Anxiety Depression Past Surgical History: Past Surgical History: Procedure Laterality Date ADENOIDECTOMY CHOLECYSTECTOMY TONSILLECTOMY Allergies: Lamictal [lamotrigine], Latex, Wound dressing adhesive, and Zithromax [azithromycin] Social History: Social History Socioeconomic History Marital status: Spouse name: Not on file Number of children: Not on file Years of education: Not on file Highest education level: Not on file Occupational History Not on file Tobacco Use Smoking status: Never Smokeless tobacco: Never Substance and Sexual Activity Alcohol use: Never Drug use: Never Sexual activity: Not on file Other Topics Concern Not on file Social History Narrative Not on file Social Drivers of Health Financial Resource Strain: Low Risk (01/09/2024) Received from [facility] Overall Financial Resource Strain (CARDIA) Difficulty of Paying Living Expenses: Not hard at all Food Insecurity: No Food Insecurity (01/09/2024) Received from [facility] Hunger Vital Sign Worried About Running Out of Food in the Last Year: Never true Ran Out of Food in the Last Year: Never true Transportation Needs: No Transportation Needs (01/09/2024) Received from [facility] PRAPARE - Transportation Lack of Transportation (Medical): No Lack of Transportation (Non-Medical): No Physical Activity: Sufficiently Active (01/09/2024) Received from [facility] Exercise Vital Sign Days of Exercise per Week: 3 days Minutes of Exercise per Session: 60 min Stress: Stress Concern Present (01/09/2024) Received from [facility] [place] [employer] - Occupational Stress Questionnaire Feeling of Stress : Very much Social Connections: Moderately Isolated (01/09/2024) Received from [facility] Social Connection and Isolation Panel [NHANES] Frequency of Communication with Friends and Family: Twice a week Frequency of Social Gatherings with Friends and Family: Once a week Attends Zoroastrian Services: Never Active Member of Clubs or Organizations: No Attends Club or Organization Meetings: Patient declined Marital Status: Living with partner Intimate Partner Violence: Not on file Housing Stability: Low Risk (01/09/2024) Received from [facility] Housing Stability Vital Sign Unable to Pay for Housing in the Last Year: No Number of Places Lived in the Last Year: 2 Unstable Housing in the Last Year: No Family History: No family history on file. Medications Prior to Admission: Medications Prior to Admission Medication Sig Dispense Refill Last Dose/Taking aspirin 81 MG EC tablet Take 81 mg by mouth daily. buPROPion XL (Wellbutrin XL) 300 MG 24 hr tablet Take 300 mg by mouth daily. Do not crush, chew, or split. cetirizine (ZyrTEC) 10 MG tablet Take 10 mg by mouth daily. omeprazole OTC (PriLOSEC OTC) 20 MG EC tablet Take 20 mg by m (more content not included)... [facility] 12-16-2024 History and physical note Department of Maternal Medicine History and Physical CHIEF COMPLAINT: Threatened Labor HISTORY OF PRESENT ILLNESS: The patient is a 34 y.o. female at 29w6d. OB History 2 Para 1 Term 1 AB Living 1 SAB IAB Ectopic Multiple Live Births 1 Patient presents with a chief complaint as above and is being admitted for threatened labor. Patient was evaluated at OSH earlier. Noted to be letty and 1 cm. Received BMZ, started on Procardia for tocolysis and neuroprotection. She was transferred here. Patient reports feeling intermittent contractions. She denies vaginal bleeding or LOF. Notes good movement. Reports history of PTD at 32 weeks in first . Transport: No Prior Hospitalizations: No Estimated Due Date: Estimated Date of Delivery: 02/25/25 CARE: Complications: See below PAST OB HISTORY: OB History 2 Para 1 Term 1 AB Living 1 SAB IAB Ectopic Multiple Live Births 1 Detailed OB History G1 PTSVD G2 Current Past Medical History: Past Medical History: Diagnosis Date Anxiety Depression Past Surgical History: Past Surgical History: Procedure Laterality Date ADENOIDECTOMY CHOLECYSTECTOMY TONSILLECTOMY Allergies: Lamictal [lamotrigine], Latex, Wound dressing adhesive, and Zithromax [azithromycin] Social History: Social History Socioeconomic History Marital status: Spouse name: Not on file Number of children: Not on file Years of education: Not on file Highest education level: Not on file Occupational History Not on file Tobacco Use Smoking status: Never Smokeless tobacco: Never Substance and Sexual Activity Alcohol use: Never Drug use: Never Sexual activity: Not on file Other Topics Concern Not on file Social History Narrative Not on file Social Drivers of Health Financial Resource Strain: Low Risk (01/09/2024) Received from [facility] Overall Financial Resource Strain (CARDIA) Difficulty of Paying Living Expenses: Not hard at all Food Insecurity: No Food Insecurity (01/09/2024) Received from [facility] Hunger Vital Sign Worried About Running Out of Food in the Last Year: Never true Ran Out of Food in the Last Year: Never true Transportation Needs: No Transportation Needs (01/09/2024) Received from [facility] PRAPARE - Transportation Lack of Transportation (Medical): No Lack of Transportation (Non-Medical): No Physical Activity: Sufficiently Active (01/09/2024) Received from [facility] Exercise Vital Sign Days of Exercise per Week: 3 days Minutes of Exercise per Session: 60 min Stress: Stress Concern Present (01/09/2024) Received from [facility] [place] [employer] - Occupational Stress Questionnaire Feeling of Stress : Very much Social Connections: Moderately Isolated (01/09/2024) Received from [facility] Social Connection and Isolation Panel [NHANES] Frequency of Communication with Friends and Family: Twice a week Frequency of Social Gatherings with Friends and Family: Once a week Attends Zoroastrian Services: Never Active Member of Clubs or Organizations: No Attends Club or Organization Meetings: Patient declined Marital Status: Living with partner Intimate Partner Violence: Not on file Housing Stability: Low Risk (01/09/2024) Received from [facility] Housing Stability Vital Sign Unable to Pay for Housing in the Last Year: No Number of Places Lived in the Last Year: 2 Unstable Housing in the Last Year: No Family History: No family history on file. Medications Prior to Admission: Medications Prior to Admission Medication Sig Dispense Refill Last Dose/Taking aspirin 81 MG EC tablet Take 81 mg by mouth daily. buPROPion XL (Wellbutrin XL) 300 MG 24 hr tablet Take 300 mg by mouth daily. Do not crush, chew, or split. cetirizine (ZyrTEC) 10 MG tablet Take 10 mg by mouth daily. omeprazole OTC (PriLOSEC OTC) 20 MG EC tablet Take 20 mg by mouth every morning (before breakfast). Do not crush, chew, or split. MV-Min-Fe Fum-FA-DHA ( 1 PO) Take by mouth daily. progesterone (Endometrin) 100 MG vaginal insert Insert 200 mg into the vagina Nightly. REVIEW OF SYSTEMS: Review of Systems Constitutional: Negative. HENT: Negative. Respiratory: Negative. Cardiovascular: Negative. Gastrointestinal: Negative. Genitourinary: Positive for pelvic pain. Musculoskeletal: Negative. Neurological: Negative. Labs: CBC: Lab Results Component Value Date WBC 11.8 (H) 12/16/2024 RBC 4.24 12/16/2024 HGB 12.4 12/16/2024 HCT 35.8 12/16/2024 MCV 84.4 12/16/2024 MCH 29.2 12/16/2024 MCHC 34.6 12/16/2024 RDW 12.5 12/16/2024 PLT 233 12/16/2024 MPV 9.8 12/16/2024 and CMP: No results found for: NA, K, CL, CO2, BUN, CREATININE, AGRATIO, LABGLOM, GLUCOSE, GLU, PROT, CALCIUM, BILITOT, ALKPHOS, AST, ALT PHYSICAL EXAM: Vitals: 12/16/24 1926 BP: 110/63 Pulse: 92 Resp: 15 Temp: 36.6 C (97.9 F) TempSrc: Oral SpO2: 99% Weight: 294 lb (133 kg) Height: 5' 6 (1.676 m) General appearance: awake, alert, cooperative, no apparent distress, and appears stated age Neurologic: Awake, alert, oriented to name, place and time. Lungs: No increased work of breathing, good air exchange Abdomen: Soft, non tender, gravid, consistent with her gestational age Sterile Speculum Exam: Membranes: Intact HSV Lesions: not applicable Cervix: 1/50/-3 Contraction frequency: q 5 min Fetus: Presentation: VTX by U/S ASSESSMENT AND PLAN: LABOR DELIVERY ??? SCD's ONLY (labor through ambulation) SCD's PLUS Prophylactic Anticoagulation until discharge SCD's PLUS Prophylactic Anticoagulation for 6 weeks SCD's PLUS Therapeutic Anticoagulation for 6 weeks Vaginal Delivery [] BMI >= 40 kg/m2 Delivery All patients Vaginal Delivery [] BMI >= 40 kg/m2 AND [] Antepartum hospitalization >= 72 hours within the past month Delivery 1 Major Risk Factor: [] BMI >= 35 kg/m2 [] Low Risk Thrombophilia [] PPH+RBCs, IR, or operation [] Infection+Antibiotics [] Antepartum hospitalization >= 72 hours within the past month [] PMH: Sickle Cell, SLE, Cardiac Dz, Active IBD, Active Cancer, Nephrotic Syndrome OR 2 Minor Risk Factors: [] Multiple gestation [] Age > 40 [] PPH >= 1,000cc [] (+)FMH of VTE [] Smoker [] Preeclampsia [] BMI >= 40 kg/m2 AND [] Low Risk Thrombophilia OR ANY OF THE FOLLOWING: [] High Risk Thrombophilia without prior VTE [] Low Risk Thrombophilia with (+)FMH of VTE [] Any single prior VTE ANY OF THE FOLLOWING: [] Already on LMWH/UFH [] Multiple prior VTE [] High Risk Thrombophilia with prior VTE Low Risk Thrombophilia: FVL (heterozygous), Prothrombin (heterozygous), Protein C, Protein S High Risk Thrombophilia: FVL (homozygous), Prothrombin (homozygous), FVL+Prothrombin (heterozygous), Antithrombin III, APLS VTE Prophylaxis: Not Indicated Admission: Admit to Antepartum (PNU) FHR: Category 1, heart monitoring CEFM Labs: GBS collected GC/CT collected Urine collected FFN not obtained Type&Screen collected Serum Labs CBC, CMP Consults: MFM and Neonatology Imaging: Indicated/ordered Growth Diet: General Testing: TBD Timing and Route of Delivery: TBD Medications: Neuroprotection Indicated/ordered Tocolysis Indicated/ordered Antibiotics Not indicated Steroids: Betamethasone - indicated and ordered Threatened Labor Hx PTD - Presented to OSH for contractions, found to be 1 cm dilated, received BMZx1, Procardia tocolysis, and started on magnesium sulfate for neuroprotection - Hx PTD in G1 at 32 weeks - VTX on presentation - SVE 50/-3, FHT Cat 1, letty q 4-5 minutes - Plan to admit for monitoring, tocolysis, and BMZ - Will defer PCN unless making cervical change - Growth US ordered for am Anxiety Depression - Mood appropriate on admission - Continue Wellbutrin 300 mg daily Obesity - BMI 47 - SCDs ordered Hx Chlamydia - Per labs - GCCT ordered on admission IUP @ 29w6d - VTX 12/16/24 - Monitoring: CEFM - Diet: General - BMZ x1 on 12/[address] Waller, who agrees with plan. Leann Smith DO 12/16/2024, 8:11 PM Cc: Charlette Waller MD Cosigned by Charlette Waller MD at 12/17/2024 11:11 AM EST Associated attestation - Charlette Waller MD - 12/17/2024 11:11 AM EST Attending Supervising Physician's Attestation Statement This patient was admitted overnight while I was special effects person. I discussed the assessment and management with the resident physician. I reviewed and agree with the findings and plan as documented in the note. Patient is 29w6d transferred from Dr. Sanchez for threatened PTL. Cervix only /-3 but letty regularly and painfully and has h/o 32 week delivery. Cephalic and tracing reassuring. Agree with admission, BMZ, procardia tocolysis, and mag for LAB SUPPORT TECH. Charlette Waller MD documented in this encounter [facility] 09-26-2024 Telephone encounter Note The following approved medication requests have been transmitted electronically. Requested Prescriptions Pending Prescriptions Disp Refills buPROPion XL (WELLBUTRIN XL) 300 mg 24 hr tablet 90 tablet 0 Sig: Take 1 tablet by mouth once daily. Nicci Pratt APRN.CNP [facility] 09-26-2024 Miscellaneous Notes The following approved medication requests have been transmitted electronically. Requested Prescriptions Pending Prescriptions Disp Refills buPROPion XL (WELLBUTRIN XL) 300 mg 24 hr tablet 90 tablet 0 Sig: Take 1 tablet by mouth once daily. Nicci Pratt APRN.CNP Prescription Refill Information The patient has been identified by name and date of : Yes Caregiver verified no other encounters exist for this prescription request: Yes Caregiver confirmed with patient/requestor that no other refills are due, in the near future, with this provider at this time: Yes The last office visit in the department: 01/10/2024 Does the patient have a future office visit with this provider/department: No Requested Prescriptions Pending Prescriptions Disp Refills buPROPion XL (WELLBUTRIN XL) 300 mg 24 hr tablet 90 tablet 3 Sig: Take 1 tablet by mouth once daily. Nicci Bojorquez LPN September 26, 2024 10:11 AM documented in this encounter [facility] 09-26-2024 Telephone encounter Note Prescription Refill Information The patient has been identified by name and date of : Yes Caregiver verified no other encounters exist for this prescription request: Yes Caregiver confirmed with patient/requestor that no other refills are due, in the near future, with this provider at this time: Yes The last office visit in the department: 01/10/2024 Does the patient have a future office visit with this provider/department: No Requested Prescriptions Pending Prescriptions Disp Refills buPROPion XL (WELLBUTRIN XL) 300 mg 24 hr tablet 90 tablet 3 Sig: Take 1 tablet by mouth once daily. Nicci Bojorquez LPN September 26, 2024 10:11 AM [facility] 08-12-2024 Note [facility] CONSULTATION Referring Provider Rafia Sanchez MD [id number] [address] Reason for Consult: History of ASSESSMENT AND RECOMMENDATIONS The patient comes today for discussion of her history of . Notably, in her prior , she reports initially going into labor around 30 weeks. She subsequently delivered at 32 weeks. From the discussion, I infer that her child is doing well now. Regarding her history of spontaneous , we discussed that any history of a prior spontaneous before 37 weeks does come with an inherent risk of recurrence with future pregnancies (15-55%). Intervention strategies to help reduce this recurrence risk were reviewed with the patient. The historic standard approach had been to offer weekly 17-Hydroxyprogesterone caproate between 16 and 36 weeks gestation to helpprevent a recurrent spontaneous . We reviewed the Meis (33% reduction in PTB) and PROLONG (no difference) trial and the conflicting results regarding 17-OHP. We discussed the differences in the study populations and current recommendations regarding progesterone supplementation in . It seems quite reasonable to offer vaginal progesterone (prometrium 200 mg QHS) for persons with a history of . After discussion, patient desires vaginal progesterone, and this was sent to her pharmacy. We reviewed there are no known defects associated with either progestin during , but true long-term data is limited. In addition to this treatment, serial cervical length surveillance via transvaginal ultrasound would also be recommended, at least every 2 weeks between 16 and 24 weeks. In the event that her cervical length was to become less than 25 mm during this period of surveillance, she would be a candidate for cerclage placement. Empiric or prophylactic cerclage placement for this patient would not necessarily be recommended. The population that tends to benefit most from this practice would be those who have cervical length <15 mm or have had a history of mid-trimester losses. Patient reports that she had noninvasive genetic screening performed recently that has not resulted. We will attempt to obtain a copy of the results when they become available. Recommendations 1. Initiate nightly prometrium (200 mg QHS) at 16 weeks gestation. Continue through 36 weeks gestation. 2. TV ultrasound cervical length every two weeks from 16-22 weeks. 3. If cervical length < 25 mm during that time, offer ultrasound indicated cerclage. 4. Low dose aspirin for preeclampsia prevention. 5. Continue Wellbutrin XL 300 mg daily and counseling as previously engaged. Sally MOODYA FACOG Maternal- Medicine References Wolfgang PIERSON, Esperanza M, John Mccarthy, et al. Prevention of recurrent delivery by 17 alpha-hydroxyprogesterone caproate [published correction appears in N Engl J Med. 2002Aug 13;349(13):1299] [published correction appears in N Engl J Med. 2023May 29;391(2):192. doi: 10.1056/[id number]]. N Engl J Med. 2003;348(24):8348-1913. doi:10.1056/[id number] Smith BENÍTEZ, Maynor Panchal, Angela DURAND Jr, et al. 17-OHPC to Prevent Recurrent in Louis Gestations (PROLONG Study): A Multicenter, International, Randomized Double-Blind Trial. Am J Perinatol. 2020;37(2):127-136. doi:10.1055/[id number] CARLOS A Quinn is a 34 y.o. at 11w6d who presents in consultation given her history of . In her last , she went into labor at 30 weeks, then delivered at 32 weeks. Notably, this is a new FOB and there may have been some trauma in the prior relationship. There is definitely some remaining psychosocial trauma, and it is uncertain if there is a history of physical trauma proximate to her (but it seems not). She presents without other complaints. She otherwise denies a history of uterine or cervical procedures. She does not smoke cigarettes. Prior treatment for include: none The patient had genetic screening in this that has not yet resulted. The patient denies a personal or family history of chromosomal disorders, genetic syndromes, defects, or developmental delay. Today the patient denies vaginal bleeding, or SAB complaints. She denies headache, visual changes, or right upper quadrant/epigastric pain. We performed a detailed ROS including screening for general, gastrointestinal, respiratory, cardiac, renal, urological symptoms and the patient has no pertinent positives on screen. OB History Para Term AB Living 2 1 1 1 SAB IAB Ectopic Multiple Live Births 1 # Outcome Date GA Lbr Lucho/2nd Weight Sex Type Anes PTL Lv 2 Current 1 2014 32w0d 1.616 kg F Vag-Spont EPI Y ARIAN Past Medical History: Diagnosis Date (more content not included)... [facility] 02-12-2024 Miscellaneous Notes Called pt to schedule Mail box was full. This is the 3rd attempt. Phone encounter is being closed 02-08 second attempt. Voice mail full unable to leave a message. Send DocDep message. Porsha Ramos LVM to schedule sleep study Set up Call to pt and notified her of results and recommendations below from Provider. Pt agreeable to in lab sleep test. Notified pt that once order is placed, we will route her chart to a Planting Machine Crewman who will contact her to assist in scheduling appt. Pt verbalized understanding. Connie Lee Ma Her home sleep study was indeterminate. If we want to rule out sleep apnea, is going to have to do an in lab study. Let me know if willing. documented in this encounter [facility] 02-05-2024 History of Presen t illness Narrative Sleep Study Check-In Documentation Date: February 05, 2024 Name: Arsh Quinn Comments: HST was returned in working order with all sleep questionnaires Daya Piña Nomad#[id number] , date shipped out 01/30 Tracking mailout:[id number] fedex Tracking return: [id number] January 31, 2024 Standing PSG Orders signed in the last 90 days None Future PSG Orders signed in the last 90 days None All Prior Sleep Studies (past 365 days) 08/13/2023 19:52 Sleep Studies HOME SLEEP APNEA TEST (HSAT) HOME SLEEP APNEA TEST (HSAT) Order Status: Ordered, Future Expires: 08/12/24 BMI Readings from Last 2 Encounters: 01/10/24 : 46.32 kg/m 08/13/23 : 48.42 kg/m PAST MEDICAL HISTORY Diagnosis Date Abnormal Pap smear cin1 Abnormal Pap smear of cervix BMI 34.0-34.9,adult Chlamydia Depression Gonorrhea Mild intermittent asthma without complication as child -- allergy related Oligomenorrhea PCOS (polycystic ovarian syndrome) The medical record was reviewed to determine if the proposed sleep study conforms to the AASM Practice Parameters for the Indications for Polysomnography and Related Procedures, or if the sleep study is indicated for other reasons. Indications for study: LYNDA suspected with comorbid medical or sleep disorders: Neurologic diseases including neuromuscular disease or stroke Morbid obesity (BMI>40 kg/m2) Sleep study to be performed: Home Sleep Apnea Test (HSAT) Special instructions: None-follow laboratory protocol Samia Bermudez --- Sleep Medicine Staff Note: I have read the above protocol, edited as needed, and agree to the plan. Minh Hamilton III, PhD 5:38 PM, 01/31/2024 January 30, 2024 An order has been received for Home Sleep Apnea Test (HSAT) from Harley Jacob MD , a B[facility] Staff. Visit prep complete. Comments :No The sleep study is scheduled for 01/31. Insurance: Payor: [employer]ICA[employer] / Plan: [facility] MEDICAID / Product Type: Medicaid / Payer/Plan Subscr Sex Relation Sub. Ins. ID Effective Group Num 1. [employer]* ARSH QUINN 1990 Female Self [id number] [birth year]/22 [address] Gloria Zaidi documented in this encounter [facility] 01-10-2024 Miscellaneous Notes Labs were sent by secure messaging. Patient agreed to this at her appointment. documented in this encounter [facility] 01-10-2024 Instructions Nicci Pratt APRN.CNS - 01/10/2024 10:22 AM EST 1) Get labs done 2) Follow up in 6 months 3) Continue exercise and fruits and vegetables documented in this encounter [facility] 01-10-2024 History of Presen t illness Narrative Chief Reason For Appointment Patient presents with: Yearly Exam Arsh Quinn is a 33 year old female who presents for annual exam. Last office visit date: 08/13/2023 Accompanied By self only Have you had any critical events, hospital stays, ER visits, surgeries or procedures since your last visit here in our office: No Specialists/Other Healthcare Providers Seen: Patient Care Team: Harley Liu MD as PCP - General (Family Medicine) Concerns today: Anxiety, depression, no extended periods of time- some trouble falling asleep, episodes twice in last week as a response to stressors that cause crying, some shortness, no palpitations during these episodes Periods 33-39 apart, uneventful, unprotected sex with fiance- not trying to prevent HPI Just wants a good check up- seeing mental health tomorrow Active Problems 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 Rescreen third trimester Nadia Garcia MD Former Smoker - 04/28/2015 Comment: d/w her options for cessation. Encouraged cut back if not ready for cessation. Counseled on risks Nadia Garcia MD Suicide Attempt ([facility]) - 04/05/2015 Comment: Suicide attempt (wrists) pink slipped to psych unit at [facility] 04/04/18 -JV April 28, 2015 On prozac and welbutrin now. Stable. Seeing counselor. Nadia Garcia MD Pcos (Polycystic Ovarian Syndrome) - 04/11/2013 Depression - 01/09/2013 Lumbago - 12/26/2012 ROS: GENERAL: 10 lb weight loss with effort, no malaise or fevers/chills- feels feverish HEENT: Negative for frequent or significant headaches, No changes in hearing or vision. NECK: Negative for lumps, goiter, pain and significant neck swelling RESPIRATORY: Negative for cough, hemoptysis, wheezing, dyspnea or shortness of breath CARDIOVASCULAR: Negative for chest pain, leg swelling, orthopnea, or palpitations GI: Some nausea, no vomiting, or diarrhea/constipation. No hematochezia/melena. No heartburn or reflux symptoms with omeprazole. : No history of dysuria, frequency or incontinence MUSCULOSKELETAL: Negative for joint pain or swelling except for working out. Previous chronic low back pain SKIN: Negative for lesions, rash, and itching, some pustules on breasts that she picks at ENDOCRINE: Negative for cold or heat intolerance, polyuria, polydipsia and goiter NEURO: No history of headaches, syncope, paralysis, seizures or tremors MOOD: Positive for depression and anxiety, no suicidal ideation. PAST MEDICAL HISTORY Diagnosis Date Abnormal Pap smear cin1 Abnormal Pap smear of cervix BMI 34.0-34.9,adult Chlamydia Depression Gonorrhea Mild intermittent asthma without complication as child -- allergy related Oligomenorrhea PCOS (polycystic ovarian syndrome) PAST SURGICAL HISTORY Procedure Laterality Date COLPOSCOPY 2007 LAPS SURG CHOLECYSTECTOMY W/CHOLANGIOGRAPHY 07/29/13 normal IOC REMOVE TONSILS/ADENOIDS,<12 Y/O Medication List Current Outpatient Medications Medication Sig Dispense Refill buPROPion XL (WELLBUTRIN XL) 300 mg 24 hr tablet Take 1 tablet by mouth once daily. 90 tablet 3 omeprazole (PRILOSEC) 20 mg capsule Take 1 capsule by mouth once daily. 90 capsule 1 multivitamin tablet Take 1 tablet by mouth once daily. Cetirizine (ZYRTEC) 10 mg cap Take 2 capsules by mouth once daily. 0 No current facility-administered medications for this visit. Weight Summary: Weight Change: Body mass index is 46.32 kg/m . Last Wt 01/10/24 : 130.2 kg (287 lb) 08/13/23 : 136.1 kg (300 lb) 11/23/22 : 134.7 kg (297 lb) 10/18/21 : 129.7 kg (286 lb) 10/06/21 : 129.3 kg (285 lb) Physical Exam: General Appearance: well appearing, alert and oriented. Skin: no suspicious lesion, no rash, no open sores Head: normocephalic, no obvious masses, lesions, tenderness or abnormalities. Eyes: Anicteric sclera. Pupils are equally round and reactive to light. Extraocular movements are intact. No nystagmus. Fundi benign. Ears: external ears normal, canals clear, TM's normal. Hearing to conversational voice intact. Oropharynx: lips, mucosa, and tongue normal, oropharynx normal. Neck: trachea midline, thyroid without mass or nodularity, thyroid moves normally with swallow, no regional lymphadenopathy. Carotids normal upstroke, no bruit or thrill. Lungs: Chest rise & fall symmetrical, Lungs clear to auscultation. No wheezing or rhonchi. No rales. Abdomen: normal bowel sounds, no mass, non-tender Heart: S1S2, no gallop, no rub, no murmur Lymph Nodes: no lymphadenopathy noted Ext: no clubbing, cyanosis or edema. Mood: bright affect, speech clear, answers questions appropriately SCREENINGS Health Maintenance Listing HPV Testing Pap Testing are due and referred bacjk to SQL DATABASE ADMINISTRATOR A/P: ASSESSMENT/PLAN: 1. Radiculopathy, lumbar region - ICD9: 724.4, ICD10: M54.16 (primary diagnosis) Mechanical low back pain Exercising regularly and losing weight 2. GERD without esophagitis - ICD9: 530.81, ICD10: K21.9 - Stable on PPI - MAGNESIUM BLD 3. Obesity, Class III, BMI 40-49.9 (morbid obesity) (HCC) - ICD9: 278.01, ICD10: E66.01 Weight decreasing - Add continue on HEP and watching diet- weight loss in progress - MAGNESIUM BLD - COMP METABOLIC PANEL - LIPID PANEL BASIC - TSH BLD 4. Former smoker - ICD9: V15.82, ICD10: Z87.891 Stable off nicotine replacement - CBC + DIFF 5. Chronic low back pain with sciatica, sciatica laterality unspecified, unspecified back pain laterality - ICD9: 724.2, 724.3, 338.29, ICD10: M54.40, G89.29 Mechanical low back pain - Follow up in us or sooner if symptoms persist or worsen - Continue HEP 6. Current severe episode of major depressive disorder with psychotic features, unspecified whether recurrent (HCC) - ICD9: 296.24, ICD10: F32.3 - seeing MH tomorrow - CBC + DIFF 7. Screening for cervical cancer - ICD9: V76.2, ICD10: Z12.4 - Check hormone levels and follow up with SQL DATABASE ADMINISTRATOR for family planning 8. Family planning - ICD9: V25.09, ICD10: Z30.09 - Consider vitamin if having unprotected sex - CONSULT TO GYNECOLOGY - CBC + DIFF 9. Premenstrual dysphoric disorder - ICD9: 625.4, ICD10: F32.81 - Still an issue, follow up SQL DATABASE ADMINISTRATOR - HCG QUAL UR - LUTEINIZING HORMONE - FSH BLD - PROLACTIN BLD Follow up in 6 months Discussed treatment plan and patient voices understanding. Patient's questions answered appropriately. Medications and potential side effects were discussed and patient voices understanding. Return to the office as scheduled or as needed for worsening/no improvement. Nicci Pratt APRN.SALVAGE MACHINE OPERATOR Follow Up Plans: 6m documented in this encounter [facility] 09-17-2023 Miscellaneous Notes Patient has been identified by name and date of : Yes Requested Prescriptions Pending Prescriptions Disp Refills buPROPion XL (WELLBUTRIN XL) 300 mg 24 hr tablet 90 tablet 3 Sig: Take 1 tablet by mouth once daily. RX INSTRUCTIONS: Patient aware RX will be sent to pharmacy. No need to notify patient. Patient last office visit: 08/13/23 Patient next office visit: none scheduled Angie Ledbetter MA documented in this encounter [facility] 01-15-2023 Miscellaneous Notes See Myra's chart for additional communication. Seth Wallace PA-C See message from pt's mother. Pt of GB. Please advise. Connie Lee Ma documented in this encounter [facility] 11-23-2022 History of Presen t illness Narrative Patient presents with: Follow Up HPI: Patient presents today for office visit for follow up. Has stopped ocp's. Has been on meds previously when . Not planning currently but reviewed risks and benefits. Tolerating wellbutrin. Sleeping well. Energy levels are good. No mood issues. MEDICATIONS: Current Outpatient Medications Medication Sig buPROPion XL (WELLBUTRIN XL) 300 mg 24 hr tablet Take 1 tablet by mouth once daily. multivitamin tablet Take 1 tablet by mouth once daily. Cetirizine (ZYRTEC) 10 mg cap Take 2 capsules by mouth once daily. omeprazole (PRILOSEC) 20 mg capsule Take 1 capsule by mouth once daily. acetaminophen (TYLENOL ARTHRITIS ORAL) Take by mouth as needed. No current facility-administered medications for this visit. ALLERGIES: ALLERGIES Allergen Reactions Adhesive Tape (Shana* Other: See Comments Irritation, inflammation, itching Lamictal [Lamotrigi* Other: See Comments Increased agitation and anxiety Latex Itching PAST MEDICAL HISTORY Diagnosis Date Abnormal Pap smear cin1 Abnormal Pap smear of cervix BMI 34.0-34.9,adult Chlamydia Depression Gonorrhea Mild intermittent asthma without complication as child -- allergy related Oligomenorrhea PCOS (polycystic ovarian syndrome) PAST SURGICAL HISTORY Procedure Laterality Date COLPOSCOPY 2007 LAPS SURG CHOLECYSTECTOMY W/CHOLANGIOGRAPHY 07/29/13 normal IOC REMOVE TONSILS/ADENOIDS,<12 Y/O FAMILY HISTORY Problem Relation Age of Onset Hypertension Mother other (mi) Father Diabetes Maternal Grandmother Hypertension Maternal Grandmother Heart Maternal Grandmother Stroke Maternal Grandmother Diabetes Maternal Grandfather Hypertension Maternal Grandfather Heart Maternal Grandfather Cancer Maternal Grandfather Multiple Myeloma Diabetes Paternal Grandfather Heart Paternal Grandfather Social History Tobacco Use Smoking status: Light Smoker Packs/day: 0.50 Years: 8.00 Pack years: 4.00 Types: Cigarettes Last attempt to quit: 02/26/2018 Years since quittin.7 Smokeless tobacco: Never Tobacco comments: using e cigarette has nicotine in it Vaping Use Vaping Use: current everyday user Substance Use Topics Alcohol use: Yes Comment: 1 drink per week Drug use: No Discussed tobacco cessation, including risks of continued use. Offered assistance to help quit if patient desires. Reviewed current medications, allergies, past medical history, surgical history, family history and social history today. REVIEW OF SYSTEMS RESPIRATORY: Negative for cough, hemoptysis, wheezing, COPD, dyspnea or shortness of breath CARDIOVASCULAR: Negative for chest pain, leg swelling, hypertension, CHF or palpitations GI: No nausea, vomiting, or diarrhea : No history of dysuria, frequency or incontinence SKIN: Negative for lesions, rash, and itching All other reviewed and negative other than HPI. HEALTH MAINTENANCE: Reviewed health maintenance issues today and recommended the following in detail. 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 COVID-19 VACCINE(3 - Booster for Pfizer series) due on 10/31/2021 INFLUENZA(1) due on 07/20/2022 VITALS: BP 112/82 Pulse 94 Wt 134.7 kg (297 lb) LMP 05/03/2021 (LMP Unknown) SpO2 99% BMI 47.94 kg/m Last 4 Encounter Wt Readings: Date: Wt: 11/23/2022 134.7 kg (297 lb) 05/05/2022 0 kg () 10/18/2021 129.7 kg (286 lb) 10/06/2021 129.3 kg (285 lb) PHYSICAL EXAMINATION: General appearance: Well appearing, alert, in no acute distress, well-hydrated, well nourished. Skin: Skin color, texture, turgor normal, no suspicious rashes or lesions Head: Normocephalic, no masses, lesions, tenderness or abnormalities Eyes: Anicteric sclera. Pupils are equally round and reactive to light. Extraocular movements are intact. Ears: External ears normal, canals clear Nose/Sinuses: Nares normal, septum midline, mucosa normal, no drainage or sinus tenderness Neck: Supple, no adenopathy; thyroid symmetric, normal size, no bruits Back: Normal exam Lungs: Lungs clear to auscultation. No wheezing, rhonchi, rales Heart: RRR without murmur, gallop, or rubs. No ectopy Abdomen: Normal abdominal exam, Abdomen soft, non-tender. Bowel sounds normal. No masses, organomegaly Extremities: No deformities, edema, skin discoloration, clubbing or cyanosis. Good capillary refill. Musculoskeletal: No joint swelling, deformity, or tenderness Peripheral pulses: Normal Neuro: Negative. ASSESSMENT/PLAN: 1. Well adult exam - ICD9: V70.0, ICD10: Z00.00 (primary diagnosis) - was in why weight at [facility]. Discussed weight loss. 2. GERD without esophagitis - ICD9: 530.81, ICD10: K21.9 - stable 3. Persistent depressive disorder - ICD9: 300.4, ICD10: F34.1 - continue meds. Harley Liu MD documented in this encounter [facility] 05-05-2022 History of Presen t illness Narrative Subjective HPI HPI Arsh Quinn is a 31 year old female who presents today for CC of protracted respiratory symptoms that started April 18 (lasting ~2.5 weeks). Pt had rapid, which was + on 04/21, then had + PCR here on 04/23. She is now c/o continued thick PND, getting winded easily, and dizziness intermittently. Also c/o continued tension in neck and upper back. Had taken mucinex with some relief. Had pfizer vaccine x2, with most recent 09/08- never received the booster. BP 126/78 Pulse 85 Temp 36.9 C (98.4 F) Resp 16 LMP 05/03/2021 (LMP Unknown) SpO2 99% ALLERGIES Allergen Reactions Adhesive Tape (Shana* Other: See Comments Irritation, inflammation, itching Lamictal [Lamotrigi* Other: See Comments Increased agitation and anxiety Latex Itching ACTIVE PROBLEM LIST Lumbago Depression Pcos (Polycystic Ovarian Syndrome) Suicide Attempt ([facility]) Supervision of Normal First History of Sexually Transmitted Disease Former Smoker Obesity, Class Iii, Bmi 40-49.9 (Morbid Obesity) ([facility]) Gerd Without Esophagitis Radiculopathy, Lumbar Region Family History Problem Relation Age of Onset Hypertension Mother Diabetes Maternal Grandmother Hypertension Maternal Grandmother Heart Maternal Grandmother Stroke Maternal Grandmother Diabetes Maternal Grandfather Hypertension Maternal Grandfather Heart Maternal Grandfather Cancer Maternal Grandfather Multiple Myeloma Diabetes Paternal Grandfather Heart Paternal Grandfather Social History Tobacco Use Smoking status: Light Tobacco Smoker Packs/day: 0.50 Years: 8.00 Pack years: 4.00 Types: Cigarettes Last attempt to quit: 02/26/2018 Years since quittin.1 Smokeless tobacco: Never Used Tobacco comment: using e cigarette has nicotine in it Vaping Use Vaping Use: current everyday user Substance Use Topics Alcohol use: Yes Comment: 1 drink per week Drug use: No Review of Systems Constitutional: Negative for chills, fever and malaise/fatigue. HENT: Negative for congestion, ear pain, sinus pain and sore throat. Respiratory: Positive for cough and shortness of breath (Mildly winded at times). Negative for sputum production and wheezing. Cardiovascular: Negative for chest pain. Neurological: Negative for headaches. Objective BP 126/78 Pulse 85 Temp 36.9 C (98.4 F) Resp 16 LMP 05/03/2021 (LMP Unknown) SpO2 99% Physical Exam HENT: Head: Normocephalic. Right Ear: Tympanic membrane, ear canal and external ear normal. No drainage. No middle ear effusion. Tympanic membrane is not perforated, erythematous, retracted or bulging. Left Ear: Ear canal normal. No drainage. No middle ear effusion. Tympanic membrane is not perforated, erythematous, retracted or bulging. Nose: No rhinorrhea. Right Sinus: No maxillary sinus tenderness or frontal sinus tenderness. Left Sinus: No maxillary sinus tenderness or frontal sinus tenderness. Mouth/Throat: Pharynx: Uvula midline. No oropharyngeal exudate or posterior oropharyngeal erythema. Tonsils: No tonsillar abscesses. Eyes: General: Lids are normal. Conjunctiva/sclera: Conjunctivae normal. Cardiovascular: Rate and Rhythm: Normal rate and regular rhythm. Heart sounds: S1 normal and S2 normal. No friction rub. Pulmonary: Effort: Pulmonary effort is normal. Breath sounds: Normal breath sounds. No wheezing, rhonchi or rales. Lymphadenopathy: Head: Right side of head: No submental, submandibular, tonsillar, preauricular, posterior auricular or occipital adenopathy. Left side of head: No submental, submandibular, tonsillar, preauricular, posterior auricular or occipital adenopathy. Cervical: Right cervical: No superficial or posterior cervical adenopathy. Left cervical: No superficial or posterior cervical adenopathy. Neurological: Mental Status: She is oriented to person, place, and time. ASSESSMENT/PLAN: 1. COVID-19 - ICD9: 079.89, ICD10: U07.1 Confirmed COVID diagnosed via rapid home test 04/21, PCR here at [facility] 04/23 Suspect to be consistent with lingering COVID symptoms. No evidence of bacterial infection seen on today's exam, as well as any red flag signs/sx. Rx for scheduled dosing of albuterol inhaler; discussed medication indications, proper use, and potential adverse effects. All questions and concerns addressed to patient satisfaction. Pt advised to see PCP if symptoms persist or progress. Reviewed red flags with patient and when to seek care sooner. The patient indicates understanding of these issues and agrees with the plan. Angie Zavala PA-C documented in this encounter [facility] 05-05-2022 Miscellaneous Notes Patient phones requesting refills as follows: Pending Prescriptions Disp Refills BUPROPION XL 300 MG 24 HR TAB 30 tablet 5 Sig: Take 1 tablet by mouth once daily. OSVALDO: No CATALINA 10/18/21 NOV no upcoming appt Please review and advise. Rick Holcomb LPN documented in this encounter [facility] 02-25-2014 History of Past i llness Narrative Problem Noted Date Resolved Date Sprain of ankle, unspecified site 02/25/2014 04/28/2015 Abdominal pain, right upper quadrant 07/10/2013 04/28/2015 Back pain 01/16/2013 04/28/2015 documented as of this encounter (statuses as of 05/05/2022) [facility] History of Past illness Narrative* Problem Noted Date Resolved Date Sprain of ankle, unspecified site 02/25/2014 04/28/2015 Abdominal pain, right upper quadrant 07/10/2013 04/28/2015 Back pain 01/16/2013 04/28/2015 documented as of this encounter (statuses as of 05/05/2022) [facility] History of Past illness Narrative* Problem Noted Date Resolved Date Sprain of ankle, unspecified site 02/25/2014 04/28/2015 Abdominal pain, right upper quadrant 07/10/2013 04/28/2015 Back pain 01/16/2013 04/28/2015 documented as of this encounter (statuses as of 11/23/2022) [facility] History of Past illness Narrative* Problem Noted Date Resolved Date Sprain of ankle, unspecified site 02/25/2014 04/28/2015 Abdominal pain, right upper quadrant 07/10/2013 04/28/2015 Back pain 01/16/2013 04/28/2015 documented as of this encounter (statuses as of 11/24/2022) [place] [id number] History of Past illness Narrative* Problem Noted Date Resolved Date Sprain of ankle, unspecified site 02/25/2014 04/28/2015 Abdominal pain, right upper quadrant 07/10/2013 04/28/2015 Back pain 01/16/2013 04/28/2015 documented as of this encounter (statuses as of 01/16/2023) [facility] History of Past illness Narrative* Problem Noted Date Diagnosed Date Resolved Date Sprain of ankle, unspecified site 02/25/2014 04/28/2015 Abdominal pain, right upper quadrant 07/10/2013 04/28/2015 Back pain 01/16/2013 04/28/2015 documented as of this encounter (statuses as of 09/17/2023) [place] [id number] History of Past illness Narrative* Problem Noted Date Diagnosed Date Resolved Date Sprain of ankle, unspecified site 02/25/2014 04/28/2015 Abdominal pain, right upper quadrant 07/10/2013 04/28/2015 Back pain 01/16/2013 04/28/2015 documented as of this encounter (statuses as of 01/10/2024) [place] [id number] History of Past illness Narrative* Problem Noted Date Diagnosed Date Resolved Date Sprain of ankle, unspecified site 02/25/2014 04/28/2015 Abdominal pain, right upper quadrant 07/10/2013 04/28/2015 Back pain 01/16/2013 04/28/2015 documented as of this encounter (statuses as of 01/10/2024) [place] [id number] History of Past illness Narrative* Problem Noted Date Diagnosed Date Resolved Date Sprain of ankle, unspecified site 02/25/2014 04/28/2015 Abdominal pain, right upper quadrant 07/10/2013 04/28/2015 Back pain 01/16/2013 04/28/2015 documented as of this encounter (statuses as of 02/05/2024) [address]09-2014 History of Past illness Narrative* Problem Noted Date Diagnosed Date Resolved Date Sprain of ankle, unspecified site 02/25/2014 04/28/2015 Abdominal pain, right upper quadrant 07/10/2013 04/28/2015 Back pain 01/16/2013 04/28/2015 documented as of this encounter (statuses as of 02/12/2024) [facility] note* Diagnosis COVID-19- Primary documented in this encounter [facility] note* Diagnosis Well adult exam- Primary Routine general medical examination at a health care facility GERD without esophagitis Esophageal reflux Persistent depressive disorder documented in this encounter [facility] note* Diagnosis Radiculopathy, lumbar region- Primary Thoracic or lumbosacral neuritis or radiculitis, unspecified GERD without esophagitis Esophageal reflux Obesity, Class III, BMI 40-49.9 (morbid obesity) (HCC) Morbid obesity Former smoker Personal history of tobacco use, presenting hazards to health Chronic low back pain with sciatica, sciatica laterality unspecified, unspecified back pain laterality Current severe episode of major depressive disorder with psychotic features, unspecified whether recurrent ([facility]) Screening for cervical cancer Screening for malignant neoplasm of the cervix Family planning Other general counseling and advice for contraceptive management Premenstrual dysphoric disorder Premenstrual tension syndromes documented in this encounter [facility] note* Diagnosis LYNDA (obstructive sleep apnea)- Primary Obstructive sleep apnea (adult) (pediatric) documented in this encounter [facility] note* Diagnosis contractions- Primary contractions documented in this encounter [facility] note* Diagnosis [place] contraction- Primary Other threatened labor, unspecified as to episode of care [place] contraction Other threatened labor, unspecified as to episode of care documented in this encounter [facility] note* Diagnosis Pre-operative examination- Primary Preoperative examination, unspecified Intervertebral disc disorders with radiculopathy, lumbar region GERD without esophagitis Esophageal reflux Dysthymia Dysthymic disorder Obesity, Class III, BMI 40-49.9 (morbid obesity) (HCC) Morbid obesity Former smoker Personal history of tobacco use, presenting hazards to health Influenza A- Primary Influenza with other respiratory manifestations URI, acute Acute upper respiratory infections of unspecified site 32 weeks gestation of state, incidental documented in this encounter [facility] note* Diagnosis Pre-operative examination- Primary Preoperative examination, unspecified Intervertebral disc disorders with radiculopathy, lumbar region GERD without esophagitis Esophageal reflux Dysthymia Dysthymic disorder Obesity, Class III, BMI 40-49.9 (morbid obesity) (HCC) Morbid obesity Former smoker Personal history of tobacco use, presenting hazards to health Bacterial sinusitis- Primary Unspecified sinusitis (chronic) documented in this encounter [facility] note* Diagnosis Pre-operative examination- Primary Preoperative examination, unspecified Intervertebral disc disorders with radiculopathy, lumbar region GERD without esophagitis Esophageal reflux Dysthymia Dysthymic disorder Obesity, Class III, BMI 40-49.9 (morbid obesity) Morbid obesity Former smoker Personal history of tobacco use, presenting hazards to health Radiculopathy, lumbar region- Primary Thoracic or lumbosacral neuritis or radiculitis, unspecified Chronic low back pain with sciatica, sciatica laterality unspecified, unspecified back pain laterality Current severe episode of major depressive disorder with psychotic features, unspecified whether recurrent ([facility]) documented in this encounter [facility] note* Diagnosis Pre-operative examination- Primary Preoperative examination, unspecified Intervertebral disc disorders with radiculopathy, lumbar region GERD without esophagitis Esophageal reflux Dysthymia Dysthymic disorder Obesity, Class III, BMI 40-49.9 (morbid obesity) (HCC) Morbid obesity Former smoker Personal history of tobacco use, presenting hazards to health Foot pain, left- Primary Pain in limb Foot pain, left Pain in limb documented in this encounter [facility] note* Diagnosis Pre-operative examination- Primary Preoperative examination, unspecified Intervertebral disc disorders with radiculopathy, lumbar region GERD without esophagitis Esophageal reflux Dysthymia Dysthymic disorder Obesity, Class III, BMI 40-49.9 (morbid obesity) (HCC) Morbid obesity Former smoker Personal history of tobacco use, presenting hazards to health Foot pain, left Pain in limb documented in this encounter [facility] for visit Narrative* Diagnostic Procedure Only (Urgent) - Closed Specialty Diagnoses / Procedures Referred By Contac t Referred To Contact XR IMAGING Diagnoses Foot pain, left Procedures XR FOOT GENERAL 3V AP/LAT/OBL LEFT RADEX FOOT COMPLETE MINIMUM 3 VIEWS Dalia Vazquez APRN.BUILDING DRAFTING OFFICER [address] [place] [address] Phone: tel: fax: [place] [phone] Referral ID Status Reason Start Date Expiration Date V isits Requested Visits Authorized [id number] Closed Auto-Generate d Referral 06/19/2025 07/19/2026 1 1 [facility] Summary Purpose Family History No Family History Records FoundNo Family History Records FoundNo Family History Records FoundNo Family History Records FoundNo Family History Records FoundNo Family History Records FoundNo Family History Records Found Advance Directives No Advanced Directives Records FoundDocuments on File Type Date Recorded 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 Advance Directive(s) 10/18/2021 10:22 AM Advance Directive(s) 01/14/2020 12:40 PM Advance Directive(s) 10/14/2019 10:51 AM Documents on File Type Date Recorded 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 Advance Directive(s) 10/18/2021 10:22 AM Advance Directive(s) 01/14/2020 12:40 PM Advance Directive(s) 10/14/2019 10:51 AM Date Activated Date Inactivated Comments 12/16/2024 7:51 PM 12/18/2024 8:05 PM Health Concerns Infection Onset Date Last Indicated Resolved Time COVID-19 Confirmed 04/23/2022 04/23/2022 Infection Onset Date Last Indicated Resolved Time COVID-19 Confirmed 04/23/2022 04/23/2022 Reason for Referral Specialty Diagnoses / Procedures Referred By Contac t Referred To Contact Diagnoses COVID-19 Angie Zavala PA-C [address] [place] [address] Referral ID Status Reason Start Date Expiration Date Visits Re quested Visits Authorized [id number] Closed 1 1 Specialty Diagnoses / Procedures Referred By Contac t Referred To Contact Gynecology Diagnoses Family planning Procedures CONSULT TO GYNECOLOGY OFFICE/OUTPATIENT NEW HIGH MDM 60 MINUTES Nicci Pratt APRN.SALVAGE MACHINE OPERATOR [address] [place] [address] Referral ID Status Reason Start Date Expiration Date Visits Requested Visits Authorized [id number] Authorized PCP Requested Referral Auto-Generate d Referral 01/10/2024 01/09/2025 1 1 Additional Source Comments INFORMATION SOURCE (unrecogn ized section and content) DATE CREATED AUTHOR [facility]/2018 [facility] DATE CREATED AUTHOR AUTHOR'S ORGANIZ ATION 05/15/2018 [facility] DATE CREATED AUTHOR AUTHOR'S ORGANIZ ATION 10/14/2019 [facility] DATE CREATED AUTHOR AUTHOR'S ORGANIZ ATION 12/25/2024 [facility] DATE CREATED AUTHOR AUTHOR'S ORGANIZ ATION 01/06/2025 [facility] DATE CREATED AUTHOR AUTHOR'S ORGANIZ ATION 06/21/2025 [facility] DATE CREATED AUTHOR AUTHOR'S ORGANIZ ATION 07/04/2025 [facility] Source Comments (unrecognize d section and content) In the event this informatio n is protected by the Federal Confidentiality of Alcohol and Drug Abuse Patient Records regulations: The Federal rules restrict any use of the information to criminally investigate or prosecute any alcohol or drug abuse patient.[facility] the event this information is protected by the Federal Confidentiality of Alcohol and Drug Abuse Patient Records regulations: The Federal rules restrict any use of the information to criminally investigate or prosecute any alcohol or drug abuse patient.[facility] the event this information is protected by the Federal Confidentiality of Alcohol and Drug Abuse Patient Records regulations: The Federal rules restrict any use of the information to criminally investigate or prosecute any alcohol or drug abuse patient.[facility] the event this information is protected by the Federal Confidentiality of Alcohol and Drug Abuse Patient Records regulations: The Federal rules restrict any use of the information to criminally investigate or prosecute any alcohol or drug abuse patient.[facility] the event this information is protected by the Federal Confidentiality of Alcohol and Drug Abuse Patient Records regulations: The Federal rules restrict any use of the information to criminally investigate or prosecute any alcohol or drug abuse patient.[facility] the event this information is protected by the Federal Confidentiality of Alcohol and Drug Abuse Patient Records regulations: The Federal rules restrict any use of the information to criminally investigate or prosecute any alcohol or drug abuse patient.[facility] the event this information is protected by the Federal Confidentiality of Alcohol and Drug Abuse Patient Records regulations: The Federal rules restrict any use of the information to criminally investigate or prosecute any alcohol or drug abuse patient.[facility] the event this information is protected by the Federal Confidentiality of Alcohol and Drug Abuse Patient Records regulations: The Federal rules restrict any use of the information to criminally investigate or prosecute any alcohol or drug abuse patient.[facility] the event this information is protected by the Federal Confidentiality of Alcohol and Drug Abuse Patient Records regulations: The Federal rules restrict any use of the information to criminally investigate or prosecute any alcohol or drug abuse patient.[facility] the event this information is protected by the Federal Confidentiality of Alcohol and Drug Abuse Patient Records regulations: The Federal rules restrict any use of the information to criminally investigate or prosecute any alcohol or drug abuse patient.[facility] the event this information is protected by the Federal Confidentiality of Alcohol and Drug Abuse Patient Records regulations: The Federal rules restrict any use of the information to criminally investigate or prosecute any alcohol or drug abuse patient.[facility] the event this information is protected by the Federal Confidentiality of Alcohol and Drug Abuse Patient Records regulations: The Federal rules restrict any use of the information to criminally investigate or prosecute any alcohol or drug abuse patient.[facility] Hospital[facility] the event this information is protected by the Federal Confidentiality of Alcohol and Drug Abuse Patient Records regulations: The Federal rules restrict any use of the information to criminally investigate or prosecute any alcohol or drug abuse patient.[facility] Hospital[facility] the event this information is protected by the Federal Confidentiality of Alcohol and Drug Abuse Patient Records regulations: The Federal rules restrict any use of the information to criminally investigate or prosecute any alcohol or drug abuse patient.[facility] the event this information is protected by the Federal Confidentiality of Alcohol and Drug Abuse Patient Records regulations: The Federal rules restrict any use of the information to criminally investigate or prosecute any alcohol or drug abuse patient.[facility] the event this information is protected by the Federal Confidentiality of Alcohol and Drug Abuse Patient Records regulations: The Federal rules restrict any use of the information to criminally investigate or prosecute any alcohol or drug abuse patient.[facility] HospitalIn the event this information is protected by the Federal Confidentiality of Alcohol and Drug Abuse Patient Records regulations: The Federal rules restrict any use of the information to criminally investigate or prosecute any alcohol or drug abuse patient.[facility] HospitalIn the event this information is protected by the Federal Confidentiality of Alcohol and Drug Abuse Patient Records regulations: The Federal rules restrict any use of the information to criminally investigate or prosecute any alcohol or drug abuse patient.[facility] Reason for Visit (unrecogniz ed section and content) Reason Comments Contractions Specialty Diagnoses / Procedures Referred By Contac t Referred To Contact Diagnoses [place] contraction Procedures . Janet Bailey MD [facility] [address] [place] [address] Phone: tel: fax: [facility] OB Triage H[address] [place] [address] Phone: tel: Referral ID Status Reason Start Date Expiration Date Visits Re quested Visits Authorized [id number] 1 1 Reason Onset Date Comments Refill Request 05/05/2022 Reason Comments Cough Pt reported Dx Covid chest congestion, shoulder pain rated 2, x2 wks Reason Comments Follow Up Reason Onset Date Comments Refill Request 09/17/2023 Reason Comments Yearly Exam Reason Comments Psg Check In (Adult) Reason Comments Results Her Reason Onset Date Comments Refill Request 09/25/2024 Specialty Diagnoses / Procedures Referred By Contac t Referred To Contact Diagnoses contractions Procedures O47.00 Charlette Waller MD [address] [place] [address] Phone: tel: fax: [facility] [address] [place] [address] Phone: tel: Referral ID Status Reason Start Date Expiration Date Visits Re quested Visits Authorized [id number] 1 1 Reason Onset Date Comments Refill Request 12/26/2024 Reason Comments Cough Head congestion, fev er, pelvic pain on left side from coughing x 3 days Reason Comments Pain, Sinus Reason Comments Depression Reason Onset Date Comments Refill Request 04/13/2025 Reason Comments Pain (foot) L foot pain x1 month , denies injury Care Teams (unrecognized sec tion and content) Steam Roller Operator Relationship Specialty Start Date End Date Harley Liu MD [address] [place] [address] PCP - General Family Practice 10/02/17 Steam Roller Operator Relationship Specialty Start Date End Date Harley Liu MD [address] [place], [place] [id number] PCP - General Family Practice 10/02/17 Steam Roller Operator Relationship Specialty Start Date End Date Harley Liu MD [address] [place] [address] PCP - General Family Medicine 10/02/17 Steam Roller Operator Relationship Specialty Start Date End Date Harley Liu MD [address] [place] [address] PCP - General Family Medicine 10/02/17 Steam Roller Operator Relationship Specialty Start Date End Date Harley Liu MD [address] [place] [address] PCP - General Family Medicine 10/02/17 Steam Roller Operator Relationship Specialty Start Date End Date Harley Liu MD [address] [place] [address] PCP - General Family Medicine 10/02/17 Steam Roller Operator Relationship Specialty Start Date End Date Harley Liu MD [address] [place] [address] PCP - General Family Medicine 10/02/17 Steam Roller Operator Relationship Specialty Start Date End Date Harley Liu MD [address] [place] [address] PCP - General Family Medicine 10/02/17 Steam Roller Operator Relationship Specialty Start Date End Date Harley Liu MD [address] [place] [address] PCP - General Family Medicine 10/02/17 Steam Roller Operator Relationship Specialty Start Date End Date Harley Liu MD [address] [place] [address] PCP - General Family Medicine 10/02/17 Steam Roller Operator Relationship Specialty Start Date End Date Harley Liu MD [address] [place] [address] PCP - General Family Medicine 10/02/17 Steam Roller Operator Relationship Specialty Start Date End Date Harley Liu MD [address] [place] [address] PCP - General Family Medicine 12/16/24 Steam Roller Operator Relationship Specialty Start Date End Date Harley Liu MD [address] [place] [address] PCP - General Family Medicine 12/16/24 Steam Roller Operator Relationship Specialty Start Date End Date Harley Liu MD [address] [place] [address] PCP - General Family Medicine 10/02/17 Sharon Rai APRN.BUILDING DRAFTING OFFICER [address] [place] [address] Customer Relations Advisor Family Medicine 10/27/24 Nicci Pratt APRN.BUILDING DRAFTING OFFICER [address] [place] [address] Customer Relations Advisor Family Medicine 10/27/24 Steam Roller Operator Relationship Specialty Start Date End Date Harley Liu MD [address] [place] [address] PCP - General Family Medicine 10/02/17 Sharon Rai APRN.BUILDING DRAFTING OFFICER [address] [place] [address] Customer Relations Advisor Family Medicine 10/27/24 Nicci Pratt APRN.BUILDING DRAFTING OFFICER [address] [place] [address] [facility] 10/27/24 Steam Roller Operator Relationship Specialty Start Date End Date Harley Liu MD [address] [place] [address] PCP - General Family Medicine 10/02/17 Sharon Rai APRN.BUILDING DRAFTING OFFICER [address] [place] [address] Customer Relations Advisor Family [facility] 10/27/24 Nicci Pratt APRN.BUILDING DRAFTING OFFICER [address] [facility] [place] [address] [facility] 10/27/24 Steam Roller Operator Relationship Specialty Start Date End Date Harley Liu MD [address] [place] [address] PCP - General Family Medicine 10/02/17 Sharon Rai DENTAL PROFESSIONAL.BUILDING DRAFTING OFFICER [address] [place] [address] [facility] 10/27/24 Nicci Pratt DENTAL PROFESSIONAL.BUILDING DRAFTING OFFICER [address] [facility] [place] [address] [facility] 10/27/24 Steam Roller Operator Relationship Specialty Start Date End Date Harley Liu MD [address] [facility] [place] [address] PCP - General Family Medicine 10/02/17 Sharon Rai, DENTAL PROFESSIONAL.BUILDING DRAFTING OFFICER [address] [place] [address] [facility] 10/27/24 Nicci Pratt APRN.[facility] [address] [place] [address] [facility] 10/27/24 Scheduled Active and Recently Administ ered Medications (unrecognized section and content) Medication Order 12/16/2024 12/17/2024 12/18/2024 betamethasone acetate-betamethasone sodium phosphate (Celestone) injection 12 mg (COMPLETED) 12 mg, IntraMUSCular, Once, On Sun12/17/24 at 1500, For 1 dose 1505 (Given - Provider: Kaitlynn Stanley RN) buPROPion XL (Wellbutrin XL) 24 hr tablet 300 mg 300 mg, Oral, Daily, First dose on Sun12/17/24 at 0900, Do not crush, chew, or split., Indications: Major Depressive Disorder 1004 (Given - Provider: Kaitlynn Stanley RN) 0821 (Given - Provider: Katerina Romo RN) cyclobenzaprine (Flexeril) tablet 5 mg (COMPLETED) 5 mg, Oral, Once, On Ainsley 12/18/24 at 0200, For 1 dose 0155 (Given - Provid er: Holli Mitchell RN) famotidine (Pepcid) 20 mg in sodium chloride (PF) 0.9 % 10 mL injection(Linked Group 1) 20 mg, IntraVENous, Administer over 2 Minutes, 2 times daily, First dose on Sun12/17/24 at 1200, IV or ORAL 1201 (See Alternative - Provider: Kaitlynn Stanley RN)2118 (See Alternative - Provider: Holli Mitchell RN) 820 (See Alternative - Provider: Katerina Romo RN) famotidine (Pepcid) tablet 20 mg(Linked Group 1) 20 mg, Oral, 2 times daily, First dose on Sun12/17/24 at 1200, IV or ORAL 1201 (Given - Provider: Kaitlynn Stanley RN)2118 (Given - Provider: Holli Mitchell RN) 820 (Given - Provider: Katerina Romo RN) lactated ringers bolus 500 mL (COMPLETED) 500 mL, IntraVENous, at 1,000 mL/hr, Administer over 0.5 Hours, Once, On Sun12/18/24 at 0000, For 1 dose 0002 (New Bag - Provider: Holli Mitchell RN)0032 (Stopped - Provider: Holli Mitchell, ROHAN) lactated ringers bolus 500 mL (COMPLETED) 500 mL, IntraVENous, at 500 mL/hr, Administer over 1 Hours, Once, On Sun12/18/24 at 0200, For 1 dose 0150 (New Bag - Provider: Holli Mitchell, ROHAN)0250 (Stopped - Provider: Holli Mitchell, ROHAN) NIFEdipine (Procardia) capsule 20 mg (COMPLETED) 20 mg, Oral, Every 6 hours scheduled (4 times per day), First dose on Sun12/16/24 at 2200, For 43 hours, Hold dosing if SBP <90 or DBP <60 and notify provider 2205 (Given - Provider: Luz Maria Hoffmann RN) 0554 (Given - Provider: Ana Lyons RN)1201 (Given - Provider: Kaitlynn Stanley, ROHAN)1756 (Given - Provider: Kaitlynn Stanley, ROHAN) 0041 (Given - Provider: Holli Mitchell RN)0605 (Given - Provider: Holli Mitchell RN)1130 (Given - Provider: Katerina Romo, ROHAN) vitamin tablet 1 tablet, Oral, Daily, First dose on Sun12/16/24 at 2000 2000 (Not Given - Provider: Luz Marai Hoffmann RN - Reason: Other) 1003 (Given - Provider: Kaitlynn Stanley, ROHAN) 0821 (Given - Provider: Katerina Romo, ROHAN) sodium chloride 0.9% (NS) flush 10 mL 10 mL, IntraVENous, Every 12 hours scheduled (2 times per day), First dose on Sun12/16/24 at 2100 2100 (Not Given - Provider: Luz Maria Hoffmann RN - Reason: IV Fluids Infusing) 1004 (Given - Provider: Kaitlynn Stanley RN)2119 (Given - Provider: Holli S. Mitchell, RN) 0900 (Canceled Entry - Provider: Automatic Discharge Provider - Comment: Automatically canceled at discontinue of medication order) Continuous Medication Order 12/16/2024 12/17/2024 12/18/2024 magnesium sulfate 20 GM/500ML infusion () 1,000 mg/hr (25 mL/hr), IntraVENous, Administer over 12 Hours, Continuous, Starting on Sun12/16/24 at 2145, For 12 hours, Pre-Infusion: Assess baseline vital signs (blood pressure, pulse, pulse oximetry, respirations, and temperature), respiratory status, intake and output, neurologic status (deep tendon reflexes, presence or absence of clonus, level of consciousness (LOC), presence of headaches/visual disturbances, presence/absence of epigastric pain, and if applicable Heart Rate/Contractions (continuous monitoring). Loading Dose and Maintenance Infusion: - Stay with the patient during the loading dose and the first hour of the infusion to monitor for adverse reactions. - Monitor the patient's vital signs (including pulse oximetry) and assess respiratory status, deep tendon reflexes, and level of consciousness every 15 minutes for the first hour after the start of the loading dose, then every 30 minutes for 1 hour, then every 2 hours thereafter unless more frequent assessments are warranted based on the patient's condition. Notify care provider immediately of absent deep tendon reflexes, a urine output of less than 30 mL/hour, respirations of less than 10 breaths/minute, or an oxygen saturation level of less than 95% Grams to milligrams conversion table: 1 gram = 1000 mg 2 grams = 2000 mg 4 grams = 4000 mg 6 grams = 6000 mg 20 grams = 20,000 mg, Indications: Neuroprotection 2206 (New Bag - Provider: Luz Maria Hoffmann RN) 1006 (Stopped - Provider: Kaitlynn Stanley RN) PRN Medication Order 12/16/2024 12/17/2024 12/18/2024 acetaminophen (Tylenol) tablet 650 mg 650 mg, Oral, Every 4 hours PRN, mild pain (1-3), Fever GREATER than 100.5 F (38 C), Starting on Sun12/16/24 at 1949, Maximum dose of acetaminophen is 4000 mg from all sources in 24 hours. 1255 (Given - Provider: Kaitlynn Stanley RN)2353 (Given - Provider: Holli Mitchell, RN) 1137 (Given - Provider: Katerina Romo, ROHAN) calcium gluconate 10 % injection 1 g 1 g, IntraVENous, PRN, For suspected magnesium toxicity or for respiratory rate less than 6 per minute., Starting on Sun12/16/24 at 2121, Administer slow IV push over 5 minutes. docusate sodium (Colace) capsule 100 mg 100 mg, Oral, 2 times daily PRN, constipation, Starting on Sun12/17/24 at 2100, Do not crush or break. Second Line 2118 (Given - Provider: Holli Mitchell, RN) ondansetron (Zofran) injection 4 mg(Linked Group 2) 4 mg, IntraVENous, Every 6 hours PRN, nausea, vomiting, Starting on Sun12/16/24 at 194, 1st Line. Give IV if patient is unable to take orally. If inadequate response within 60 minutes, proceed to next-line agent or contact provider if no further options ordered. ondansetron ODT (Zofran-ODT) disintegrating tablet 4 mg(Linked Group 2) 4 mg, Oral, Every 8 hours PRN, nausea, vomiting, Starting on Sun12/16/24 at 194, 1st Line. If inadequate response within 60 minutes, proceed to next-line agent or contact provider if no further options ordered. Patient should allow tablet to dissolve on tongue. Do not remove from blister pack until just before administering. polyethylene glycol (PEG) 3350 (Miralax) packet 17 g 17 g, Oral, Daily PRN, constipation, 1st line, Starting on Sun12/17/24 at 2112 0825 (Given - Provid er: Katerina Romo RN) sodium chloride 0.9 % infusion 5-250 mL/hr, IntraVENous, PRN, if patient receiving piggyback infusions and maintenance fluids are not ordered OR KVO fluids to protect IV site / prevent frequent line interruptions/ long duration, Starting on Sun12/16/24 at 1949, For piggyback infusion, administer at same rate as piggyback for a total of 25 mL. Enter 25 mL into dose field and piggyback rate into rate field of order. If piggyback is infusing at a rate less than 100 mL/hr, enter 25 mL into dose field and 100 mL/hr into rate field of order. For KVO fluids, enter rate of 20 mL/hr or less into rate field of order. sodium chloride 0.9% (NS) flush 10 mL 10 mL, IntraVENous, PRN, line care, Starting on Sun12/16/24 at 1949, After every IV line use 0000 (Given - Provid er: Holli Mitchell RN) Linked Groups Order Group 1: famotidine (Pepcid) tablet 20 mgJump to med 20 mg, Oral, 2 times daily, First dose on Sun12/17/24 at 1200, IV or ORAL Or famotidine (Pepcid) 20 mg in sodium chloride (PF) 0.9 % 10 mL injectionJump to med 20 mg, IntraVENous, Administer over 2 Minutes, 2 times daily, First dose on Sun12/17/24 at 1200, IV or ORAL Group 2: ondansetron ODT (Zofran-ODT) disintegrating tablet 4 mgJump to med 4 mg, Oral, Every 8 hours PRN, nausea, vomiting, Starting on Sun12/16/24 at 194, 1st Line. If inadequate response within 60 minutes, proceed to next-line agent or contact provider if no further options ordered. Patient should allow tablet to dissolve on tongue. Do not remove from blister pack until just before administering. Or ondansetron (Zofran) injection 4 mgJump to med 4 mg, IntraVENous, Every 6 hours PRN, nausea, vomiting, Starting on Sun12/16/24 at 1949, 1st Line. Give IV if patient is unable to take orally. If inadequate response within 60 minutes, proceed to next-line agent or contact provider if no further options ordered. FOR RECORDS PERTAINING TO PATIENTS WHO ARE OR HAVE BEEN ENROLLED IN A CHEMICAL DEPENDENCY/SUBSTANCEABUSE PROGRAM, SOME INFORMATION MAY BE OMITTED. This clinical summary was aggregated from multiple sources. Caution should be exercised in using it in the provision of clinical care. This summary normalizes information from multiple sources, and as a consequence, information in this document may materially change the coding, format and clinical context of patient data. In addition, data may be omitted in some cases. CLINICAL DECISIONS SHOULD BE BASED ON THE PRIMARY CLINICAL RECORDS. [employer] [facility]. provides no warranty or guarantee of the accuracy or completeness of information in this document.
[2025-07-05 12:14] LABS: Hematocrit 39.7 % (37-47); Hemoglobin 13.8 g/dL (12.0-15.0); Immature Granulocytes Count 0.020 X10^3/uL (0.0-0.0); Mean Corp Hgb Conc 34.8 g/dL (32-36); Mean Corpuscular Volume 81.2 fL (81-99); Mean Platelet Vol. 9.5 fl (6.2-12.0); NRBC Flagged by Analyzer 0 % (0-5); Platelet Count 305 K/mm3 (150-450); RBC Distribution Width CV 12.7 % (11.6-14.6); RBC Distribution Width SD 37.4 fl (35.1-43.9); Red Blood Count 4.89 M/mm3 (4.2-5.4); White Blood Count 10.3 K/mm3 (4.4-11.0)
[2025-07-05] MEDS: 0.9% Normal Saline (1000mL) 1,000 ML 1000 ML IV (12:14)
[2025-07-05 12:32] LABS: Mucous, Urine 0 SEEN /hpf (<or=2+); Red Blood Cells-Urine 0 SEEN /hpf (0-5)
[2025-07-05 12:34] LABS: Lipase 28 U/L (13-75)
[2025-07-05 12:37] LABS: Color, Urine Yellow (Yellow); Glucose, Dipstick Normal (Normal); Ketone-Dipstick Negative (Negative); Leukocyte Esterase-Dipstick Negative /ul (Negative); Nitrite-Dipstick Negative (Negative); Occult Blood-Urine Negative /ul (Negative); Protein-Dipstick 15 mg/dl (Negative); Specific Gravity, Urine 1.025 (1.002-1.030); Urine Bilirubin Dipstick Negative (Negative)
[2025-07-05 12:43] LABS: Internal QC Validated? YES +Cl - CLEAR BKGD; Pregnancy, Urine Negative Negative; Record Kit Lot#,Urine Preg 0000962302; Squamous Epithelial Cells - UA 0-5 SEEN /hpf (5-10)
--- NOTE | 2025-07-05 12:55 | CT_ITS ---
PROCEDURE: ABDOMEN/PELVIS W IV CONT ONLY 07/05/2025 REASON FOR EXAM: PAIN TECHNIQUE: ABDOMEN/PELVIS W IV CONT ONLY Coronal and Sagittal reconstruction series were provided. CONTRAST: Isovue 370 VOLUME: 99 mL One or more dose reduction techniques were used (e.g., Automated exposure control, adjustment of the mA and/or kV according to patient size, use of iterative reconstruction technique. RADIATION DOSE SUMMARY: CTDlvol: 24.17 mGy DLP: 1344.46 mGycm COMPARISON: None. FINDINGS: Lung bases: Clear. Liver: Unremarkable. Gallbladder: Status post cholecystectomy. Spleen: Unremarkable. Pancreas: Unremarkable. Adrenals: Unremarkable. Kidneys: Unremarkable. No hydronephrosis. No nephrolithiasis. Bladder: Unremarkable. Reproductive Organs: Unremarkable. Bowel: No bowel wall thickening. No bowel obstruction. Dilated bowel loops with fluid which can be due to enterocolitis Appendix: Unremarkable. No evidence of acute appendicitis. Lymph nodes: Unremarkable. Vasculature: No aneurysm. Peritoneum / Retroperitoneum: No free air or free fluid. Bones: No acute bony abnormalities. Degenerative changes at L4-L5. CT/Abdomen/Pelvis W IV Cont ONLY IMPRESSION: Dilated bowel loops with fluid which can be due to enterocolitis. Otherwise, no acute findings in the abdomen and pelvis. Reading Location: [id number]
[2025-07-05 13:05] LABS: BUN 14 mg/dL (4-19); Glucose 108 mg/dL (70-99)
[2025-07-05 13:06] LABS: AST(SGOT) 18 U/L (<=31); Alanine Aminotransfer ALT/SGPT 27 U/L (<=34); Albumin, Serum 4.2 g/dL (3.5-5.0); Alkaline Phosphatase 81 U/L (35-104); Anion Gap 15 (5-15); BUN/Creat Ratio 20.6 RATIO (10-20); Calcium,Total 9.2 mg/dL (7.6-11.0); Carbon Dioxide 18.1 mmol/L (21.0-32.0); Chloride 106 mmol/L (98-108); Estimated Creatinine Clearance 157.47 ml/min (50-250); Globulin 3.1 g/dL (2.2-4.2); Potassium 4.5 mmol/L (3.3-5.1)
[2025-07-05 13:24] VITALS: PULSE 63; RESP 18; O2SAT 100
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
[2025-07-05 13:52] VITALS: BP 147/92; PULSE 63; RESP 18; TEMP 36.4; O2SAT 100
== END 2025-07-05 14:00 | disposition home or self-care (01) ==
PROVIDERS: Emergency Provider Student in an Organized Health Care Education/Training Program; PCP Family Medicine; Visit Provider Student in an Organized Health Care Education/Training Program
DX: K52.9 Noninfective gastroenteritis and colitis, unspecified (principal); F33.1 Major depressive disorder, recurrent, moderate; Z87.891 Personal history of nicotine dependence; R10.9 Unspecified abdominal pain; Z79.899 Other long term (current) drug therapy; Z90.49 Acquired absence of other specified parts of digestive tract
CPT/HCPCS: 74177; 80053; 81001; 81025; 83690; 85025; 96361; 96374; 99283; Q9967; A4216; J2405